=== PATIENT | female | born 1965 | race Caucasian/White ===

== ENCOUNTER 2023-03-11 10:13 | Outpatient (OUT) | payer OTHER, SELFPAY ==
--- NOTE | 2023-03-11 10:23 | MM_ITS ---
Patient: MARK OROZCO Exam Date: 03/11/2023 : 1965 Gender:F Ordering : DR RICHARDSON OGDEN . Admission #: [id number] Family : Order #: [id number] CLICK HERE TO VIEW EXAM RADIOLOGY REPORT PROCEDURE: MM TOMOSYNTHESIS SCREENING BI COMPARISON: MG MAMM SCREEN 3D PO CAD, 03/02/2022. MG MAMM SCREEN 3D PO CAD, 03/01/2021. MG MAMM SCREEN PO W CAD, 02/26/2020. MAMMO PO SCREEN, 12/27/2004. INDICATIONS: Screening Z12.31 Calculator Name NCI Breast Cancer Risk Assessment Tool 5 Year Breast Cancer Risk 1.00% Lifetime Breast Cancer Risk 6.30% Personal Breast Cancer No Personal Ovarian Cancer No Treatments None Family Cancers Father with lung cancer at age 57. LOCATION: [facility] BREAST COMPOSITION: Heterogeneously dense,which may obscure small masses. FINDINGS: DIAGNOSTIC CATEGORY 2--BENIGN FINDING: RIGHT BREAST: No significant suspicious finding. No significant change has occurred. LEFT BREAST: No significant suspicious finding. No significant change has occurred. RECOMMENDATIONS: ROUTINE MAMMOGRAM AND CLINICAL EVALUATION IN 12 MONTHS. PLEASE NOTE: A NORMAL MAMMOGRAM DOES NOT EXCLUDE THE POSSIBILITY OF BREAST CANCER. A CLINICALLY SUSPICIOUS PALPABLE LUMP SHOULD BE BIOPSIED. Dictated by: Surya Fountain M.D. on 03/12/2023 at 13:47 Approved by: Surya Fountain M.D. on 03/12/2023 at 13:51
== END 2023-03-11 10:14 ==
LOC: MAMMO 10:18
PROVIDERS: PCP Family Medicine; Visit Provider Obstetrics & Gynecology
DX: Z12.31 Encounter for screening mammogram for malignant neoplasm of breast (principal); Z80.1 Family history of malignant neoplasm of trachea, bronchus and lung
CPT/HCPCS: 77063; 77067

== ENCOUNTER 2023-06-04 20:35 | Outpatient (REF) | payer OTHER, SELFPAY ==
[2023-06-07 15:09] LABS: Age Gdln ACOG Testing Note (.); HPV Aptima Negative (Negative); IGP, Aptima HPV, rfx 16/18,45 Note (.)
== END 2023-06-04 20:36 | disposition home or self-care (01) ==
LOC: LAB 20:35
PROVIDERS: PCP Family Medicine; Visit Provider Physician Assistant
DX: Z12.4 Encounter for screening for malignant neoplasm of cervix (principal)
CPT/HCPCS: 87624; G0145

== ENCOUNTER 2023-06-12 10:34 | Outpatient (OUT) | payer OTHER, SELFPAY ==
--- NOTE | 2023-06-12 10:42 | XR_ITS ---
[address] [address] Patient Name: MARK OROZCO MRN: [id number] date: 1965 Sex: F Assigned Patient Location: [facility] Current Patient Location: [facility] Accession/Order Number: [id number] Exam Date: 06/12/2023 10:50 Report Date: 06/12/2023 16:48 At the request of: CANELO HARE Procedure: XR DEXA axial skeleton EXAMINATION: XR DEXA axial skeleton, 06/12/2023 10:50 AM EDT HISTORY: Post Menopausal Z78.0 COMPARISON: 2019. TECHNIQUE: Dual-energy X-ray absorptiometry (DEXA) bone density study performed for the axial skeleton. HISTORY: Post Menopausal Z78.0 FINDINGS: Bone mineral density lumbar spine L1-L4 measures 1.102 g/sq cm. Young adult T score -0.7. WHO classification: Normal Lowest bone mineral density left femoral neck measures 0.853 g/sq cm. T score -1.3. WHO classification: Osteopenia XR/XR DEXA axial skeleton IMPRESSION: Osteopenia. Moderate fracture risk Electronically authenticated by: DONNA EDWARDS Date: 06/12/2023 16:48
== END 2023-06-12 10:35 | disposition home or self-care (01) ==
LOC: RAD 10:34
PROVIDERS: PCP Family Medicine; Visit Provider Physician Assistant
DX: Z78.0 Asymptomatic menopausal state (principal); M85.80 Other specified disorders of bone density and structure, unspecified site
CPT/HCPCS: 77080

== ENCOUNTER 2024-03-19 10:21 | Outpatient (OUT) | payer OTHER, SELFPAY ==
--- NOTE | 2024-03-19 | MM_ITS ---
Patient Name: MARK OROZCO MR#: [id number] : 1965 Exam Date: 03/19/2024 Ordering Doctor: DR Jamey Sanches . RADIOLOGY REPORT PROCEDURE: MM TOMOSYNTHESIS SCREENING BI COMPARISON: MM TOMOSYNTHESIS SCREENING BI, 03/11/2023. MG MAMM SCREEN 3D PO CAD, 03/02/2022. MG MAMM SCREEN 3D PO CAD, 03/01/2021. MAMMO PO SCREEN, 12/27/2004. INDICATIONS: Screening for malignant neoplasm of breast Calculator Name NCI Breast Cancer Risk Assessment Tool 5 Year Breast Cancer Risk 1.10% Lifetime Breast Cancer Risk 6.10% Personal Breast Cancer No Personal Ovarian Cancer No Treatments None Family Cancers Father with lung cancer at age 57. LOCATION: [facility] BREAST COMPOSITION: The breasts are heterogeneously dense,which may obscure small masses. FINDINGS: DIAGNOSTIC CATEGORY 1--NEGATIVE. RIGHT BREAST: No significant suspicious finding. No significant change has occurred. LEFT BREAST: No significant suspicious finding. No significant change has occurred. RECOMMENDATIONS: ROUTINE MAMMOGRAM AND CLINICAL EVALUATION IN 12 MONTHS. PLEASE NOTE: A NORMAL MAMMOGRAM DOES NOT EXCLUDE THE POSSIBILITY OF BREAST CANCER. A CLINICALLY SUSPICIOUS PALPABLE LUMP SHOULD BE BIOPSIED. Dictated by: Surya Fountain M.D. on 03/19/2024 at 15:48 Approved by: Surya Fountain M.D. on 03/19/2024 at 16:07
== END 2024-03-19 10:22 | disposition home or self-care (01) ==
LOC: MAMMO 10:21
PROVIDERS: PCP Family Medicine; Visit Provider Obstetrics & Gynecology
DX: Z12.31 Encounter for screening mammogram for malignant neoplasm of breast (principal); Z80.1 Family history of malignant neoplasm of trachea, bronchus and lung
CPT/HCPCS: 77063; 77067

== ENCOUNTER 2024-06-24 21:22 | Outpatient (REF) | payer OTHER, SELFPAY ==
--- OUTSIDE RECORDS SUMMARY | 2024-06-24 21:26 | XMS_ITS | CCD ---
Author Organization [facility] Care Team Providers Care Bindery Worker Name Role Phone Andres Chinchilla Primary Care Provider Benjy Broderick Unavailable Mechelle Liang Unavailable Guillermo Olivo Unavailable Chris Loo Unavailable Andres Chinchilla MD Primary Care Provider [phone] ISAAC, DR NASH Attending Unavailable KARASIK, DR NASH Consulting Unavailable NADERER, DR ANDRES Alvarenga Primary Care Unavailable KARASIK, DR NASH Admitting Unavailable ZIEBER, DR GAUDENCIO Gross Consulting Unavailable KARASIK, DR NASH Admitting Unavailable KARASIK, DR NASH Attending Unavailable KARASIK, DR NASH Consulting Unavailable NADERER, DR ANDRES Alvarenga Primary Care Unavailable Andres Chinchilla MD Primary Care Provider [phone] ANDRES CHINCHILLA Primary Care Unavailable DARRIN, ANISHA A Admitting Unavailable DARRIN, ANISHA A Attending Unavailable DARRIN, ANISHA A Referring Unavailable STEVENERERANDRES Primary Care Unavailable KAVITHA SCHULER Attending Unavailable DARRIN, ANISHA A Admitting Unavailable DARRIN, ANISHA A Attending Unavailable MARGYRANDRES Primary Care Unavailable DARRIN, ANISHA A Referring Unavailable STEVENERERANDRES Primary Care Unavailable VERONIQUE GUTIERREZ Attending Unavailable SELF, SELF Referring Unavailable DARRIN, ANISHA A Attending Unavailable ANDRES CHINCHILLA Primary Care Unavailable DARRIN, ANISHA A Referring Unavailable MARGYRANDRES Primary Care Unavailable DARRIN, ANISHA A Attending Unavailable SELF, SELF Referring Unavailable MARGYRANDRES Primary Care Unavailable DARRIN, ANISHA A Attending Unavailable MATTVERONIQUE D Referring Unavailable STEVENERERANDRES Primary Care Unavailable DARRIN, ANISHA A Attending Unavailable SELF, SELF Referring Unavailable MARGYRANDRES Primary Care Unavailable NADERER, ANDRES Primary Care Unavailable SELF, SELF Referring Unavailable TIANA KINGSLEY Attending Unavailable SELF, SELF Referring Unavailable TIANA KINGSLEY Attending Unavailable NADERER, ANDRES Primary Care Unavailable Andres Chinchilla MD Primary Care Provider ANDRES CHINCHILLA MD Attending Unavail able NADERERANDRES Primary Care Unavailolman e ANDRES CHINCHILLA Referring Unavailabl e MD Andres Chinchilla Primary Care Provider [phone] MD Mechelle Liang Attending Provider ANDRES CHINCHILLA Attending Unavailable MD Andres Chinchilla Primary Care Provider [phone] MD Mechelle Liang Attending Provider MD Andres Chinchilla Primary Care Provider MD Mechelle Liang Attending Provider [phone] Andres Chinchilla MD Primary Care Provider SABINE BARCLAY Attending Unavailable NADEREANDRES Gross Referring Unavailable NADERER, ANDRES Primary Care Unavailable NADEREANDRES Gross Referring Unavailable AMOR, ANDRES Primary Care Unavailable MD Andres Chinchilla Primary Care Provider [phone] MD Mechelle Liang Attending Provider Mechelle Liang Admitting Unavailable Naderer, Andres Primary Care Unavailable Adryan, Mechelle R Attending Unavailable Adryan, Mechelle R Admitting Unavailable Naderer, Andres Primary Care Unavailable Calvey, Mechelle R Attending Unavailable Calvey, Mechelle R Admitting Unavailable Naderer, Andres Primary Care Unavailable Calvey, Mechelle R Attending Unavailable Calvey, Mechelle R Attending Unavailable Naderer, Andres Primary Care Unavailable Calvey, Mechelle R Admitting Unavailable Calvey, Mechelle R Attending Unavailable Calvey, Mechelle R Admitting Unavailable Naderer, Andres Primary Care Unavailable Calvey, Mechelle R Attending Unavailable Calvkarina, Mechelle R Admitting Unavailable Naderer, Andres Primary Care Unavailable Allergies Allergy Classification Reported Allergen(s) Allergy Type Date of Onset Reaction(s) Facility (5 sources) Cephalexin; Translations: [CEPHALEXIN] Drug Allergy 12-08-[address], [place] (18 sources) Penicillins; Translations: [PENICILLINS] Propensity to adverse reactions to drug 05-28-19 85 Hives, Itching, Swelling [address], [place] (11 sources) penicillAMINE Drug Allergy Unknown [employer] Other (13 sources) Narcotis Propensity to adverse reactions 11-14-19 24 [facility] (1 source) NSAIDs Drug allergy (disorder) 04-24-20 16 [facility] (1 source) Penicillins Drug allergy (disorder) 09-30-19 00 [facility] (2 sources) Not Able To Determine Propensity to adverse reactions 07-18-20 [facility] (2 sources) Penicillins Propensity to adverse reactions to drug 05-28-19 85 Hives, Itching, Rash, Swelling, Other (See Comments) [facility] Work Phone: (2 sources) Acetaminophen; Translations: [acetaminophen] Drug Allergy 04-04-20 21 [facility] (9 sources) HYDROcodone; Translations: [hydrocodone] Drug Allergy 04-04-20 21 [facility] (1 source) Penicillins Drug allergy (disorder) 03-06-20 [facility] Rep[facility] Medications Current Medications Medication Drug Class(es) Dates Sig (Normalized) Sig (Original) acetaminophen 500 mg oral tablet (12 sources) Start: 08-01-2022 take 1 tablet by mouth every six hours as needed acetaminophen 500 MG tablet Take 1 tablet by mouth every 6 hours as needed for Mild Pain. 50 tablet 0 08/01/2022 Active Tylenol Active bacillus coagulans [id number] unt / inulin 250 mg oral capsule (7 sources) Start: 11-14-2023 take 1 capsule by mouth once daily in the morning Bacillus Coagulans-Inulin (Probiotic Formula (Inulin)) 1 billion-250 cell-mg capsule Active 1 CAP PO Every morning November 14, 2023 1:00am calcium carbonate 1000 mg chewable tablet (7 sources) Start: 11-14-2023 take 1 tablet by mouth once daily in the morning Calcium Carbonate (Tums Ultra) 400 mg calcium (1,000 mg) tablet,chewable Active 400 MG PO Every morning November 14, 2023 1:00am cholecalciferol 0.05 mg oral capsule (14 sources) Vitamin D Start: 04-04-2021 take 1 capsule by mouth once daily in the morning Cholecalciferol (Vitamin D3) (Vitamin D3) 50 mcg (2,000 unit) Capsule Active 125 MCG PO Every morning April 04, 2021 12:00am Start: 04-04-2021 take 1 capsule by [facility] once daily Cholecalciferol (Vitamin D3) (Vitamin D3) 50 mcg (2,000 unit) Capsule Active 50 MCG PO Daily April 04, 2021 12:00am take 1 capsule by [facility] once daily cholecalciferol 50 MCG (2000 UT) capsule Take 2,000 Units by mouth daily. 0 Active dexlansoprazole 30 mg delayed release oral capsule (5 sources) Proton Pump Inhibitor Start: 02-13-2022 take 1 capsule by mouth every twelve hours Dexlansoprazole 30 MG 1 capsule Orally bid for 30 day(s) January, Active dicyclomine hydrochloride 20 mg oral tablet (1 source) Anticholinergic Start: 01-16-2022 take 1 tablet by mouth three times daily as needed Dicyclomine HCl 20 MG 1 tablet Orally Three times a day PRN for 30 day(s) Dec, Active 12 hr dilTIAZem hydrochloride 120 mg extended release oral capsule (5 sources) Calcium Channel Cabrera Start: 02-19-2022 take 1 capsule by mouth every twelve hours dilTIAZem HCl ER 120 MG 1 capsule Orally Twice a day for 90 days January, Active estrogens, conjugated (mcfp) 0.625 mg/ml vaginal cream (9 sources) Estrogen Start: 02-07-2023 PREMARIN vaginal cream Start: 04-04-2021 Conjugated Est rogens (Premarin) 0.625 mg/gram cream Active 1 APPLIC VAGINAL 3 Times a week April 04, 2021 12:00am HERBAL PRODUCT (6 sources) HERBAL PRODUCT isogenics 0 Active levothyroxine sodium 0.125 mg oral tablet (20 sources) l-Thyroxine Start: 04-04-2021 End: 08-01-2022 take 1 tablet by mouth once daily in the morning Levothyroxine (Synthroid) 125 mcg tablet Active 125 MCG PO Every morning April 04, 2021 12:00am [facility] Levothyroxine Sodium 125 MCG 1 tablet Orally Once a day Active Multiple Vitamins-Minerals ( PRESERVISION AREDS 2 PO) (6 sources) Multiple Vitamin s-Minerals (PRESERVISION AREDS 2 PO) Take 2 tablets by mouth. 0 Active Multivitamin preparation (6 sources) Multivitamin Act shiv Multivitamin/Iron (5 sources) Multivitamin/Iro n Orally Active Oil Base Liquid (6 sources) Oil Base Liquid Take by mouth. CBD 0 Active Oil Base Liquid Apply topically. CBD 0 Active oxyCODONE hydrochloride 5 mg oral tablet (2 sources) Opioid Agonist Start: 08-01-2022 End: 08-08-2022 take 1 tablet by mouth every six hours as needed oxyCODONE 5 MG tablet Indications: S/P repair of paraesophageal hernia Take 1 tablet by mouth every 6 hours as needed for up to 7 days. 10 tablet 0 08/01/2022 08/08/2022 Active Start: 07-31-2022 End: 08-01-2022 take 1 tablet by mouth every three hours as needed oxyCODONE (ROXICODONE) tablet 5 mg Probiotic Product (PROBIOTIC DAILY PO) (2 sources) Probiotic Produc t (PROBIOTIC DAILY PO) Take by mouth daily. 0 Active promethazine hydrochloride 12.5 mg oral tablet (2 sources) Phenothiazine Start: 08-01-2022 End: 08-15-2022 take 1 tablet by mouth every six hours as needed Promethazine HCl 12.5 MG tablet Take 1 tablet by mouth every 6 hours as needed for up to 14 days. 21 tablet 0 08/01/2022 Active Vit C,M-Yn-Mvrri-Lutein-Elizabeth sam (Preservision Areds-2) 250-90-40-1 mg Capsule (8 sources) Start: 04-04-2021 Vit C,K-Oa-Zyqme-Lutein-Ze axan (Preservision Areds-2) 250-90-40-1 mg Capsule Active 2 TAB PO Every morning April 04, 2021 12:00am Start: 04-04-2021 Vit C,E-Zn-Ophthalmic Pathologist ul-Xgcexh-Vxijzw (Preservision Areds-2) 250-90-40-1 mg Capsule Active 2 TAB PO Every morning April 03, 2021 11:00pm Start: 07-06-2021 Vit C,E-Zn-Ophthalmic Pathologist hu-Biylol-Qqyncr (Preservision Areds-2) 250-90-40-1 mg Capsule Active 2 TAB PO Daily April 04, 2021 12:00am Vitamin B Complex (6 sources) Vitamin B Comple x Active Completed/Discontinued Medications Medication Drug Class(es) Dates Sig (Normalized) Sig (Original) acetaminophen 325 mg / HYDROcodone bitartrate 5 mg oral tablet (5 sources) Opioid Agonist Start: 11-28-2023 End: 12-27-2023 take 1 tablet by mouth every four to six hours Hydrocodone-Acetami nophen Discontinued 1 - 2 TAB PO EVERY 4-6 HOURS 50 7 November 28, 2023 December 27, 2023 8:18am calcium chloride 0.0014 meq/ml / potassium chloride 0.004 meq/ml / sodium chloride 0.103 meq/ml / sodium lactate 0.028 meq/ml injectable solution (2 sources) Start: 07-31-2022 End: 08-01-2022 take 1 mL by mouth every hour Intravenous, at 100 mL/hr, CONTINUOUS, Starting on Sat07/31/22 at 1030, Until Sat08/01/22 at 1244 May discontinue when patient taking adequate oral liquids. Post-op/Post-Proc Start: 07-31-2022 End: 07-31-2022 lactated ringers IV solution doxycycline hyclate 100 mg oral tablet (5 sources) Tetracycline-class Drug Start: 11-28-2023 End: 03-06-2024 take 100 mg by mouth twice daily Doxycycline Hyclate Discontinued 100 MG PO Twice daily 10 5 November 28, 2023 1:00am March 06, 2024 9:48am 0.4 ml enoxaparin sodium 100 mg/ml prefilled syringe (1 source) Low Molecular Weight Heparin Start: 08-01-2022 End: 08-01-2022 inject 40 mg by subcutaneous injection every twenty-four hours 40 mg, Subcutaneous, EVERY 24 HOURS, First dose on Sat08/01/22 at 0900, Until Discontinued Indications: DVT/PE prophylaxis, Post-op/Post-Pro c esomeprazole 40 mg delayed release oral capsule (17 sources) Proton Pump Inhibitor Start: 12-18-2021 End: 08-01-2022 take 1 capsule by mouth once daily esomeprazole [address] capsule Take 40 mg by mouth daily. 0 12/18/2021 08/01/2022 Discontinued (Stop Taking at Discharge) Start: 12-07-2021 take 1 capsule by [facility] every twenty-four hours Esomeprazole Magnesium 40 MG 1 capsule Orally Once a day for 90 days Nov, Active Start: 11-20-2021 End: 11-14-2023 take 40 mg by mouth twice daily Esomeprazole Magnesium Discontinued 40 MG PO Twice daily 60 November 20, 2021 1:00am November 14, 2023 12:32pm 2 ml fentaNYL 0.05 mg/ml injection (2 sources) Opioid Agonist Start: 04-26-2022 End: 04-26-2022 fentaNYL (SUBLIMAZE) injection fluticasone propionate 0.05 mg/actuat metered dose nasal spray (8 sources) Corticosteroid Start: 11-14-2023 End: 11-19-2023 Fluticasone Propionate Discontinued 1 SPRAY INTRANASAL Daily November 14, 2023 1:00am November 19, 2023 12:24pm fluticasone prop ionate (FLONASE) 50 mcg/actuation nasal spray Administer into each nostril daily. 0 Active 1 ml ketorolac tromethamine 15 mg/ml cartridge (1 source) Nonsteroidal Anti-inflammatory Drug, Cyclooxygenase Inhibitor Start: 07-31-2022 End: 08-01-2022 take 15 mg intravenously every six hours 15 mg, Intravenous, EVERY 6 HOURS NON-STANDARD, 4 doses, First dose on Sat07/31/22 at 1030, Last dose on Sat08/01/22 at 0430, Post-op/Post-Proc 2 ml midazolam 1 mg/ml injection (2 sources) Benzodiazepine Start: 04-26-2022 End: 04-26-2022 Midazolam HCl (PF) (VERSED) injection morphine (PF) injection 2 mg (1 source) Start: 07-31-2022 End: 08-01-2022 take 2 mg intravenously every three hours as needed morphine (PF) injection 2 mg ondansetron 4 mg disintegrating oral tablet (8 sources) Serotonin-3 Receptor Antagonist Start: 11-28-2023 End: 03-06-2024 take 4 mg by mouth every six hours Ondansetron Discontinued 4 MG PO Every 6 hours 30 7 November 28, 2023 1:00am March 06, 2024 9:48am Start: 08-01-2022 take 1 tablet by adeel th every eight hours as needed ondansetron 4 MG Tab Dispersible tablet Take 1 tablet by mouth every 8 hours as needed for Nausea / Vomiting. 20 tablet 0 08/01/2022 Active Start: 07-31-2022 End: 08-01-2022 4 mg, Intravenous, EVERY 6 H OURS, First dose on Sat07/31/22 at 1200, Until Discontinued, Post-op/Post-Proc Prochlorperazine (1 source) Phenothiazine Start: 07-31-2022 End: 08-01-2022 take 1 tablet by mouth every six hours as needed prochlorperazine (COMPAZINE) tablet 5 mg triamcinolone acetonide 40 mg/ml injectable suspension (20 sources) Corticosteroid Start: 01-23-2023 Kenalog-40 20 May, 2023 20 mg Start: 10-10-2021 Kenalog -40 mg Sep, 20 mg Start: 01-10-2021 Kenalog -40 mg Dec, 40 mg Start: 08-10-2020 Kenalog -40 mg Jul, 10 mg Start: 05-06-2020 Kenalog -40 mg Apr, 40 mg Start: 04-28-2020 Kenalog -40 mg Mar, 40 mg Start: 07-01-2019 Kenalog -40 mg Jun, 40 mg Problems Active Problems Problem Classification Problem Date Documented Da te Episodic/Chronic Abdominal hernia (3 sources) Paraesophageal hernia; Translations: [Diaphragmatic hernia without obstruction or gangrene] Onset: 07-31-2022 Episodic Conditions associated with dizziness or vertigo (1 source) Dizziness and giddiness; Translations: [Dizziness and giddiness] Onset: 01-09-2024 Episodic Disorders of lipid metabolism (1 source) Hyperlipidemia, unspecified; Translations: [Hyperlipidemia, unspecified] Onset: 10-08-2023 Chronic Esophageal disorders (20 sources) Diffuse spasm of esophagus; Translations: [Dyskinesia of esophagus] Onset: 10-26-2021 Resolved: 01-16-2022 Chronic Esophageal disorders (5 sources) Hypertensive lower esophageal sphincter; Translations: [Achalasia of cardia] Episodic Nutritional deficiencies (3 sources) Vitamin D deficiency, unspecified; Translations: [Vitamin D deficiency, unspecified] Onset: 09-17-2022 Chronic Osteoarthritis (20 sources) Arthritis of first carpometacarpal joint of right hand; Translations: [Unilateral primary osteoarthritis of first carpometacarpal joint, right hand] Onset: 10-10-2021 Resolved: 10-10-2021 Chronic Other connective tissue disease (11 sources) Supraspinatus tear; Translations: [Unspecified rotator cuff tear or rupture of right shoulder, not specified as traumatic] Episodic Other connective tissue disease (4 sources) Pain in right hand Onset: 10-10-2021 Resolved: 10-10-2021 Episodic Other connective tissue disease (9 sources) Dupuytren's disease of palm; Translations: [Palmar fascial fibromatosis [Dupuytren]] 11-18-2023 Episodic Other connective tissue disease (20 sources) Palmar fascial fibromatosis [Dupuytren]; Translations: [Contracture of palmar fascia] Episodic Other gastrointestinal disorders (6 sources) Irritable bowel syndrome; Translations: [Irritable bowel syndrome without diarrhea] Chronic Other gastrointestinal disorders (1 source) Irritable bowel syndrome without diarrhea Onset: 01-16-2022 Resolved: 01-16-2022 Chronic Other gastrointestinal disorders (9 sources) Dysphagia; Translations: [Dysphagia, unspecified] Episodic Other gastrointestinal disorders (2 sources) Personal history of other diseases of the digestive system; Translations: [Personal history of other diseases of the digestive system] Onset: 07-31-2022 Episodic Other nervous system disorders (5 sources) Pain in limb; Translations: [Other acute postprocedural pain] 11-28-2023 Episodic Other nutritional; endocrine; and metabolic disorders (7 sources) Obese class I; Translations: [Obesity, unspecified] Onset: 04-20-2022 04-20-2022 Chronic Other nutritional; endocrine; and metabolic disorders (2 sources) Obesity, unspecified; Translations: [Obesity, unspecified] Onset: 04-20-2022 Chronic Other screening for suspected conditions (not mental disorders or infectious disease) (9 sources) Encounter for screening for malignant neoplasm of cervix; Translations: [Encounter for screening mammogram for malignant neoplasm of breast] Onset: 03-02-2022 Episodic Residual codes; unclassified (18 sources) Other specified postprocedural states; Translations: [Other postprocedural status] Onset: 10-10-2021 Resolved: 10-10-2021 Episodic Residual codes; unclassified (1 source) Family history of malignant neoplasm of trachea, bronchus and lung; Translations: [FAM HX MALIG NEOPLSM TRACH BRON LNG] Onset: 03-08-2022 Episodic Residual codes; unclassified (1 source) History of hernia repair; Translations: [Other specified postprocedural states] Episodic Residual codes; unclassified (1 source) History of fundoplication; Translations: [Other specified postprocedural states] Episodic Residual codes; unclassified (5 sources) Postprocedural state finding; Translations: [Other specified postprocedural states] 12-05-2023 Episodic Thyroid disorders (12 sources) Acquired hypothyroidism; Translations: [Hypothyroidism, unspecified] Onset: 07-17-2022 Chronic Unclassified (1 source) Patient encounter status; Translations: [Other plastic surgery for unacceptable cosmetic appearance] Onset: 12-07-2013 12-07-2013 Unclassified (2 sources) Post Op Visit; Translations: [Post Op Visit] Onset: 08-31-2022 Unclassified (1 source) New Patient Onset: 01-09-2024 Unclassified (1 source) Encounter for other preprocedural examination; Translations: [Encounter for other preprocedural examination] Onset: 11-14-2023 Unclassified (1 source) Unilateral primary osteoarthritis of first carpometacarpal joint, right hand; Translations: [Unilateral primary osteoarthritis of first carpometacarpal joint, right hand] Onset: 06-19-2023 Past or Other Problems Problem Classification Problem Date Documented Da te Episodic/Chronic Abdominal pain (3 sources) Abdominal pain; Translations: [Abdominal pain] Episodic Diabetes mellitus without complication (1 source) Prediabetes; Translations: [Prediabetes] Onset: 10-08-2023 Episodic Mood disorders (1 source) Mood disorders Onset: 03-11-2023 03-11-2023 Other aftercare (3 sources) Other terminal makeup operator (current) drug therapy; Translations: [Other jail (current) drug therapy] Onset: 09-17-2022 Episodic Other connective tissue disease (1 source) Unspecified rotator cuff tear or rupture of right shoulder, not specified as traumatic Onset: 10-10-2021 Resolved: 10-10-2021 Episodic Other connective tissue disease (1 source) Pain in right foot Onset: 06-18-2022 Resolved: 06-18-2022 Episodic Other gastrointestinal disorders (3 sources) Constipation; Translations: [Constipation] Episodic Other gastrointestinal disorders (2 sources) Dysphagia, unspecified Onset: 10-26-2021 Resolved: 01-16-2022 Episodic Residual codes; unclassified (2 sources) Patient encounter status; Translations: [Encounter for cosmetic surgery] Onset: 12-07-2013 12-07-2013 Episodic Sprains and strains (1 source) Unspecified sprain of right foot, initial encounter Onset: 06-18-2022 Resolved: 06-18-2022 Episodic Unclassified (1 source) Onset: 03-11-2023 03-11-2023 Results Test Name Value Interpretation Reference Range Facility XR hand RT min 3V*on 024 XR hand RT min 3V* [facility] [address] [place] [address] XRay Report Signed Patient: Tiana Orozco MR#: [id number] 992 : 1965 Acct:[id number] Age/Sex: 59 / F ADM Date: 03/06/24 Loc: [facility] Room: Type: [facility] Attending Dr: Mechelle Liang MD Copies to: Mechelle Liang MD Ordering Provider: Mechelle Liang MD Date of Service: 03/06/24 XR/XR hand RT min 3V*: Z98.890 - Other specified postprocedural states RIGHT HAND - 4 views CLINICAL DATA: Follow-up first carpal metacarpal fusion. COMPARISON: 01/24/2024 AP, lateral and oblique views were obtained along with supplemental AP view of the thumb. Two orthopedic alonzo are again visualized at the first carpal metacarpal joint. Appearance is unchanged. There is no developing fracture or dislocation. There are no significant soft tissue abnormalities. XR/XR hand RT min 3V* IMPRESSION: STABLE FIRST CARPAL METACARPAL FUSION Impression dictated by: Vianney Castañeda M.D.03/06/2024 2:46 PM Dictation Location: [place] [address] Transcribed By: [facility] 03/06/24 1446 Dictated By: Vianney Castañeda MD 03/06/24 1445 Signed By: 03/06/24 1446 Normal [facility] XR hand RT min 3V*on 024 XR hand RT min 3V* [facility] [place] [address] XRay Report Signed Patient: Tiana Orozco MR#: [id number] 992 : 1965 Acct:[id number] Age/Sex: 59 / F ADM Date: 01/24/24 Loc: [facility] Room: Type: [facility] Attending Dr: Mechelle Liang MD Copies to: Mechelle Liang MD Ordering Provider: Mechelle Liang MD Date of Service: 01/24/24 XR/XR hand RT min 3V*: Z98.890 - Other specified postprocedural states RIGHT HAND - 4 views CLINICAL DATA: Follow-up first carpal metacarpal fusion COMPARISON: 12/27/2023 AP, lateral and oblique views were obtained along with supplemental AP view of the thumb. There are postoperative changes of first carpal metacarpal fusion with 2 orthopedic alonzo are again noted. Findings are similar to the comparison. There is no developing fracture or dislocation. There are no significant soft tissue abnormalities. XR/XR hand RT min 3V* IMPRESSION: STABLE POSTOPERATIVE CHANGES AT THE FIRST CARPOMETACARPAL JOINT. Impression dictated by: Vianney Castañeda M.D.01/24/2024 10:24 AM Dictation Location: [facility]- Transcribed By: [facility] 01/24/24 1024 Dictated By: Vianney Castañeda MD 01/24/24 1022 Signed By: 01/24/24 1024 Normal [facility] XR hand RT min 3V*on 024 XR hand RT min 3V* [facility] [place] [address] XRay Report Signed Patient: Tiana Orozco MR#: [id number] 992 : 1965 Acct:[id number] Age/Sex: 58 / F ADM Date: 12/27/23 Loc: [facility] Room: Type: [facility] Attending Dr: Mechelle Liang MD Copies to: Mechelle Liang MD Ordering Provider: Mechelle Liang MD Date of Service: 12/27/23 XR/XR hand RT min 3V*: Z98.890 - Other specified postprocedural states RIGHT HAND - 4 views CLINICAL DATA: Follow-up first metacarpal metacarpal fusion COMPARISON: 06/19/2023 appearance to 11/08/2023 (intraoperative) sees AP, lateral and oblique views were obtained along with supplemental AP view of the thumb. There is redemonstration of 2 orthopedic alonzo bridging the first carpal metacarpal joint. This is similar to the intraoperative exam. A bone grafting donor site is present at the distal radius. There is no developing fracture or dislocation. There are no significant soft tissue abnormalities. XR/XR hand RT min 3V* IMPRESSION: SIMILAR FIRST CARPAL METACARPAL FUSION. Impression dictated by: Vianney Castañeda M.D.12/27/2023 1:48 PM Dictation Location: [place] [address] Transcribed By: [facility] 12/27/23 1348 Dictated By: Vianney Castañeda MD 12/27/23 1345 Signed By: 12/27/23 1348 Normal [facility] XR finger RT thumbon 024 XR finger RT thumb [facility] [place] [address] XRay Report Signed Patient: Tiana Orozco MR#: [id number] : 1965 Acct:[id number] Age/Sex: 58 / F ADM Date: 11/28/23 Loc: [place] Room: Type: [facility] Attending Dr: Mechelle Liang MD Copies to: Mechelle Liang MD Ordering Provider: Mechelle Liang MD Date of Service: 11/28/23 XR/XR finger RT thumb: . XR finger RT thumb 11/28/2023 11:05 AM SIGNS AND SYMPTOMS: Right thumb carpometacarpal fusion PROTOCOL: Intraoperative views of the right thumb COMPARISON: 06/19/2023 FINDINGS: Intraoperative views demonstrate fusion hardware across the first carpometacarpal junction. Cumulative Air Kerma in mGy: 0.316 mGy XR/XR finger RT thumb IMPRESSION: Intraoperative views demonstrate fusion hardware across the first carpometacarpal junction. Impression dictated by: Gabriel Mccracken M.D.11/28/2023 1:01 PM Dictation Location: [place] [address] Transcribed By: CHANTELLE 11/28/23 1301 Dictated By: Gabriel Mccracken II, MD 11/28/23 1300 Signed By: 11/28/23 1301 Normal [facility] Alanine aminotransferase [En zymatic activity/volume] in Serum or PlasmaOrdered By: Mechelle Liang on 11-14-2023 ALT [Catalytic activity/Vol] 20 U/L Normal 7-52 [facility] Comment on above: Performed By: #### C MP wRFX A1C, CBC #### [facility] [address] [place] [address] [place] Albumin [Mass/volume] in Ser um or Plasma by Bromocresol green (BCG) dye binding methoOrdered By: Mechelle Liang on 11-14-2023 Albumin BCG dye [Mass/Vol] 4.2 g/dL 3.5-5.7 [facility] Alkaline phosphatase [Enzyma tic activity/volume] in Serum or PlasmaOrdered By: Mechelle Liang on 11-14-2023 ALP [Catalytic activity/Vol] 54 U/L Normal 34-104 [facility] Comment on above: Result Comment: PERF ORMED BY: [place] [address] PATHOLOGIST [employer] DEBBY RICHARDS M.D. Performed By: #### C MP wRFX A1C, CBC #### [facility] [address] [place] [id number] [place] Aspartate aminotransferase [ Enzymatic activity/volume] in Serum or PlasmaOrdered By: Mechelle Liang on 11-14-2023 AST [Catalytic activity/Vol] 19 U/L Normal 13-39 [facility] Comment on above: Performed By: #### C MP wRFX A1C, CBC #### [facility] [address] Automated basophil %Ordered By: Mechelle Liang on 11-14-2023 Basophils/100 WBC (Bld) 1.0 % Normal . [facility] Comment on above: Performed By: #### C MP wRFX A1C, CBC #### [facility] [address] [place] [address] Automated basophil countOrde red By: Mechelle Liang on 11-14-2023 Basophils (Bld) [#/Vol] 0.1 10*3/uL Normal 0.0-0.2 [facility] Comment on above: Result Comment: PERF ORMED BY: [place] [address] PATHOLOGIST [employer] ESTIMATOR DEBBY RICHARDS M.D. Performed By: #### C MP wRFX A1C, CBC #### [address] Automated blood monocyte cou ntOrdered By: Mechelle Liang on 11-14-2023 Monocytes (Bld) [#/Vol] 0.5 10*3/uL Normal 0.0-0.8 [facility] Comment on above: Performed By: #### C MP wRFX A1C, CBC #### [address] Automated eosinophil %Ordere d By: Mechelle Liang on 11-14-2023 Eosinophils/100 WBC (Bld) 1.8 % Normal . [facility] Comment on above: Performed By: #### C MP wRFX A1C, CBC #### [address] Automated eosinophil countOr dered By: Mechelle Liang on 11-14-2023 Eosinophils (Bld) [#/Vol] 0.1 10*3/uL Normal 0.0-0.45 [facility] Comment on above: Performed By: #### C MP wRFX A1C, CBC #### [address] Automated monocyte %Ordered By: Mechelle Liang on 11-14-2023 Monocytes/100 WBC (Bld) 8.6 % Normal . [facility] Comment on above: Performed By: #### C MP wRFX A1C, CBC #### [facility] [address] Automated neutrophil %Ordere d By: Mechelle Liang on 11-14-2023 Neutrophils/100 WBC (Bld) 64.6 % Normal . [facility] Comment on above: Performed By: #### C MP wRFX A1C, CBC #### [facility] [address] Bilirubin.total [Mass/volume ] in Serum or PlasmaOrdered By: Mechelle Liang on 11-14-2023 Bilirubin [Mass/Vol] 0.3 mg/dL Normal 0.3-1.0 [facility] Comment on above: Performed By: #### C MP wRFX A1C, CBC #### [address] CMP with reflex to A1Con Albumin [Mass/Vol] 4.2 g/dL Normal 3.5-5.7 [facility] Comment on above: Performed By: #### C MP wRFX A1C, CBC #### [place] [address] [place] GFR/1.73 sq M.predicted MDRD (S/P/Bld) [Vol rate/Area] mL/min/{1.73_m2} Normal [facility] Comment on above: Performed By: #### C MP wRFX A1C, CBC #### [place] [address] [place] Calcium [Mass/volume] in Ser um or PlasmaOrdered By: Mechelle Liang on 11-14-2023 Calcium [Mass/Vol] 9.4 mg/dL Normal 8.6-10.3 [facility] Comment on above: Performed By: #### C MP wRFX A1C, CBC #### [facility] [address] [place] [address] [place] Carbon dioxide, total [Moles /volume] in Serum or PlasmaOrdered By: Mechelle Liang on 11-14-2023 CO2 [Moles/Vol] 29.7 mmol/L Normal 21.0-31.0 [facility] Comment on above: Performed By: #### C MP wRFX A1C, CBC #### [facility] [address] [place] [address] Chloride [Moles/volume] in S marychuy or PlasmaOrdered By: Mechelle Liang on 11-14-2023 Chloride [Moles/Vol] 105 mmol/L Normal 98-107 [facility] Comment on above: Performed By: #### C MP wRFX A1C, CBC #### [facility] [address] [place] [address] Complete Blood Count Auto Di ffon 11-14-2023 Mean Corpuscular HGB Conc 34.4 g/dL Normal 32.0-35.0 [facility] Comment on above: Performed By: #### C MP wRFX A1C, CBC #### [facility] [address] [place] [address] NRBC% 0.0 /100{WBC} Normal 0-0.5 [facility] Comment on above: Performed By: #### C MP wRFX A1C, CBC #### [address] Creatinine [Mass/volume] in Serum or PlasmaOrdered By: Mechelle Liang on 11-14-2023 Creatinine [Mass/Vol] 0.66 mg/dL Normal 0.60-1.20 [facility] Comment on above: Performed By: #### C MP wRFX A1C, CBC #### [facility] [address] [place] [address] [place] ECG 12 lead ECGon 11-14-2023 ECG 12 lead ECG [facility] [address] [place] [address] [place] [address] Electrocardiograph Report Signed Patient: Tiana Orozco MR#: [id number] 992 : 1965 Acct:[id number] Age/Sex: 58 / F ADM Date: 11/14/23 Loc: [place] Room: Type: [facility] Attending Dr: Mechelle Liang MD Ordering Provider: Mechelle Liang MD Date of Service: 11/14/23 ECG/ECG 12 lead ECG: Pre op Copies to: Test Reason : Blood Pressure : / mmHG Vent. Rate : 070 BPM Atrial Rate : 070 BPM P-R Int : 158 ms QRS Dur : 078 ms QT Int : 392 ms P-R-T Axes : 055 -13 035 degrees QTc Int : 423 ms Normal sinus rhythm Possible Lateral infarct , age undetermined Abnormal ECG When compared with ECG of 04-APR-2021 15:51, No significant change was found Confirmed by Gee Zepeda ([id number]) on 11/15/2023 6:13:45 PM Referred By: ADRYAN Electronically Signed By:Gee Zepeda Transcribed By: MUS Signed By Gee Zepeda MD 11/15/23 181 Normal [facility] Erythrocyte distribution wid th [Ratio] by Automated countOrdered By: Mechelle Liang on 11-14-2023 Erythrocyte distribution width (RBC) [Ratio] 11.7 % Low 11.9-15.3 [facility] Comment on above: Performed By: #### C MP wRFX A1C, CBC #### [facility] [address] [place] [address] [place] Erythrocytes [#/volume] in B lood by Automated countOrdered By: Mechelle Liang on 11-14-2023 RBC (Bld) [#/Vol] 4.23 10*6/uL Normal 3.60-5.[address] [facility] Comment on above: Performed By: #### C MP wRFX A1C, CBC #### [facility] [address] [place] [address] [place] Glucose [Mass/volume] in Ser um or PlasmaOrdered By: Mechelle Liang on 11-14-2023 Glucose [Mass/Vol] 92 mg/dL Normal 70-100 [facility] Comment on above: Performed By: #### C MP wRFX A1C, CBC #### [facility] [address] [place] [id number] [place] Hematocrit [Volume Fraction] of Blood by Automated countOrdered By: Mechelle iLang on 11-14-2023 Hematocrit (Bld) [Volume fraction] 39.7 % Normal 34.0-46.4 [facility] Comment on above: Performed By: #### C MP wRFX A1C, CBC #### [address] Hemoglobin [Mass/volume] in BloodOrdered By: Mechelle Liang on 11-14-2023 Hemoglobin (Bld) [Mass/Vol] 13.7 g/dL Normal 11.8-15.4 [facility] Comment on above: Performed By: #### C MP wRFX A1C, CBC #### [address] Leukocytes [#/volume] correc nathalie for nucleated erythrocytes in Blood by Automated counOrdered By: Mechelle Liang on 11-14-2023 WBC corrected for nucl RBC Auto (Bld) [#/Vol] 6.0 10*3/uL 3.8-11.6 [facility] Leukocytes [#/volume] in Blo od by Automated countOrdered By: Mechelle Liang on 11-14-2023 WBC (Bld) [#/Vol] 6.0 10*3/uL Normal 3.8-11.6 [facility] Comment on above: Performed By: #### C MP wRFX A1C, CBC #### [facility] [address] [place] [address] [place] Lymphocytes [#/volume] in Bl ood by Automated countOrdered By: Mechelle Liang on 11-14-2023 Lymphocytes (Bld) [#/Vol] 1.4 10*3/uL Normal 1.00-4.8 [facility] Comment on above: Performed By: #### C MP wRFX A1C, CBC #### [facility] [address] [place] [address] [place] Lymphocytes/100 leukocytes i n Blood by Automated countOrdered By: Mechelle Liang on 11-14-2023 Lymphocytes/100 WBC (Bld) 24.0 % Normal . [facility] Comment on above: Performed By: #### C MP wRFX A1C, CBC #### [facility] [address] [place] [address] MCH [Entitic mass] by Automa nathalie countOrdered By: Mechelle Liang on 11-14-2023 MCH (RBC) [Entitic mass] 32.3 pg Normal 24.7-34.3 [facility] Comment on above: Performed By: #### C MP wRFX A1C, CBC #### [facility] [address] [place] [address] MCHC Auto (RBC) [Mass/Vol]Or dered By: Mechelle Liang on 11-14-2023 MCHC (RBC) [Mass/Vol] 34.4 g/dL 32.0-35.0 [facility] MCV [Entitic volume] by Auto mated countOrdered By: Mechelle Liang on 11-14-2023 MCV (RBC) [Entitic vol] 93.9 fL Normal 80-100 [facility] Comment on above: Performed By: #### C MP wRFX A1C, CBC #### [facility] [address] [place] [address] Neutrophils [#/volume] in Bl ood by Automated countOrdered By: Mechelle Liang on 11-14-2023 Neutrophils (Bld) [#/Vol] 3.9 10*3/uL Normal 1.8-7.7 [facility] Comment on above: Performed By: #### C MP wRFX A1C, CBC #### [facility] [address] [place] [address] No Panel InformationOrdered By: Mechelle Liagn on 11-14-2023 Estimated GFR (CKD-EPI) > 60.0 mL/Min [facility] Creatinine Clearance (Chem N/A [facility] Nucleated erythrocytes [Pres ence] in Blood by Automated countOrdered By: Mechelle Liang on 11-14-2023 Nucleated RBC Auto Ql (Bld) 0.0 /100{WBC} 0-0.5 [facility] Platelet mean volume [Entiti c volume] in Blood by Automated countOrdered By: Mechelle Liang on 11-14-2023 Platelet mean volume (Bld) [Entitic vol] 9.3 fL Normal 6.3-10.7 [facility] Comment on above: Performed By: #### C MP wRFX A1C, CBC #### [facility] [address] Platelets [#/volume] in Bloo d by Automated countOrdered By: Mechelle Liang on 11-14-2023 Platelets (Bld) [#/Vol] 214 10*3/uL Normal 150-450 [facility] Comment on above: Performed By: #### C MP wRFX A1C, CBC #### [facility] [address] Potassium [Moles/volume] in Serum or PlasmaOrdered By: Mechelle Liang on 11-14-2023 Potassium [Moles/Vol] 4.0 mmol/L Normal 3.5-5.1 [facility] Comment on above: Performed By: #### C MP wRFX A1C, CBC #### [facility] [address] Protein [Mass/volume] in Ser um or PlasmaOrdered By: Mechelle Liang on 11-14-2023 Protein [Mass/Vol] 6.4 g/dL Normal 6.4-8.9 [facility] Comment on above: Performed By: #### C MP wRFX A1C, CBC #### [facility] [address] Serum globulin measurement b y calculation (mass/volume)Ordered By: Mechelle Liang on 11-14-2023 Globulin (S) [Mass/Vol] 2.2 g/dL Normal [facility] Comment on above: Performed By: #### C MP wRFX A1C, CBC #### [facility] [address] [place] [address] [place] Serum or plasma albumin/glob ulin mass ratioOrdered By: Mechelle Liang on 11-14-2023 Albumin/Globulin [Mass ratio] 1.9 {ratio} Normal [facility] Comment on above: Performed By: #### C MP wRFX A1C, CBC #### [facility] [address] Serum or plasma anion gap de terminationOrdered By: Mechelle Liang on 11-14-2023 Anion gap [Moles/Vol] 10.3 mmol/L Normal 6.0-15.0 [facility] Comment on above: Performed By: #### C MP wRFX A1C, CBC #### [facility] [address] [place] [address] [place] Sodium [Moles/volume] in Ser um or PlasmaOrdered By: Mechelle Liang on 11-14-2023 Sodium [Moles/Vol] 141 mmol/L Normal 136-145 [facility] Comment on above: Performed By: #### C MP wRFX A1C, CBC #### [facility] [address] Urea nitrogen [Mass/volume] in Serum or PlasmaOrdered By: Mechelle Liang on 11-14-2023 Urea nitrogen [Mass/Vol] 17 mg/dL Normal 7-25 [facility] Comment on above: Performed By: #### C MP wRFX A1C, CBC #### [facility] [address] [place] [address] BASIC METABOLIC PANLon 10-08 Anion gap [Moles/Vol] 8 mmol/L Normal 5-15 [facility] Comment on above: Performed By: #### 2 4331-1, BMP, LIVR, 08053-7, THYR, 3051-0, CBCA #### [facility] ([id number]) [address] [place] [address] Calcium [Mass/Vol] 9.8 mg/dL Normal 8.5-10.5 [facility] Comment on above: Performed By: #### 2 4331-1, BMP, LIVR, 07768-9, THYR, 3051-0, CBCA #### [facility] ([id number]) [address] [place] [address] Chloride [Moles/Vol] 100 mmol/L Normal 98-109 [facility] Comment on above: Performed By: #### 2 4331-1, BMP, LIVR, 35430-8, THYR, 3051-0, CBCA #### [facility] ([id number]) [address] [place] [address] CO2 [Moles/Vol] 31 mmol/L Normal 22-32 [facility] Comment on above: Performed By: #### 2 4331-1, BMP, LIVR, 17768-8, THYR, 3051-0, CBCA #### [facility] ([id number]) [address] [place] [address] Creatinine [Mass/Vol] 0.79 mg/dL Normal 0.40-1.00 [facility] Comment on above: Result Comment: METH OD TRACEABLE TO IDMS STANDARD Performed By: #### 2 4331-1, BMP, LIVR, 78957-7, THYR, 3051-0, CBCA #### [facility] ([id number]) [address] [place] [address] GFR/1.73 sq M.predicted among non-blacks MDRD (S/P/Bld) [Vol rate/Area] 87 mL/min/{1.73_m2} Normal >59 [facility] Comment on above: Result Comment: Reported eGFR is based on the CKD-EPI 2020 equation that does not use a race coefficient. Performed By: #### 2 4331-1, BMP, LIVR, 78732-7, THYR, 3051-0, CBCA #### [facility] ([id number]) [address] [place] [address] Glucose [Mass/Vol] 97 mg/dL Normal 65-99 [facility] Comment on above: Performed By: #### 2 4331-1, BMP, LIVR, 17043-0, THYR, 3051-0, CBCA #### [facility] ([id number]) [address] [place] [address] Potassium [Moles/Vol] 4.1 mmol/L Normal 3.5-5.0 [facility] Comment on above: Performed By: #### 2 4331-1, BMP, LIVR, 73776-1, THYR, 3051-0, CBCA #### [facility] ([id number]) [address] [place] [address] Sodium [Moles/Vol] 139 mmol/L Normal 134-146 [facility] Comment on above: Performed By: #### 2 4331-1, BMP, LIVR, 52051-0, THYR, 3051-0, CBCA #### [facility] ([id number]) [address] [address] [place] [address] Urea nitrogen [Mass/Vol] 24 mg/dL High 5-23 [facility] Comment on above: Performed By: #### 2 4331-1, BMP, LIVR, 49970-0, THYR, 3051-0, CBCA #### [facility] ([id number]) [address] [address] [place] [address] CBC AND AUTO DIFFon 10-08-19 24 ABSOLUTE BASOPHIL 0.1 X10E9/L Normal 0.0-0.2 [facility] Comment on above: Performed By: #### 2 4331-1, BMP, LIVR, 13079-6, THYR, 3051-0, CBCA #### [facility] ([id number]) [address] [address] [place] [address] ABSOLUTE NEUTROPHIL 4.0 X10E9/L Normal 1.5-6.6 [facility] Comment on above: Performed By: #### 2 4331-1, BMP, LIVR, 98549-1, THYR, 3051-0, CBCA #### [facility] ([id number]) [address] [address] [place] [address] Basophils/100 WBC (Bld) 0.8 % Normal [facility] Comment on above: Performed By: #### 2 4331-1, BMP, LIVR, 95749-9, THYR, 3051-0, CBCA #### [facility] ([id number]) [address] [address] [place] [address] Eosinophils (Bld) [#/Vol] 0.1 10*3/uL Normal 0.0-0.4 [facility] Comment on above: Performed By: #### 2 4331-1, BMP, LIVR, 41336-9, THYR, 3051-0, CBCA #### [facility] ([id number]) [address] [address] [place] [address] Eosinophils/100 WBC (Bld) 2.0 % Normal [facility] Comment on above: Performed By: #### 2 4331-1, BMP, LIVR, 37533-4, THYR, 3051-0, CBCA #### [facility] ([id number]) [address] [address] [place] [address] Erythrocyte distribution width (RBC) [Ratio] 11.9 % Normal 11.5-15.0 [facility] Comment on above: Performed By: #### 2 4331-1, BMP, LIVR, 08671-5, THYR, 3051-0, CBCA #### [facility] ([id number]) [address] [address] [place] [address] Hematocrit (Bld) [Volume fraction] 45.0 % Normal 35-47 [facility] Comment on above: Performed By: #### 2 4331-1, BMP, LIVR, 73722-8, THYR, 3051-0, CBCA #### [facility] ([id number]) [address] [address] [place] [address] Hemoglobin (Bld) [Mass/Vol] 15.3 g/dL Normal 11.7-15.5 [facility] Comment on above: Performed By: #### 2 4331-1, BMP, LIVR, 56080-8, THYR, 3051-0, CBCA #### [facility] ([id number]) [address] [place] [address] Lymphocytes (Bld) [#/Vol] 1.7 10*3/uL Normal 1.0-3.5 [facility] Comment on above: Performed By: #### 2 4331-1, BMP, LIVR, 90536-7, THYR, 3051-0, CBCA #### [facility] ([id number]) [address] [facility] [address] [place] [address] Lymphocytes/100 WBC (Bld) 26.5 % Normal [facility] Comment on above: Performed By: #### 2 4331-1, BMP, LIVR, 13592-8, THYR, 3051-0, CBCA #### [facility] ([id number]) [address] [place] [address] MCH (RBC) [Entitic mass] 32.3 pg Normal 27-34 [facility] Comment on above: Performed By: #### 2 4331-1, BMP, LIVR, 53275-9, THYR, 3051-0, CBCA #### [facility] ([id number]) [address] [place] [address] MCHC (RBC) [Mass/Vol] 34.0 g/dL Normal 32-36 [facility] Comment on above: Performed By: #### 2 4331-1, BMP, LIVR, 62287-0, THYR, 3051-0, CBCA #### [facility] ([id number]) [address] [place] [address] MCV (RBC) [Entitic vol] 95 fL Normal 80-[address] [facility] Comment on above: Performed By: #### 2 4331-1, BMP, LIVR, 39325-8, THYR, 3051-0, CBCA #### [facility] ([id number]) [address] [place] [address] Monocytes (Bld) [#/Vol] 0.6 10*3/uL Normal 0-0.9 [facility] Comment on above: Performed By: #### 2 4331-1, BMP, LIVR, 73162-1, THYR, 3051-0, CBCA #### [facility] ([id number]) [address] [place] [address] Monocytes/100 WBC (Bld) 8.6 % Normal [facility] Comment on above: Performed By: #### 2 4331-1, BMP, LIVR, 36824-4, THYR, 3051-0, CBCA #### [facility] ([id number]) [address] [place] [address] Neutrophils/100 WBC (Bld) 62.1 % Normal [facility] Comment on above: Performed By: #### 2 4331-1, BMP, LIVR, 61215-6, THYR, 3051-0, CBCA #### [facility] ([id number]) [address] [place] [address] Platelet mean volume (Bld) [Entitic vol] 9.5 fL Normal 7-12 [facility] Comment on above: Performed By: #### 2 4331-1, BMP, LIVR, 75535-5, THYR, 3051-0, CBCA #### [facility] ([id number]) [address] [place] [address] Platelets (Bld) [#/Vol] 253 10*3/uL Normal 150-450 [facility] Comment on above: Performed By: #### 2 4331-1, BMP, LIVR, 02390-2, THYR, 3051-0, CBCA #### [facility] ([id number]) [address] [address] [place] [address] RBC COUNT 4.74 X10E12/L Normal 3.80-5.20 [facility] Comment on above: Performed By: #### 2 4331-1, BMP, LIVR, 64101-2, THYR, 3051-0, CBCA #### [facility] ([id number]) [address] [address] WBC (Bld) [#/Vol] 6.4 10*3/uL Normal 4.0-11.0 [facility] Comment on above: Performed By: #### 2 4331-1, BMP, LIVR, 74495-9, THYR, 3051-0, CBCA #### [facility] ([id number]) [address] [address] FREE T3on 10-08-2023 Free T3 [Mass/Vol] 3.30 pg/mL Normal 2.50-3.90 [facility] Comment on above: Performed By: #### 2 4331-1, BMP, LIVR, 34708-9, THYR, 3051-0, CBCA #### [facility] ([id number]) [address] [address] HGB A1C (GLYCO-HGB)on 2023 Glucose [Mass/Vol] 114 mg/dL Normal [facility] Comment on above: Performed By: #### 2 4331-1, BMP, LIVR, 66398-1, THYR, 3051-0, CBCA #### [facility] ([id number]) [address] [address] [place] [address] HbA1c (Bld) [Mass fraction] 5.6 % Normal 4.4-5.6 [facility] Comment on above: Result Comment: NOTE ADA Guidelines Result HgbA1c Normal : less than 5.7 % Prediabetes : 5.7 % to 6.4 % Diabetes : > 6.4 % Use with caution in patients with abnormal hemoglobin variants as the half-life of red blood cells and in vivo glycation rates are affected. Performed By: #### 2 4331-1, BMP, LIVR, 99558-3, THYR, 3051-0, CBCA #### [facility] ([id number]) [address], [facility] [address] [place] [address] LIVER PANELon 10-08-2023 Albumin [Mass/Vol] 4.8 g/dL Normal 3.2-5.3 [facility] Comment on above: Performed By: #### 2 4331-1, BMP, LIVR, 20676-0, THYR, 3051-0, CBCA #### [facility] ([id number]) [address], [address] [place] [address] ALP [Catalytic activity/Vol] 64 U/L Normal 39-130 [facility] Comment on above: Performed By: #### 2 4331-1, BMP, LIVR, 88408-1, THYR, 3051-0, CBCA #### [facility] ([id number]) [address], [address] [place] [address] ALT [Catalytic activity/Vol] 26 U/L Normal 0-31 [facility] Comment on above: Performed By: #### 2 4331-1, BMP, LIVR, 86497-7, THYR, 3051-0, CBCA #### [facility] ([id number]) [address], [address] [place] [address] AST [Catalytic activity/Vol] 20 U/L Normal 0-41 [facility] Comment on above: Performed By: #### 2 4331-1, BMP, LIVR, 57316-2, THYR, 3051-0, CBCA #### [facility] ([id number]) [address], [address] [place] [address] Bilirubin [Mass/Vol] 0.4 mg/dL Normal 0.3-1.2 [facility] Comment on above: Performed By: #### 2 4331-1, BMP, LIVR, 75379-6, THYR, 3051-0, CBCA #### [facility] ([id number]) [address], [address] [place] [address] Bilirubin.direct [Mass/Vol] 0.0 mg/dL Normal 0.0-0.4 [facility] Comment on above: Performed By: #### 2 4331-1, BMP, LIVR, 39873-2, THYR, 3051-0, CBCA #### [facility] ([id number]) [address], [address] [place] [address] Protein [Mass/Vol] 7.6 g/dL Normal 6.0-8.0 [facility] Comment on above: Performed By: #### 2 4331-1, BMP, LIVR, 34833-2, THYR, 3051-0, CBCA #### [facility] ([id number]) [address], [address] [place] [address] Lipid 1996 panelon 4 Cholesterol [Mass/Vol] 229 mg/dL High 150-200 [facility] Comment on above: Performed By: #### 2 4331-1, BMP, LIVR, 94953-3, THYR, 3051-0, CBCA #### [facility] ([id number]) [address], [address] [place] [address] Cholesterol in HDL [Mass/Vol] 62 mg/dL Normal >39 [facility] Comment on above: Result Comment: HDL <40 mg/dL - High Risk HDL > or = 40mg/dL- Desirable HDL >60 mg/dL - Negative Risk Performed By: #### 2 4331-1, BMP, LIVR, 88026-5, THYR, 3051-0, CBCA #### [facility] ([id number]) [address], [address] [place] [address] Cholesterol in LDL [Mass/Vol] 128 mg/dL Normal <130 [facility] Comment on above: Result Comment: LDL <100 mg/dL - Desirable LDL >160 mg/dL - High Risk Performed By: #### 2 4331-1, BMP, LIVR, 03128-6, THYR, 3051-0, CBCA #### [facility] ([id number]) [address], [address] [place] [address] Cholesterol in VLDL [Mass/Vol] 39 mg/dL High 0-30 [facility] Comment on above: Performed By: #### 2 4331-1, BMP, LIVR, 41936-9, THYR, 3051-0, CBCA #### [facility] ([id number]) [address], [facility] [address] [place] [address] CHOLESTEROL:HDL 3.7 Normal 1.0-5.0 [facility] Comment on above: Performed By: #### 2 4331-1, BMP, LIVR, 26422-2, THYR, 3051-0, CBCA #### [facility] ([id number]) [address], [address] [place] [address] Triglyceride [Mass/Vol] 196 mg/dL High 27-[address] [facility] Comment on above: Performed By: #### 2 4331-1, BMP, LIVR, 16357-6, THYR, 3051-0, CBCA #### [facility] ([id number]) [address], [address] [place] [address] THYROID PROFILEon 10-08-2023 Free T4 [Mass/Vol] 1.34 ng/dL Normal 0.61-1.60 [facility] Comment on above: Performed By: #### 2 4331-1, BMP, LIVR, 55376-9, THYR, 3051-0, CBCA #### [facility] ([id number]) [address], [facility] [address] [place] [address] TSH 0.17 uIU/mL Low 0.49-4.67 [facility] Comment on above: Performed By: #### 2 4331-1, BMP, LIVR, 85207-8, THYR, 3051-0, CBCA #### [facility] ([id number]) [address], [address] [place] [address] Vitamin D+Metabolites [Mass/ Vol]on 10-08-2023 VITAMIN D 25 HYD TOT 39.3 ng/mL Normal 30-100 [facility] Comment on above: Result Comment: Vitamin D status 25 [place] Vitamin D Deficiency <20 ng/mL Insufficiency 20-29 ng/mL Sufficiency 30-100 ng/mL Toxicity >100 ng/mL NOTE: A pediatric reference range has not been established by the adjutant general of this kit. The [place] [employer] recommends a Vitamin D level of = or >20ng/mL in infants and children. Performed By: #### 2 4331-1, BMP, LIVR, 27470-3, THYR, 3051-0, CBCA #### [facility] ([id number]) [address] [address] [place] [address] XR hand RT min 3V*on 09-20-2 023 XR hand RT min 3V* [facility] [place] [address] [place] [address] XRay Report Signed Patient: Tiana Orozco MR#: [id number] : 1965 Acct:[id number] Age/Sex: 58 / F ADM Date: 06/19/23 Loc: [facility] Room: Type: [facility] Attending Dr: Mechelle Liang MD Copies to: Mechelle Liang MD Ordering Provider: Mechelle Liang MD Date of Service: 06/19/23 XR/XR hand RT min 3V*: M18.11 RIGHT HAND - 4 views CLINICAL DATA: Continued pain at the first carpal metacarpal joint and loss of can doffer strength. No injury. COMPARISON: 07/01/2019 AP, lateral and oblique views were obtained along with supplemental AP view of the thumb.. There is no evidence of fracture or dislocation. Similar moderate degenerative change with joint space narrowing, sclerosis and hypertrophy is again seen at the first carpal metacarpal joint. There are no significant soft tissue abnormalities. XR/XR hand RT min 3V* IMPRESSION: DEGENERATIVE CHANGE AT THE FIRST CARPAL METACARPAL JOINT, SIMILAR TO THE PRIOR. Impression dictated by: Vianney Castañeda M.D.06/19/2023 2:45 PM Dictation Location: [place] [address] Transcribed By: [facility] 06/19/23 1445 Dictated By: Vianney Castañeda MD 06/19/23 144 Signed By: 06/19/23 1445 Normal [facility] Lipid Profileon 09-18-2022 Cholesterol [Mass/Vol] 165 mg/dL Normal <200 [facility] Comment on above: Result Comment: Cholesterol Guidelines: <200 Desirable 200-240 Borderline >240 Undesirable Performed By: #### F T3, FT4, LIPR, VD25 #### [facility] [address] [place] [address] Consulting Application Engineer: Durga Markham MD #### BMP, LIVP, CDP, TSH #### [facility] [place] [facility] [address] [place] [address] Consulting Application Engineer: Guillermo Hay MD Cholesterol in HDL [Mass/Vol] 46 mg/dL Normal >40 [facility] Comment on above: Result Comment: HDL Guidelines: <40 Undesirable 40-59 Borderline >59 Desirable Performed By: #### F T3, FT4, LIPR, VD25 #### [place] [address] [place] [address] Consulting Application Engineer: Durga Markham MD #### BMP, LIVP, CDP, TSH #### [facility] [place] [facility] [address] [place] [address] [place] [address] Consulting Application Engineer: Guillermo Hay MD Cholesterol in LDL [Mass/Vol] 92 mg/dL Normal 0-130 [facility] Comment on above: Result Comment: LDL Guidelines: <100 Desirable 100-129 Near to/above Desirable 130-159 Borderline >159 Undesirable Direct (measured) LDL and calculated LDL are not interchangeable tests. Performed By: #### F T3, FT4, LIPR, VD25 #### [address] [phone] Consulting Application Engineer: Durga Markham MD #### BMP, LIVP, CDP, TSH #### [address] [place] [address] Consulting Application Engineer: Guillermo Hay MD Cholesterol.total/Choles terol in HDL [Mass ratio] 3.6 {ratio} Normal <5 [facility] Comment on above: Performed By: #### F T3, FT4, LIPR, VD25 #### [address] [phone] Consulting Application Engineer: Durga Markham MD #### BMP, LIVP, CDP, TSH #### [facility] [place] [facility] [address] [place] [address] [place] [address] Consulting Application Engineer: Guillermo Hay MD Triglyceride [Mass/Vol] 133 mg/dL Normal <150 M [facility] Comment on above: Result Comment: Triglyceride Guidelines: <150 Desirable 150-199 Borderline 200-499 High >499 Very high Based on AHA Guidelines for fasting triglyceride, June 2012. Performed By: #### F T3, FT4, LIPR, VD25 #### [facility] [address] [place] [address] Consulting Application Engineer: Durga Markham MD #### BMP, LIVP, CDP, TSH #### [facility] [address] [place] [address] Consulting Application Engineer: Guillermo Hay MD Basic Metabolic Panelon 12- Anion gap [Moles/Vol] 10 mmol/L 9 - 17 mmol/L Comic Reply Calcium [Mass/Vol] 9.9 mg/dL 8.6 - 10. 4 mg/dL Comic Reply Chloride [Moles/Vol] 106 mmol/L 98 - 10 7 mmol/L Comic Reply CO2 [Moles/Vol] 27 mmol/L 20 - 31 mmol/L Comic Reply Creatinine [Mass/Vol] 0.77 mg/dL 0.50 - 0.90 mg/dL Comic Reply GFR/1.73 sq M.predicted MDRD (S/P/Bld) [Vol rate/Area] - PINF Comic Reply Comment on above: Effective Jul 02, 2022 These results are not intended for use in patients <18 years of age. eGFR results are calculated without a race factor using the 2020 CKD-EPI equation. Careful clinical correlation is recommended, particularly when comparing to results calculated using previous equations. The CKD-EPI equation is less accurate in patients with extremes of muscle mass, extra-renal metabolism of creatine, excessive creatine ingestion, or following therapy that affects renal tubular secretion. Glucose [Mass/Vol] 114 mg/dL High 70 - 99 mg/dL Comic Reply Potassium [Moles/Vol] 4.2 mmol/L 3.7 - 5.3 mmol/L Comic Reply Sodium [Moles/Vol] 143 mmol/L 135 - 144 mmol/L Comic Reply Urea nitrogen (BldV) [Mass/Vol] 15 mg/dL 6 - 20 mg/dL Comic Reply Urea nitrogen/Creatinine (Bld) [Mass ratio] 19 9 - 20 [facility] Basic Metabolic Profon 09-17 Anion gap [Moles/Vol] 10 mmol/L Normal 9-17 [facility] Comment on above: Performed By: #### F T3, FT4, LIPR, VD25 #### [address] [address] Consulting Application Engineer: Durga Markham MD #### BMP, LIVP, CDP, TSH #### [address] [place], [place] [phone] Consulting Application Engineer: Guillermo Hay MD BUN/CRE Ratio 19 Normal 9-20 [facility] Comment on above: Performed By: #### F T3, FT4, LIPR, VD25 #### [address] [id number] Consulting Application Engineer: Durga Markham MD #### BMP, LIVP, CDP, TSH #### [address] [place] [address] Consulting Application Engineer: Guillermo Hay MD Calcium [Mass/Vol] 9.9 mg/dL Normal 8.6-10.4 [facility] Comment on above: Performed By: #### F T3, FT4, LIPR, VD25 #### [address] [phone] Consulting Application Engineer: Durga Markham MD #### BMP, LIVP, CDP, TSH #### [address] [place] [address] Consulting Application Engineer: Guillermo Hay MD Chloride [Moles/Vol] 106 mmol/L Normal 98-107 [facility] Comment on above: Performed By: #### F T3, FT4, LIPR, VD25 #### [address] [address] Consulting Application Engineer: Durga Markham MD #### BMP, LIVP, CDP, TSH #### [address] [place] [address] Consulting Application Engineer: Guillermo Hay MD CO2 [Moles/Vol] 27 mmol/L Normal 20-31 [facility] Comment on above: Performed By: #### F T3, FT4, LIPR, VD25 #### [address] [id number] Consulting Application Engineer: Durga Markham MD #### BMP, LIVP, CDP, TSH #### [facility] [address] [address] Consulting Application Engineer: Guillermo Hay MD Creatinine [Mass/Vol] 0.77 mg/dL Normal 0.50-0.90 [facility] Comment on above: Performed By: #### F T3, FT4, LIPR, VD25 #### [address] [phone] Consulting Application Engineer: Durga Markham MD #### BMP, LIVP, CDP, TSH #### [address] [place] [address] Consulting Application Engineer: Guillermo Hay MD GFR/1.73 sq M.predicted among non-blacks MDRD (S/P/Bld) [Vol rate/Area] mL/min/{1.73_m2} Normal >60 [facility] Comment on above: Result Comment: Effective Jul 02, 2022 These results are not intended for use in patients <18 years of age. eGFR results are calculated without a race factor using the 2020 CKD-EPI equation. Careful clinical correlation is recommended, particularly when comparing to results calculated using previous equations. The CKD-EPI equation is less accurate in patients with extremes of muscle mass, extra-renal metabolism of creatine, excessive creatine ingestion, or following therapy that affects renal tubular secretion. Performed By: #### F T3, FT4, LIPR, VD25 #### [address] [phone] Consulting Application Engineer: Durga Markham MD #### BMP, LIVP, CDP, TSH #### [address] [place] [address] Consulting Application Engineer: Guillermo Hay MD Glucose [Mass/Vol] 114 mg/dL High 70-99 [facility] Comment on above: Performed By: #### F T3, FT4, LIPR, VD25 #### [address] [address] Consulting Application Engineer: Durga Markham MD #### BMP, LIVP, CDP, TSH #### [address] [place] [address] Consulting Application Engineer: Guillermo Hay MD Potassium [Moles/Vol] 4.2 mmol/L Normal 3.7-5.3 [facility] Comment on above: Performed By: #### F T3, FT4, LIPR, VD25 #### [address] [address] Consulting Application Engineer: Durga Markham MD #### BMP, LIVP, CDP, TSH #### [address] [place] [address] Consulting Application Engineer: Guillermo Hay MD Sodium [Moles/Vol] 143 mmol/L Normal 135-144 [facility] Comment on above: Performed By: #### F T3, FT4, LIPR, VD25 #### [address] [address] Consulting Application Engineer: Durga Markham MD #### BMP, LIVP, CDP, TSH #### [address] [place] [address] Consulting Application Engineer: Guillermo Hay MD Urea nitrogen [Mass/Vol] 15 mg/dL Normal 6-20 [facility] Comment on above: Performed By: #### F T3, FT4, LIPR, VD25 #### [address] [address] Consulting Application Engineer: Durga Markham MD #### BMP, LIVP, CDP, TSH #### [facility] [place] [facility] [address] [place] [address] Consulting Application Engineer: Guillermo Hay MD CBC with Auto Differentialon 09-17-2022 Absolute Eos # 0.11 [place] [facility] Absolute Immature Granulocyte [facility] Absolute Lymph # 1.62 [facility] Absolute [place] # 0.40 [facility] RS [facility] Basophils (Bld) [#/Vol] 0.04 10*3/uL [facility] Basophils/100 WBC (Bld) 1 % 0 - 2 % [facility] Eosinophils/100 WBC (Bld) 2 % 1 - 4 % [facility] Hematocrit (Bld) [Volume fraction] 42.9 % 36.3 - 47.1 % [facility] Hemoglobin (Bld) [Mass/Vol] 13.9 g/dL 11.9 - 15.1 g/dL [facility] Immature granulocytes/100 WBC (Bld) 0 % 0 [facility] Interpretation and review of laboratory results Abnormal [facility] Lymphocytes/100 WBC (Bld) 26 % 24 - 43 % [facility] MCH (RBC) [Entitic mass] 32.1 pg 25. 2 - 33.5 pg [facility] MCHC (RBC) [Mass/Vol] 32.4 g/dL 28.4 - 34.8 g/dL [facility] MCV (RBC) [Entitic vol] 99.1 fL 82.6 - 102.9 fL [facility] Monocytes/100 WBC (Bld) 7 % 3 - 12 % [facility] NRBC Automated 0.0 0.0 per 100 WBC [facility] Platelet distribution width (Bld) [Ratio] 11.4 % Low 11.8 - 14.4 % [facility] Platelet mean volume (Bld) [Entitic vol] 11.2 fL 8.1 - 13.5 fL [facility] Platelets (Bld) [#/Vol] 202 10*3/uL [facility] RBC (Bld) [#/Vol] 4.33 10*6/uL 3.95 - 5.1 1 m/uL [facility] Segmented neutrophils/100 WBC (Bld) 64 % 36 - 65 % [facility] Segs Absolute 4.00 [facility] WBC (Bld) [#/Vol] 6.2 10*3/uL [facility] CBC with Diffon 09-17-2022 Abs. Basophil 0.04 k/uL Normal 0.00-0.20 [facility] Comment on above: Performed By: #### F T3, FT4, LIPR, VD25 #### [place] [address] Consulting Application Engineer: Durga Markham MD #### BMP, LIVP, CDP, TSH #### [address] [place] [phone] ( Consulting Application Engineer: Guillermo Hay MD Abs.Imm.Granulocyte <0.03 Normal 0.00-0.30 [facility] Comment on above: Performed By: #### F T3, FT4, LIPR, VD25 #### [place] [address] Consulting Application Engineer: Durga Markham MD #### BMP, LIVP, CDP, TSH #### [address] [place] [phone] Consulting Application Engineer: Guillermo Hay MD Abs.Neutrophil (Seg) 4.00 k/uL Normal 1.50-8.10 [facility] Comment on above: Performed By: #### F T3, FT4, LIPR, VD25 #### [place] [address] Consulting Application Engineer: Durga Markham MD #### BMP, LIVP, CDP, TSH #### [address] [place] [phone] Consulting Application Engineer: Guillermo Hay MD Basophils/100 WBC (Bld) 1 % Normal 0-2 M [facility] Comment on above: Performed By: #### F T3, FT4, LIPR, VD25 #### [address] [phone] Consulting Application Engineer: Durga Markham MD #### BMP, LIVP, CDP, TSH #### [address] [place] [phone] Consulting Application Engineer: Guillermo Hay MD Eosinophils (Bld) [#/Vol] 0.11 10*3/uL Normal 0.00-0.44 [facility] Comment on above: Performed By: #### F T3, FT4, LIPR, VD25 #### [address] [phone] Consulting Application Engineer: Durga Markham MD #### BMP, LIVP, CDP, TSH #### [address] [place] [phone] Consulting Application Engineer: Guillermo Hay MD Eosinophils/100 WBC (Bld) 2 % Normal 1-4 [facility] Comment on above: Performed By: #### F T3, FT4, LIPR, VD25 #### [address] [phone] Consulting Application Engineer: Durga Markham MD #### BMP, LIVP, CDP, TSH #### [address] [place] [phone] Consulting Application Engineer: Guillermo Hay MD Erythrocyte distribution width (RBC) [Ratio] 11.4 % Low 11.8-14.4 [facility] Comment on above: Performed By: #### F T3, FT4, LIPR, VD25 #### [address] [phone] Consulting Application Engineer: Durga Markham MD #### BMP, LIVP, CDP, TSH #### [address] [place] [address] Consulting Application Engineer: Guillermo Hay MD Hematocrit (Bld) [Volume fraction] 42.9 % Normal 36.3-47.1 [facility] Comment on above: Performed By: #### F T3, FT4, LIPR, VD25 #### [address] [phone] Consulting Application Engineer: Durga Markham MD #### BMP, LIVP, CDP, TSH #### [address] [place] [phone] Consulting Application Engineer: Guillermo Hay MD Hemoglobin (Bld) [Mass/Vol] 13.9 g/dL Normal 11.9-15.1 [facility] Comment on above: Performed By: #### F T3, FT4, LIPR, VD25 #### [address] [address] Consulting Application Engineer: Durga Markham MD #### BMP, LIVP, CDP, TSH #### [address] [place] [address] Consulting Application Engineer: Guillermo Hay MD Immature granulocytes/100 WBC (Bld) 0 % Normal 0 [facility] Comment on above: Performed By: #### F T3, FT4, LIPR, VD25 #### [address] [address] Consulting Application Engineer: Durga Markham MD #### BMP, LIVP, CDP, TSH #### [address] [place] [phone] Consulting Application Engineer: Guillermo Hay MD Lymphocytes (Bld) [#/Vol] 1.62 10*3/uL Normal 1.10-3.70 [facility] Comment on above: Performed By: #### F T3, FT4, LIPR, VD25 #### [address] [address] Consulting Application Engineer: Durga Markham MD #### BMP, LIVP, CDP, TSH #### [address] [place], [place] [phone] Consulting Application Engineer: Guillermo Hay MD Lymphocytes/100 WBC (Bld) 26 % Normal 24-43 [facility] Comment on above: Performed By: #### F T3, FT4, LIPR, VD25 #### [address] [address] Consulting Application Engineer: Durga Markham MD #### BMP, LIVP, CDP, TSH #### [address] [place] [phone] Consulting Application Engineer: Guillermo Hay MD MCH (RBC) [Entitic mass] 32.1 pg Normal 25.2-33.5 [facility] Comment on above: Performed By: #### F T3, FT4, LIPR, VD25 #### [address] [address] Consulting Application Engineer: Durga Markham MD #### BMP, LIVP, CDP, TSH #### [address] [place] [phone] Consulting Application Engineer: Guillermo Hay MD MCHC (RBC) [Mass/Vol] 32.4 g/dL Normal 28.4-34.8 [facility] Comment on above: Performed By: #### F T3, FT4, LIPR, VD25 #### [address] [address] Consulting Application Engineer: Durga Markham MD #### BMP, LIVP, CDP, TSH #### [address] [place], [place] [phone] Consulting Application Engineer: Guillermo Hay MD MCV (RBC) [Entitic vol] 99.1 fL Normal 82.6-102.9 M [facility] Comment on above: Performed By: #### F T3, FT4, LIPR, VD25 #### [address] [address] Consulting Application Engineer: Durga Markham MD #### BMP, LIVP, CDP, TSH #### [address] [place] [phone] Consulting Application Engineer: Guillermo Hay MD Monocytes (Bld) [#/Vol] 0.40 10*3/uL Normal 0.10-1.20 [facility] Comment on above: Performed By: #### F T3, FT4, LIPR, VD25 #### [address] [address] Consulting Application Engineer: Durga Markham MD #### BMP, LIVP, CDP, TSH #### [address] [place] [phone] Consulting Application Engineer: Guillermo Hay MD Monocytes/100 WBC (Bld) 7 % Normal 3-12 M [facility] Comment on above: Performed By: #### F T3, FT4, LIPR, VD25 #### [address] [address] Consulting Application Engineer: Durga Markham MD #### BMP, LIVP, CDP, TSH #### [address] [place] [phone] Consulting Application Engineer: Guillermo Hay MD Neutrophil (Seg) 64 % Normal 36-65 [facility] Comment on above: Performed By: #### F T3, FT4, LIPR, VD25 #### [address] [address] Consulting Application Engineer: Durga Markham MD #### BMP, LIVP, CDP, TSH #### [address] [place] [phone] Consulting Application Engineer: Guillermo Hay MD NRBC Automated 0.0 per 100 WBC Normal 0.0 [facility] Comment on above: Performed By: #### F T3, FT4, LIPR, VD25 #### [address] [address] Consulting Application Engineer: Durga Markham MD #### BMP, LIVP, CDP, TSH #### [address] [place] [phone] Consulting Application Engineer: Guillermo Hay MD Platelet mean volume (Bld) [Entitic vol] 11.2 fL Normal 8.1-13.5 [facility] Comment on above: Performed By: #### F T3, FT4, LIPR, VD25 #### [address] [address] Consulting Application Engineer: Durga Markham MD #### BMP, LIVP, CDP, TSH #### [address] [place] [phone] Consulting Application Engineer: Guillermo Hay MD Platelets (Bld) [#/Vol] 202 10*3/uL Normal 138-453 [facility] Comment on above: Performed By: #### F T3, FT4, LIPR, VD25 #### [address] [address] Consulting Application Engineer: Durga Markham MD #### BMP, LIVP, CDP, TSH #### [address] [place] [phone] Consulting Application Engineer: Guillermo Hay MD RBC (Bld) [#/Vol] 4.33 10*6/uL Normal 3.95-5.11 [facility] Comment on above: Performed By: #### F T3, FT4, LIPR, VD25 #### [address] [address] Consulting Application Engineer: Durga Markham MD #### BMP, LIVP, CDP, TSH #### [facility] [place] [facility] [address] [place] [address] Consulting Application Engineer: Guillermo Hay MD WBC (Bld) [#/Vol] 6.2 10*3/uL Normal 3.5-11.3 [facility] [facility] Comment on above: Performed By: #### F T3, FT4, LIPR, VD25 #### [address] [place], [place] [id number] Consulting Application Engineer: Durga Markham MD #### BMP, LIVP, CDP, TSH #### [facility] [address] [place] [address] Consulting Application Engineer: Guillermo Hay MD Hepatic Function Panelon Albumin [Mass/Vol] 4.2 g/dL 3.5 - 5.2 g/dL [facility] Albumin/Globulin [Mass ratio] 1.6 {ratio} 1.0 - 2.5 [facility] ALP (Bld) [Catalytic activity/Vol] 96 U/L 35 - 104 U/L [facility] ALT [Catalytic activity/Vol] 37 U/L High 5 - 33 U/L [facility] AST [Catalytic activity/Vol] 29 U/L NINF - 32 U/L [facility] Bilirubin [Mass/Vol] 0.2 mg/dL Low 0.3 - 1 .2 mg/dL [facility] Bilirubin, Indirect Can not be calculated 0.0 - 1.0 mg/dL [facility] Bilirubin.indirect [Mass/Vol] mg/dL NINF - 0.3 mg/dL [facility] Protein [Mass/Vol] 6.9 g/dL 6.4 - 8.3 g/dL [facility] Liver Profileon 09-17-2022 Albumin [Mass/Vol] 4.2 g/dL Normal 3.5-5.2 [facility] Comment on above: Performed By: #### F T3, FT4, LIPR, VD25 #### [address] [address] Consulting Application Engineer: Durga Markham MD #### BMP, LIVP, CDP, TSH #### [address] [place], [place] [id number] Consulting Application Engineer: Guilelrmo Hay MD Albumin/Glob Ratio 1.6 Normal 1.0-2.5 [facility] Comment on above: Performed By: #### F T3, FT4, LIPR, VD25 #### [address] [address] Consulting Application Engineer: Durga Markham MD #### BMP, LIVP, CDP, TSH #### [address] [place], [place] [id number] Consulting Application Engineer: Guillermo Hay MD Alkaline Phos 96 U/L Normal 35-104 [facility] Comment on above: Performed By: #### F T3, FT4, LIPR, VD25 #### [address] [address] Consulting Application Engineer: Durga Markham MD #### BMP, LIVP, CDP, TSH #### [address] [place], [place] [phone] Consulting Application Engineer: Guillermo Hay MD ALT [Catalytic activity/Vol] 37 U/L High 5-33 [facility] Comment on above: Performed By: #### F T3, FT4, LIPR, VD25 #### [address] [address] Consulting Application Engineer: Durga Markham MD #### BMP, LIVP, CDP, TSH #### [address] [place] [address] Consulting Application Engineer: Guillermo Hay MD AST [Catalytic activity/Vol] 29 U/L Normal <32 [facility] Comment on above: Performed By: #### F T3, FT4, LIPR, VD25 #### [address] [address] Consulting Application Engineer: Durga Markham MD #### BMP, LIVP, CDP, TSH #### [address] [place], [place] [phone] Consulting Application Engineer: Guillermo Hay MD Bilirubin [Mass/Vol] 0.2 mg/dL Low 0.3-1.2 [facility] Comment on above: Performed By: #### F T3, FT4, LIPR, VD25 #### [address] [address] Consulting Application Engineer: Durga Markham MD #### BMP, LIVP, CDP, TSH #### [address] [place], [place] [phone] Consulting Application Engineer: Guillermo Hay MD Bilirubin, Indirect Can not be calculated Normal 0.0-1.0 [facility] Comment on above: Performed By: #### F T3, FT4, LIPR, VD25 #### [address] [address] Consulting Application Engineer: Durga Markahm MD #### BMP, LIVP, CDP, TSH #### [address] [place], [place] [phone] Consulting Application Engineer: Guillermo Hay MD Bilirubin.indirect [Mass/Vol] mg/dL Normal <0.3 [facility] Comment on above: Performed By: #### F T3, FT4, LIPR, VD25 #### [address] [address] Consulting Application Engineer: Durga Markham MD #### BMP, LIVP, CDP, TSH #### [facility] [address] [place] [address] [address]. [place], [place] [address] Consulting Application Engineer: Guillermo Hay MD Protein [Mass/Vol] 6.9 g/dL Normal 6.4-8.3 [facility] Comment on above: Performed By: #### F T3, FT4, LIPR, VD25 #### [facility] [place], [place] [phone] Consulting Application Engineer: Durga Markham MD #### BMP, LIVP, CDP, TSH #### [facility] [address] [place] [address] Consulting Application Engineer: Guillermo Hay MD No Panel Informationon 09-17 [facility] Interpretation and review of laboratory results Abnormal [facility] T3, Freeon 09-17-2022 Free T3 [Mass/Vol] 2.67 pg/mL Normal 2.02-4.43 [facility] Comment on above: Performed By: #### F T3, FT4, LIPR, VD25 #### [address] [phone] Consulting Application Engineer: Durga Markham MD #### BMP, LIVP, CDP, TSH #### [facility] [address] [place] [address] Consulting Application Engineer: Guillermo Hay MD Free T3 [Mass/Vol] 2.67 pg/mL 2.02 - 4. 43 pg/mL [facility] T4, Freeon 09-17-2022 Thyroxine, Free 1.53 ng/dL 0.93 - 1.70 ng/dL [facility] TSHon 09-17-2022 TSH Qn 0.28 m[IU]/L Low [facility] Thyroid Stim. Horm.on 2021 Thyroid Stim. Horm. 0.28 uIU/mL Low 0.30-5.00 [facility] Comment on above: Performed By: #### F T3, FT4, LIPR, VD25 #### [place] [address] [place], [place] [phone] Consulting Application Engineer: Durga Markham MD #### BMP, LIVP, CDP, TSH #### [facility] [address] [place] [address] Consulting Application Engineer: Guillermo Hay MD Thyroxine, Freeon 09-17-2022 Thyroxine, Free 1.53 ng/dL Normal 0.93-1.70 [facility] Comment on above: Performed By: #### F T3, FT4, LIPR, VD25 #### [address] [place], [place] [phone] Consulting Application Engineer: Durga Markham MD #### BMP, LIVP, CDP, TSH #### [facility] [address] [place] [address] [place] [address] Consulting Application Engineer: Guillermo Hay MD Vitamin D 25 Hydroxyon 09-17 Vit D, 25-Hydroxy 43.7 ng/mL 29.9 - PIN F ng/mL [facility] Comment on above: Reference Range: Vitamin D status Range Deficiency <20 ng/mL Mild Deficiency 20-30 ng/mL Sufficiency 30-100 ng/mL Toxicity >100 ng/mL Vitamin D 25 OHon 09-17-2022 Vitamin D 25 OH 43.7 ng/mL Normal >29.9 [facility] Comment on above: Result Comment: Reference Range: Vitamin D status Range Deficiency <20 ng/mL Mild Deficiency 20-30 ng/mL Sufficiency 30-100 ng/mL Toxicity >100 ng/mL Performed By: #### F T3, FT4, LIPR, VD25 #### [facility] [address] [place] [address] Consulting Application Engineer: Durga Markham MD #### BMP, LIVP, CDP, TSH #### [facility] [address] [place] [address] [place] [address] Consulting Application Engineer: Guillermo Hay MD CBC AND ELECTRONIC DIFFon Abs Baso Auto < Normal 0.00-0.15 [facility] Comment on above: Performed By: #### L AB980 #### [facility] (DEFAULT) [address] [address] Abs Eos Auto < Normal 0.00-0.42 [facility] Comment on above: Performed By: #### L AB980 #### [facility] (DEFAULT) [address] [address] Basophils/100 WBC (Bld) 0.3 % Normal [facility] Comment on above: Performed By: #### L AB980 #### [facility] (DEFAULT) [address] [address] DIFF STATUS Electronic Differential Normal [facility] Comment on above: Performed By: #### L AB980 #### [facility] (DEFAULT) [address] [address] Eosinophils/100 WBC (Bld) 0.2 % Normal [facility] Comment on above: Performed By: #### L AB980 #### [facility] (DEFAULT) [address] [address] Hematocrit (Bld) [Volume fraction] 34.3 % Low 34.9-44.3 [facility] Comment on above: Performed By: #### L AB980 #### [facility] (DEFAULT) [address] [address] Hemoglobin (Bld) [Mass/Vol] 12.0 g/dL Normal 11.4-15.2 [facility] Comment on above: Performed By: #### L AB980 #### [facility] (DEFAULT) [address] [address] Immature Grans % 0.6 % Normal [facility] Comment on above: Performed By: #### L AB980 #### [facility] (DEFAULT) [address] [address] Immature Grans Absolute 0.07 K/uL Normal <=0.08 [facility] Comment on above: Performed By: #### L AB980 #### [facility] (DEFAULT) [address] [place] [address] Lymphocytes (Bld) [#/Vol] 1.71 10*3/uL Normal 1.16-3.51 [facility] Comment on above: Performed By: #### L AB980 #### [facility] (DEFAULT) [address] [place] [address] Lymphocytes/100 WBC (Bld) 15.1 % Normal [facility] Comment on above: Performed By: #### L AB980 #### [facility] (DEFAULT) [address] [place] [address] MCV (RBC) [Entitic vol] 91.7 fL Normal 79.6-97.7 [facility] Comment on above: Performed By: #### L AB980 #### [facility] (DEFAULT) [address] [place] [address] Mean Cell Hgb 32.1 pg Normal 25.9-33.9 [facility] Comment on above: Performed By: #### L AB980 #### [facility] (DEFAULT) [address] [place] [address] Mean Cell Hgb Conc 35.0 g/dL Normal 31.4-35.9 [facility] Comment on above: Performed By: #### L AB980 #### [facility] (DEFAULT) [address] [place] [address] Monocytes (Bld) [#/Vol] 0.92 10*3/uL High 0.22-0.87 [facility] Comment on above: Performed By: #### L AB980 #### [facility] (DEFAULT) [address] [place] [address] Monocytes/100 WBC (Bld) 8.1 % Normal [facility] Comment on above: Performed By: #### L AB980 #### [facility] (DEFAULT) [address] [place] [address] Nucleated RBC 0.0 /100 WBC Normal <=0.2 [facility] Comment on above: Performed By: #### L AB980 #### [facility] (DEFAULT) [address] [address] Platelet mean volume (Bld) [Entitic vol] 10.8 fL Normal 8.5-12.2 [facility] Comment on above: Performed By: #### L AB980 #### [facility] (DEFAULT) [address] [address] Platelets (Bld) [#/Vol] 209 10*3/uL Normal 150-393 [facility] Comment on above: Performed By: #### L AB980 #### [facility] (DEFAULT) [address] [address] RBC (Bld) [#/Vol] 3.74 10*6/uL Low 3.91-5.04 [facility] Comment on above: Performed By: #### L AB980 #### [facility] (DEFAULT) [address] [address] RBC Distribution 11.7 % Normal 10.8-14.9 [facility] Comment on above: Performed By: #### L AB980 #### [facility] (DEFAULT) [address] [address] Segs + Bands Auto 75.7 % Normal [facility] Comment on above: Performed By: #### L AB980 #### [facility] (DEFAULT) [address] [address] Segs + Bands,Absolute Auto 8.56 K/uL High 1.64-7.28 [facility] Comment on above: Performed By: #### L AB980 #### [facility] (DEFAULT) [address] [address] WBC (Bld) [#/Vol] 11.31 10*3/uL High 3.99-11.19 [facility] Comment on above: Performed By: #### L AB980 #### [facility] (DEFAULT) [address] [place] [address] Basophils (Bld) [#/Vol] K/uL 0.00 - 0.15 K/uL [facility] Basophils/100 WBC (Bld) 0.3 % [facility] Differential cell count method Nom (Bld) Electronic Differential [facility] Eosinophils (Bld) [#/Vol] K/uL 0.00 - 0.42 K/uL [facility] Eosinophils/100 WBC (Bld) 0.2 % [facility] Erythrocyte distribution width (RBC) [Ratio] 11.7 % 10.8 - 14.9 % [facility] Hematocrit (Bld) [Volume fraction] 34.3 % Low 34.9 - 44.3 % [facility] Hemoglobin (Bld) [Mass/Vol] 12.0 g/dL 11.4 - 15.2 g/dL [facility] Immature granulocytes (Bld) [#/Vol] 0.07 10*3/uL NINF - 0.08 K/uL [facility] Immature granulocytes/100 WBC (Bld) 0.6 % [facility] Interpretation and review of laboratory results Abnormal [facility] Lymphocytes (Bld) [#/Vol] 1.71 10*3/uL 1.16 - 3.51 K/uL [facility] Lymphocytes/100 WBC (Bld) 15.1 % [facility] MCH (RBC) [Entitic mass] 32.1 pg 25. 9 - 33.9 pg [facility] MCHC (RBC) [Mass/Vol] 35.0 g/dL 31.4 - 35.9 g/dL [facility] MCV (RBC) [Entitic vol] 91.7 fL 79.6 - 97.7 fL [facility] Monocytes (Bld) [#/Vol] 0.92 10*3/uL High 0.22 - 0.87 K/uL [facility] Monocytes/100 WBC (Bld) 8.1 % [facility] Neutrophils (Bld) [#/Vol] 8.56 10*3/uL High 1.64 - 7.28 K/uL [facility] Nucleated RBC/100 WBC (Bld) [Ratio] 0.0 % NINF [facility] Platelet mean volume (Bld) [Entitic vol] 10.8 fL 8.5 - 12.2 fL [facility] Platelets (Bld) [#/Vol] 209 10*3/uL 150 - 393 K/uL [facility] RBC (Bld) [#/Vol] 3.74 10*6/uL Low [facility] Segmented neutrophils/100 WBC (Bld) 75.7 % [facility] WBC (Bld) [#/Vol] 11.31 10*3/uL High 3.99 - 11 .19 K/uL [facility] CHEM 7 (LYTES,BUN,CREA,GLUC) on 08-01-2022 Anion gap [Moles/Vol] 11 mmol/L Normal 7-17 [facility] Comment on above: Performed By: #### C HM7 #### [facility] (DEFAULT) [address] [place] [address] Chloride [Moles/Vol] 108 mmol/L Normal 98-108 [facility] Comment on above: Performed By: #### C HM7 #### [facility] (DEFAULT) [address] [place] [address] CO2 [Moles/Vol] 26 mmol/L Normal 21-31 [facility] Comment on above: Performed By: #### C HM7 #### [facility] (DEFAULT) [address] [place] [address] Creatinine [Mass/Vol] 0.90 mg/dL Normal 0.50-1.20 [facility] Comment on above: Performed By: #### C HM7 #### [facility] (DEFAULT) [address] [place] [address] GFR/1.73 sq M.predicted among non-blacks MDRD (S/P/Bld) [Vol rate/Area] 75 mL/min/{1.73_m2} Normal >=60 [facility] Comment on above: Result Comment: Repo rted eGFR is based on the CKD-EPI 2020 equation using creatinine, age, and sex. Performed By: #### C HM7 #### [facility] (DEFAULT) [address] [place] [address] Glucose [Mass/Vol] 93 mg/dL Normal 70-99 [facility] Comment on above: Performed By: #### C HM7 #### [facility] (DEFAULT) [address] [place] [address] Osmolality [Osmolality] 295 mosm/kg Normal 278-305 [facility] Comment on above: Performed By: #### C HM7 #### [facility] (DEFAULT) [address] [place] [address] Potassium [Moles/Vol] 4.1 mmol/L Normal 3.5-5.0 [facility] Comment on above: Performed By: #### C HM7 #### [facility] (DEFAULT) [address] [place] [address] Sodium [Moles/Vol] 141 mmol/L Normal 135-145 [facility] Comment on above: Performed By: #### C HM7 #### [facility] (DEFAULT) [address] [place] [address] Urea nitrogen [Mass/Vol] 15 mg/dL Normal 7-25 [facility] Comment on above: Performed By: #### C HM7 #### [facility] (DEFAULT) [address] [place] [address] Urea nitrogen/Creatinine [Mass ratio] 17 mg/mg Normal [facility] Comment on above: Performed By: #### C HM7 #### [facility] (DEFAULT) [address] [place] [address] Anion gap [Moles/Vol] 11 mmol/L 7 - 17 mmol/L [facility] Chloride [Moles/Vol] 108 mmol/L 98 - 10 8 mmol/L [facility] CO2 [Moles/Vol] 26 mmol/L 21 - 31 mmol/L [facility] Creatinine [Mass/Vol] 0.90 mg/dL 0.50 - 1.20 mg/dL [facility] GFR/1.73 sq M.predicted CKD-EPI (S/P/Bld) [Vol rate/Area] 75 - PINF [facility] Comment on above: Reported eGFR is bas ed on the CKD-EPI 2020 equation using creatinine, age, and sex. Glucose [Mass/Vol] 93 mg/dL 70 - 99 mg/dL [facility] Osmolality Calc [Osmolality] 295 [facility] Potassium [Moles/Vol] 4.1 mmol/L 3.5 - 5.0 mmol/L [facility] Sodium [Moles/Vol] 141 mmol/L 135 - 145 mmol/L [facility] Urea nitrogen [Mass/Vol] 15 mg/dL 7 - 25 mg/d L [facility] Urea nitrogen/Creatinine [Mass ratio] 17 mg/mg [facility] CARDIAC RHYTHM (SCANNED)on 09-30-2021 [facility] CBC,PLATELETSon 07-17-2022 Erythrocyte distribution width (RBC) [Ratio] 11.9 % 10.8 - 14.9 % [facility] Hematocrit (Bld) [Volume fraction] 41.6 % 34.9 - 44.3 % [facility] Hemoglobin (Bld) [Mass/Vol] 14.0 g/dL 11.4 - 15.2 g/dL [facility] Interpretation and review of laboratory results Normal [facility] MCH (RBC) [Entitic mass] 32.0 pg 25. 9 - 33.9 pg [facility] MCHC (RBC) [Mass/Vol] 33.7 g/dL 31.4 - 35.9 g/dL [facility] MCV (RBC) [Entitic vol] 95.2 fL 79.6 - 97.7 fL [facility] Platelet mean volume (Bld) [Entitic vol] 11.1 fL 8.5 - 12.2 fL [facility] Platelets (Bld) [#/Vol] 246 10*3/uL 150 - 393 K/uL [facility] RBC (Bld) [#/Vol] 4.37 10*6/uL [facility] WBC (Bld) [#/Vol] 7.07 10*3/uL 3.99 - 11. 19 K/uL [facility] Hematocrit (Bld) [Volume fraction] 41.6 % Normal 34.9-44.3 [facility] Comment on above: Performed By: #### H EMO #### [facility] (DEFAULT) [address] [address] Hemoglobin (Bld) [Mass/Vol] 14.0 g/dL Normal 11.4-15.2 [facility] Comment on above: Performed By: #### H EMO #### [facility] (DEFAULT) [address] [address] MCV (RBC) [Entitic vol] 95.2 fL Normal 79.6-97.7 [facility] Comment on above: Performed By: #### H EMO #### [facility] (DEFAULT) [address] [address] Mean Cell Hgb 32.0 pg Normal 25.9-33.9 [facility] Comment on above: Performed By: #### H EMO #### [facility] (DEFAULT) [address] [address] Mean Cell Hgb Conc 33.7 g/dL Normal 31.4-35.9 [facility] Comment on above: Performed By: #### H EMOGC #### [facility] (DEFAULT) [address] [address] Platelet mean volume (Bld) [Entitic vol] 11.1 fL Normal 8.5-12.2 [facility] Comment on above: Performed By: #### H EMO #### [facility] (DEFAULT) [address] [place] [address] Platelets (Bld) [#/Vol] 246 10*3/uL Normal 150-393 [facility] Comment on above: Performed By: #### H EMO #### [facility] (DEFAULT) [address] [place] [address] RBC (Bld) [#/Vol] 4.37 10*6/uL Normal 3.91-5.04 [facility] Comment on above: Performed By: #### [facility] #### [facility] (DEFAULT) [address] [place] [address] RBC Distribution 11.9 % Normal 10.8-14.9 [facility] Comment on above: Performed By: #### H [facility] #### [facility] (DEFAULT) [address] [place] [address] WBC (Bld) [#/Vol] 7.07 10*3/uL Normal 3.99-11.19 [facility] Comment on above: Performed By: #### H [facility] #### [facility] (DEFAULT) [address] [place] [address] CHEM 6 (LYTES, BUN CREA)on Anion gap [Moles/Vol] 11 mmol/L 7 - 17 mmol/L [facility] Chloride [Moles/Vol] 103 mmol/L 98 - 10 8 mmol/L [facility] CO2 [Moles/Vol] 30 mmol/L 21 - 31 mmol/L [facility] Creatinine [Mass/Vol] 0.87 mg/dL 0.50 - 1.20 mg/dL [facility] GFR/1.73 sq M.predicted CKD-EPI (S/P/Bld) [Vol rate/Area] 78 - PINF [facility] Comment on above: Reported eGFR is bas ed on the CKD-EPI 2020 equation using creatinine, age, and sex. Potassium [Moles/Vol] 4.0 mmol/L 3.5 - 5.0 mmol/L [facility] Sodium [Moles/Vol] 140 mmol/L 135 - 145 mmol/L [facility] Urea nitrogen [Mass/Vol] 24 mg/dL 7 - 25 mg/d L [facility] Urea nitrogen/Creatinine [Mass ratio] 28 mg/mg [facility] Anion gap [Moles/Vol] 11 mmol/L Normal 7-17 [facility] Comment on above: Performed By: #### C HM6 #### [facility] (DEFAULT) [address] [place] [address] Chloride [Moles/Vol] 103 mmol/L Normal 98-108 [facility] Comment on above: Performed By: #### C HM6 #### [facility] (DEFAULT) [address] [place] [address] CO2 [Moles/Vol] 30 mmol/L Normal 21-31 [facility] Comment on above: Performed By: #### C HM6 #### [facility] (DEFAULT) [address] [place] [address] Creatinine [Mass/Vol] 0.87 mg/dL Normal 0.50-1.20 [facility] Comment on above: Performed By: #### C HM6 #### [facility] (DEFAULT) [address] [place] [address] GFR/1.73 sq M.predicted among non-blacks MDRD (S/P/Bld) [Vol rate/Area] 78 mL/min/{1.73_m2} Normal >=60 [facility] Comment on above: Result Comment: Repo rted eGFR is based on the CKD-EPI 2020 equation using creatinine, age, and sex. Performed By: #### C HM6 #### [facility] (DEFAULT) [address] [place] [address] Potassium [Moles/Vol] 4.0 mmol/L Normal 3.5-5.0 [facility] Comment on above: Performed By: #### C HM6 #### [facility] (DEFAULT) [address] [place] [address] Sodium [Moles/Vol] 140 mmol/L Normal 135-145 [facility] Comment on above: Performed By: #### C HM6 #### [facility] (DEFAULT) [address] [place] [address] Urea nitrogen [Mass/Vol] 24 mg/dL Normal 7-25 [facility] Comment on above: Performed By: #### C HM6 #### [facility] (DEFAULT) [address] [place] [address] Urea nitrogen/Creatinine [Mass ratio] 28 mg/mg Normal [facility] Comment on above: Performed By: #### C HM6 #### [facility] (DEFAULT) [address] [place] [address] PAP ACOG PANEL 2: 31 to 66on 05-22-2022 . . Normal [facility] Comment on above: Result Comment: Perf ormed at: WB Performed By: #### [id number] #### [facility] [address] [place] [address] Dr. Kim Francis Age Gdln ACOG Testing - Normal [facility] Comment on above: Performed By: #### [id number] #### [facility] [address] [address] [address] Kim Francis DIAGNOSIS: Comment Normal [facility] Comment on above: Result Comment: NEGA TIVE FOR INTRAEPITHELIAL LESION OR MALIGNANCY. Performed at: WB Performed By: #### [id number] #### [facility] [address] [address] [address] Kim Francis HPV Aptima Negative Normal Negative [facility] Comment on above: Result Comment: This nucleic acid amplification test detects fourteen high-risk HPV types (16,18,31,33,35,39,45,51,52,56,58,59,66,68) without differentiation. Performed at: =G Performed By: #### [id number] #### [facility] [address] [place] [address] Dr. Kim Francis Methodology: Comment Normal [facility] Comment on above: Result Comment: This liquid based ThinPrep(R) pap test was screened with the use of an image guided system. Performed at: WB Performed By: #### [id number] #### [facility] [address] [place] [address] Dr. Kim Francis Note: Comment Normal [facility] Comment on above: Result Comment: The Pap smear is a screening test designed to aid in the detection of premalignant and malignant conditions of the uterine cervix. It is not a diagnostic procedure and should not be used as the sole means of detecting cervical cancer. Both false-positive and false-negative reports do occur. . Performed at: WB Performed By: #### [id number] #### [facility] [address] [place] [address] Dr. Kim Francis Performed by: Comment Normal [facility] Comment on above: Result Comment: Juan Diego Domínguez, Earring Maker (ASCP) Performed at: WB Performed By: #### [id number] #### [facility] [address] [place] [address] Dr. Kim Francis Specimen adequacy: Comment Normal [facility] Comment on above: Result Comment: Sati sfactory for evaluation. No endocervical cells are present. This is consistent with a history of hysterectomy. Performed at: WB Performed By: #### [id number] #### [facility] [address] [place] [address] Dr. Kim Francis INTERVENTIONAL UPPER ENDOSCO PYon 04-26-2022 [facility] Gastroenterology Patient Name: Tiana Orozco Procedure Date: 04/26/2022 11:55 AM Date of : 1965 Admit Type: Outpatient Age: 57 Room: [place] [address] Gender: Female Note Status: Finalized Attending MD: Anisha Clifford MD Procedure: Upper GI endoscopy Indications: Heartburn, Suspected esophageal reflux Providers: Anisha Clifford MD (Doctor), Mer Gramajo RN (Nurse), China Ileana, Telecasting Technician (Telecasting Technician) Referring MD: Veronique Gutierrez APRN-ROGE (Referring MD) Medicines: Fentanyl 100 micrograms IV, Midazolam 4 mg IV Complications: No immediate complications. Procedure: Pre-Anesthesia Assessment: - Prior to the procedure, a History and Physical was performed, and patient medications and allergies were reviewed. The patient is competent. The risks and benefits of the procedure and the sedation options and risks were discussed with the patient. All questions were answered and informed consent was obtained. Patient identification and proposed procedure were verified by the physician and the nurse in the pre-procedure area in the endoscopy suite at 12:07 PM. Mental Status Examination: alert and oriented. Airway Examination: normal oropharyngeal airway and neck mobility. Respiratory Examination: clear to auscultation. CV Examination: normal. Prophylactic Antibiotics: The patient does not require prophylactic antibiotics. Prior Anticoagulants: The patient has taken no anticoagulant or antiplatelet agents. ASA Grade Assessment: II - A patient with mild systemic disease. After reviewing the risks and benefits, the patient was deemed in satisfactory condition to undergo the procedure. The anesthesia plan was to use moderate sedation / analgesia (conscious sedation). Immediately prior to administration of medications, the patient was re-assessed for adequacy to receive sedatives. The heart rate, respiratory rate, oxygen saturations, blood pressure, adequacy of pulmonary ventilation, and response to care were monitored throughout the procedure. The physical status of the patient was re-assessed after the procedure. After obtaining informed consent, the endoscope was passed under direct vision. Throughout the procedure, the patient's blood pressure, pulse, and oxygen saturations were monitored continuously. The Endoscope was introduced through the mouth, and advanced to the second part of duodenum. The upper GI endoscopy was accomplished without difficulty. The patient tolerated the procedure well. Findings: The examined esophagus was normal. The WOODRUFF capsule with delivery system was introduced through the mouth and advanced into the esophagus, such that the WOODRUFF pH capsule was positioned 33 cm from the incisors, which was 6 cm proximal to the GE junction. The WOODRUFF pH capsule was then deployed and attached to the esophageal mucosa. The delivery system was then withdrawn. Endoscopy was utilized for probe placement and diagnostic evaluation. The entire examined stomach was normal. The examined duodenum was normal. Impression: - Normal esophagus. - Normal stomach. - Normal examined duodenum. - The WOODRUFF pH capsule was deployed. - No specimens collected. Recommendation: - Discharge patient to home (ambulatory). - Patient has a contact number available for emergencies. The signs and symptoms of potential delayed complications were discussed with the patient. Return to normal activities tomorrow. Written discharge instructions were provided to the patient. - Resume previous diet. - Continue present medications. (more content not included)... LAB, [facility] Radiology Study observation (narrative) [facility] MG MAMM SCREEN 3D PO CADon 03-02-2022 MG MAMM SCREEN 3D PO CAD Patient: TIANA OROZCO Exam Date: 03/02/2022 : 1965 Gender:F Ordering : DR SAAD GRAY . Admission #: [id number] Family : Order #: [id number] CLICK HERE TO VIEW EXAM RADIOLOGY REPORT PROCEDURE: MAMMOGRAM SCREENING 3D BILATERAL CAD COMPARISON: MG MAMM SCREEN 3D PO CAD, 03/01/2021. MG MAMM SCREEN PO W CAD, 02/26/2020. INDICATIONS: Screening mammography Calculator Name NCI Breast Cancer Risk Assessment Tool 5 Year Breast Cancer Risk 1.00% Lifetime Breast Cancer Risk 6.40% Personal Breast Cancer No Personal Ovarian Cancer No Treatments None Family Cancers Father with lung cancer at age 57. LOCATION: [facility] BREAST COMPOSITION: Heterogeneously dense,which may obscure small masses. FINDINGS: DIAGNOSTIC CATEGORY 1--NEGATIVE. RIGHT BREAST: No significant suspicious finding. No significant change has occurred. LEFT BREAST: No significant suspicious finding. No significant change has occurred. RECOMMENDATIONS: ROUTINE MAMMOGRAM AND CLINICAL EVALUATION IN 12 MONTHS. PLEASE NOTE: A NORMAL MAMMOGRAM DOES NOT EXCLUDE THE POSSIBILITY OF BREAST CANCER. A CLINICALLY SUSPICIOUS PALPABLE LUMP SHOULD BE BIOPSIED. Dictated by: Gaudencio Fountain M.D. on 03/02/2022 at 14:57 Approved by: Gaudencio Fountain M.D. on 03/02/2022 at 15:00 Normal [facility] Basic Metabolic Panelon 11-1 Anion gap [Moles/Vol] 9 mmol/L 9 - 17 mmol/L [facility] [place] Calcium [Mass/Vol] 9.7 mg/dL 8.6 - 10. 4 mg/[facility] Chloride [Moles/Vol] 103 mmol/L 98 - 10 7 mmol/L [facility] CO2 [Moles/Vol] 25 mmol/L 20 - 31 mmol/L [facility] Creatinine [Mass/Vol] 0.73 mg/dL 0.50 - 0.90 mg/dL [facility] GFR >60 >60 mL/min [facility] GFR Non- >60 >60 mL/min [facility] Glucose [Mass/Vol] 107 mg/dL High 70 - 99 mg/dL [facility] Potassium [Moles/Vol] 4.4 mmol/L 3.7 - 5.3 mmol/L [facility] Sodium [Moles/Vol] 137 mmol/L 135 - 144 mmol/L [facility] Urea nitrogen (BldV) [Mass/Vol] 18 mg/dL 6 - 20 mg/dL [facility] Urea nitrogen/Creatinine (Bld) [Mass ratio] 25 High [facility] CBC Auto Differentialon 07-31 Absolute Eos # 0.19 [facility] Absolute Immature Granulocyte <0.03 [facility] Absolute Lymph # 1.25 [facility] alth Absolute [place] # 0.47 [facility] lth Basophils (Bld) [#/Vol] 0.07 10*3/uL [facility] Basophils/100 WBC (Bld) 1 % 0 - 2 % [facility] Differential Type NOT REPORTED [facility] Eosinophils/100 WBC (Bld) 3 % 1 - 4 % [facility] Hematocrit (Bld) [Volume fraction] 42.8 % 36.3 - 47.1 % [facility] Hemoglobin.gastrointesti nal spec 1 Ql (Stl) 14.3 g/dL 11.9 - 15.1 g/dL [facility] Immature granulocytes/100 WBC (Bld) 0 % 0 [facility] Interpretation and review of laboratory results Abnormal [facility] Lymphocytes/100 WBC (Bld) 23 % Low 24 - 43 % [facility] MCH (RBC) [Entitic mass] 31.8 pg 25. 2 - 33.5 pg [facility] MCHC (RBC) [Mass/Vol] 33.4 g/dL 28.4 - 34.8 g/dL [facility] MCV (RBC) [Entitic vol] 95.3 fL 82.6 - 102.9 fL [facility] Monocytes/100 WBC (Bld) 9 % 3 - 12 % [facility] NRBC Automated 0.0 0.0 per 100 WBC [facility] Platelet distribution width (Bld) [Ratio] 11.6 % Low 11.8 - 14.4 % [facility] [place] Platelet Estimate NOT REPORTED [facility] [place] Platelet mean volume (Bld) [Entitic vol] 10.5 fL 8.1 - 13.5 fL [facility] Platelets (Bld) [#/Vol] 213 10*3/uL [facility] [place] RBC (Bld) [#/Vol] 4.49 10*6/uL 3.95 - 5.1 1 m/uL [facility] RBC (Bld) [#/Vol] NOT REPORTED [facility] Segmented neutrophils/100 WBC (Bld) 64 % 36 - 65 % [facility] [place] Segs [facility] W[facility] (Bld) [#/Vol] 5.5 10*3/uL [facility] WBC (Bld) [#/Vol] NOT REPORTED [facility] Covid-19, Antibody, Totalon 08-12-2021 SARS-CoV-2 (COVID-19) RNA ABEL+probe Ql (Unsp spec) Positive Abnormal NEGATIVE [facility] Comment on above: A positive result suggests exposure to SARS-CoV-2 (COVID-19) but does not necessarily indicate immunity. Results from antibody testing should not be used as the sole basis to diagnose or exclude SARS-CoV-2 infection or to inform infection status. This test has been authorized by the FDA under an Emergency Use Authorization (EUA) for use by authorized laboratories. Fact sheet for Healthcare Providers: https://www.fda.gov/media/925193/download Fact sheet for Patients: https://www.fda.gov/media/189301/download METHODOLOGY: ECIA Results reported to the appropriate Health Department Hepatic Function Panelon Albumin [Mass/Vol] 4.4 g/dL 3.5 - 5.2 g/dL [facility] Albumin/Globulin [Mass ratio] 1.7 {ratio} [facility] [place] ALP (Bld) [Catalytic activity/Vol] 95 U/L 35 - 104 U/L [facility] ALT [Catalytic activity/Vol] 29 U/L 5 - 33 U/L [facility] AST [Catalytic activity/Vol] 24 U/L <32 [facility] Bilirubin [Mass/Vol] 0.26 mg/dL Low 0.3 - 1 .2 mg/dL [facility] Bilirubin, Indirect Connot be calculated 0.00 - 1.00 mg/dL [facility] Bilirubin.indirect [Mass/Vol] mg/dL <0.31 mg/dL [facility] Free PSA/Total PSA [Mass fraction] 7.0 g/dL 6.4 - 8.3 g/dL [facility] Globulin NOT REPORTED 1.5 - 3.8 g/dL [facility] Laboratory - Chemistry and C hemistry - challengeon 08-12-2021 GFR/1.73 sq M.predicted MDRD (S/P/Bld) [Vol rate/Area] [facility] Comment on above: Average GFR for 50-5 9 years old: 93 mL/min/1.73sq m Chronic Kidney Disease: <60 mL/min/1.73sq m Kidney failure: <15 mL/min/1.73sq m eGFR calculated using average adult body mass. Additional eGFR calculator available at: http://www.[employer]/multiple_crcl_2012.htm Stage 1: Some kidney damage normal GFR Stage 2: Mild kidney damage GFR 60-89 Stage 3: Moderate kidney damage GFR 30-59 Stage 4: Severe kidney damage GFR 15-29 Stage 5: Severe kidney damage GFR <15 ESRD - chronic treatment by dialysis or transplant Lipid Panelon 08-12-2021 Cholesterol [Mass/Vol] 211 mg/dL High <200 Me [facility] Comment on above: Cholesterol Guidelines: <200 Desirable 200-240 Borderline >240 Undesirable Cholesterol in HDL [Mass/Vol] 61 mg/dL >40 [facility] Comment on above: HDL Guidelines: <40 Undesirable 40-59 Borderline >59 Desirable Cholesterol in LDL [Mass/Vol] 121 mg/dL 0 - 130 mg/dL [facility] Comment on above: LDL Guidelines: <100 Desirable 100-129 Near to/above Desirable 130-159 Borderline >159 Undesirable Direct (measured) LDL and calculated LDL are not interchangeable tests. Cholesterol in VLDL [Mass/Vol] NOT REPORTED 1 - 30 mg/dL [facility] Cholesterol.total/Choles terol in HDL [Mass ratio] 3.5 {ratio} <5 [facility] Interpretation and review of laboratory results Abnormal [facility] Triglyceride [Mass/Vol] 146 mg/dL <150 M [facility] Comment on above: Triglyceride Guidelines: <150 Desirable 150-199 Borderline 200-499 High >499 Very high Based on AHA Guidelines for fasting triglyceride, June 2012. [facility] No Panel Informationon 08-12 Interpretation and review of laboratory results Abnormal [facility] Interpretation and review of laboratory results Abnormal [facility] T3, Freeon 08-12-2021 Free T3 [Mass/Vol] 3.14 pg/mL 2.02 - 4. 43 pg/mL [facility] T4, Freeon 08-12-2021 Thyroxine, Free 1.30 ng/dL 0.93 - 1.70 ng/dL [facility] TSH without Reflexon 021 TSH Qn 1.48 m[IU]/L [facility] Vitamin D 25 Hydroxyon 08-12 Vit D, 25-Hydroxy 22.8 ng/mL Low 30.0 - 100 .0 ng/mL [facility] Comment on above: Reference Range: Vitamin D status Range Deficiency <20 ng/mL Mild Deficiency 20-30 ng/mL Sufficiency 30-100 ng/mL Toxicity >100 ng/mL Basic Metabolic Panelon 11-0 Anion gap [Moles/Vol] 10 mmol/L 9 - 17 mmol/L [facility] Bun/Cre Ratio 19 [place] Calcium [Mass/Vol] 9.9 mg/dL 8.6 - 10. 4 mg/dL [facility] Chloride [Moles/Vol] 103 mmol/L 98 - 10 7 mmol/L [facility] CO2 [Moles/Vol] 27 mmol/L 20 - 31 mmol/L [facility] Creatinine [Mass/Vol] 0.72 mg/dL 0.5 - 0.9 mg/dL [facility] GFR >60 >60 mL/min [facility] GFR Non- >60 >60 mL/min [facility] Glucose [Mass/Vol] 104 mg/dL High 70 - 99 mg/dL [facility], [place] Interpretation and review of laboratory results Abnormal [place] Potassium [Moles/Vol] 4.4 mmol/L 3.7 - 5.3 mmol/L [place] [address] Sodium [Moles/Vol] 140 mmol/L 135 - 144 mmol/L [place] Urea nitrogen [Mass/Vol] 14 mg/dL 6 - 20 mg/d L [place] CBC Auto Differentialon 11-0 6-2020 Basophils (Bld) [#/Vol] 0.05 10*3/uL [place] Basophils/100 WBC (Bld) 1 % 0 - 2 % [place], [place] Differential Type NOT REPORTED [place] [address] Eosinophils (Bld) [#/Vol] 0.16 10*3/uL [place] [address] Eosinophils/100 WBC (Bld) 3 % 1 - 4 % [place] [address] Erythrocyte distribution width (RBC) [Ratio] 11.6 % Low 11.8 - 14.4 % [place] Hematocrit (Bld) [Volume fraction] 43.8 % 36.3 - 47.1 % [place] [address] Hemoglobin (Bld) [Mass/Vol] 14.3 g/dL 11.9 - 15.1 g/dL [place] [address] Immature granulocytes (Bld) [#/Vol] 0 % [address] [place] [address] Immature granulocytes (Bld) [#/Vol] 10*3/uL [place] [address] Interpretation and review of laboratory results Abnormal [place] [address] Lymphocytes (Bld) [#/Vol] 1.26 10*3/uL [place] [address] Lymphocytes/100 WBC (Bld) 22 % Low 24 - 43 % [place] MCH (RBC) [Entitic mass] 32.1 pg 25. 2 - 33.[address] [place] [address] MCHC (RBC) [Mass/Vol] 32.6 g/dL 28.4 - 34.8 g/dL [place] MCV (RBC) [Entitic vol] 98.4 fL 82.6 - 102.[address] [place] [address] Monocytes (Bld) [#/Vol] 0.53 10*3/uL [place] [address] Monocytes/100 WBC (Bld) 9 % 3 - 12 % [place] Platelet mean volume (Bld) [Entitic vol] 10.7 fL 8.1 - 13.5 fL [place] Platelets (Bld) [#/Vol] NOT REPORTED [place] [address] Platelets (Bld) [#/Vol] 218 10*3/uL [place] [address] RBC (Bld) [#/Vol] 4.45 10*6/uL 3.95 - 5.1 1 m/uL [place] RBC morphology finding Nom (Bld) NOT REPORTED [place] [address] Segmented neutrophils/100 WBC (Bld) 65 % 36 - 65 % [place] [address] Segs Absolute 3.74 [place] WBC (Bld) [#/Vol] 5.8 10*3/uL [place] WBC (Bld) [#/Vol] 0.0 10*3/uL 0.0 per [address] [place] [address] WBC Morphology NOT REPORTED [place], [place] Hemoglobin A1Con 08-05-2020 Glucose [Mass/Vol] 111 mg/dL [place] Comment on above: The ADA and AACC rec ommend providing the estimated average glucose result to permit better patient understanding of their HBA1c result. HbA1c (Bld) [Mass fraction] 5.5 % 4 - 6 % [place] Hepatic Function Panelon Albumin [Mass/Vol] 4.5 g/dL 3.5 - 5.2 g/dL [place] [address] Albumin/Globulin [Mass ratio] 1.6 {ratio} [place] ALP [Catalytic activity/Vol] 74 U/L 35 - 104 U/L [place] ALT [Catalytic activity/Vol] 19 U/L 5 - 33 U/L [place] AST [Catalytic activity/Vol] 18 U/L <[address] [place] [address] Bilirubin Ql (U) 0.33 mg/dL 0.3 - 1.2 mg/dL [place] [address] Bilirubin, Indirect CANNOT BE CALCULATED 0 - 1 mg/dL [place] [address] Bilirubin.direct [Mass/Vol] mg/dL <0.31 mg/dL [place] [address] Globulin (S) [Mass/Vol] NOT REPORTED 1.5 - 3.8 g/dL [place] [address] Protein [Mass/Vol] 7.4 g/dL 6.4 - 8.3 g/dL [place] [address] Lipid Panelon 08-05-2020 Cholesterol [Mass/Vol] 212 mg/dL High <200 [place], [place] Comment on above: Cholesterol Guidelines: <200 Desirable 200-240 Borderline >240 Undesirable Cholesterol in HDL [Mass/Vol] 55 mg/dL >[address] [place] [address] Comment on above: HDL Guidelines: <40 Undesirable 40-59 Borderline >59 Desirable Cholesterol in LDL [Mass/Vol] 121 mg/dL 0 - 130 mg/dL [place] [address] Comment on above: LDL Guidelines: <100 Desirable 100-129 Near to/above Desirable 130-159 Borderline >159 Undesirable Direct (measured) LDL and calculated LDL are not interchangeable tests. Cholesterol in VLDL [Mass/Vol] NOT REPORTED High 1 - 30 mg/dL [place] [address] Cholesterol.total/Choles terol in HDL [Mass ratio] 3.9 {ratio} <[address] [place] [address] Interpretation and review of laboratory results Abnormal [place] [address] Triglyceride [Mass/Vol] 180 mg/dL High <150 [place] Comment on above: Triglyceride Guidelines: <150 Desirable 150-199 Borderline 200-499 High >499 Very high Based on AHA Guidelines for fasting triglyceride, June 2012. Metabolic Panelon 08-05-2020 GFR/1.73 sq M predicted among non-blacks MDRD (S/P/Bld) [Vol rate/Area] [place] [address] Comment on above: Stage 1: Some kidney damage normal GFR Stage 2: Mild kidney damage GFR 60-89 Stage 3: Moderate kidney damage GFR 30-59 Stage 4: Severe kidney damage GFR 15-29 Stage 5: Severe kidney damage GFR <15 ESRD - chronic treatment by dialysis or transplant Average GFR for 50-5 9 years old: 93 mL/min/1.73sq m Chronic Kidney Disease: <60 mL/min/1.73sq m Kidney failure: <15 mL/min/1.73sq m eGFR calculated using average adult body mass. Additional eGFR calculator available at: http://www.[employer].com/multiple_crcl_2012.htm T3, Freeon 08-05-2020 Free T3 [Mass/Vol] 2.93 pg/mL 2.02 - 4. 43 pg/mL [place] [address] T4, Freeon 08-05-2020 Thyroxine, Free 1.40 ng/dL 0.93 - 1.7 ng/dL [place] [address] TSH without Reflexon 020 TSH Qn 1.31 m[IU]/L [place] Vital Signs Date Time Vital Sign Value Performing Clinician Facility 11-28-2023 11:25-0500 Diastolic blood pressure 81 mm[Hg] MD Andres Chinchilla Work Phone: [facility] 11-28-2023 11:25-0500 Heart rate 63 /min MD Andres Chinchilla Work Phone: [facility] 11-28-2023 11:25-0500 Respiratory rate 16 /min MD Andres Chinchilla Work Phone: [facility] 11-28-2023 11:25-0500 SaO2% (BldA) [Mass fraction] 97 % MD Andres Chinchilla Work Phone: [facility] 11-28-2023 11:25-0500 Systolic blood pressure 124 mm[Hg] MD Andres Chinchilla Work Phone: [facility] 11-28-2023 08:17-0500 Body mass index (BMI) [Ratio] 26.7 kg/m2 MD Andres Chinchilla Work Phone: [facility] 11-28-2023 08:05-0500 Body height 165.1 cm MD Andres Chinchilla Work Phone: [facility] 11-28-2023 08:05-0500 Body weight 72.9 kg MD Andres Chinchilla Work Phone: [facility] 11-28-2023 06:52-0500 Body temperature 98.1 [degF] MD Andres Chinchilla Work Phone: [facility] 11-19-2023 11:23-0500 Body height 165.1 cm MD Andres Chinchilla Work Phone: [facility] 11-19-2023 11:23-0500 Body mass index (BMI) [Ratio] 26.6 kg/m2 MD Andres Chinchilla Work Phone: [facility] 11-19-2023 11:23-0500 Body weight 72.8 kg MD Andres Chinchilla Work Phone: [facility] 10-09-2023 11:30-0500 Body height 165.1 cm Mechelle Liang Other [facility] 10-09-2023 11:30-0500 Body mass index (BMI) [Ratio] 31.61 kg/m2 Mechelle Liang Other [facility] [employer] Other 10-09-2023 11:30-0500 Body weight 86.18 kg Mechelle Liang Other [facility] 08-31-2022 12:15-0500 Body mass index (BMI) [Ratio] 31.45 kg/m2 Anisha Clifford MD Work Phone: [facility] 08-31-2022 12:15-0500 Body temperature 98.01 [degF] Anisha Clifford MD Work Phone: [facility] 08-31-2022 12:15-0500 Body weight 85.73 kg Anisha Clifford MD Work Phone: [facility] 08-31-2022 12:15-0500 Diastolic blood pressure 84 mm[Hg] Anisha Clifford MD Work Phone: [facility] 08-31-2022 12:15-0500 Heart rate 86 /min Anisha Clifford MD Work Phone: [facility] 08-31-2022 12:15-0500 SaO2% (BldA) [Mass fraction] 98 % Anisha Clifford MD Work Phone: [phone] [place] [address] 08-31-2022 12:15-0500 Systolic blood pressure 124 mm[Hg] Anisha Clifford MD Work Phone: [phone] [place] [address] 08-01-2022 07:16-0400 Body temperature 98.2 [degF] Anisha Clifford MD Work Phone: [phone] [place] [address] 08-01-2022 07:16-0400 Diastolic blood pressure 73 mm[Hg] Anisha Clifford MD Work Phone: [phone] [place] [address] 08-01-2022 07:16-0400 Heart rate 70 /min Anisha Clifford MD Work Phone: [phone])939-787453 [place] [address] 08-01-2022 07:16-0400 Respiratory rate 20 /min Anisha Clifford MD Work Phone: 0(906)[phone] [place] [address] 08-01-2022 07:16-0400 SaO2% (BldA) [Mass fraction] 95 % Anisha Clifford MD Work Phone: 7(790)394-088853 [place] [address] 08-01-2022 07:16-0400 Systolic blood pressure 147 mm[Hg] Anisha Clifford MD Work Phone: 9(009)431-991853 [place] [address] 07-31-2022 05:10-0400 Body height 165.1 cm Anisha Clifford MD Work Phone: 8(674)497-163953 [place] [address] 07-31-2022 05:10-0400 Body mass index (BMI) [Ratio] 33.28 kg/m2 Anisha Clifford MD Work Phone: 8(093)497-335653 [place] [address] 07-31-2022 05:10-0400 Body weight 90.72 kg Anisha Clifford MD Work Phone: 0(554)855-791653 [place] [address] 07-17-2022 12:58-0400 Body height 164.5 cm Tiana Kingsley RADIOLOGY ORDERLY-BATCHER OPERATOR Work Phone: [facility] 07-17-2022 12:58-0400 Body mass index (BMI) [Ratio] 33.71 kg/m2 Tiana Kingsley RADIOLOGY ORDERLY-BATCHER OPERATOR Work Phone: [facility] 07-17-2022 12:58-0400 Body weight 91.17 kg Tiana Kingsley RADIOLOGY ORDERLY-BATCHER OPERATOR Work Phone: [facility] 07-17-2022 12:58-0400 Diastolic blood pressure 90 mm[Hg] Tiana Kingsley RADIOLOGY ORDERLY-BATCHER OPERATOR Work Phone: [facility] 07-17-2022 12:58-0400 Heart rate 74 /min Tiana Kingsley RADIOLOGY ORDERLY-BATCHER OPERATOR Work Phone: [facility] 07-17-2022 12:58-0400 Respiratory rate 16 /min Tiana Kingsley RADIOLOGY ORDERLY-BATCHER OPERATOR Work Phone: [facility] 07-17-2022 12:58-0400 SaO2% (BldA) [Mass fraction] 98 % Tiana Kingsley RADIOLOGY ORDERLY-BATCHER OPERATOR Work Phone: [facility] 07-17-2022 12:58-0400 Systolic blood pressure 133 mm[Hg] Tiana Kingsley RADIOLOGY ORDERLY-BATCHER OPERATOR Work Phone: [facility] 06-18-2022 11:30-0400 Body height 165.1 cm Benjy Olexa Other [employer] Other 06-18-2022 11:30-0400 Body mass index (BMI) [Ratio] 31.78 kg/m2 Benjy Olexa Other [employer] Other 06-18-2022 11:30-0400 Body weight 86.64 kg Benjy Olexa Other [employer] Other 05-18-2022 14:25-0400 Body height 165.1 cm Anisha Clifford MD Work Phone: [phone](094)[phone] [place] [address] Comment on above: pt stated 05-18-2022 14:25-0400 Body mass index (BMI) [Ratio] 33.07 kg/m2 Anisha Clifford MD Work Phone: 0(624)567-837953 [place] [address] 05-18-2022 14:25-0400 Body temperature 97.81 [degF] Anisha Clifford MD Work Phone: 8(044)657-487753 [place] [address] 05-18-2022 14:25-0400 Body weight 90.13 kg Anisha Clifford MD Work Phone: 0(859)[phone] [place] [address] Comment on above: with sandals 05-18-2022 14:25-0400 Diastolic blood pressure 90 mm[Hg] Anisha Clifford MD Work Phone: 4(457)963-520153 [place] [address] 05-18-2022 14:25-0400 Heart rate 84 /min Anisha Clifford MD Work Phone: 8(001)925-272653 [place] [address] 05-18-2022 14:25-0400 SaO2% (BldA) [Mass fraction] 95 % Anisha Clifford MD Work Phone: 5(292)059-552453 [place] [address] 05-18-2022 14:25-0400 Systolic blood pressure 140 mm[Hg] Anisha Clifford MD Work Phone: 9(988)719-320353 [place] [address] 04-26-2022 12:57-0400 Diastolic blood pressure 61 mm[Hg] Anisha Clifford MD Work Phone: 1(605)330-308153 [place] [address] 04-26-2022 12:57-0400 Heart rate 69 /min Anisha Clifford MD Work Phone: 4(635)122-352953 [place] [address] 04-26-2022 12:57-0400 Respiratory rate 18 /min Anisha Cliffrod MD Work Phone: 1(693)598-550453 [place] [address] 04-26-2022 12:57-0400 SaO2% (BldA) [Mass fraction] 98 % Anisha Clifford MD Work Phone: [facility] 04-26-2022 12:57-0400 Systolic blood pressure 122 mm[Hg] Anisha Clifford MD Work Phone: [facility] 04-26-2022 11:37-0400 Body height 165.1 cm Anisha Clifford MD Work Phone: [facility] 04-20-2022 12:05-0400 Body height 165.1 cm Veronique Gutierrez RADIOLOGY ORDERLY-BATCHER OPERATOR Work Phone: [phone] [place] [address] Comment on above: pt stated 04-20-2022 12:05-0400 Body mass index (BMI) [Ratio] 32.52 kg/m2 Veronique Gutierrez RADIOLOGY ORDERLY-BATCHER OPERATOR Work Phone: [facility] 04-20-2022 12:05-0400 Body temperature 98.29 [degF] Veronique Gutierrez RADIOLOGY ORDERLY-BATCHER OPERATOR Work Phone: [facility] 04-20-2022 12:05-0400 Body weight 88.63 kg Veronique Gutierrez RADIOLOGY ORDERLY-BATCHER OPERATOR Work Phone: [facility] Comment on above: with sandals 04-20-2022 12:05-0400 Diastolic blood pressure 96 mm[Hg] Veronique Gutierrez RADIOLOGY ORDERLY-BATCHER OPERATOR Work Phone: [facility] 04-20-2022 12:05-0400 Heart rate 77 /min Veronique Gutierrez RADIOLOGY ORDERLY-BATCHER OPERATOR Work Phone: [facility] 04-20-2022 12:05-0400 SaO2% (BldA) [Mass fraction] 97 % Veronique Gutierrez RADIOLOGY ORDERLY-BATCHER OPERATOR Work Phone: [facility] 04-20-2022 12:05-0400 Systolic blood pressure 145 mm[Hg] Veronique Gutierrez RADIOLOGY ORDERLY-BATCHER OPERATOR Work Phone: [facility] 01-16-2022 12:15-0400 Body height 165.1 cm Chris Loo Other [employer] Other 01-16-2022 12:15-0400 Body mass index (BMI) [Ratio] 32.61 kg/m2 Chris Loo Other [employer] Other 01-16-2022 12:15-0400 Body weight 88.91 kg Chris Loo Other [employer] Other 01-16-2022 12:15-0400 Diastolic blood pressure 90 mm[Hg] Chris Loo Other [employer] Other 01-16-2022 12:15-0400 Systolic blood pressure 131 mm[Hg] Chris Loo Other [employer] Other Encounters Encounter Date Encounter Type Care Provider Facility Start: 03-06-2024 End: 03-06-2024 ambulatory MD Andres Chinchlila Work Phone: [facility] Work Phone: Start: 03-06-2024 End: 03-06-2024 Patient encounter procedure MD Andres Chinchilla Work Phone: [facility] Work Phone: Start: 01-24-2024 End: 01-24-2024 ambulatory MD Andres Chinchilla Work Phone: [facility] Work Phone: Start: 01-24-2024 End: 01-24-2024 Patient encounter procedure MD Andres Chinchilla Work Phone: [facility] Work Phone: Start: 01-09-2024 End: 01-09-2024 ambulatory SABINE Hernandes BARCLAY [facility] Start: 01-02-2024 Chart abstracting Scanning Pro vider External [facility] Start: 12-27-2023 End: 12-27-2023 Patient encounter procedure MD Andres Chinchilla Work Phone: [facility] Work Phone: Start: 12-27-2023 End: 12-27-2023 ambulatory MD Andres Chinchilla Work Phone: [facility] Work Phone: Start: 12-06-2023 End: 12-06-2023 Patient encounter procedure MD Andres Chinchilla Work Phone: [facility] Work Phone: Start: 11-28-2023 Non-patient / Non-visit MD Carla Chinchilla Work Phone: [facility] Work Phone: Start: 11-28-2023 End: 11-28-2023 Admission to same day surgery center MD Andres Chinchilla Work Phone: [facility] [place] Start: 11-28-2023 End: 11-28-2023 ambulatory Mechelle Liang Facility:[facility] Start: 11-19-2023 Patient encounter status MD Nba Chinchilla Work Phone: [facility] Start: 11-19-2023 End: 11-19-2023 ambulatory MD Andres Chinchilla Work Phone: [facility] Work Phone: Start: 11-19-2023 End: 11-19-2023 Patient encounter procedure MD Andres Chinchilla Work Phone: [facility] Work Phone: Start: 11-14-2023 End: 11-14-2023 Patient encounter procedure MD Andres Chinchilla Work Phone: [facility] Work Phone: Start: 11-14-2023 End: 11-14-2023 ambulatory MD Andres Chinchilla Work Phone: [facility] Work Phone: Start: 10-09-2023 End: 10-09-2023 ambulatory Mechelle Calvey Other [employer] Other Start: 10-09-2023 Office outpatient vi sit 25 minutes Mechelle Calvey [facility] Start: 10-09-2023 End: 10-09-2023 Patient encounter procedure MD Andres Chinchilla Work Phone: [facility] Work Phone: Start: 10-08-2023 End: 10-09-2023 ambulatory ANDRES CHINCHILLA [facility] Start: 10-07-2023 End: 10-07-2023 ambulatory ANDRES CHINCHILLA Not Available Start: 06-19-2023 Office outpatient vi sit 15 minutes Mechelle Calvey [facility] Start: 06-19-2023 End: 06-19-2023 Patient encounter procedure MD Andres Chinchilla Work Phone: [facility] Start: 06-19-2023 End: 06-19-2023 ambulatory MD Andres Chinchilla Work Phone: [facility] Work Phone: Start: 01-23-2023 End: 01-23-2023 ambulatory Mechelle Calvey Other [employer] Other Start: 01-23-2023 Office outpatient vi sit 15 minutes Mechelle Calvey [facility] Start: 09-17-2022 End: 09-18-2022 ambulatory ANDRES JASMINE MD [facility] Start: 09-17-2022 End: 09-17-2022 Subsequent hospital visit by physician Andres Chinchilla MD Work Phone: [facility] Start: 08-31-2022 ambulatory ANISHA CLIFFORD Facility:[facility] Start: 08-31-2022 End: 08-31-2022 Postop follow up visit related to original px Anisha Clifford MD Work Phone: [facility] [place] Comment on above: S/P laparoscopic fun doplication (Primary Dx) Start: 08-09-2022 ambulatory ANDRES CHINCHILLA Facility:[facility] Start: 07-31-2022 End: 08-01-2022 [facility] ANDRES CHINCHILLA Facility:[facility] Start: 07-31-2022 End: 08-01-2022 Subsequent hospital visit by physician Anisha Clifford MD Work Phone: [facility] Comment on above: Paraesophageal herni a Start: 07-18-2022 ambulatory ANISHA Alvarenga DARRIN Facility:[facility] Start: 07-17-2022 ambulatory SELF SELF Facility:[facility] Start: 07-17-2022 Encounter for other preprocedural examination TIANA KINGSLEY Facility:[facility] Start: 07-17-2022 [facility] Start: 07-17-2022 End: 07-17-2022 Office outpatient visit 40 minutes Tiana Kingsley RADIOLOGY ORDERLY-BATCHER OPERATOR Work Phone: Pre-Procedure Evaluation and Assessment Outpatient Care [facility] Comment on above: Preoperative examina tion (Primary Dx); Acquired hypothyroidism; Obesity (BMI 30.0-34.9); Chronic GERD Start: 07-17-2022 End: 07-17-2022 Preprocedural examination done Tiana Kingsley RADIOLOGY ORDERLY-BATCHER OPERATOR Work Phone: Pre-Procedure Evaluation and Assessment Outpatient Care [facility] Start: 06-18-2022 End: 06-18-2022 ambulatory Benjy Broderick Other [employer] Other Start: 06-18-2022 Office outpatient vi sit 15 minutes Benjy Broderick [facility] Start: 05-18-2022 ambulatory ANDRES CHINCHILLA Facility:[facility] Start: 05-18-2022 End: 05-18-2022 Office outpatient visit 25 minutes Anisha Clifford MD Work Phone: [facility] [place] Comment on above: Gastroesophageal ref lux disease without esophagitis (Primary Dx) Start: 05-17-2022 End: 05-17-[address] SAAD GRAY Facility:[facility] Start: 05-01-2022 [facility]ulatory [facility] Start: 04-26-2022 [facility] Start: 04-26-2022 End: 04-26-2022 Subsequent hospital visit by physician Anisha Clifford MD Work Phone: [facility] Start: 04-20-2022 ambulatory [facility] Facility:[facility] Start: 04-20-2022 End: 04-20-2022 Office outpatient new 30 minutes Anisha Clifford MD Work Phone: [facility] [place] Comment on above: Gastroesophageal ref lux disease without esophagitis (Primary Dx) Start: 03-02-2022 End: 03-03-[address] SAAD GRAY Facility:[facility] Start: 02-13-2022 End: 02-13-2022 ambulatory Chris Loo Other [employer] Other Start: 02-13-2022 Telephone encounter Chris Loo [facility] Start: 01-16-2022 End: 01-16-2022 ambulatory Chris Loo Other [employer] Other Start: 01-16-2022 Patient encounter procedure Chris [facility] Start: 12-18-2021 End: 12-18-2021 ambulatory Chris Loo Other [employer] Other Start: 12-18-2021 Telephone encounter Chris HERNANDEZ [facility] Start: 12-07-2021 End: 12-07-2021 ambulatory Chris Ditty Other [employer] Other Start: 12-07-2021 Telephone encounter Chris HERNANDEZ [facility] Start: 10-26-2021 End: 10-26-2021 ambulatory Guillermo Hansonemilie Other [employer] Other Start: 10-26-2021 Telephone encounter Guillermo Olivo [facility] Start: 10-10-2021 End: 10-10-2021 ambulatory Mechelle Liang Other [facility] [employer] Other Start: 10-10-2021 Office outpatient vi sit 15 minutes Benjy Broderick [facility] Start: 08-12-2021 End: 08-12-2021 Subsequent hospital visit by physician Andres Chinchilla MD Work Phone: [facility] Start: 08-05-2020 End: 08-05-2020 Subsequent hospital visit by physician [facility] Drawing Room [facility] Comment on above: Arrived Procedures Date Procedure Procedure Detail Performing Clinician Start: 03-06-2024 Plain X-ray of right hand MD Andres Chinchilla Work Phone: Start: 01-24-2024 Plain X-ray of right hand MD Andres Chinchilla Work Phone: Start: 12-27-2023 Plain X-ray of right hand MD Andres Chinchilla Work Phone: Start: 11-28-2023 Arthroplasty of join t of the thumb MD Andres Chinchilla Work Phone: Start: 11-28-2023 Plain X-ray of right thumb MD Andres Chinchilla Work Phone: Start: 06-19-2023 Plain X-ray of right hand MD Andres Chinchilla Work Phone: Start: 03-11-2023 Adult depression scr eening assessment Scanning External Start: 09-17-2022 Basic metabolic pane l calcium total Andres Chinchilla MD Work Phone: Start: 09-17-2022 Hepatic function panel Andres Chinchilla MD Work Phone: Start: 08-01-2022 CBC AND ELECTRONIC DIFF Pedro Wasserman MD Work Phone: Start: 08-01-2022 Complete blood count with white cell differential, automated Pedro Wasserman MD Work Phone: Start: 08-01-2022 Creatinine blood Jared yen Wasserman MD Work Phone: Start: 07-31-2022 CARDIAC RHYTHM Other Ot [facility] Start: 07-31-2022 End: 07-31-2022 Laps surg esopg/gstr fundoplasty Anisha Clifford MD Work Phone: Start: 04-26-2022 INTERVENTIONAL UPPER ENDOSCOPY Veronique Bri Gutierrez RADIOLOGY ORDERLY-BATCHER OPERATOR Work Phone: Start: 08-12-2021 Basic metabolic pane l calcium total Andres Chinchilla MD Work Phone: Start: 08-12-2021 COVID-19, ANTIBODY, TOTAL Andres Chinchilla MD Work Phone: Start: 08-12-2021 Lipid panel Andres Chinchilla MD Work Phone: Start: 08-05-2020 Assay of free thyroxine Andres Chinchilla Work Phone: Start: 08-05-2020 Assay of thyroid sti mulating hormone tsh Andres Chinchilla Work Phone: Start: 08-05-2020 Assay of triiodothyr onine t3 free Andres Chinchilla Work Phone: Start: 08-05-2020 Basic metabolic pane l calcium total Andres Chinchilla Work Phone: Start: 08-05-2020 Blood count complete auto&auto difrntl wbc Andres Chinchilla Work Phone: Start: 08-05-2020 Hemoglobin glycosylated a1c Andres Chinchilla Work Phone: Start: 08-05-2020 Hepatic function panel Andres Chinchilla Work Phone: Start: 08-05-2020 Lipid panel Andres Chinchilla Work Phone: Plan of Treatment Date Care Activity Detail Author Start: 08-12-2026 Lipid panel Lipids [facility] [employer] Start: 08-05-2025 Lipid panel Lipid screen [employer] Start: 05-31-2024 Influenza [facility] [employer] [facility] Start: 03-11-2024 Adult BMI Follow Up Plan Adult BMI Follow Up Plan [facility] Start: 03-11-2024 Adult BMI Screening Adult BMI Screening [facility] [employer] Start: 03-11-2024 Depression Screening Depression Screening [facility] [employer] Start: 03-11-2024 Tobacco Screening Tobacco Screening [facility] [employer] Start: 03-06-2024 Plain X-ray of right hand XR hand RT min 3V* [facility] Start: 03-06-2024 XR Hand - right GE 3 Views [facility] Start: 01-24-2024 Plain X-ray of right hand XR hand RT min 3V* [facility] Start: 01-24-2024 XR Hand - right GE 3 Views [facility] Start: 01-09-2024 End: 01-09-2024 Patient encounter procedure 01/09/2024 2:15 PM EDT Office Visit [facility] [address] [place] [address] Kera Harris MD [address] [place] [address] Sabine Barclay MD [address] [place] [address] [facility] Start: 12-27-2023 Plain X-ray of right hand XR hand RT min 3V* [facility] Start: 12-27-2023 XR Hand - right GE 3 Views [facility] Start: 11-28-2023 [facility] Start: 11-28-2023 [facility] Start: 10-21-2022 End: 04-20-2023 INTERVENTIONAL UPPER ENDOSCOPY INTERVENTIONAL UPPER ENDOSCOPY GI/Bronch Routine Gastroesophageal reflux disease without esophagitis Expected: 10/21/2022, Expires: 04/20/2023 [facility] Comment on above: Expected: 10/21/2022, Expires: Start: 10-04-2022 End: 10-04-2022 Telemedicine consultation with patient 10/04/2022 Telemedicine General Surgery Veronique Gutierrez, RADIOLOGY ORDERLY-BATCHER OPERATOR [address] [place] [address] [facility] [place] Start: 09-25-2022 End: 09-25-2022 Telemedicine consultation with patient 09/25/2022 Telemedicine General Surgery Veronique Gutierrez RADIOLOGY ORDERLY-BATCHER OPERATOR [address] [place] [address] [facility] [place] Start: 08-31-2022 End: 08-31-2022 Patient encounter procedure 08/31/2022 Office Visit General Surgery Anisha Clifford MD [address] [place] [address] [facility] Start: 08-09-2022 End: 08-09-2022 Telemedicine consultation with patient 08/09/2022 Telemedicine General Surgery Veronique Gutierrez RADIOLOGY ORDERLY-BATCHER OPERATOR [address] [place] [address] General and Gastrointestinal [facility] [place] Start: 08-03-2022 End: 08-03-2022 Telemedicine consultation with patient 08/03/2022 Telemedicine General Surgery Veronique Gutierrez, RADIOLOGY ORDERLY-BATCHER OPERATOR [address] [facility] [place] [address] General [facility] Start: 07-31-2022 End: 07-31-2022 Admission to same day surgery center 07/31/2022 Surgery Multispecialty Anisha Clifford MD [address] [place] [address] FUNDOPLASTY ESOPHAGOGASTRIC LAPAROSCOPIC BSH PERIOP Comment on above: FUNDOPLASTY ESOPHAGOGASTRIC LAPAROSCOPIC Start: 07-31-2022 End: 07-31-2022 Laps surg esopg/gstr fundoplasty FUNDOPLASTY ESOPHAGOGASTRIC LAPAROSCOPIC GERD (gastroesophageal reflux disease) 07/31/2022 7:00 AM EDT [facility] Start: 07-31-2022 Subsequent hospital visit by physician 07/31/2022 Hospital Encounter Multispecialty Anisha Clifford MD [address] [place] [address] GERD (gastroesophageal reflux disease) [facility] Comment on above: GERD (gastroesophageal reflux disease) Start: 07-31-2022 End: 07-31-2022 Patient encounter procedure 07/31/2022 Office Visit Multispecialty [facility] Start: 07-18-2022 End: 07-18-2022 Admission to same day surgery center 07/18/2022 Telemed Clin Support General Surgery Kavitha Schuler, RD [address] [place] [address] General [facility]astro[facility] Start: 07-17-2022 End: 07-17-2022 ambulatory 07/17/2022 Pre-Operative Assessment Multispecialty Tiana Kingsley, RADIOLOGY ORDERLY-BATCHER OPERATOR [address] [place] [address] Pre-Procedure Evaluation and Assessment Outpatient [facility] Start: 05-31-2022 Influenza vaccination INFLUENZA VACCINE (#1) U [facility] Start: 05-25-2022 End: 05-25-2022 Patient encounter procedure 05/25/2022 Office Visit General Surgery Anisha Clifford MD [address] [place] [address] [facility] Start: 04-30-2022 Influenza vaccination Flu vaccine (#1) [facility] Start: 04-26-2022 End: 04-26-2022 Patient encounter procedure 04/26/2022 Appointment Endoscopy Anisha Clifford MD [address] [place] [address] [facility] Start: 05-31-2021 Influenza vaccination Flu vaccine (#1) [facility] Start: 05-31-2020 Influenza vaccination Flu vaccine (#1) [place] Start: 04-26-2020 DTaP,Tdap and Td Vaccines (2 - Td or Tdap) DTaP,Tdap and Td Vaccines (2 - Td or Tdap) [facility] Start: 04-26-2020 Tetanus vaccination TETANUS [facility] Start: 01-15-2016 Screening for malignant neoplasm of breast Breast cancer screen [facility] Start: 01-15-2016 Screening for malignant neoplasm of colon Colon cancer screen colonoscopy [place] Start: 01-15-2016 Screening for malignant neoplasm of lung LUNG CANCER SCREENING [facility] Start: 01-15-2016 Shingles Vaccine (1 of 2) Shingles Vaccine (1 of 2) [facility] Start: 01-15-2016 Zoster vaccine hzv live for subcutaneous use ZOSTER (SHINGLES) VACCINE (1 of 2) [facility] Start: 12-27-2012 Screening for malignant neoplasm of breast MAMMOGRAM SCREENING DISCUSSION [facility] Start: 12-27-2012 Screening mammography MAMMOGRAM SCREENING DISCUSSION [facility] Start: 2011 Colonoscopy COLORECTAL CANCER SCREENING DISCUSSION [facility] Start: 2011 Screening for malignant neoplasm of colon [facility] Start: 2006 Fasting lipid profile LIPID SCREENING [facility] Start: 2006 Lipid panel [facility] Start: 01-15-1996 Screening for malignant neoplasm of cervix [facility] Start: 1987 Screening for malignant neoplasm [facility] cervix [facility] [facility] Start: 1985 DTaP/Tdap/Td vaccine (1 - Tdap) DTaP/Tdap/Td vaccine (1 - Tdap) [facility] Start: 1985 Third diphtheria, tetanus and acellular pertussis (DTaP) vaccination TDAP (ADULT) [facility] Start: 01-15-1984 Hepatitis C screening Hepatitis C screen [facility] Start: 01-15-1984 Tetanus vaccination TETANUS [facility] Start: 1981 HIV screening [facility] Start: 1978 COVID-19 Vaccine (1) COVID-19 Vaccine (1) [facility] Start: 1978 Depression Screen Depression Screen [facility] Start: 1966 COVID-19 VACCINE (#1) COVID-19 VACCINE (#1) [facility] Start: 1966 Hepatitis C antibody, confirmatory test HEPATITIS C VIRUS SCREENING [facility] Start: 1966 Hepatitis C screening [facility] Start: 1966 Thyroid stimulating hormone measurement TSH [facility] End: 08-12-2021 Hemoglobin A1c/Hemoglobin.total in Blood [facility] Work Phone: Comment on above: Once for 1 Occurrences starting 08/12/20 21 until 08/12/2021 End: 09-17-2022 Lipid panel [facility] Work Phone: Comment on above: Once for 1 Occurrences starting 09/17/20 until 09/17/2022 Patient Education Monitored [facility] Work Phone: Patient referral 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 71.315 2010 [employer] ( and others) [id number] 1966 Unknown [id number] 2..840.1.598482.3.579.2.593 1966 Unknown [id number] 2.840.1.261446.3.579.2.593 1966 Unknown [id number] 2.840.1.699429.3.579.2.594 1966 Unknown [id number] 2.840.1.015804.3.579.2.594 1966 Unknown [id number] 2.16.840.1.694065.3.579.2.594 1966 Unknown [id number] 2.16.840.1.210245.3.579.2.594 1966 Unknown [id number] 2.16.840.1.948717.3.579.2.594 1966 Unknown [id number] 2.16.840.1.404203.3.579.2.594 1966 Unknown [id number] 2.16840.1.655597.3.579.2.594 1966 Unknown [id number] 2..840.1.123678.3.579.2.594 1966 Unknown [id number] 2..840.1.877527.3.579.2.594 1966 Unknown [id number] 2..840.1.839016.3.579.2.594 1966 Unknown [id number] 2.840.1.434614.3.579.2.594 1966 Unknown [id number] 2.840.1.665835.3.579.2.173 1966 Unknown [id number] 2.840.1.959549.3.579.2.1259 1966 Unknown [id number] 2.840.1.180634.3.579.2.1286 1966 Unknown [id number] 2.840.1.589643.3.579.2.1286 1959 Department of [facility] e ( and others) [id number] 1..840.340314.1.13.239.2.7.3.6786 71.315 Unknown [id number] 2.840.1.608228.3.579.2.531 Unknown [id number] 2.840.1.891178.3.579.2.531 Unknown [id number] 2.840.1.214685.3.579.2.531 Unknown [id number] 2.840.1.836310.3.579.2.531 Unknown [id number] 2.840.1.376949.3.579.2.531 Unknown [id number] 2.840.1.952455.3.579.2.531 Social History Date Type Detail Facility Start: 12-07-2013 Tobacco smoking status ALIS Unknown if ever smoked [place] Start: 1965 Sex Assigned At Not on file [place] Exposure to SARS-CoV -2 (event) Not sure [facility], [place] Start: 02-12-2022 End: 02-04-2023 Sex Assigned At [facility] Start: 04-20-2022 End: 11-28-2023 Tobacco smoking status NHIS Ex-smoker [facility] Start: 09-30-1979 End: 09-30-2015 History of tobacco use Current smoker [facility] Start: 09-30-1979 End: 09-30-2015 History of tobacco use Cigarette Smoker [facility] Start: 02-12-2022 End: 04-20-2022 Cigarettes smoked current (pack per day) - Reported 2 [facility] Start: 04-20-2022 End: 03-11-2023 Tobacco use and exposure Smokeless tobacco non-user [facility] Start: 04-20-2022 End: 03-11-2023 Alcohol intake Current drinker of alcohol (finding) [facility] Start: 04-20-2022 History SDOH Alcohol Comment Per week [facility] Start: 1965 Sex Assigned At [facility] Do you belong to any clubs or organizations such as jewish groups, unions, fraternal or athletic groups, or school groups? Yes [facility] Are you now , , , , never or living with a partner? [facility] How often to you hav e a drink containing alcohol? 2-3 time sa week [facility] How many standard dr inks containing alcohol do you have on a typical day? 1 or 2 [facility] How often do you hav e 6 or more drinks on 1 occasion? Never [facility] How hard is it for y ou to pay for the very basics like food, housing, medical care, and heating Not hard at all [facility] Do you feel stress - tense, restless, nervous, or anxious, or unable to sleep at night because your mind is troubled all the time - these days [OSQ] Not at all [facility] Start: 02-12-2022 Education 12 [facility] Start: 02-20-2021 Alcohol Comment Few times a week [facility] Start: 02-12-2022 Gender identity Identifies as female gender (finding) [facility] Start: 02-12-2022 Sexual orientation Heterosexual (finding) [facility] Medical Equipment Procedure Code Equipment Code Equipment Origin al Text Equipment Identifier Dates Arthroscopy, shoulder Tendon/ligament bone anchor, bioabsorbable [id number] FDA Start: 04-12-2021 Arthroscopy, shoulder Tendon/ligament bone anchor, bioabsorbable [id number] FDA Start: 04-12-2021 Arthroplasty, thumb Orthopaedic bone staple, non-adjustable, sterile [id number] FDA Start: 11-28-2023 Goals Date Patient Goal Desired Activity /State Clinical Notes 10-10-2021 to 10-09-2023 Note Date & Type Note Facility 10-09-2023 Evaluation note Encounter Date Diagnosis Assessment Notes Sep, Arthritis of carpometacarpal (CMC) joint of right thumb (ICD-10 - M18.11) We will schedule right thumb CMC arthroplasty Extensive discussion about current condition and treatment options available. We extensively discussed the potential risks of the procedure, including bleeding, infection, nerve or vessel injury, blood clot, continued pain and failure of the repair. Patient has attempted diligent conservative treatment and continues to have problems. I think that proceeding with surgery is reasonable. We also performed a cortisone injection in to the right thumb CMC joint after sterile prep. Patient tolerated well. Discussed she will need to wait at least 6 weeks after the injection to have the surgery. 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 We performed a cortisone injection into the right thumb CMC joint under sterile technique. Patient tolerated the injection well without adverse reaction. 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 The patient tolerated this well without complication. We discussed that the finger may feel numb and tingle for hours after this injection. 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 * Anisha Clifford MD - 08/31/2022 12:30 PM EST Subjective: Tiana Orozco presents to the clinic 4 weeks following laparoscopic Melonie fundoplication. Eatinga post-Melonie diet without dysphagia. Bowel movement are Normal. The patient is not having any pain.. Reflux symptoms are completely resolved. The patient is not currently taking acid reducing medications. Objective: BP 124/84 Pulse 86 Temp 98 F (36.7 C) Wt 85.7 kg (189 lb) SpO2 98% BMI 31.45 kg/m Smoking Status Former Wt Readings from Last 3 Encounters: 08/31/22 85.7 kg (189 lb) 08/09/22 86 kg (189 lb 8 oz) 07/31/22 90.7 kg (200 lb) Body mass index is 31.45 kg/m . General: alert, cooperative, no distress, appears stated age Abdomen: soft, bowel sounds active, non-tender Incision: healing well, no drainage, no erythema, no hernia Assessment: 57 y.o. female s/p laparoscopic Melonie fundoplication. Doing well postoperatively. Plan: 1. Regular diet as tolerated 2. No PPI required 3. Pt is to increase activities as tolerated. 4. Follow up: as scheduled Anisha Clifford MD manager commodities [facility] Note* Nursing Notes - Marva Orona RN - 08/01/2022 10:32 AM EDT Pt has met SERU discharge criteria. Pt discharged to home. AVS and given and reviewed. Pill cutter and rehabilitation program manager was given to pt. Medications (acetaminophen, oxycodone, zofran and promethazine) escribed by MD to pts preferred pharmacy. Pt verbalized understanding, all questions answered. Pt discharged per wheel chair, by hospital staff with all belongings. No complaints at discharge. Marva Orona RN [facility]11-02-2022 Miscellaneous Notes* Nursing Notes - Marva Orona RN - 08/01/2022 10:32 AM EDT Pt has met SERU discharge criteria. Pt discharged to home. AVS and given and reviewed. Pill cutter and rehabilitation program manager was given to pt. Medications (acetaminophen, oxycodone, zofran and promethazine) escribed by MD to pts preferred pharmacy. Pt verbalized understanding, all questions answered. Pt discharged per wheel chair, by hospital staff with all belongings. No complaints at discharge. Marva Orona RN * Nursing Notes - Medina Fernández RN - 07/31/2022 2:29 PM EDT Patient up ambulating in hallway with standby assist of staff. Gait slow and steady. * Op Note - Anisha Clifford MD - 07/31/2022 12:23 PM EDT General Surgery Operative Report Surgeon: Anisha Clifford MD Sheet Rock Hanger: Pedro Wasserman MD Pre-operative Diagnosis: GERD Post-operative Diagnosis: GERD Procedure: Laparoscopic Melonie Fundoplication Anesthesia: GETA Blood Loss: Minimal Operative Indications: This is a 57-year-old female with a longstanding history of gastroesophagealreflux refractory to medical therapy. Given her severe reflux symptoms and results of objective testing, the decision was made to proceed with elective laparoscopic Melonie fundoplication. Details of procedure: After informed consent was obtained, the patient was taken to the operating, placed in the supine split-leg position on the operating room table. After the induction of general anesthesia, the patient's abdomen was prepped and draped in the usual sterile fashion and intraperitoneal access was gained using a left upper quadrant Veress needle approach. The abdomen insufflated to a pressure of 15 mmHg and an 11-mm camera port was placed 15 cm caudal to the xiphoid process andjust to the left of the midline. Initial inspection revealed no evidence of Veress needle injury orunexpected intra- abdominal pathology and the remainder of the working ports were placed. These included a 12-mm port in the left upper quadrant, a 5-mm port in the lateral left midabdomen, a 5-mm port in the right upper quadrant and the Javi liver retractor was placed in the subxiphoid position and used to retract the left lobe of the liver and expose the esophageal hiatus. The hiatal dissection was begun in the pars flaccida of the lesser omentum. This was opened to expose the right miranda. The medial border of the right miranda was dissected from the stomach and esophagus down to the level of the crural confluence. The peritoneum overlying the crural arch was then openedand attention was turned to the greater curvature of the stomach. The short gastric vessels were divided using the harmonic scalpel beginning at the level of the inferior pole of the spleen. This wasperformed all the way up to the superior- most short gastrics and the dissection was carried up ontothe left miranda. The posterior gastric attachments were also mobilized to perform a complete mobilization of the fundus of the stomach. The medial border of the left miranda was then dissected until a complete circumferential esophageal dissection had been achieved. A Denver drain was then placed around the esophagus and used to retract the esophagus in a caudal direction. The esophagus was then mobilized high in the mediastinum using blunt dissection. There was ample length of infra- abdominal esophagus to perform a Melonie fundoplication. Attention was then turned to the crural closure. A posterior cruroplasty was performed using interrupted 0 Ethibond pledgeted sutures. When this was completed the fundus of the stomach was passed around behind the esophagus and a 56-Malay Banuelos dilator was passed down the esophagus and into the stomach and a floppy Melonie fundoplication was performed over this large dilator. The fundoplicationwas created by taking a bite of the greater curvature of the stomach, the esophagus and the greatercurvature of the stomach. This was performed using 3 sutures to create a 2 cm wrap. When this was completed the bougie was removed and the Denver drain was removed from around the esophagus. The patient was placed back in the supine position and the Javi liver retractor was removed to allow the liver to return to its normal position. All of the area was inspected, there was no evidence of any bleeding from the operative site and all the ports were removed under direct vision without bleedi ng from the abdominal wall. The insufflation was then allowed to escape the abdomen and the skin incisions were closed using interrupted subcuticular sutures. The patient tolerated the procedure well, was extubated in the operating room, transported to the recovery room in stable condition. All spon ge, needle and instrument counts were correct at the end of the case. Due to the lack of a qualified resident advisor, a second attending, Dr. Wasserman, assisted with this procedure. * Nursing Notes - Medina Fernández RN - 07/31/2022 10:17 AM EDT Patient arrived on unit at this time. Sleepy but arouses to verbal stimuli. Noted some bloody drainage from lap site on left side of abdomen. 2 X 2 gauze dressing applied over site. Spouse at bedside. * Nursing Notes - Niurka Freeman RN - 07/31/2022 8:59 AM EDT Patient arrived to [facility] PACU [place] [facility] at 0845. Report received from AMMUNITION COMPONENTS INSPECTOR and surgeon. No labs or imaging needed in PACU. 0911: Family updated, spoke with patient spouse Manny. Aware patient is awaiting bed assignment. 0934: Dr Velazquez paged for sign out, reviewed telemetry, ectopy, VS, and oxygen requirement per OR. Ok for sign out per Dr. Velazquez. Order received for telemetry and pulse oximetry. Order entered per RN. 0936: Attempted to call report, call back number provided. 0944: Family updated, spoke with patient's spouse Manny. 0955: Report called to ABHINAV Haney 1002: Patient left PACU via cart with RN and NURSING HOME ADMISSIONS DIRECTOR in good condition. Patient remains on continuous telemetry and pulse oximetry. No belongings in PACU with patient. * Brief Op Note - Pedro Wasserman MD - 07/31/2022 8:41 AM EDT Tiana Orozco ([id number]) PRE OPERATIVE DIAGNOSIS GERD (gastroesophageal reflux disease) [K21.9] POST OPERATIVE DIAGNOSIS Post-Op Diagnosis Codes: * GERD (gastroesophageal reflux disease) [K21.9] PROCEDURE PERFORMED Laparoscopic Melonie Fundoplication PRIMARY CLOSURE Yes INTRAOPERATIVE FINDINGS 360 degree fundoplication over 56 Fr bougie SURGEON Surgeon(s) and Role: * Anisha Clifford MD - Primary * Pedro Wasserman MD - Fellow ANESTHESIOLOGIST Anesthesiologist: Kenia Velazquez MD AMMUNITION COMPONENTS INSPECTOR: Meghana Hawley APRN-AMMUNITION COMPONENTS INSPECTOR SURGICAL STAFF Clerk General: Angie Ortez RN Scrub Person: David Jean Baptiste Applications Manager: Fritz Dave COMPLICATIONS None ESTIMATED BLOOD LOSS Minimal SPECIMENS No specimen sent * No specimens in log * Pedro Wasserman MD July 31, 2022 8:41 AM [facility] Hospital course Narrative* Mona Oropeza MD - 08/01/2022 9:08 AM EDT GENERAL SURGERY DISCHARGE SUMMARY Patient Name: Tiana Orozco Admission Date: 07/31/2022 Discharge Date: 08/01/2022 Attending Surgeon: No att. providers found Primary Care Physician: Andres Chinchilla PROBLEM LIST: Admitting Diagnosis: Active Problems: Paraesophageal hernia GERD (gastroesophageal reflux disease) KONGIGANAK: Code Status: Full Code Hospital Course - KONGIGANAK on Admission Taken From History and Physical Exam: Ms. Tiana Orozco is a 57 y.o. female admitted to [facility] on 07/31/2022 with a history significant for GERD and hypothyroidism. She was taken to the ORon 07/31/2022 for laparoscopic Melonie fundolipcation. The patient tolerated the procedure well. The postoperative course was uncomplicated. Patient was started on IV fluids and weaned as tolerated. Diet was advanced as tolerated to a full liquid diet. Pain was initially controlled with IV pain medication and later transitioned to an oral regimen. Home medications have been resumed. The patient will be discharged to home. At time of discharge the patient was afebrile, hemodynamically stable, breathing comfortably, eating a full liquid diet with oral pain medication, voiding spontaneously, having bowel movements, and ambulating without difficulty. He will follow up with Dr. Clifford on 08/31/2022. All discharge instructions and follow up information are in the patient After Visit Summary. Consults During Admission: None Condition at Discharge: On 08/01/2022 the patient was deemed stable for discharge. At the time of discharge the patient was afebrile, hemodynamically stable, pain controlled and voiding. The patient will follow up in the outpatient setting. All of the questions were addressed at this time. Patient was advised to contact the office with any further questions and to seek immediate medical care for concerns. PHYSICAL EXAM: The patient was seen and examined on the day of discharge Vital Signs: Reviewed: BP 147/73 (BP Location: Left arm, BP Position: Lying) Pulse 70 Temp 98.2F (36.8 C) (Infrared) Resp 20 Ht 1.651 m (5' 5 ) Wt 90.7 kg (200 lb) SpO2 95% BMI 33.28 kg/m Smoking Status Former , body mass index is 33.28 kg/m . Constitutional: Lying in bed in no acute distress HEENT: Normocephalic, atraumatic, anicteric sclera, clear oropharynx Neck: Supple Neurological: Awake, alert, follows commands, moves all extremities to commands, no gross motor or sensory deficits Cardiovascular: Regular pulse, bilateral radial pulses +2, well perfused with warm extremities, no peripheral edema Pulmonary: Respirations easy and regular, no accessory muscle use, no audible wheezing noted GI: Abdomen rounded, soft, non-distended, non-tender to palpation - no rebound, guarding or peritonitis : No suprapubic tenderness with palpation. Musculoskeletal: Good pulse, motor and sensory to all four extremities. No deformities noted. Integumentary: Skin, pink, warm and dry, no obvious rashes or lesions Psych: Normal affect, asks appropriate questions, no evidence of psychosis PROCEDURES/SURGERIES: 1 Day Post-Op s/p laparoscopic Melonie fundolipcation DIAGNOSTIC STUDIES: Labs: Lab Results Component Value Date WBC 11.31 (H) 08/01/2022 HGB 12.0 08/01/2022 HCT 34.3 (L) 08/01/2022 PLATELET 209 08/01/2022 MCV 91.7 08/01/2022 Lab Results Component Value Date SODIUM 141 08/01/2022 POTASSIUM 4.1 08/01/2022 CHLORIDE 108 08/01/2022 CO2 26 08/01/2022 BUN 15 08/01/2022 CREATSERUM 0.90 08/01/2022 GLUCOSE 93 08/01/2022 No results found for: HGBA1C No results found for: ALT, AST, ALKPHOS, BILITOTAL, BILIDIRECT No results found for: CPK, TROP, HSTROP Significant Cultures: No results found for: [id number] No results found for: SOURCE, RESULTCULT Imaging No orders to display Pending Studies: None DISCHARGE - See AVS for detailed discharge Instructions Discharge Medications: Medication List START taking these medications acetaminophen 500 MG TABS Commonly known as: TYLENOL Take 1 tablet by mouth every 6 hours as needed for Mild Pain. ondansetron 4 MG ODT tablet Commonly known as: ZOFRAN-ODT Take 1 tablet by mouth every 8 hours as needed for Nausea / Vomiting. oxyCODONE 5 MG TABS Commonly known as: ROXICODONE Take 1 tablet by mouth every 6 hours as needed for up to 7 days. Promethazine HCl 12.5 MG tablet Commonly known as: PHENERGAN Take 1 tablet by mouth every 6 hours as needed for up to 14 days. CONTINUE taking these medications cholecalciferol 50 MCG (1999 UT) CAPS Commonly known as: VITAMIN D3 HERBAL PRODUCT levothyroxine 125 MCG TABS Commonly known as: SYNTHROID Oil Base LIQD PRESERVISION AREDS 2 PO PROBIOTIC DAILY PO STOP taking these medications esomeprazole [address] capsule Commonly known as: NEXIUM Where to Get Your Medications These medications were sent to [id number] - [place] [address] - [address] [address] acetaminophen 500 MG TABS ondansetron 4 MG ODT tablet oxyCODONE 5 MG TABS Promethazine HCl 12.5 MG tablet The patient was educated on how medications and medical conditions can cause sedation or drowsiness, dizziness, confusion, impairment of motor skills (affecting driving and other tasks), and cognitive impairment (decision making, judgement) and are advised to not operate any motorized form of transportation (car, truck, etc.), operate any machinery or provide care to others if these symptoms are experienced. Next Scheduled Appointments: Future Appointments Date Time Provider Department Center 08/09/2022 10:30 AM [facility]ALII[facility] Lemos 08/31/2022 12:30 PM [facility] 10/04/2022 10:30 AM NATALII[facility] Lemos More than 30 minutes was spent on the patient's discharge. Mona Oropeza MD [facility] Hospital Discharge instructions* Discharge Instructions* Mona Oropeza MD - 08/01/2022 8:23 AM EDT Images from the original note were not included. Melonie Fundoplication Discharge Instructions After surgery You should expect to be in the hospital at least 1 night after your surgery. The staff will review your care instructions with you. Please ask if you have any questions, or if there is any thing that you do not understand. Activity Walk as often as you are able to reduce the risk of blood clots or pneumonia, and to improve healing. Talk to your doctor about when it is okay for you to return to work. Do not drive if you are taking prescription pain medicine, often 1 to 2 weeks after surgery. Avoid lifting, pushing or pulling anything that weighs more than 10 pounds for 2 weeks after surgery. A gallon of milk weighs about 8 pounds. Coughing and deep breathing Use your incentive spirometer at home for at least 2 weeks or until your cough is very dry. You just had surgery to treat gastroesophageal reflux disease (GERD) where the top of your stomach was wrapped around the bottom of your esophagus or food tube. Follow these care guidelines during your recovery. If you have any questions or concerns, please call [phone]. If you need to have paperwork completed to apply for disability, the office fax is [phone]. Call your doctor if you have more shortness of breath or blood in your mucus when coughing as thesecan be signs of pneumonia. Incision care Keep your incisions dry for 24 hours. Your incision can be left open to the air after 24 hours. If you have drainage, you can use a band-aid or gauze dressing. You can shower but avoid tub baths, hot tubs and swimming until your incisions are healed, often after 2 weeks. Do not remove the tapes, called steri strips, that hold your incisions closed. The strips should come loose and fall off on their own in about 7 to 10 days. If they are still in place after 10 days, you can remove them. Wash your incisions gently with soap and water. Rinse well with clean water and pat them dry with aclean towel. Do not use oils, powders or lotions on your incisions until they are healed. Check your incisions each day for any signs of infection, such as redness, swelling, increased painor increased drainage. Medicines Take liquid medicine until you are able to swallow more easily, often 2 to 4 weeks after surgery. Take the pill rehabilitation program manager home with you from the hospital. If you have pills, check with your pharmacist or primary care doctor to be sure you can crush them to add them to liquids to ease swallowing. Take your pain medicine as ordered as you need to keep your pain under control. If you are to take an antibiotic, finish all of the medicine, even if you do not feel you have an infection. Take your medicines as ordered. Nutrition Eating and drinking are cordero to getting enough calories and other nutrients to help you heal. To protect the area, prevent more swelling and to promote healing, follow a diet of soft, easy to swallow and easily chewed foods for at least 4 to 6 weeks after surgery. Ask for the handout, Diet after Melonie Fundoplication Surgery for more information. You will be on a liquid diet at first. Sit up when eating and drinking, and sit up for 20 to 30 minutes after eating. Eat slowly and chew your food well. Eat smaller meals every couple hours instead of 3 larger meals. Avoid carbonated drinks and limit foods that may cause more abdominal gas, such as high fat foods, beans and vegetables, like broccoli, cabbage and cauliflower. Avoid using straws. Follow up It is important to go to your follow up appointment after surgery. Refer to your After Visit Summary for your appointment date and time. When to call the doctor Call your doctor right away if you have: Problems drinking or eating Signs of infection at your incision site, such as redness, tenderness, more pain or more drainage A fever of 100.4 degrees F (38 degrees C) or higher Reflux symptoms come back or continue Abdominal pain or swelling, especially after coughing Tenderness in abdomen or belly feels hard Bowel movements are black or bloody Pain or tenderness in your legs Chest pain or any problems breathing Talk to your doctor or health care team if you have any questions about your care. For more health information, go to [email or web address] or contact the Library for Health Information at [phone] or [email or web address]. 2014 - November 24, 2018, [facility]. 2 Melonie Fundoplication Discharge Instructions [email or web address] [facility]* Nursing Notes - Medina Fernández RN - 07/31/2022 2:29 PM EDT Patient up ambulating in hallway with standby assist of staff. Gait slow and steady. [facility]-01-[facility] Note* Op Note - Anisha Clifford MD - 07/31/2022 12:23 PM EDT General Surgery Operative Report Surgeon: Anisha Clifford MD Sheet Rock Hanger: Pedro Wasserman MD Pre-operative Diagnosis: GERD Post-operative Diagnosis: GERD Procedure: Laparoscopic Melonie Fundoplication Anesthesia: GETA Blood Loss: Minimal Operative Indications: This is a 57-year-old female with a longstanding history of gastroesophagealreflux refractory to medical therapy. Given her severe reflux symptoms and results of objective testing, the decision was made to proceed with elective laparoscopic Melonie fundoplication. Details of procedure: After informed consent was obtained, the patient was taken to the operating, placed in the supine split-leg position on the operating room table. After the induction of general anesthesia, the patient's abdomen was prepped and draped in the usual sterile fashion and intraperitoneal access was gained using a left upper quadrant Veress needle approach. The abdomen insufflated to a pressure of 15 mmHg and an 11-mm camera port was placed 15 cm caudal to the xiphoid process andjust to the left of the midline. Initial inspection revealed no evidence of Veress needle injury orunexpected intra- abdominal pathology and the remainder of the working ports were placed. These included a 12-mm port in the left upper quadrant, a 5-mm port in the lateral left midabdomen, a 5-mm port in the right upper quadrant and the Javi liver retractor was placed in the subxiphoid position and used to retract the left lobe of the liver and expose the esophageal hiatus. The hiatal dissection was begun in the pars flaccida of the lesser omentum. This was opened to expose the right miranda. The medial border of the right miranda was dissected from the stomach and esophagus down to the level of the crural confluence. The peritoneum overlying the crural arch was then openedand attention was turned to the greater curvature of the stomach. The short gastric vessels were divided using the harmonic scalpel beginning at the level of the inferior pole of the spleen. This wasperformed all the way up to the superior- most short gastrics and the dissection was carried up ontothe left miranda. The posterior gastric attachments were also mobilized to perform a complete mobilization of the fundus of the stomach. The medial border of the left miranda was then dissected until a complete circumferential esophageal dissection had been achieved. A Denver drain was then placed around the esophagus and used to retract the esophagus in a caudal direction. The esophagus was then mobilized high in the mediastinum using blunt dissection. There was ample length of infra- abdominal esophagus to perform a Melonie fundoplication. Attention was then turned to the crural closure. A posterior cruroplasty was performed using interrupted 0 Ethibond pledgeted sutures. When this was completed the fundus of the stomach was passed around behind the esophagus and a 56-Malay Banuelos dilator was passed down the esophagus and into the stomach and a floppy Melonie fundoplication was performed over this large dilator. The fundoplicationwas created by taking a bite of the greater curvature of the stomach, the esophagus and the greatercurvature of the stomach. This was performed using 3 sutures to create a 2 cm wrap. When this was completed the bougie was removed and the Denver drain was removed from around the esophagus. The patient was placed back in the supine position and the Javi liver retractor was removed to allow the liver to return to its normal position. All of the area was inspected, there was no evidence of any bleeding from the operative site and all the ports were removed under direct vision without bleedi ng from the abdominal wall. The insufflation was then allowed to escape the abdomen and the skin incisions were closed using interrupted subcuticular sutures. The patient tolerated the procedure well, was extubated in the operating room, transported to the recovery room in stable condition. All spon ge, needle and instrument counts were correct at the end of the case. Due to the lack of a qualified resident advisor, a second attending, Dr. Sweigert, assisted with this procedure. [facility]-01[facility] History of Present illness Narrative* Mona Oropeza MD - 07/31/2022 12:13 PM EDT Post-Op Check Note Patient: Tiana Orozco Date: 07/31/2022, 12:54 PM SUBJECTIVE: Post-operatively Ms. Tiana Orozco is doing well. She is afebrile and hemodynamically stable. Herincisions are intact and covered with clean, dry dressing. Her pain is well-controlled and she doesnot have any nausea, chest pain, or shortness of breath. She has not yet voided. There were no questions or concerns at the time. Day of Surgery s/p Procedure(s) (LRB): FUNDOPLASTY ESOPHAGOGASTRIC LAPAROSCOPIC (N/A) BP 120/57 (BP Location: Left arm, BP Position: Right Lateral) Pulse 92 Temp 97.8 F (36.6 C) (Infrared) Resp 17 Ht 1.651 m (5' 5 ) Wt 90.7 kg (200 lb) SpO2 95% BMI 33.28 kg/m Smoking Status Former GEN: NAD CV: RR RESP: unlabored breathing ABDOMEN: soft EXT: well-perfused NEURO: NFD FLAP: skin soft and warm, no discoloration, 2-3 sec cap refill, dopplerable arterial signals, incisions C/D/I, JOSEPHINE drains SS -Patient seen at bedside for post-op check, recovering well -Pain well controlled Mona Oropeza MD Anesthesiology, PGY-1 [facility] [address] [facility]* Nursing Notes - Medina Fernández RN - 07/31/2022 10:17 AM EDT Patient arrived on unit at this time. Sleepy but arouses to verbal stimuli. Noted some bloody drainage from lap site on left side of abdomen. 2 X 2 gauze dressing applied over site. Spouse at bedside. [facility] Note* Nursing Notes - Niurka Freeman RN - 07/31/2022 8:59 AM EDT Patient arrived to [facility] PACU [place] [facility] at 0845. Report received from AMMUNITION COMPONENTS INSPECTOR and surgeon. No labs or imaging needed in PACU. 0911: Family updated, spoke with patient spouse Manny. Aware patient is awaiting bed assignment. 0934: Dr Velazquez paged for sign out, reviewed telemetry, ectopy, VS, and oxygen requirement per OR. Ok for sign out per Dr. Velazquez. Order received for telemetry and pulse oximetry. Order entered per RN. 0936: Attempted to call report, call back number provided. 0944: Family updated, spoke with patient's spouse Manny. 0955: Report called to ABHINAV Haney 1002: Patient left PACU via cart with RN and NURSING HOME ADMISSIONS DIRECTOR in good condition. Patient remains on continuous telemetry and pulse oximetry. No belongings in PACU with patient. [facility] Note* Brief Op Note - Pedro Wasserman MD - 07/31/2022 8:41 AM EDT Tiana Orozco ([id number]) PRE OPERATIVE DIAGNOSIS GERD (gastroesophageal reflux disease) [K21.9] POST OPERATIVE DIAGNOSIS Post-Op Diagnosis Codes: * GERD (gastroesophageal reflux disease) [K21.9] PROCEDURE PERFORMED Laparoscopic Melonie Fundoplication PRIMARY CLOSURE Yes INTRAOPERATIVE FINDINGS 360 degree fundoplication over 56 Fr bougie SURGEON Surgeon(s) and Role: * Anisha Clifford MD - Primary * Pedro Wasserman MD - Fellow ANESTHESIOLOGIST Anesthesiologist: Kenia Velazquez MD AMMUNITION COMPONENTS INSPECTOR: Meghana Hawley APRN-AMMUNITION COMPONENTS INSPECTOR SURGICAL STAFF Clerk General: Angie Ortez RN Scrub Person: David Jean Baptiste Applications Manager: Fritz Dave COMPLICATIONS None ESTIMATED BLOOD LOSS Minimal SPECIMENS No specimen sent * No specimens in log * Pedro Wasserman MD July 31, 2022 8:[address] [facility] Work Phone: 1(104) 867-233511-01-2022 History and physical note* Mona Oropeza MD - 07/31/2022 5:56 AM EDT PERIOPERATIVE HISTORY AND PHYSICAL UPDATE Operation: Procedure(s) (LRB): FUNDOPLASTY ESOPHAGOGASTRIC LAPAROSCOPIC (N/A) Surgeon: Anisha Clifford MD Tiana Orozco is a 57 y.o. female with a history of GERD, hypothyroidism, who presents for laparoscopic Melonie fundoplication. She presents in her usual state of health today. She is feeling well with no concerns. She endorsessome LUQ abdominal pain that she states is normal for her. She denies any nausea or vomiting. She last had anything to eat at 6 pm last night Review of Systems: Const: negative for fever, chills, night sweats, hot flashes, malaise HEENT: negative for headaches, visual changes CV: negative for chest pain, dyspnea on exertion, edema, irregular heartbeat Lungs: negative for cough, shortness of breath, sputum changes GI: positive for abdominal pain, negative for abdominal pain, blood in stools, change in bowel habits, change in stools, hematemesis, hematochezia, melena, appetite loss, nausea/vomiting : negative for dysuria, hematuria, urinary frequency, urgency MSK: negative for joint pain or joint deformity Neuro: negative for confusion Psych: negative for depression Derm: negative for rash, pruritus Exam: Vitals: Smoking Status Former General: well-developed, well-nourished, no acute distress HEENT: atraumatic, normocephalic, extra ocular muscles intact, no scleral icterus Neck: supple, no cervical lymphadenopathy Heart: regular rate and rhythm, hemodynamically stable Lungs: normal work of breathing on room air, no audible wheezing/stridor Abdomen: soft, mild LUQ tenderness, non-distended, no rebound, guarding, or peritoneal signs Extremities: non-tender, no edema, warm and well-perfused, palpable pulses throughout Neuro: alert and oriented to person/place/time, no focal deficits on gross exam Skin: warm and dry, no lesions or discoloration I have reviewed Tiana Orozco 's medical, surgical and other pertinent history, and I have updated the medication and allergy information in the computerized patient record. I have examined the patient, reviewed the previous H&P completed on date (07/17/22) and there are no changes. Risks and benefits of the procedure were discussed with the patient. She voiced understanding and does not have any questions at the moment. Consent was uploaded into her chart. Today's surgical history and physical update was completed by Mona Oropeza MD, at 5:56 AM [facility]11-01-2022 History and physical note* Mona Oropeza MD - 07/31/2022 5:56 AM EDT PERIOPERATIVE HISTORY AND PHYSICAL UPDATE Operation: Procedure(s) (LRB): FUNDOPLASTY ESOPHAGOGASTRIC LAPAROSCOPIC (N/A) Surgeon: Anisha Clifford MD Tiana Orozco is a 57 y.o. female with a history of GERD, hypothyroidism, who presents for laparoscopic Melonie fundoplication. She presents in her usual state of health today. She is feeling well with no concerns. She endorsessome LUQ abdominal pain that she states is normal for her. She denies any nausea or vomiting. She last had anything to eat at 6 pm last night Review of Systems: Const: negative for fever, chills, night sweats, hot flashes, malaise HEENT: negative for headaches, visual changes CV: negative for chest pain, dyspnea on exertion, edema, irregular heartbeat Lungs: negative for cough, shortness of breath, sputum changes GI: positive for abdominal pain, negative for abdominal pain, blood in stools, change in bowel habits, change in stools, hematemesis, hematochezia, melena, appetite loss, nausea/vomiting : negative for dysuria, hematuria, urinary frequency, urgency MSK: negative for joint pain or joint deformity Neuro: negative for confusion Psych: negative for depression Derm: negative for rash, pruritus Exam: Vitals: Smoking Status Former General: well-developed, well-nourished, no acute distress HEENT: atraumatic, normocephalic, extra ocular muscles intact, no scleral icterus Neck: supple, no cervical lymphadenopathy Heart: regular rate and rhythm, hemodynamically stable Lungs: normal work of breathing on room air, no audible wheezing/stridor Abdomen: soft, mild LUQ tenderness, non-distended, no rebound, guarding, or peritoneal signs Extremities: non-tender, no edema, warm and well-perfused, palpable pulses throughout Neuro: alert and oriented to person/place/time, no focal deficits on gross exam Skin: warm and dry, no lesions or discoloration I have reviewed Tiana Orozco 's medical, surgical and other pertinent history, and I have updated the medication and allergy information in the computerized patient record. I have examined the patient, reviewed the previous H&P completed on date (07/17/22) and there are no changes. Risks and benefits of the procedure were discussed with the patient. She voiced understanding and does not have any questions at the moment. Consent was uploaded into her chart. Today's surgical history and physical update was completed by Mona Oropeza MD, at 5:56 AM documented in this [facility]10-18-2022 History and physical note* Tiana Kingsley, RADIOLOGY ORDERLY-BATCHER OPERATOR - 07/17/2022 1:15 PM EDT Pre-Operative Assessment (PAT) Outpatient Clinic Note H&P Date of Evaluation: 07/17/2022 Date of Surgery: 07/31/22 Surgeon: Dr Clifford Pre-Op Diagnosis: GERD Planned Procedure: FUNDOPLASTY ESOPHAGOGASTRIC LAPAROSCOPIC CHIEF COMPLAINT Preoperative cardiovascular testing and medication management for major surgery HISTORY Tiana Orozco is a 57 y.o. female with the below history presenting for preoperative evaluation. Chronic medical problems are stable with no acute changes in symptoms or medications: Yes Anesthesia: Personal or Family history of problems related to anesthesia (ex.Malignant Hyperthermia): No History of difficult intubations: No Pacer/AICD: No; PONV: Yes- reports requires premedication Penicillin Allergy:Hives, itching Cardiac: Hx of Cardiac Disease/Stents - No Current Symptoms of Angina - No Current Symptoms of Decompensated Heart Failure - No Use of Beta-Blockers - No Current Functional Status ? 4 - Yes Pulmonary: History of LAURA: no History of asthma or COPD: No Smoker: no STOP-BANG Risk Assessment: STOP Questions o Do you snore? No o Frequently tired during the day? No o Observed gasping or choking episodes while asleep? No o Diagnosis of/or treated for high blood pressure? No BANG Questions o Age more than 50? Yes o Gender assignment at : Male? No o Neck circumference greater than 40 cm? No o BMI more then 35? - Body mass index is 33.71 kg/m . No High risk: No (High risk ? 5 STOP-BANG; STOP ? 2 AND Male; STOP ? 2 AND BMI > 35 kg/m2; STOP ? 2 AND Neck ? 40cm) MEDICAL HISTORY: Past Medical History: Diagnosis Date Arthritis 2011 GERD (gastroesophageal reflux disease) 1979 Hypothyroidism 1989 Past Surgical History: Procedure Laterality Date APPENDECTOMY BACKBENCH PREPARATION KIDNEY ALLOGRAFT LIVING DONOR BREAST REDUCTION CERVICAL FUSION 4-5 DILATION OF ESOPHAGUS BY BALLOON HYSTERECTOMY SHOULDER SURGERY Right SOCIAL HISTORY: reports that she quit smoking about 6 years ago. Her smoking use included cigarettes. She started smoking about 42 years ago. She has a 20.00 pack-year smoking history. She has never used smokeless tobacco. She reports current alcohol use of about 4.0 standard drinks per week. She reports that she does not use drugs. FAMILY HISTORY: family history includes Colorectal Cancer in her maternal great grandmother; Hypertension in her mother; Lipid Disorder in her mother; Lung Cancer in her father. MEDICATIONS: Current Outpatient Medications Medication Instructions cholecalciferol (VITAMIN D3) 2,000 Units, Oral, DAILY esomeprazole (NEXIUM) 40 mg, Oral, DAILY HERBAL PRODUCT isogenics levothyroxine (SYNTHROID) 125 mcg, Oral, DAILY Multiple Vitamins-Minerals (PRESERVISION AREDS 2 PO) 2 tablets, Oral Oil Base Liquid Oral, CBD ALLERGIES: Allergies Allergen Reactions Penicillins Hives, Itching and Swelling REVIEW OF SYSTEMS The patient denies any chest pain on exertion, shortness of breath, orthopnea or palpitation ROS also negative for fever, chills, headache, dizziness, cough, sputum, nausea, vomiting, diarrhea, constipation, dysuria, hematuria, rashes or easy bleeding. All other systems were reviewed and were negative OBJECTIVE Vitals: 07/17/22 1258 BP: 133/90 Pulse: 74 Resp: 16 SpO2: 98% Weight: 91.2 kg (201 lb) Height: 1.645 m (5' 4.75 ) Body mass index is 33.71 kg/m . General:57 y.o. female in NAD, alert and oriented x 3 HEENT: Normocephalic, pupils equal round and reactive to light, EOMI, wearing glasses Neck: limited ROM, supple, no lymphadenopathy Pulmonary: bilateral breath sounds, clear to auscultation, no use of accessory muscles, no wheezes/rhonchi/rales Cardiovascular:Regular rate and rhythm. Normal S1, S2, No murmurs, rubs or gallops Abdomen: soft, nontender, nondistended, normoactive bowel sounds, Extremities: No cyanosis, clubbing or edema. Normal peripheral pulses noted. Neuro: Cranial nerves are grossly intact, No focal deficits noted, moving all 4 extremities. Skin: warm, dry, intact; no erythema or rash DATA REVIEW Lab Results Component Value Date WBC 7.07 07/17/2022 HGB 14.0 07/17/2022 HCT 41.6 07/17/2022 PLATELET 246 07/17/2022 MCV 95.2 07/17/2022 Lab Results Component Value Date SODIUM 140 07/17/2022 POTASSIUM 4.0 07/17/2022 CHLORIDE 103 07/17/2022 CO2 30 07/17/2022 BUN 24 07/17/2022 CREATSERUM 0.87 07/17/2022 No results found for: INR, PT No results found for: HGBA1C In addition to the labs above, I have personally reviewed all laboratory data in the EMR and CareEverywhere ECHO: No results found for this or any previous visit. I have personally reviewed the imaging findings in the chart. ASSESSMENT AND PLAN Pre-operative Risk Evaluation - Tiana Orozco is at a Acceptable risk for a intermediate risk surgery - Per ACC/AHA guidelines, the patient requires no further testing at this time. - METS >4: yes, good exercise tolerance - Patient Meets the Following RCRI Criteria (RCRI): None: 0 criteria suggesting a 3.9% risk of major cardiac events - Please utilize continuous pulse oximetry & telemetry for at least 24 hours and consider usingCPAP or BiPAP when patient is sleeping for patients if High risk for LAURA Hypothyroidism -stable on levothyroxine GERD -stable on PPI Obesity Body mass index is 33.71 kg/m .:- Lifestyle modifications Perioperative medication recommendations: THE DAY OF your surgery: WHAT TO DO ABOUT YOUR MEDICATIONS: cholecalciferol 50 MCG (1999 UT) capsule Do Not take the morning of surgery esomeprazole [address] capsule Do Not take the morning of surgery HERBAL PRODUCT isogenics Do not take 5 days prior to surgery levothyroxine 125 MCG tablet Ok to take morning of surgery Multiple Vitamins-Minerals (PRESERVISION AREDS 2 PO) Do not take 5 days prior to surgery Oil Base Liquid CBD Ok to take morning of surgery Above recommendations were discussed with the patient, and patient understood and agreed with the plan outlined above. Thank you for allowing us to participate in the care of Tiana Orozco. NATALIIA Steve Division of Hospital Medicine [facility] Work Phone: 1(690) 965-243810-18-2022 History and physical note* NATALIIA Steve - 07/17/2022 1:15 PM EDT Pre-Operative Assessment (PAT) Outpatient Clinic Note H&P Date of Evaluation: 07/17/2022 Date of Surgery: 07/31/22 Surgeon: Dr Clifford Pre-Op Diagnosis: GERD Planned Procedure: FUNDOPLASTY ESOPHAGOGASTRIC LAPAROSCOPIC CHIEF COMPLAINT Preoperative cardiovascular testing and medication management for major surgery HISTORY Tiana Orozco is a 57 y.o. female with the below history presenting for preoperative evaluation. Chronic medical problems are stable with no acute changes in symptoms or medications: Yes Anesthesia: Personal or Family history of problems related to anesthesia (ex.Malignant Hyperthermia): No History of difficult intubations: No Pacer/AICD: No; PONV: Yes- reports requires premedication Penicillin Allergy:Hives, itching Cardiac: Hx of Cardiac Disease/Stents - No Current Symptoms of Angina - No Current Symptoms of Decompensated Heart Failure - No Use of Beta-Blockers - No Current Functional Status ? 4 - Yes Pulmonary: History of LAURA: no History of asthma or COPD: No Smoker: no STOP-BANG Risk Assessment: STOP Questions o Do you snore? No o Frequently tired during the day? No o Observed gasping or choking episodes while asleep? No o Diagnosis of/or treated for high blood pressure? No BANG Questions o Age more than 50? Yes o Gender assignment at : Male? No o Neck circumference greater than 40 cm? No o BMI more then 35? - Body mass index is 33.71 kg/m . No High risk: No (High risk ? 5 STOP-BANG; STOP ? 2 AND Male; STOP ? 2 AND BMI > 35 kg/m2; STOP ? 2 AND Neck ? 40cm) MEDICAL HISTORY: Past Medical History: Diagnosis Date Arthritis 2011 GERD (gastroesophageal reflux disease) 1979 Hypothyroidism 1989 Past Surgical History: Procedure Laterality Date APPENDECTOMY BACKBENCH PREPARATION KIDNEY ALLOGRAFT LIVING DONOR BREAST REDUCTION CERVICAL FUSION 4-5 DILATION OF ESOPHAGUS BY BALLOON HYSTERECTOMY SHOULDER SURGERY Right SOCIAL HISTORY: reports that she quit smoking about 6 years ago. Her smoking use included cigarettes. She started smoking about 42 years ago. She has a 20.00 pack-year smoking history. She has never used smokeless tobacco. She reports current alcohol use of about 4.0 standard drinks per week. She reports that she does not use drugs. FAMILY HISTORY: family history includes Colorectal Cancer in her maternal great grandmother; Hypertension in her mother; Lipid Disorder in her mother; Lung Cancer in her father. MEDICATIONS: Current Outpatient Medications Medication Instructions cholecalciferol (VITAMIN D3) 2,000 Units, Oral, DAILY esomeprazole (NEXIUM) 40 mg, Oral, DAILY HERBAL PRODUCT isogenics levothyroxine (SYNTHROID) 125 mcg, Oral, DAILY Multiple Vitamins-Minerals (PRESERVISION AREDS 2 PO) 2 tablets, Oral Oil Base Liquid Oral, CBD ALLERGIES: Allergies Allergen Reactions Penicillins Hives, Itching and Swelling REVIEW OF SYSTEMS The patient denies any chest pain on exertion, shortness of breath, orthopnea or palpitation ROS also negative for fever, chills, headache, dizziness, cough, sputum, nausea, vomiting, diarrhea, constipation, dysuria, hematuria, rashes or easy bleeding. All other systems were reviewed and were negative OBJECTIVE Vitals: 07/17/22 1258 BP: 133/90 Pulse: 74 Resp: 16 SpO2: 98% Weight: 91.2 kg (201 lb) Height: 1.645 m (5' 4.75 ) Body mass index is 33.71 kg/m . General:57 y.o. female in NAD, alert and oriented x 3 HEENT: Normocephalic, pupils equal round and reactive to light, EOMI, wearing glasses Neck: limited ROM, supple, no lymphadenopathy Pulmonary: bilateral breath sounds, clear to auscultation, no use of accessory muscles, no wheezes/rhonchi/rales Cardiovascular:Regular rate and rhythm. Normal S1, S2, No murmurs, rubs or gallops Abdomen: soft, nontender, nondistended, normoactive bowel sounds, Extremities: No cyanosis, clubbing or edema. Normal peripheral pulses noted. Neuro: Cranial nerves are grossly intact, No focal deficits noted, moving all 4 extremities. Skin: warm, dry, intact; no erythema or rash DATA REVIEW Lab Results Component Value Date WBC 7.07 07/17/2022 HGB 14.0 07/17/2022 HCT 41.6 07/17/2022 PLATELET 246 07/17/2022 MCV 95.2 07/17/2022 Lab Results Component Value Date SODIUM 140 07/17/2022 POTASSIUM 4.0 07/17/2022 CHLORIDE 103 07/17/2022 CO2 30 07/17/2022 BUN 24 07/17/2022 CREATSERUM 0.87 07/17/2022 No results found for: INR, PT No results found for: HGBA1C In addition to the labs above, I have personally reviewed all laboratory data in the EMR and CareEverywhere ECHO: No results found for this or any previous visit. I have personally reviewed the imaging findings in the chart. ASSESSMENT AND PLAN Pre-operative Risk Evaluation - Tiana Orozco is at a Acceptable risk for a intermediate risk surgery - Per ACC/AHA guidelines, the patient requires no further testing at this time. - METS >4: yes, good exercise tolerance - Patient Meets the Following RCRI Criteria (RCRI): None: 0 criteria suggesting a 3.9% risk of major cardiac events - Please utilize continuous pulse oximetry & telemetry for at least 24 hours and consider usingCPAP or BiPAP when patient is sleeping for patients if High risk for LAURA Hypothyroidism -stable on levothyroxine GERD -stable on PPI Obesity Body mass index is 33.71 kg/m .:- Lifestyle modifications Perioperative medication recommendations: THE DAY OF your surgery: WHAT TO DO ABOUT YOUR MEDICATIONS: cholecalciferol 50 MCG (1999 UT) capsule Do Not take the morning of surgery esomeprazole [address] capsule Do Not take the morning of surgery HERBAL PRODUCT isogenics Do not take 5 days prior to surgery levothyroxine 125 MCG tablet Ok to take morning of surgery Multiple Vitamins-Minerals (PRESERVISION AREDS 2 PO) Do not take 5 days prior to surgery Oil Base Liquid CBD Ok to take morning of surgery Above recommendations were discussed with the patient, and patient understood and agreed with the plan outlined above. Thank you for allowing us to participate in the care of Tiana Orozco. NATALIIA Steve Division of Hospital Medicine [facility] Instructions* Patient Instructions* NATALIIA Steve - 07/17/2022 1:15 PM EDT Patient Name: Tiana Orozco You will be contacted 2 business days prior to your procedure date and will be notified of arrival time and where to register. What you need to bring to the hospital: 1. A photo ID 2. Insurance Card 3. Co-pay for insurance if applicable 4. A list of ALL MEDICATIONS you are currently taking including the dose and times that you take them You will be turning this list over to your nurse. 5. Crutches/walker if applicable. 6. CPAP machine if applicable. What to leave at home: 1. ALL valuables, cell phone, wallet, purse 2. ALL jewelry including watches, wedding bands and ANY FORM of piercing. 3. DO NOT wear lotion, makeup, nail mongolian, contact lens, or perfume/cologne. 4. DO NOT bring actual pill bottles or home medications unless instructed to do so. PRIOR to your surgery: 1. Do NOT shave, or pluck hair from anywhere near the surgical site the day of or the day before surgery. Bathe the night before and the morning of surgery. 2. DO NOT eat or drink ANYTHING after midnight or the day of surgery. As well as, no gum or breath mints after midnight. 3. DO NOT smoke ANYTHING after midnight the night before your surgery. 4. You may brush your teeth and rinse/gargle you mouth after midnight but avoid drinking too much water. 5. ABSTAIN from using nicotine in any form around the time of your surgery. Smoking or Chewing tobacco can delay wound healing and result in increased risk of infection after surgery. 6. ABSTAIN from alcohol or drug use for one week prior to surgery. Do not show up to your surgery intoxicated or under the influence of any drugs. Drug use within 24 hour of any kind could result in a cancellation of your procedure 7. If you are seen in ER or have any unplanned medical visits between now and your surgery date, please notify your surgeon's office prior to your day of surgery. THE DAY OF your surgery: WHAT TO DO ABOUT YOUR MEDICATIONS: cholecalciferol 50 MCG (2000 UT) capsule Do Not take the morning of surgery esomeprazole [address] capsule Do Not take the morning of surgery HERBAL PRODUCT isogenics Do not take 5 days prior to surgery levothyroxine 125 MCG tablet Ok to take morning of surgery Multiple Vitamins-Minerals (PRESERVISION AREDS 2 PO) Do not take 5 days prior to surgery Oil Base Liquid CBD Ok to take morning of surgery Medications that may need to be STOPPED 24 hours or greater BEFORE surgery. 1. All herbal medications should be stopped 7 days before surgery. (fish oil, glucosamine, garlic, tumeric, etc) 2. Hold NSAIDS for 5 days (Aleve, Motrin, Ibuprofen, Advil, Naproxen, Diclofenac, Celebrex and Meloxicam). It is okay to take Tylenol. 3. Hold Multi-Vitamins for 3 days. 4. Please contact [facility] if you have changes to your medications before surgery. We work in conjunction with your surgeon but cannot any specific questions about your surgery. If you have any questions specific to our visit today for your preoperative testing, please contact[facility] at [phone]. Please direct any questions regarding your surgery to your surgeon s office documented [facility] * Encounter Date Diagnosis Assessment Notes Treatment Notes Treatment Clinical Notes May, Acute pain of right foot (ICD-10 - M79.671) May, Sprain of right foot, initial encounter (ICD-10 - S93.601A) Radiographs reviewed with patient as no obvious fracture, although discussed there is potential patient has a nondisplaced 5th metatarsal base stress fracture based on exam and history. We will treat this as a sprain for now. We discussed that this can take at least 6 weeks to heal. We will allow gentle ankle and foot motion and gentle progressive weight bearing as tolerated as pain allows. Patient declines CAM walker boot today, will limit activity on her own. If no improvement over the next month, may consider MRI for evaluation [facility] Other 08-19-2022 History of Present illness Narrative* Anisha Clifford MD - 05/18/2022 2:30 PM EDT Subjective: CC: GERD HPI: Tiana Orozco is an 57 y.o. female who was referred for evaluation of gastroesophageal reflux disease. 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 She also endorses belching, bloating, and a gurgling sensation. Symptoms were first notedseveral years ago. Symptoms include Heartburn:yes Will wake her up in the night 3x a month Chest pain: yes With reflux episodes Dysphagia: yes Worse with meats, bread, pill, and [place] fies Regurgitation: yes When sitting upright Cough: no Hoarseness: no Globus sensation: yes These symptoms are not improved with PPI. Presents today to discuss potential endoscopic or surgical treatment for GERD. Objective workup to date includes: UGI:yes Gastroesophageal reflux to the proximal esophagus. No hiatal hernia EGD: yes Poor and spastic peristaltic waves observed. Dilated with 54F Banuelos dilator. Otherwise normal. Manometry: yes Hypertensive LES with normal relaxation. No EGJ outflow obstruction. [id number] pH: DeMeester score 18.6 Past Medical History: Diagnosis Date Arthritis 2011 GERD (gastroesophageal reflux disease) 1979 Hypothyroidism 1989 Past Surgical History: Procedure Laterality Date APPENDECTOMY BACKBENCH PREPARATION KIDNEY ALLOGRAFT LIVING DONOR BREAST REDUCTION CERVICAL FUSION 4-5 DILATION OF ESOPHAGUS BY BALLOON HYSTERECTOMY SHOULDER SURGERY Right Current Outpatient Medications Medication Sig Dispense Refill cholecalciferol 50 MCG (1999 UT) capsule Take 2,000 Units by mouth daily. esomeprazole [address] capsule Take 40 mg by mouth daily. HERBAL PRODUCT isogenics levothyroxine 125 MCG tablet Take 125 mcg by mouth daily. Multiple Vitamins-Minerals (PRESERVISION AREDS 2 PO) Take 2 tablets by mouth. Oil Base Liquid Take by mouth. CBD No current facility-administered medications for this visit. Allergies Allergen Reactions Penicillins Hives, Itching and Swelling Social History Socioeconomic History Marital status: Spouse name: Not on file Number of children: Not on file Years of education: Not on file Highest education level: Not on file Occupational History Not on file Tobacco Use Smoking status: Former Smoker Packs/day: 2.00 Years: 10.00 Pack years: 20.00 Types: Cigarettes Start date: 09/30/1979 Quit date: 09/30/1989 Years since quittin.6 Smokeless tobacco: Never Used Vaping Use Vaping Use: Never used Substance and Sexual Activity Alcohol use: Yes Alcohol/week: 4.0 standard drinks Types: 4 Standard drinks or equivalent per week Comment: Per week Drug use: Never Sexual activity: Yes Partners: Male control/protection: Hysterectomy Other Topics Concern Occupational Exposure No Hobby Hazards No Social History Narrative Not on file Social Determinants of Health Financial Resource Strain: Not on file Food Insecurity: Not on file Transportation Needs: Not on file Physical Activity: Not on file Stress: Not on file Social Connections: Not on file Intimate Partner Violence: Not on file Housing Stability: Not on file Family History Problem Relation Age of Onset Hypertension Mother Lipid Disorder Mother Lung Cancer Father Colorectal Cancer Maternal Great Grandmother Review of Systems Pertinent items are noted in HPI, all other systems were queried and are negative. Objective: BP 140/90 (BP Location: Left arm, BP Position: Sitting) Pulse 84 Temp 97.8 F (36.6 C) (Infrared) Ht 1.651 m (5' 5 ) Comment: pt stated Wt 90.1 kg (198 lb 11.2 oz) Comment: with sandals [id number]% BMI 33.07 kg/m Smoking Status Former Smoker Wt Readings from Last 3 Encounters: 05/18/22 90.1 kg (198 lb 11.2 oz) 04/20/22 88.6 kg (195 lb 6.4 oz) Body mass index is 33.07 kg/m . General: alert, cooperative, no distress, appears stated age Neck: supple and no adenopathy Pul: Normal chest wall and respirations. Clear to auscultation. Heart: regular rate and rhythm, S1, S2 normal, no murmur, click, rub or gallop Abdomen: Soft, Nontender, No masses and No guarding Extrem: Normal Skin: Skin is warm, dry and intact with no evidence of bruising, lesions or rash Assessment: 57 y.o. female with GERD refractory to medical therapy. Plan: Given the objective workup, we will plan to proceed with laparoscopic Melonie fundoplication. A fulldiscussion of the risks and benefits of the procedure was held, all of the patients questioned wereanswered, and informed consent was obtained. Today, I spent 25 minutes with the patient, the majority of which was spent in [id number] discussion and counseling regarding the above. Anisha Clifford MD manager commodities [facility] this [facility] Instructions* Patient Instructions* Proctor Murdock - 05/18/2022 2:30 PM EDT BEFORE SURGERY: Preadmission Testing at [facility] Date: 07/17/22 Arrival Time: 1:15 PM Address: [place] [address] The facility offers plenty of free, convenient parking. Please check in and register on the 2nd floor Preadmission Testing (PAT) is a single site that will help coordinate your preoperative needs and provide you with the information and education you need prior to your surgery. This appointment is required by your Surgeon and Anesthesiologist to clear you for your upcoming surgery or procedure. This must be completed within 30 days prior to your surgery date, so please keep this in mind if you need to reschedule for any reason. This appointment may take anywhere from 1-2 hours. You do not have to fast for this appointment. The appointment may include tests and assessments such as: -Medical history & Physical examination -EKG -Blood testing -Chest x-ray -Medication documentation -Urine analysis -Possible referrals for other diagnostic testing Preparing for your visit: What to bring to your PAT appointment: Please bring your Photo ID, Insurance card(s), all medications, vitamins and supplements in their original bottles except refrigerated medicines. An updated medicine list is also okay. Please make sure you bring enough oxygen for your appointments and travel time if needed. DAY OF SURGERY: IMPORTANT: If you develop cold/flu like symptoms prior to surgery, please contact our office at [phone] Please note that this schedule is subject to change, you may be contacted up to 24 hours in advanceof surgery for any necessary adjustments. This may include an arrival time as early as 5:00 AM. Please plan accordingly. [] SURGERY SCHEDULE YOUR SURGERY DATE: 07/31/22 ARRIVAL TIME: You will receive an automated call 24-48 hours prior to surgery please call if you do not hear from the OR. [address] [address] [place] in [address], Patient Admissions (1st room on the right) Office #: [phone] Fax #: [phone] CURRENT COVID VISITOR POLICY: These visitor policy changes for hospital inpatients only are effective 11/23: Hospital inpatients, including COVID-19 positive and suspected patients, can have two named visitors of the patient s choice per day as identified in the patient s electronic medical record. Visitors are required to wear a wristband or visitor badge with the date and visitor s name. Visitation is permitted between 8 a.m. to 7 p.m., seven days a week. Visitors must have no COVID-19 symptoms or recently known exposures. Visitors must have no COVID-19 symptoms or recent known exposures and adhere to these protocols: Show a government-issued photo ID upon arrival. Wear a hospital-provided mask over nose AND mouth at all times in all health care settings, including the patient's room, regardless of vaccination status. Practice good hand hygiene. Existing visitor exceptions remain in place for: Emergency departments Surgery/Procedures End of life/Goals of care Outpatient obstetrics Maternity NOTHING TO EAT OR DRINK AFTER MIDNIGHT. PLEASE HAVE YOUR TRANSPORTATION AVAILABLE AT ANY TIME. Arrange to have an adult to drive you to the hospital and be there to take you home after the surgery. If you are taking a cab, bus or medical transportation service home, an adult, other than the cdl flatbed truck driver, needs to ride with you for your safety. This person will also be responsible for communicatingpost-operative instructions to you. If you would like to sign up for text messages for [facility] appointment reminders text [facility] TO [phone].You will receive a response within a few minutes after sending to verify. Please call our office at if you have any questions, problems or if you develop any illnesses such as a cold, sore throat, cough, or fever prior to your surgery. If you are a patient who will require disability paperwork to be completed, please bring your paperwork with you to an office visit. Please allow 7-10 business days for these to be completed. The clinic staff will be completing these forms and you can call the office if you have questions. Medicines to prevent blood clots If you are taking aspirin to prevent blood clots because you have a stent, or you have had a heart attack or stroke, continue to take your aspirin up to, and even on the day of a surgery . If you have a stent, read the Protect Your Stent handout to learn more. The medicines listed below thin the blood to prevent blood clots. Taking them decreases the chance of heart attack, stroke and blood clots. However, taking them before a surgery can also increase thechance of bleeding. Apixiban (Eliquis) Clopidogrel (Plavix) Dabigatran (Pradaxa) Dalteparin (Fragmin) Enoxaparin (Lovenox) Fondaparinux (Arixtra) Prasugrel (Effient) Rivaroxaban (Xarelto) Ticagrelor (Brilinta) Ticlopidine (Ticlid) Warfarin (Coumadin) As soon as you know about a planned surgery: Tell your surgeon about the medicine you take to prevent blood clots. Also, talk with the doctor who prescribes your medicine to prevent clots. He or she can tell you how to adjust your medicine around the time of your surgery. If your surgery date is changed and you stopped taking your medicine to prevent clots, call your doctor. You may need to restart the medicine while you are waiting for your surgery to be rescheduled. What to do about your medicines before surgery Please call your doctor s office if you have any questions about your regular medicines. Some medicines need to be stopped for a time before your surgery to prevent problems. Use this listas a guide. If you are not sure which medicines you should stop before your surgery, ask your doctor to be sure. Follow the directions of your doctor. All herbal medicines should be stopped 14 days before surgery. Monamine oxidase inhibitors should be stopped 7 to 14 days before surgery. These include drugs such as Nardil (Phenelzine Sulfate), Parnate (Tranylcypromine Sulfate), Eldepryl (Seleqiline Hydrochloride). Glucophage (Metformin) should be stopped 48 hours before surgery. Do not take these kinds of medicines the morning of surgery: Metformin should be stopped 48 hours prior to surgery Insulin or oral diabetes medicines - Please check your blood sugar the morning of surgery if you have diabetes. Diuretics (water pills) SREE Inhibitors for blood pressure Digoxin unless used for irregular heartbeat, such as atrial fibrillation Take these medicines the morning of surgery with a sip of water: All heart medicines All blood pressure medicine, except diuretics (water pills) and SREE inhibitors All breathing medicines, including inhalers All anti-seizure medicine All heartburn or gastric reflux medicine, except antacids such as Maalox or Mylanta Pain medicine, prescribed to you by a doctor, if in severe pain Steroid medicine Antidepressant medicines, except monamine oxidase inhibitors such as Nardil (Phenelzine Sulfate), Parnate (Tranylcypromine Sulfate), and Eldepryl (Seleqiline Hydrochloride) Preparing for Surgery Do not eat or drink anything (including water, coffee, candy, gum or mints) after midnight before your surgery. Only take the medicine your surgeon or anesthesiologist told you to take by mouth the morning of your surgery. You may brush your teeth, but do not swallow the water. It is important to have an empty stomach before your surgery. Do not smoke/use any sort of tobacco after 6 p.m. the night before your surgery. Wear casual, loose-fitting clothing to the hospital. Do not wear makeup, nail mongolian or hair pins to the hospital. Please remove any body piercing's. Please leave jewelry and other valuables at home. Bring a storage case for contact lenses or glasses. They cannot be worn during surgery. If you take medicines on a routine basis, please bring an updated list of medications with you. Limit the number of people bringing you to the hospital. Adult patients should be escorted by one adult. Arrive at the hospital two hours before your surgery, or as directed by your surgeon s office, to allow time to get you ready for surgery. If you have a living will or durable power of deck cadet, please bring a copy of the documents with you. IF YOU USE CPAP BRING YOUR MACHINE WITH YOU TO THE HOSPITAL ALONG WITH THE PRESCRIPTION FOR CPAP PRESSURE LEVELS Getting Your Skin Ready for Surgery You are scheduled to have a surgery that involves cutting through the skin. Because germs live on everyone's skin, there is a greater chance of getting an infection. To lessen your chance of getting an infection, you need to take special care of your skin before the surgery. Follow These Instructions: You may be given or you will need to buy a special soap called 4% chlorhexidine gluconate or CHG. Common brand names for this soap are Hex-A-Clens or Hibiclens. You will need 2 of the 4-ounce bottlesor Hibiclens Foam wash. There may be a store brand that is less costly. Ask your pharmacist where to find it in the drug store. It is often with first aid supplies. You may want to call ahead to check that they have the CHG soap in the store. Do not shave near the site where your doctor will be making the cut for your surgery for at least 48 hours before surgery. You need to shower with the CHG soap two times before your surgery within 48 hours Cleaning Your Skin with CHG * 1. Start by washing your hair as usual with your normal shampoo and wash your body with regular soap. Rinse your hair and body very well to remove any shampoo or soap that might be on your skin. 2. Wet a clean washcloth and turn off the shower. 3. Put the CHG soap on the wet clean washcloth. 4. Apply the CHG soap to your whole body from the neck down only. Do not use CHG soap on your face and be careful not to get the CHG in your eyes or ears. CHG soap does not lather well. Put more CHG on the cloth as you cover more of your body. You should use about 4 ounces or 1/2 cup of CHG with each shower. Note: If you are using the Hibiclens (chlorhexidine) Foam wash, then apply 3 pumps of wash directly onto your skin and lather your body from the neck down. 5. Wash your body gently for 5 minutes, paying special attention to the part on your body where thesurgery will be done. Be sure to wash the back of your neck, under your arms, your belly button, private parts and your legs down to your toes. Do not scrub too hard. 6. Turn the shower back on and rinse well to get the CHG soap off your body. 7. Pat yourself dry with a clean, dry towel. 8. Do not use any lotions, moisturizer, make-up or other products on the skin near the part of your body that will be cut for surgery. 9. Put on clean clothes. *Special Notes If you do not have a shower or you are not able to get into the shower, do a sponge bath each time.Do not wash your hair unless you are to have a cut into your scalp. First, bathe with a washcloth and regular soap. Rinse with clean water. Then get a clean washcloth and use the CHG to wash your body. Rinse with another clean washcloth and plain water. Dry with a clean towel. If you have any questions about cleaning your skin, call your doctor s office. Driving Directions to [facility] From the North ([place], [place] and [place]) Take any major highway to [address] south to the [place] exit Turn left onto [address] ([place] turns into [address] [place]) Take [address] [place] to [address] Turn left onto [address] Turn left onto [address] Turn right onto [address] See Parking Directions - Continued From the South ([facility] and [place]) Take any major highway to [address] to [address] to the [address] exit Turn right onto [address] Turn right onto [address] [place] Turn left to stay on [address] [place] Turn left onto [address] Turn left onto [address] Turn right onto [address] See Parking Directions - Continued From the East ([place], [place] and [place]) Take any major highway to [address] to [address] north to the [address] exit Turn right onto [address] Turn right onto [address] Turn left to stay on [address] Turn left onto [address] Turn left onto [address] Turn right onto [address] See Parking Directions - Continued From the West ([place], [place] and [place]) Take any major highway to [address] to [address] 315 north to the the [address] exit Turn right onto [address] Turn right onto [address] Turn left to stay on [address] [place] Turn left onto [address] Turn left onto [address] Turn right onto [address] See Parking Directions - Continued Parking Directions - 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 Continue straight to the front of [facility] ([facility]). Pull into Patient [employer] on your right. [facility] [address] [facility] [place] [address] Continued: From [address], turn left onto [facility]. The [employer] [facility] is located on the left and is connected to the medical center by a walkway bridge on the second fl oor. [address] [place] [address] Continued: Take [address] to [address]. Turn right onto [address]. Turn left onto [address]. Turn left onto [address]. The [address] is located on the right and is connected to the medical center by a walkway bridge on the third floor. NOTE: Discounted Garage Parking is available. Please bring your garage ticket to any information desk in the Medical Center to receive your discount ticket. Financial Obligation: Your insurance many require an authorization prior to the procedure. Our pre- cert office will be contacting your insurance to see if authorization is required. If you have questions about how much your insurance will pay, please contact your insurance directly. Please be prepared to pay your co-pay, co- insurance, or deductible on the day of your surgery. We request patients with insurance that is less than 100% coverage to pay a deposit prior to the procedure being performed. A sales representative publications from the [facility] will contact you to pre-register you for your services. If you have not received a call by two days prior to your procedure date, please call our Pre-Registration Department at [phone] or [phone]. By calling us in advance, your wait time will be reduced. Our trained representatives can assist you in discussing both your physician and hospital obligations. Are you a [employer] user? If yes, you can log on and complete a pre-registration questionnaire. Cash Applications Manager: You are not eligible for Financial Assistance if you are entering the [facility] solely to seek medical treatment. We want to make sure all patients have access to quality healthcare services at [facility], and we are committed to working with you and your family to obtain appropriate financial assistance. We are here to help. Please let us know if you do not have health insurance or cannot pay your bill in full. We encourage you to contact our Office of Financial Counseling, where staff members are trained to assist you in determining whether you might qualify for an assistance program. Our financial counselors can helpyou complete applications for government-sponsored programs, describe other financial assistance programs that can help offset costs, or structure workable payment plans for your required medical treatment if you meet certain financial criteria. They can also assist you in explaining your options related to the Affordable Care Act. These options include helping you apply for: [place] Medicaid (if your income meets guidelines) The Affordable Care Act Insurance Exchange Program. Other federal/state assistance programs Or establish a payment plan Other Assistance: [facility] offers an additional sliding scale financial assistance based on Federal Poverty Guidelines. To help determine the appropriate assistance programs for you, you will need to provide details about your job, income, resources, insurance coverage, family size and other information. We realize some of these details may be of a sensitive nature, but it is necessary that you provide them to enable us to help you. We are committed to respecting you and your privacy during this process. If you are uninsured but do not qualify for Medicaid or other assistance programs, our Financial Counselors will be happy to discuss the Affordable Care Act Insurance Exchange programs. If you are interested in learning more about these programs, please contact the Financial Counseling Department at [phone] between 8 a.m. and 5 p.m. . A financial counselor can assist you with the application process. You will be screened for all potential programs. If you appear to beeligible for Medicaid, you will be assisted through the application process. As a Medicaid recipient, your physician fees and facility fees could be covered. Services not covered by [facility] financial assistance program: Physician Fees Transportation fees Dental Services Medically unnecessary services Prescriptions Durable Medical Equipment We Are 100% Tobacco-Free At [facility], we care about the health of our patients, visitors andstaff. That s why all of our locations - inside and outside - are 100% tobacco-free. We understand that nicotine is addictive, and we regret the inconvenience to tobacco users. However, as an academic medical center with leading cancer and heart hospitals, creating a healthy environment for everyone who attends, works and visits our Medical Center is important. documented in this encounterOhio [facility] History and physical note* Anisha Clifford MD - 04/26/2022 11:30 AM EDT ENDOSCOPIC PREPROCEDURE HISTORY AND PHYSICAL HISTORY OF PRESENT ILLNESS: Tiana Orozco is a 57 y.o. female seen in the preoprocedure area at [facility]. The indication for endoscopic evaluation includes: Gastroesophageal reflux disease without esophagitis PAST MEDICAL HISTORY: Past Medical History: Diagnosis Date Arthritis 2011 GERD (gastroesophageal reflux disease) 1979 Hypothyroidism 1989 SURGICAL HISTORY: Past Surgical History: Procedure Laterality Date APPENDECTOMY BACKBENCH PREPARATION KIDNEY ALLOGRAFT LIVING DONOR BREAST REDUCTION CERVICAL FUSION 4-5 DILATION OF ESOPHAGUS BY BALLOON HYSTERECTOMY SHOULDER SURGERY Right MEDICATIONS: Current Outpatient Medications Medication Instructions cholecalciferol (VITAMIN D3) 2,000 Units, Oral, DAILY esomeprazole [address] capsule No dose, route, or frequency recorded. HERBAL PRODUCT isogenics levothyroxine (SYNTHROID) 125 mcg, Oral, DAILY Multiple Vitamins-Minerals (PRESERVISION AREDS 2 PO) 2 tablets, Oral Oil Base Liquid Apply externally, CBD Current Outpatient Medications: cholecalciferol 50 MCG (2000 UT) capsule, Take 2,000 Units by mouth daily., Disp: , Rfl: esomeprazole [address] capsule, , Disp: , Rfl: HERBAL PRODUCT, isogenics, Disp: , Rfl: levothyroxine 125 MCG tablet, Take 125 mcg by mouth daily., Disp: , Rfl: Multiple Vitamins-Minerals (PRESERVISION AREDS 2 PO), Take 2 tablets by mouth., Disp: , Rfl: Oil Base Liquid, Apply topically. CBD, Disp: , Rfl: ALLERGIES: Allergies Allergen Reactions Penicillins Hives, Itching and Swelling FOCUSED REVIEW OF SYSTEMS: Negative for nausea, vomiting, abdominal pain and diarrhea VITAL SIGNS: There were no vitals filed for this visit. PREPROCEDURE PHYSICAL EXAM: AIRWAY: normal, Mallampati: Class II (complete visualization of the uvula) HEART: Regular and No murmur PULMONARY: Lungs clear to auscultation bilaterally ABDOMEN: Soft, nontender, nondistended ASSESSMENT: Tiana Orozco is a 57 y.o. female is ready for the planned procedure. ASA Class: ASA 2 - Patient with mild systemic disease with no functional limitations PLAN: Will plan to proceed with INTERVENTIONAL UPPER ENDOSCOPY using Moderate Sedation. Anisha Clifford MD [facility] Work Phone: 1(149) 331-534407-28-2022 History and physical note* Anisha Clifford MD - 04/26/2022 11:30 AM EDT ENDOSCOPIC PREPROCEDURE HISTORY AND PHYSICAL HISTORY OF PRESENT ILLNESS: Tiana Orozco is a 57 y.o. female seen in the preoprocedure area at [facility]. The indication for endoscopic evaluation includes: Gastroesophageal reflux disease without esophagitis PAST MEDICAL HISTORY: Past Medical History: Diagnosis Date Arthritis 2011 GERD (gastroesophageal reflux disease) 1979 Hypothyroidism 1989 SURGICAL HISTORY: Past Surgical History: Procedure Laterality Date APPENDECTOMY BACKBENCH PREPARATION KIDNEY ALLOGRAFT LIVING DONOR BREAST REDUCTION CERVICAL FUSION 4-5 DILATION OF ESOPHAGUS BY BALLOON HYSTERECTOMY SHOULDER SURGERY Right MEDICATIONS: Current Outpatient Medications Medication Instructions cholecalciferol (VITAMIN D3) 2,000 Units, Oral, DAILY esomeprazole [address] capsule No dose, route, or frequency recorded. HERBAL PRODUCT [employer]ics levothyroxine (SYNTHROID) 125 mcg, Oral, DAILY Multiple Vitamins-Minerals (PRESERVISION AREDS 2 PO) 2 tablets, Oral Oil Base Liquid Apply externally, CBD Current Outpatient Medications: cholecalciferol 50 MCG (2000 UT) capsule, Take 2,000 Units by mouth daily., Disp: , Rfl: esomeprazole [address] capsule, , Disp: , Rfl: HERBAL PRODUCT, isogenics, Disp: , Rfl: levothyroxine 125 MCG tablet, Take 125 mcg by mouth daily., Disp: , Rfl: Multiple Vitamins-Minerals (PRESERVISION AREDS 2 PO), Take 2 tablets by mouth., Disp: , Rfl: Oil Base Liquid, Apply topically. CBD, Disp: , Rfl: ALLERGIES: Allergies Allergen Reactions Penicillins Hives, Itching and Swelling FOCUSED REVIEW OF SYSTEMS: Negative for nausea, vomiting, abdominal pain and diarrhea VITAL SIGNS: There were no vitals filed for this visit. PREPROCEDURE PHYSICAL EXAM: AIRWAY: normal, Mallampati: Class II (complete visualization of the uvula) HEART: Regular and No murmur PULMONARY: Lungs clear to auscultation bilaterally ABDOMEN: Soft, nontender, nondistended ASSESSMENT: Tiana Orozco is a 57 y.o. female is ready for the planned procedure. ASA Class: ASA 2 - Patient with mild systemic disease with no functional limitations PLAN: Will plan to proceed with INTERVENTIONAL UPPER ENDOSCOPY using Moderate Sedation. Anisha Clifford MD documented in this encounterOhio [facility] Miscellaneous Notes* Nursing Notes - Fe Kingsley RN - 04/26/2022 11:30 AM EDT Woodruff teaching completed. Reason for testing and recorder reviewed with patient. All questions answered. Patient states understanding. Will send back in pre paid UPS box. Patient instructed to tape box closed. Recorder #[id number]. [facility] Note* Nursing Notes - Fe Kingsley RN - 04/26/2022 11:30 AM EDT Woodruff teaching completed. Reason for testing and recorder reviewed with patient. All questions answered. Patient states understanding. Will send back in pre paid UPS box. Patient instructed to tape box closed. Recorder #[id number]. [facility]07-28-[facility] Nurse Note* Yvon German RN - 04/26/2022 11:30 AM EDT Patient and family given discharge instructions and were reviewed with them. All questions answered. * Yvon German RN - 04/26/2022 11:30 AM EDT Patient discussed procedure with Dr. Benji Gonzales and is ready for discharge Patient declines wheelchair and will walk to car with family. * Yvon German RN - 04/26/2022 11:30 AM EDT Patient with instructions on WOODRUFF and said there was no need to go back over material. Patient also has box to mail back device. documented in this [facility] Nurse Surgical operation note* Yvon German RN - 04/26/2022 11:30 AM EDT Patient and family given discharge instructions and were reviewed with them. All questions answered. [facility]07-28-[facility]22 Nurse Surgical operation note* Yvon German RN - 04/26/2022 11:30 AM EDT Patient discussed procedure with Dr. Benji Gonzales and is ready for discharge Patient declines wheelchair and will walk to car with family. [facility]07-28-2022 Nurse Surgical operation note* Yvon German RN - 04/26/2022 11:30 AM EDT Patient with instructions on WOODRUFF and said there was no need to go back over material. Patient also has box to mail back device. [facility]07-22-2022 Instructions* Patient Instructions* Barbra Duckworth - 04/20/2022 1:50 PM EDT EGD w/Woodruff Date: 04/26/2022 Arrival Time: 10:30 am Check-in the 1st floor at [address] (first room on the right) Please report to: [facility] 1st Floor, [address] Patient Admission/Registration Desk [address] [place] [address] Nothing to eat or drink after midnight. This includes gum or mints. CURRENT COVID POLICY: IF YOU ARE UNVACCINATED, YOU WILL BE CONTACTED PRIOR TO SCHEDULE TESTING PRIOR TO YOUR PROCEDURE Preparing for the test If you take a proton pump inhibitor medicine, such as Aciphex, Prilosec (omeprazole), Prevacid (lansoprazole), Protonix (pantoprazole), Nexium (esomeprazole), Zegerid, Kapidex, and Dexilant , stop these medicines 7 days before the test. If you take a different medicine, ask your doctor when to stop the medicine. You may take Zantac (Randitidine), Tagamet (Cimetidine), or Pepcid (Famotidine) up until 3 days before the test. You may take TUMS up until the evening before the test. If you take any blood thinning medicines such as Coumadin (warfarin), Plavix check with the doctor who prescribed these medicines to see if you are able to stop these medicines. Arrange to have an adult to drive you to the hospital and be there to take you home after the procedure. If you are taking a cab, bus or medical transportation service home, an adult, other than the cdl flatbed truck driver, needs to ride with you for your safety. You will need to take the day off from work, school, or other activities. Call if you have any questions or cannot keep this appt. EGD with WOODRUFF pH Monitoring You are scheduled for a test called an EGD (Esophagogastroduodenoscopy) with WOODRUFF pH monitoring. Esophageal pH monitoring is a test used to evaluate for gastroesophageal reflux disease and to determine the effectiveness of medications that prevent acid reflux. This test measures the amount of acid refluxing or backing up from the stomach into the esophagus (food pipe). Esophageal pH monitoring is used in several situations to assess for gastroesophageal reflux disease (GERD). The first is to evaluate typical symptoms of GERD such as heartburn and regurgitation thatdo not respond to treatment with medications. In this situation, there may be a question whether the patient has gastroesophageal reflux disease disease or whether anti-acid medications are adequate to suppress the acid production. The second is when there are atypical symptoms of GERD such as chest pain, coughing, wheezing, hoarseness, sore throat. In this situation, it is not clear if the symptoms are due to gastroesophageal reflux. The test is often used as part of a pre- operative evaluationbefore anti-reflux surgery. If you take aspirin or NSAIDs such as ibuprofen, naproxen or Celebrex for pain, you do not need to stop taking these medicines before these tests. If you take medicines for diabetes, ask the doctor who ordered your diabetes medicine how to adjustyour medicines for this test. If you have a stent, do not stop taking your medicines to prevent clots without talking to the doctor put in the stent. For more information, read the handout, Protect Your Stent. If you take any of the blood thinner medicines listed below: Ask the doctor who ordered this medicine if it is safe for you to stop taking this medicine before the test. If you have a stent or certain other health problems, do NOT stop taking these medicines. If your doctor has advised you to NOT stop taking these medicines before the test, please call [phone] and ask to talk to a nurse. If your doctor agrees you should stop taking any of the medicines listed below, stop for the listednumber of days before your test or as your doctor recommends: Brilinta (Ticagretor) - 5 days Coumadin (Warfarin) - 5 days Effient (Prasugrel) - 7 days Eliquis (Apizaban) - 2 days Lovenox (Enoxaparin) - 1 day Plavix (Clopidogrel) - 5 days Pletal (Cilostazol) - 5 days Pradaxa (Dabigatran) - 2 days Savaysa (Edoxaban) - 2 days Ticlid (Ticlopidine) - 10 days Xarelto (Rivavoxaban) - 1 day Day of the Test If you arrive 20 minutes or more late, your test may have to be rescheduled. Bring your photo ID, insurance card and medicine list with you. Take your heart, blood pressure or seizure medicines with small sips of water. When checking in at the front test, tell the staff if the adult taking you home is with you, or have the phone number ready for staff to call and confirm he/she is picking you up after the test. You will be asked about your health history. Be ready to talk about prescription and over the counter medicines you take, allergies, medical condition or surgeries, and if you are or think you may be . During the Test A small tube called an intravenous (IV) catheter will be placed in your arm by a nurse. You will beasked to turn to your left side, and medicine will then be given through the IV to make you relax. Many patients are so relaxed they do not remember the test. A spray may be given to numb the back of your throat. When you are relaxed, the doctor will insert a thin, flexible tube into your mouth and ask you swallow. The tube does not cause breathing problems. It is gently moved forward into your esophagus. At the top of this tube is a tiny camera. It shows an image to help the doctor move the tube further into the esophagus. As part of the test, you will have 48 hour pH monitoring. This is done with a special capsule is attached to the side of your esophagus. The capsule is an inch long and narrower than a pencil. With the flexible tube, the doctor checks the length from your mouth to your stomach. The tube is then removed, and the WOODRUFF capsule is attached with a special tool. The capsule measures the acidity in your esophagus and sends a wireless signal to a small installation drafter box that your wear on your clothes. After the Test Do not have other tests, such as CT scan, nuclear medicine test, or x-rays, during the 48 hours theBravo test is in progress. Do not have an MRI for 30 days after placement of the Woodruff capsule. You may feel drowsy and sleep for a short time after the test. A nurse will check on you to see how you are feeling. After the exam, you may be asked not to eat or drink for 1 hour if you throat was numbed. You will be told about this before you leave. Continue your normal diet and activities during the Woodruff study. You may feel that something is in your lower chest, especially when you swallow. That is the capsule. Chew foods completely and then swallowing with liquids to reduce this feeling. Your study is being done while you are off of your reflux medicines. Do not take them until the 48 hour recording period is over. Press the buttons on the installation drafter box, when you have signs of reflux. You will also need to record your meals and when you lay down on a diary sheet. A nurse will set upyour symptom buttons, go over the diary sheet with you, and answer all your questions. If you smoke or use tobacco, record when you do these behaviors in your diary. Keep your installation drafter clipped to your clothes. If an alarm beeps, the installation drafter is out of range of the Woodruff capsule. Just hold the installation drafter against your chest until the beep stops. The installation drafter will automatically shut off after 48 hours. The capsule will fall off after 7 to 10 days, pass naturally through the GI tract, and come out in your stool. You do not need to look for the capsule; all test information is stored in the installation drafter. Return the diary sheet and installation drafter box to the endoscopy check-in window when the 48 hour testing period ends. A small shipping box is available for patients who live out of town Driving Directions to [facility] From the North ([place], [place] and [place]) Take any major highway to [address] south to the [place] exit Turn left onto [address] ([place] turns into [address] [place]) Take [place] to [address] Turn left onto [address] Turn left onto [address] Turn right onto [address] See Parking Directions - Continued From the South ([facility] and [place]) Take any major highway to [address] to [address] to the [address] exit Turn right onto [address] Turn right onto [address] [place] Turn left to stay on [address] [place] Turn left onto [address] Turn left onto [address] Turn right onto [address] See Parking Directions - Continued From the East ([place], [place] and [place]) Take any major highway to [address] to [address] Take [address] north to the [address] exit Turn right onto [address] Turn right onto [address] [place] Turn left to stay on [address] [place] Turn left onto [address] Turn left onto [address] Turn right onto [address] See Parking Directions - Continued From the West ([place], [place] and [place]) Take any major highway to [address] to [address] Take [address] north to the the [address] exit Turn right onto [address] Turn right onto [address] [place] Turn left to stay on [address] [place] Turn left onto [address] Turn left onto [address] Turn right onto [address] See Parking Directions - Continued Parking Directions - 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 Continue straight to the front of [facility] ([facility]). Pull into Patient [employer] on your right. [facility] [address] [facility] [place] [address] Continued: From [address], turn left onto [facility]. The [employer] [facility] is located on the left and is connected to the medical center by a walkway bridge on the second fl oor. [address] [place] [address] Continued: Take [address] to [address]. Turn right onto [address]. Turn left onto [address]. Turn left onto [address]. The [address] is located on the right and is connected to the medical center by a walkway bridge on the third floor. NOTE: Discounted Garage Parking is available. Please bring your garage ticket to any information desk in the [facility] to receive your discount ticket. documented [facility] this [facility] History of Present illness Narrative* Veronique Gutierrez, RADIOLOGY ORDERLY-BATCHER OPERATOR - 04/20/2022 12:00 PM EDT Subjective: CC: GERD HPI: Tiana Orozco is an 57 y.o. female who was referred for evaluation of gastroesophageal reflux disease. She's had issues with reflux for several years and is concerned about jail use of medications. She also endorses belching, bloating, and a gurgling sensation. Symptoms were first notedseveral years ago. Symptoms include Heartburn:yes Will wake her up in the night 3x a month Chest pain: yes With reflux episodes Dysphagia: yes Worse with meats, bread, pill, and citizen of [place] fies Regurgitation: yes When sitting upright Cough: no Hoarseness: no Globus sensation: yes These symptoms are not improved with PPI. Presents today to discuss potential endoscopic or surgical treatment for GERD. Objective workup to date includes: UGI:yes Gastroesophageal reflux to the proximal esophagus. No hiatal hernia EGD: yes Poor and spastic peristaltic waves observed. Dilated with 54F Banuelos dilator. Otherwise normal. Manometry: yes Hypertensive LES with normal relaxation. No EGJ outflow obstruction. [id number] pH: no Past Medical History: Diagnosis Date Arthritis 2011 GERD (gastroesophageal reflux disease) 1979 Hypothyroidism 1989 Past Surgical History: Procedure Laterality Date APPENDECTOMY BACKBENCH PREPARATION KIDNEY ALLOGRAFT LIVING DONOR BREAST REDUCTION CERVICAL FUSION 4-5 DILATION OF ESOPHAGUS BY BALLOON HYSTERECTOMY SHOULDER SURGERY Right Current Outpatient Medications Medication Sig Dispense Refill cholecalciferol 50 MCG (2000 UT) capsule Take 2,000 Units by mouth daily. esomeprazole [address] capsule HERBAL PRODUCT [employer]ics levothyroxine 125 MCG tablet Take 125 mcg by mouth daily. Multiple Vitamins-Minerals (PRESERVISION AREDS 2 PO) Take 2 tablets by mouth. Oil Base Liquid Apply topically. CBD No current facility-administered medications for this visit. Allergies Allergen Reactions Penicillins Hives, Itching and Swelling Social History Socioeconomic History Marital status: Spouse name: Not on file Number of children: Not on file Years of education: Not on file Highest education level: Not on file Occupational History Not on file Tobacco Use Smoking status: Former Smoker Packs/day: 2.00 Years: 10.00 Pack years: 20.00 Types: Cigarettes Start date: 09/30/1979 Quit date: 09/30/1989 Years since quittin.5 Smokeless tobacco: Never Used Vaping Use Vaping Use: Never used Substance and Sexual Activity Alcohol use: Yes Alcohol/week: 4.0 standard drinks Types: 4 Standard drinks or equivalent per week Comment: Per week Drug use: Never Sexual activity: Yes Partners: Male control/protection: Hysterectomy Other Topics Concern Occupational Exposure No Hobby Hazards No Social History Narrative Not on file Social Determinants of Health Financial Resource Strain: Not on file Food Insecurity: Not on file Transportation Needs: Not on file Physical Activity: Not on file Stress: Not on file Social Connections: Not on file Intimate Partner Violence: Not on file Housing Stability: Not on file Family History Problem Relation Age of Onset Hypertension Mother Lipid Disorder Mother Lung Cancer Father Review of Systems Pertinent items are noted in HPI, all other systems were queried and are negative. Objective: BP (!) 145/96 (BP Location: Right arm, BP Position: Sitting) Pulse 77 Temp 98.3 F (36.8 C) (Infrared) Ht 1.651 m (5' 5 ) Comment: pt stated Wt 88.6 kg (195 lb 6.4 oz) Comment: with sandals SpO2 97% BMI 32.52 kg/m Smoking Status Former Smoker Wt Readings from Last 3 Encounters: 04/20/22 88.6 kg (195 lb 6.4 oz) Body mass index is 32.52 kg/m . General: Alert, cooperative,no distress,appears stated age Neck: normal Pul: Respirations unlabored Heart: regular rate and rhythm, S1, S2 normal, no murmur, click, rub or gallop Abdomen: Soft, Nontender, No masses and No guarding Extrem: Normal Skin: Skin is warm, dry and intact with no evidence of bruising, lesions or rash Assessment: 57 y.o. female with GERD refractory to acid suppression therapy. Plan: We will obtain an EGD, pH study for objective reflux evaluation. Following this, she will follow upwith Dr. Clifford to discuss the results and possible endoscopic or laparoscopic reflux treatment. We did discuss LINX vs Melonie today in clinic and she is likely not interested in LINX. The patient was given the KRAMES GERD booklet as well as the post-Melonie diet handout today in clinic. The patient was instructed to stop any PPI medication one week before the EGD with ph test, and to stop any H2 blockers three days before the test. The patient acknowledged understanding. NATALIIA Lemos documented [facility] Evaluation note * Encounter Date Diagnosis Assessment Notes Treatment Notes Treatment Clinical Notes Dec, Dysphagia (ICD-10 - R13.10) Dec, Esophageal spasm (ICD-10 - K22.4) Continue Nexium [facility] Dec, Irritable bowel syndrome (IBS) (ICD-10 - K58.9) Start Dicyclomine 20mg tid prn [facility] Other 01-27-2022 Evaluation note* Encounter Date Diagnosis Assessment Notes Treatment Notes Treatment Clinical Notes Sep, GERD (gastroesophageal reflux disease) (ICD-10 - K21.9) Sep, Dysphagia (ICD-10 - R13.10) [facility] Other 01-11-2022 Evaluation note* Encounter Date Diagnosis Assessment Notes Treatment Notes Treatment Clinical Notes Sep, Tear of right supraspinatus tendon (ICD-10 - M75.101) Patient is progressing well from surgery. We discussed the importance of continuing motion and strength exercise. Patient instructed on aggressive stretching exercise in order to improve motion. Still having moderate stiffness. Again discussed aggressive motion exercise. Otherwise she seems to be doing fine and happy with outcome Sep, Other specified postprocedural states (ICD-10 - Z98.890) [facility] Other Evaluation noteNo InformationNoliberty hospital [facility] Other Evaluation note* Diagnosis Gastroesophageal reflux disease without esophagitis- Primary Esophageal reflux [facility] Diagnosis Gastroesophageal reflux disease without esophagitis Esophageal reflux [facility] Diagnosis Gastroesophageal reflux disease without esophagitis- Primary Esophageal reflux GERD (gastroesophageal reflux disease) Esophageal reflux [facility]* Diagnosis Preoperative examination- Primary Preoperative examination, unspecified Acquired hypothyroidism Unspecified hypothyroidism Obesity (BMI 30.0-34.9) Obesity, unspecified Chronic GERD GERD (gastroesophageal reflux disease) Esophageal reflux [facility]* Diagnosis S/P repair of paraesophageal hernia- Primary Other postprocedural status Gastroesophageal reflux disease without esophagitis Esophageal reflux Paraesophageal hernia Diaphragmatic hernia without mention of obstruction or gangrene GERD (gastroesophageal reflux disease) Esophageal reflux [facility] Diagnosis S/P laparoscopic fundoplication- Primary Other postprocedural status documented [facility] this 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 Pre-op evaluation acute Arthritis of carpometacarpal (CMC) joint of right thum b acute Other specified postprocedural states acute 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 Arthritis of carpometacarpal (CMC) joint of right thum b acute Other specified postprocedural states acute 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 [facility] Work Phone: Evaluation note* Diagnosis Onset Date Resolution Status Arthritis of carpometacarpal (CMC) joint of right thum b acute 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 Pre-op evaluation acute Arthritis of carpometacarpal (CMC) joint of right thum b acute Other specified postprocedural states acute 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 Arthritis of carpometacarpal (CMC) joint of right thum b acute Other specified postprocedural states acute 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 Arthritis of carpometacarpal (CMC) joint of right thum b acute Other specified postprocedural states acute 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 [facility] Work Phone: Evaluation note* Diagnosis Onset Date Resolution Status Arthritis of carpometacarpal (CMC) joint of right thum b acute Other specified postprocedural states acute 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 Arthritis of carpometacarpal (CMC) joint of right thum b acute Other specified postprocedural states acute 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 Arthritis of carpometacarpal (CMC) joint of right thum b acute Other specified postprocedural states acute 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 [facility] Work Phone: History general Narrative - Reported* Type Description Date Medical History Radio Frequency ablation of spin e - 2015 Medical History Hypothyroidism Surgical History APPENDECTOMY Surgical History KIDNEY DONOR Surgical History BREAST REDUCTION Surgical History Hysterectomy Surgical History right cuff repair [facility] Other History general Narrative - [facility]NortAC[facility] Other InstructionsNot on filedocumented in this encounter [facility] (narrative)* Consultation (Routine) - New Request Specialty Diagnoses / Procedures Referred By Rey farris Referred To Contact PreOp Diagnoses Gastroesophageal reflux disease without esophagitis Anisha Clifford MD [address] [place] [address] Referral ID Status Reason Start Date Expiration Date V isits Requested Visits Authorized [id number] New Request 05/18/2022 06/12/2023 1 1 * Consultation (Routine) - New Request Specialty Diagnoses / Procedures Referred By Rey farris Referred To Contact Nutrition and Dietetics Diagnoses Gastroesophageal reflux disease without esophagitis Anisha Clifford MD [address] [place] [address] Kavitha Schuler, RD [address] [place] [address] Referral ID Status Reason Start Date Expiration Date V isits Requested Visits Authorized [id number] New Request 05/18/2022 06/12/2023 1 1 [facility] Narrative* Auth/Cert Specialty Diagnoses / Procedures Referred By Rey t Referred To Contact Diagnoses GERD (gastroesophageal reflux disease) GERD (gastroesophageal reflux disease) [K21.9] Procedures AL LAP,ESOPHAGOGAST FUNDOPLASTY FUNDOPLASTY ESOPHAGOGASTRIC LAPAROSCOPIC Anisha Clifford MD [address] [place] [address] [facility] [address] [place] [address] Referral ID Status Reason Start Date Expiration Date Visits Re quested Visits Authorized [id number] 1 1 [facility] Advance Directives No Advanced Directives Records FoundDocuments on File Type Date Recorded 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 Expl 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 ACP-Advance Directive ACP-Power of Traveling Sales Representative Latest Code Status on File Code Status Date Activated Date Inactivated Comments Full Code 07/31/2022 5:22 AM Latest Code Status on File Code Status Date Activated Date Inactivated Comments Full Code 07/31/2022 5:22 AM Advance Directive Response Recorded Date/ Time Advance Directives No July 03, 2019 6:18am Advance Directive Response Recorded Date/ Time Advance Directives No July 03, 2019 5:18am Reason for Referral Specialty Diagnoses / Procedures Referred By Rey t Referred To Contact Procedures PLATELET MONITORING PER PROTOCOL Pedro Wasserman MD [address] [address] Referral ID Status Reason Start Date Expiration Date V isits Requested Visits Authorized [id number] New Request 07/31/2022 08/25/2023 1 1 Specialty Diagnoses / Procedures Referred By Contac t Referred To Contact Procedures DVT/VTE RISK ASSESSMENT Pedro Wasserman MD [address] [address] Referral ID Status Reason Start Date Expiration Date V isits Requested Visits Authorized [id number] New Request 07/31/2022 08/25/2023 1 1 Specialty Diagnoses / Procedures Referred By Contac t Referred To Contact Diagnoses Gastroesophageal reflux disease without esophagitis Procedures INTERVENTIONAL UPPER ENDOSCOPY AL ESOPHAGOGASTRODUODENOSCOPY TRANSORAL DIAGNOSTIC Veronique Gutierrez Bri, RADIOLOGY ORDERLY-BATCHER OPERATOR [address] [place] [address] Referral ID Status Reason Start Date Expiration Date V isits Requested Visits Authorized [id number] Auth Not Needed 04/20/2022 05/15/2023 1 1 Summary Purpose Family History No Family History Records Found Relationship Condition Age at Onset Recorded Date/T luis alberto father Non-small cell lung cancer Unknown sister Hypertension Unknown Cerebral aneurysm Unknown Relationship Condition Age at Onset Recorded Date/T luis alberto father Non-small cell lung cancer Unknown Unknown sister Cerebral aneurysm Unknown Hypertension Unknown brother Unknown Not Specified Hyperlipidemia Unknown Chief Complaint and Reason for Visit Chief Complaint 3 Month Follow Up Right Thumb Pain Chief Complaint 3 Month Follow Up Right Thumb Pain H & P RT Thumb CMC Fusion Reason for Visit Arthritis of carpome tacarpal (CMC) joint of right thumb Palmar fascial fibromatosis [dupuytren] Pre-op evaluation Chief Complaint 3 Month Follow Up Right Thumb Pain H & P RT Thumb CMC Fusion Right Thumb Pain Right Thumb Pain 1 week post op Z98.890 - Other specified postprocedural states 3 weeks Reason for Visit Arthritis of carpome tacarpal (CMC) joint of right thumb Palmar fascial fibromatosis [dupuytren] Pre-op evaluation Arthritis of carpometacarpal (CMC) joint of right thumb Other specified postprocedural states Palmar fascial fibromatosis [dupuytren] Arthritis of carpometacarpal (CMC) joint of right thumb Other specified postprocedural states Palmar fascial fibromatosis [dupuytren] Chief Complaint Right Thumb Pain H & P RT Thumb CMC Fusion Right Thumb Pain Right Thumb Pain 1 week post op Z98.890 - Other specified postprocedural states 3 weeks 4 week recheck Z98.890 - Other specified postprocedural states Reason for Visit Arthritis of carpome tacarpal (CMC) joint of right thumb Palmar fascial fibromatosis [dupuytren] Pre-op evaluation Arthritis of carpometacarpal (CMC) joint of right thumb Other specified postprocedural states Palmar fascial fibromatosis [dupuytren] Arthritis of carpometacarpal (CMC) joint of right thumb Other specified postprocedural states Palmar fascial fibromatosis [dupuytren] Arthritis of carpometacarpal (CMC) joint of right thumb Other specified postprocedural states Palmar fascial fibromatosis [dupuytren] Chief Complaint Z98.890 - Other spec ified postprocedural states 3 weeks 4 week recheck Z98.890 - Other specified postprocedural states 6 WEEK RECHECK Z98.890 - Other specified postprocedural states Reason for Visit Arthritis of carpome tacarpal (CMC) joint of right thumb Other specified postprocedural states Palmar fascial fibromatosis [dupuytren] Arthritis of carpometacarpal (CMC) joint of right thumb Other specified postprocedural states Palmar fascial fibromatosis [dupuytren] Arthritis of carpometacarpal (CMC) joint of right thumb Other specified postprocedural states Palmar fascial fibromatosis [dupuytren] Additional Source Comments Care Teams (unrecognized sec tion and content) Bindery Worker Relationship Specialty Start Date End Date Andres Chinchilla MD [address] [place] [address] PCP - General Family Medicine 08/04/20 Bindery Worker Relationship Specialty Start Date End Date Andres Chinchilla MD [address] [place] [address] PCP - General Family Medicine 02/16/22 Bindery Worker Relationship Specialty Start Date End Date Andres Chinchilla MD [address] [place] [address] PCP - General Family Medicine 02/16/22 Bindery Worker Relationship Specialty Start Date End Date Andres Chinchilla MD [address] [place] [address] PCP - General Family Medicine 02/16/22 Bindery Worker Relationship Specialty Start Date End Date Andres Chinchilla MD [address] [place] [address] PCP - General Family Medicine 02/16/22 Bindery Worker Relationship Specialty Start Date End Date Andres Chinchilla MD [address] [place] [address] PCP - General Family Medicine 02/16/22 Bindery Worker Relationship Specialty Start Date End Date Andres Chinchilla MD [address] [place] [address] PCP - General Family Medicine 02/16/22 Bindery Worker Relationship Specialty Start Date End Date Andres Cihnchilla MD [address] [place] [address] PCP - General Family Medicine 08/04/20 Team Status: Active Member Role Status Dates Andres Chinchilla MD Primary Care Provider Active Team Status: Inactive Member Role Status Dates Andres Chinchilla MD Primary Care Provider Active Mechelle Liang MD Attending Provider Active Team Status: Inactive Member Role Status Dates Mechelle Liang MD Attending Provider Active Start: October 09, 2023 End: October 09, 2023 Team Status: Inactive Member Role Status Dates Andres Chinchilla MD Primary Care Provider Active S tart: November 14, 2023 End: November 14, 2023 Mechelle Liang MD Attending Provider Active Start: November 14, 2023 End: November 14, 2023 Team Status: Inactive Member Role Status Dates Andres Chinchilla MD Primary Care Provider Active S tart: November 19, 2023 End: November 19, 2023 Mechelle Liang MD Attending Provider Active Start: November 19, 2023 End: November 19, 2023 Team Status: Inactive Member Role Status Henry Chinchilla MD Primary Care Provider Active S tart: November 28, 2023 End: November 28, 2023 Mechelle Liang MD Attending Provider Active Start: November 28, 2023 End: November 28, 2023 Team Status: Active Member Role Status Henry Chinchilla MD Primary Care Provider Active S tart: November 28, 2023 Mechelle Liang MD Attending Provider , Other Provider Active Start: November 28, 2023 Team Status: Inactive Member Role Status Dates Andres Chinchilla MD Primary Care Provider Active S tart: December 06, 2023 End: December 06, 2023 Mechelle Liang MD Attending Provider Active Start: December 06, 2023 End: December 06, 2023 Team Status: Active Member Role Status Dates Andres Chinchilla MD Primary Care Provider Active S tart: December 27, 2023 Mechelle Liang MD Attending Provider Active Start: December 27, 2023 Team Status: Inactive Member Role Status Dates Andres Chinchilla MD Primary Care Provider Active S tart: December 27, 2023 End: December 27, 2023 Mechelle Liang MD Attending Provider Active Start: December 27, 2023 End: December 27, 2023 Bindery Worker Relationship Specialty Start Date End Date Andres Chinchilla MD [address] [place] [address] PCP - General Family Medicine 01/10/21 Team Status: Inactive Member Role Status Dates Andres Chinchilla MD Primary Care Provider Active S tart: January 24, 2024 End: January 24, 2024 Mechelle Liang MD Attending Provider Active Start: January 24, 2024 End: January 24, 2024 Team Status: Active Member Role Status Dates Andres Chinchilla MD Primary Care Provider Active S tart: January 24, 2024 Mechelle Liang MD Attending Provider Active Start: January 24, 2024 Team Status: Inactive Member Role Status Dates Andres Chinchilla MD Primary Care Provider Active S tart: March 06, 2024 End: March 06, 2024 Mechelle Liang MD Attending Provider Active Start: March 06, 2024 End: March 06, 2024 Team Status: Active Member Role Status Dates Andres Chinchilla MD Primary Care Provider Active S tart: March 06, 2024 Mechelle Liang MD Attending Provider Active Start: March 06, 2024 REASON FOR VISIT (unrecogniz ed section and content) Reason Comments New Patient GERD, spasms, hypert ensive ileus Specialty Diagnoses / Procedures Referred By Contac t Referred To Contact Diagnoses Gastroesophageal reflux disease without esophagitis Procedures INTERVENTIONAL UPPER ENDOSCOPY AL ESOPHAGOGASTRODUODENOSCOPY TRANSORAL DIAGNOSTIC Veronique Gutierrez, RADIOLOGY ORDERLY-BATCHER OPERATOR [address] [place] [address] Referral ID Status Reason Start Date Expiration Date Visits Re quested Visits Authorized [id number] Closed 04/20/2022 05/15/2023 1 1 Reason Comments Follow-up Follow up on testing Reason Comments Preoperative Assessment Reason Comments Post Op Visit INFORMATION SOURCE (unrecogn ized section and content) DATE CREATED AUTHOR 05/23/2022 [facility] DATE CREATED AUTHOR AUTHOR'S ORGANIZ ATION 09/01/2022 [facility] DATE CREATED AUTHOR AUTHOR'S ORGANIZ ATION 09/21/2022 [facility] DATE CREATED AUTHOR AUTHOR'S ORGANIZ ATION 10/08/[address] [facility] DATE CREATED AUTHOR AUTHOR'S ORGANIZ ATION 01/10/2024 [facility] DATE CREATED AUTHOR AUTHOR'S ORGANIZ ATION 03/13/2024 [facility] ys[facility] Group Scheduled Active and Recently Administ ered Medications (unrecognized section and content) Medication Order 07/30/2022 07/31/2022 08/01/2022 clindamycin (CLEOCIN) 900 mg in normal saline 50 ml premix IVPB (COMPLETED) 900 mg, Intravenous, at 100 mL/hr, Administer over 30 Minutes, PRE-OP, 1 dose, On Sat07/31/22 at 0615, Pre-op/Pre-Proc 0658 (Given - Provider: Meghana Hawley APRN-AMMUNITION COMPONENTS INSPECTOR) Enoxaparin Sodium (LOVENOX) injection 40 mg 40 mg, Subcutaneous, EVERY 24 HOURS, First dose on Sat08/01/22 at 0900, Until Discontinued, , Indications: DVT/PE prophylaxis, Post-op/Post-Proc 0837 (Not Given - Provider: Marva Orona RN - Reason: Other - Comment: Pt ambulating frequently) ketorolac (TORADOL) injection 15 mg (COMPLETED) 15 mg, Intravenous, EVERY 6 HOURS NON-STANDARD, 4 doses, First dose on Sat07/31/22 at 1030, Last dose on Sat08/01/22 at 0430, Post-op/Post-Proc 1045 (Given - Provider: Medina Fernández RN)1700 (Given - Provider: Medina Fernández RN)2319 (Given - Provider: Park Bardales RN) 0415 (Given - Provider: Park Bardales RN) levothyroxine (SYNTHROID) tablet 125 mcg 125 mcg, Oral, DAILY, First dose on Sat08/01/22 at 0900, Until Discontinued, Post-op/Post-Proc 1008 (Not Given - Provider: Marva Orona RN - Reason: Other - Comment: pt will take at home) ondansetron 4mg/2ml (ZOFRAN) injection 4 mg 4 mg, Intravenous, EVERY 6 HOURS, First dose on Sat07/31/22 at 1200, Until Discontinued, Post-op/Post-Proc 1045 (Given - Provider: Medina Fernández RN)1700 (Given - Provider: Medina Fernández RN)2319 (Given - Provider: Park Bardales RN) 0644 (Given - Provider: Park Bardales RN)1200 (Canceled Entry - Provider: System Discharge - Comment: Automatically canceled at discontinue of medication order) Continuous Medication Order 07/30/2022 07/31/2022 08/01/2022 lactated ringers IV solution (CANCELED) Intravenous, at 50 mL/hr, CONTINUOUS, Starting on Sat07/31/22 at 0530, Until Sat07/31/22 at 1014, Pre-op/Pre-Proc 0601 ($$New Bag$$ - Provider : Kelsey Serrano RN)0655 (Paused - Provider: BING Gregg - Comment: Switch to gravity)0656 (Restarted - Provider: BING Gregg)0829 ($$New Bag$$ - Provider: BING Gregg) lactated ringers IV solution Intravenous, at 100 mL/hr, CONTINUOUS, Starting on Sat07/31/22 at 1030, Until Sat08/01/22 at 1244, May discontinue when patient taking adequate oral liquids., Post-op/Post-Proc 1046 ($$New Bag$$ - Provider : Medina Fernández, RN)3075 (Stopped - Provider: Park Bardales, RN) PRN Medication Order 07/30/2022 07/31/2022 08/01/2022 morphine (PF) injection 2 mg(Linked Group 1) 2 mg, Intravenous, EVERY 3 HOURS NEEDED, Starting on Sat07/31/22 at 1017, Until Sat08/01/22 at 1244, Severe Pain, Use as initial dose. Higher dose may be administered if lower dose was previously documented as ineffective and did not result in adverse effects (RR<10, decrease in level of consciousness)., Post-op/Post-Proc morphine (PF) injection 4 mg(Linked Group 1) 4 mg, Intravenous, EVERY 3 HOURS NEEDED, Starting on Sat07/31/22 at 1017, Until Sat08/01/22 at 1244, Severe Pain, Higher dose may be administered if lower dose was previously documented as ineffective and did not result in adverse effects (RR<10, decrease in level of consciousness). Decrease back to lower dose if patient has adverse effects, or no PRN used in previous 12 hours., Post-op/Post-Proc oxyCODONE (ROXICODONE) tablet 5 mg(Linked Group 2) 5 mg, Oral, EVERY 3 HOURS NEEDED, Starting on Sat07/31/22 at 1017, Until Sat08/01/22 at 1244, Moderate Pain, Use as initial dose. Higher dose may be administered if lower dose was previously documented as ineffective and did not result in adverse effects (RR<10, decrease in level of consciousness)., Post-op/Post-Proc oxyCODONE (ROXICODONE) tablet 5 mg(Linked Group 2) 5 mg, Per NG tube, EVERY 3 HOURS NEEDED, Starting on Sat07/31/22 at 1017, Until Sat08/01/22 at 1244, Moderate Pain, Crush tablet prior to administration. Use as initial dose. Higher dose may be administered if lower dose was previously documented as ineffective and did not result in adverse effects (RR<10, decrease in level of consciousness)., Post-op/Post-Proc oxyCODONE HCl (ROXICODONE) tablet 10 mg(Linked Group 2) 10 mg, Oral, EVERY 3 HOURS NEEDED, Starting on Sat07/31/22 at 1017, Until Sat08/01/22 at 1244, Moderate Pain, Higher dose may be administered if lower dose was previously documented as ineffective and did not result in adverse effects (RR<10, decrease in level of consciousness). Decrease back to lower dose if patient has adverse effects, or no PRN used in previous 12 hours., Post-op/Post-Proc oxyCODONE HCl (ROXICODONE) tablet 10 mg(Linked Group 2) 10 mg, Per NG tube, EVERY 3 HOURS NEEDED, Starting on Sat07/31/22 at 1017, Until Sat08/01/22 at 1244, Moderate Pain, Crush tablet prior to administration. Higher dose may be administered if lower dose was previously documented as ineffective and did not result in adverse effects (RR<10, decrease in level of consciousness). Decrease back to lower dose if patient has adverse effects, or no PRN used in previous 12 hours., Post-op/Post-Proc prochlorperazine (COMPAZINE) injection 5 mg(Linked Group 3) 5 mg, Intravenous, EVERY 6 HOURS NEEDED, Starting on Sat07/31/22 at 1017, Until Sat08/01/22 at 1244, Nausea / Vomiting, For IV route: dilute dose with 10mL normal saline and give by slow IV push at a rate of 5mg/min. Maximum of 40mg/day., Post-op/Post-Proc prochlorperazine (COMPAZINE) tablet 5 mg(Linked Group 3) 5 mg, Oral, EVERY 6 HOURS NEEDED, Starting on Sat07/31/22 at 1017, Until Sat08/01/22 at 1244, Nausea / Vomiting, Post-op/Post-Proc Linked Groups Order Group 1: morphine (PF) injection 2 mgJump to med 2 mg, Intravenous, EVERY 3 HOURS NEEDED, Starting on Sat07/31/22 at 1017, Until Sat08/01/22 at 1244, Severe Pain
Use as initial dose. Higher dose may be administered if lower dose was previously documented as ineffective and did not result in adverse effects (RR<10, decrease in level of consciousness).
Post-op/Post-Proc Or morphine (PF) injection 4 mgJump to med 4 mg, Intravenous, EVERY 3 HOURS NEEDED, Starting on Sat07/31/22 at 1017, Until Sat08/01/22 at 1244, Severe Pain
Higher dose may be administered if lower dose was previously documented as ineffective and did not result in adverse effects (RR<10, decrease in level of consciousness). Decrease back to lower dose if patient has adverse effects, or no PRN used in previous 12 hours.
Post-op/Post-Proc Group 2: oxyCODONE (ROXICODONE) tablet 5 mgJump to med 5 mg, Oral, EVERY 3 HOURS NEEDED, Starting on Sat07/31/22 at 1017, Until Sat08/01/22 at 1244, Moderate Pain
Use as initial dose. Higher dose may be administered if lower dose was previously documented as ineffective and did not result in adverse effects (RR<10, decrease in level of consciousness).
Post-op/Post-Proc Or oxyCODONE HCl (ROXICODONE) tablet 10 mgJump to med 10 mg, Oral, EVERY 3 HOURS NEEDED, Starting on Sat07/31/22 at 1017, Until Sat08/01/22 at 1244, Moderate Pain
Higher dose may be administered if lower dose was previously documented as ineffective and did not result in adverse effects (RR<10, decrease in level of consciousness). Decrease back to lower dose if patient has adverse effects, or no PRN used in previous 12 hours.
Post-op/Post-Proc Or oxyCODONE (ROXICODONE) tablet 5 mgJump to med 5 mg, Per NG tube, EVERY 3 HOURS NEEDED, Starting on Sat07/31/22 at 1017, Until Sat08/01/22 at 1244, Moderate Pain
Crush tablet prior to administration. Use as initial dose. Higher dose may be administered if lower dose was previously documented as ineffective and did not result in adverse effects (RR<10, decrease in level of consciousness).
Post-op/Post-Proc Or oxyCODONE HCl (ROXICODONE) tablet 10 mgJump to med 10 mg, Per NG tube, EVERY 3 HOURS NEEDED, Starting on Sat07/31/22 at 1017, Until Sat08/01/22 at 1244, Moderate Pain
Crush tablet prior to administration. Higher dose may be administered if lower dose was previously documented as ineffective and did not result in adverse effects (RR<10, decrease in level of consciousness). Decrease back to lower dose if patient has adverse effects, or no PRN used in previous 12 hours.
Post-op/Post-Proc Group 3: prochlorperazine (COMPAZINE) tablet 5 mgJump to med 5 mg, Oral, EVERY 6 HOURS NEEDED, Starting on Sat07/31/22 at 1017, Until Sat08/01/22 at 1244, Nausea / Vomiting, Post-op/Post-Proc Or prochlorperazine (COMPAZINE) injection 5 mgJump to med 5 mg, Intravenous, EVERY 6 HOURS NEEDED, Starting on Sat07/31/22 at 1017, Until Sat08/01/22 at 1244, Nausea / Vomiting
For IV route: dilute dose with 10mL normal saline and give by slow IV push at a rate of 5mg/min. Maximum of 40mg/day.
Post-op/Post-Proc Goals (unrecognized section and content) Goals may be documented in a n alternate section FOR RECORDS PERTAINING TO PATIENTS WHO ARE OR HAVE BEEN ENROLLED IN A CHEMICAL DEPENDENCY/SUBSTANCEABUSE PROGRAM, SOME INFORMATION MAY BE OMITTED. This clinical summary was aggregated from multiple sources. Caution should be exercised in using it in the provision of clinical care. This summary normalizes information from multiple sources, and as a consequence, information in this document may materially change the coding, format and clinical context of patient data. In addition, data may be omitted in some cases. CLINICAL DECISIONS SHOULD BE BASED ON THE PRIMARY CLINICAL RECORDS. [employer] provides no warranty or guarantee of the accuracy or completeness of information in this document.
== END 2024-06-24 21:23 | disposition home or self-care (01) ==
LOC: LAB 21:22
PROVIDERS: PCP Family Medicine; Visit Provider Physician Assistant
DX: Z01.419 Encounter for gynecological examination (general) (routine) without abnormal findings (principal)
CPT/HCPCS: 87624; 88175

== ENCOUNTER 2025-03-24 10:50 | Outpatient (OUT) | payer OTHER, SELFPAY ==
--- OUTSIDE RECORDS SUMMARY | 2025-03-24 10:54 | XMS_ITS | Encounter Summary ---
Author Organization [facility] Address [address] [place] [address] Care Team Providers Care Appian Bpm Developer Name Role Phone Andres Sanz MD Primary Care Provider [phone] Andres Sanz MD Primary Care Provider [phone] Encounter Details Date Type Department Care Team (Late st Contact Info) Description 11/15/2023 [facility] [address] [place] [address] Mechelle Liang MD [address] [place] [address] Social History Tobacco Use Types Packs/Day Years Used Date Smoking Tobacco: Former Cigarettes Q uit: 1992 Smokeless Tobacco: Never Alcohol Use Standard Drinks/Week Comments Yes 0 (1 standard drink = 0.6 oz pure alcohol) 1-2 drinks 2-3x a week in the past year, Caffeine intake: 1-2 cups per day Humiliation, Afraid, Rape, and Kick questionnair e Answer Date Recorded Within the last year, have y ou been afraid of your partner or ex-partner? No 09/30/2023 Within the last year, have y ou been humiliated or emotionally abused in other ways by your partner or ex-partner? No Within the last year, have y ou been kicked, hit, slapped, or otherwise physically hurt by your partner or ex-partner? No 09/30/2023 Within the last year, have y ou been raped or forced to have any kind of sexual activity by your partner or ex-partner? No 09/30/2023 Social Connection and Isolat ion Panel [NHANES] Answer Date Recorded In a typical week, how many times do you talk on the phone with family, friends, or neighbors? More than three times a week 09/30/2023 How often do you get togethe r with friends or relatives? Twice a week 09/30/2023 How often do you attend chur ch or christianity services? Never 09/30/2023 Do you belong to any clubs o r organizations such as yazidi groups, unions, fraternal or athletic groups, or school groups? Yes 09/30/2023 How often do you attend meet ings of the clubs or organizations you belong to? 1 to 4 times per year 09/30/2023 Are you , , di vorced, , never , or living with a partner? 09/30/2023 AUDIT-C Answer Date Recorded Q1: How often do you have a drink containing alc ohol? Monthly or less 09/30/2023 Q2: How many drinks containi ng alcohol do you have on a typical day when you are drinking? 1 or 2 09/30/2023 Q3: How often do you have si x or more drinks on one occasion? Never 09/30/2023 Overall Financial Resource Strain (CARDIA) Answe r Date Recorded How hard is it for you to pa y for the very basics like food, housing, medical care, and heating? Not hard at all 09/30/2023 PHQ-2 Answer Date Recorded Patient Health Questionnaire-2 Score 0 10/07/2023 [facility] - Occupational Stress Questionnaire Answer Date Recorded Do you feel stress - tense, restless, nervous, or anxious, or unable to sleep at night because your mind is troubled all the time - these days? Not at all 09/30/2023 Exercise Vital Sign Answer Date Recorde d On average, how many days pe r week do you engage in moderate to strenuous exercise (like a brisk walk)? 6 days 09/30/2023 On average, how many minutes do you engage in exercise at this level? 30 min 09/30/2023 Hunger Vital Sign Answer Date Recorded Within the past 12 months, y ou worried that your food would run out before you got the money to buy more. Never true 09/30/19 24 Within the past 12 months, t he food you bought just didn't last and you didn't have money to get more. Never true 09/30/2023 PRAPARE - Transportation Answer Date Re corded In the past 12 months, has l ack of transportation kept you from medical appointments or from getting medications? No 09/2023 In the past 12 months, has l ack of transportation kept you from meetings, work, or from getting things needed for daily living? No 09/30/2023 Housing Stability Vital Sign Answer Miguelito e Recorded In the last 12 months, was t here a time when you were not able to pay the mortgage or rent on time? No 09/30/2023 In the last 12 months, how many places have you lived? 1 09/30/2023 In the last 12 months, was t here a time when you did not have a steady place to sleep or slept in a fdc (including now)? No 09/30/2023 Comments No Sex and Gender Information Value Date Recorded Sex Assigned at Female 05/28/2023 9:37 AM EDT Legal Sex Female 11:23 PM EDT Gender Identity Female 05/28/2023 9:37 AM EDT Sexual Orientation Straight 05/28/2023 9: 37 AM EDT documented as of this encounter Plan of Treatment Upcoming Encounters Date Type Department Care Team (Late st Contact Info) Description 06/28/2025 9:00 AM EDT Office Visit [facility] [address] [place] [address] Kiya Walters, PET NUTRITION SPECIALIST [address] [place] [address] 10/13/2025 10:30 AM EST Office Visit [facility] [address] [place] [address] Andres Sanz MD [address] [place] [address] documented as of this encounter Procedures Procedure Name Priority Date/Time Associated Diagnosis Comments SCANNED LABS Routine 11/15/2023 8:52 AM EST documented in this encounter Results * SCANNED LABS (11/15/2023 8:52 AM EST) Mechelle Liang MD LAB CHG PERFORMABLES Final Res ult documented in this encounter Visit Diagnoses Not on filedocumented in this encounter Care Teams Appian Bpm Developer Relationship Specialty Start Date End Date Andres Sanz MD PCP - General 05/28/23 10/07/24 Andres Sanz MD [address] [place] [address] PCP - General Family Medicine 10/08/24 documented as of this encounter
--- OUTSIDE RECORDS SUMMARY | 2025-03-24 10:54 | XMS_ITS | Encounter Summary ---
Author Organization [facility] Address [address] [address] Care Team Providers Care Change Management Lead Name Role Phone Andres Sanz MD Primary Care Provider [phone] Andres Sanz MD Primary Care Provider [phone] Encounter Details Date Type Department Care Team (Late Contact Info) Description 05/31/2023 Abstract [facility] [address] [facility] [place], [id number] Fe Samuel PA [address] [place], [facility]11 Social History Tobacco Use Types Packs/Day Years Used Date Smoking Tobacco: Former Cigarettes Tobacco Cessation:Counseling Given: Not Answered Alcohol Use Standard Drinks/Week Comments Yes 0 (1 standard drink = 0.6 oz pure alcohol) 1-2 drinks 2-3x a week in the past year, Caffeine intake: 1-2 cups per day Comments Unknown Sex and Gender Information Value Date Recorded Sex Assigned at Female 05/28/2023 9:37 AM EDT Legal Sex Female 11:23 PM EDT Gender Identity Female 05/28/2023 9:37 AM EDT Sexual Orientation Straight 05/28/2023 9: 37 AM EDT COVID-19 Exposure Response Date Recorded In the last 10 days, have yo u been in contact with someone who was confirmed or suspected to have Coronavirus/COVID-19? No / Unsure 05/28/2023 9:53 AM EDT documented as of this encounter Plan of Treatment Upcoming Encounters Date Type Department Care Team (Late st Contact Info) Description 06/28/2025 9:00 AM EDT Office Visit [facility] [address] [address] Kiya Walters, SALESFORCE BUSINESS ANALYST [address] [place] [address] 10/13/2025 10:30 AM EST Office Visit [facility] [address] [place] [phone] Andres Sanz MD [address] [place] [phone] documented as of this encounter Visit Diagnoses Not on filedocumented in this encounter Care Teams Change Management Lead Relationship Specialty Start Date End Date Andres Sanz MD PCP - General 05/28/23 10/07/24 Andres Sanz MD [address] [place] [address] PCP - General Family Medicine 10/08/24 documented as of this encounter
--- OUTSIDE RECORDS SUMMARY | 2025-03-24 10:54 | XMS_ITS | Encounter Summary ---
Author Organization [facility] Address [address] [place] [address] Care Team Providers Care School Library Media Specialist Name Role Phone Andres Sanz MD Primary Care Provider [phone] Andres Sanz MD Primary Care Provider [phone] Encounter Details Date Type Department Care Team (Late st Contact Info) Description 06/12/2023 Clinisync Result Encounter [facility] External Department Unsolicited Fe Hare PA [facility] [employer] [place], [facility]11 Social History Tobacco Use Types Packs/Day Years Used Date Smoking Tobacco: Former Cigarettes Alcohol Use Standard Drinks/Week Comments Yes 0 (1 standard drink = 0.6 oz pure alcohol) 1-2 drinks 2-3x a week in the past year, Caffeine intake: 1-2 cups per day Comments No Sex and Gender Information Value [...] AM EDT Office Visit [facility] [place] [phone] Kiya Walters NP [address] [place] [address] 10/13/2025 10:30 AM EST Office Visit [facility] [address] [place] [address] Andres Sanz MD [address] [place] [phone] documented as of this encounter Procedures Procedure Name Priority Date/Time Associated Diagnosis Comments XR DEXA AXIAL SKELETON 06/12/2023 4:48 PM EDT documented in this encounter Results * XR DEXA AXIAL SKELETON (06/12/2023 4:48 PM EDT) Anatomical Region Laterality Modality Other 06/12/2023 4:48 PM EDT Narrative 06/12/2023 4:48 PM EDT The [address] [address] XRay Report Signed Patient: MARK OROZCO MR#: [id number] : 1965 Acct:[id number] Age/Sex: 58 / F ADM Date: 06/12/23 Loc: RAD Attending Dr: Fe Hare Ordering Physician: Fe Hare Date of Service: 06/12/23 Procedure(s): XR DEXA axial skeleton Accession Number(s): [id number] cc: Fe Hare; Andres Sanz M.D. The [address] [address] Patient Name: MARK OROZCO MRN: [id number] date: 1965 Sex: F Assigned Patient Location: RAD Current Patient Location: RAD Accession/Order Number: [id number] Exam Date: 06/12/2023 10:50 Report Date: 06/12/2023 16:48 At the request of: FE HARE Procedure: XR DEXA axial skeleton EXAMINATION: XR DEXA axial skeleton, 06/12/2023 10:50 AM EDT HISTORY: Post Menopausal Z78.0 COMPARISON: 2019. TECHNIQUE: Dual-energy X-ray absorptiometry (DEXA) bone density study performed for the axial skeleton. HISTORY: Post Menopausal Z78.0 FINDINGS: Bone mineral density lumbar spine L1-L4 measures 1.102 g/sq cm. Young adult T score -0.7. WHO classification: Normal Lowest bone mineral density left femoral neck measures 0.853 g/sq cm. T score -1.3. WHO classification: Osteopenia XR/XR DEXA axial skeleton IMPRESSION: Osteopenia. Moderate fracture risk Electronically authenticated by: DONNA EDWARDS Date: 06/12/2023 16:48 Dictated By: Donna Edwards M.D. Signed By: 06/12/231649 DD/ 47 TD/TT: Motor Vehicles Inspector: Procedure Note Radiology, Radiologist, MD - 06/21/2023 [place] [address] XRay Report Signed Patient: MARK OROZCO KMR#: [id number] : 1965Acct:[id number] Age/Sex: 58 / FADM Date: 06/12/23 Loc: OLE Attending Dr: Fe Hare Ordering Physician: Fe Hare Date of Service: 06/12/23 Procedure(s): XR DEXA axial skeleton Accession Number(s): [id number] cc: Fe Hare; Andres Sanz M.D. The [place] [id number] Patient Name: MARK OROZCO MRN: [id number] date: 1965 Sex: F Assigned Patient Location: [facility] Current Patient Location: [facility] Accession/Order Number: [id number] Exam Date: 06/12/2023 10:50 Report Date: 06/12/2023 16:48 At the request of: FE HARE Procedure: XR DEXA axial skeleton EXAMINATION: XR DEXA axial skeleton, 06/12/2023 10:50 AM EDT HISTORY: Post Menopausal Z78.0 COMPARISON: 2019. TECHNIQUE: Dual-energy X-ray absorptiometry (DEXA) bone density study performed for the axial skeleton. HISTORY: Post Menopausal Z78.0 FINDINGS: Bone mineral density lumbar spine L1-L4 measures 1.102 g/sq cm. Youngadult T score -0.7. WHO classification: Normal Lowest bone mineral density left femoral neck measures 0.853 g/sq cm. Tscore -1.3. WHO classification: Osteopenia XR/XR DEXA axial skeleton IMPRESSION: Osteopenia. Moderate fracture risk Electronically authenticated by: DONNA EDWARDS Date: 06/12/2023 16:48 Dictated By: Donna Edwards M.D. Signed By:06/12/231649 DD/ 47 TD/TT: Motor Vehicles Inspector: Fe [facility] Final Result documented in this encounter Visit Diagnoses Not on filedocumented in this encounter Care Teams School Library Media Specialist Relationship Specialty Start Date End Date Andres Sanz MD PCP - General 05/28/23 10/07/24 Andres Sanz MD [address] [place] [address] PCP - General Family Medicine 10/08/24 documented as of this encounter
--- OUTSIDE RECORDS SUMMARY | 2025-03-24 10:54 | XMS_ITS | Encounter Summary ---
Author Organization [facility] [employer] [facility] [employer] Address [id number] [place] [address] Care Team Providers Care Group Therapy Counselor Name Role Phone Andres Sanz MD Primary Care Provider [phone] Encounter Details Date Type Department Care Team (Late st Contact Info) Description 01/07/2024 Orders Only [facility] [address] [place] [address] External, Scanning Provider Social History Tobacco Use Types Packs/Day Years Used Date Smoking Tobacco: Former Smokeless Tobacco: Never Alcohol Use Standard Drinks/Week Comments Yes 0 (1 standard drink = 0.6 oz pur e alcohol) Few times a week Social Connection and Isolat ion Panel [NHANES] Answer Date Recorded In a typical week, how many times do you talk on the phone with family, friends, or neighbors? More than three times a week 02/12/2022 How often do you get togethe r with friends or relatives? More than three times a week 02/12/2022 How often do you attend chur or anabaptist services? Never 02/12/2022 Do you belong to any clubs o r organizations such as scientology groups, unions, fraternal or athletic groups, or school groups? Yes 02/12/2022 How often do you attend meet ings of the clubs or organizations you belong to? 1 to 4 times per year 02/12/2022 Are you , , di vorced, , never , or living with a partner? 02/12/2022 AUDIT-C Answer Date Recorded Q1: How often do you have a drink containing alc ohol? 2-3 times a week 02/12/2022 Q2: How many drinks containi ng alcohol do you have on a typical day when you are drinking? 1 or 2 02/12/2022 Q3: How often do you have si x or more drinks on one occasion? Never 02/12/2022 Overall Financial Resource Strain (CARDIA) Answe r Date Recorded How hard is it for you to pa y for the very basics like food, housing, medical care, and heating? Not hard at all 02/04/2023 PHQ-2 Answer Date Recorded Total Score 0 03/11/2023 [facility] - Occupational Stress Questionnaire Answer Date Recorded Do you feel stress - tense, restless, nervous, or anxious, or unable to sleep at night because your mind is troubled all the time - these days? Not at all 02/12/2022 Exercise Vital Sign Answer Date Recorde d On average, how many days pe r week do you engage in moderate to strenuous exercise (like a brisk walk)? 5 days 02/12/2022 On average, how many minutes do you engage in exercise at this level? 30 min 02/12/2022 PRAPARE - Transportation Answer Date Re corded In the past 12 months, has l ack of transportation kept you from medical appointments or from getting medications? No 04/2023 In the past 12 months, has l ack of transportation kept you from meetings, work, or from getting things needed for daily living? No 02/04/2023 Housing Instability Answer Date Recorde d Are you worried or concerned that in the next two months you may not have stable housing that you own, rent or stay in as a part of a household? No 02/04/2023 Childcare Answer Date Recorded Do problems getting child ca re make it difficult for you to work or study? No 02/12/2022 Employment Answer Date Recorded Do you need help finding a [facility] career center and/or a training program? No 02/12/2022 Hunger Screening Answer Date Recorded Within the past 12 months we worried whether our food would run out before we got money to buy more. Never True 01/09/2024 Within the past 12 months th e food we bought just didn't last and we didn't have money to get more. Never True 01/09/2024 Purpose - Life Answer Date Recorded I have a purpose and direction in my life. Stron gly Agree 02/12/2022 Education Answer Date Recorded What is the highest level of school you have completed or the highest degree you have received? 12th grade 02/12/2022 Comments Unknown Sex and Gender Information Value Date Recorded Sex Assigned at Female 02/12/2022 10:41 AM EDT Legal Sex Female 11:41 AM EDT Gender Identity Female 02/12/2022 10:41 AM EDT Sexual Orientation Straight 02/12/2022 10 :41 AM EDT documented as of this encounter Plan of Treatment Not on file documented as of this encounter Procedures Procedure Name Priority Date/Time Associated Diagnosis Comments ECG 12-LEAD Routine 01/07/2024 9:53 AM EDT documented in this encounter Results * ECG 12 lead (01/07/2024 9:53 AM EDT) us Scanning Provider External ECG ORDERABLES Final Result MANUALLY TRANSCRIBED RESULTS documented in this encounter Visit Diagnoses Not on filedocumented in this encounter Additional Health Concerns Assessment Noted Time PHQ-9 Depression Total Score: 0 03/11/20 23 9:08 AM EDT A Body Mass Index follow-up plan has been documented for the patient 03/11/2023 10:50 AM EDT documented as of this encounter Care Teams Group Therapy Counselor Relationship Specialty Start Date End Date Andres Sanz MD PCP - General Family Medicine 01/10/21 documented as of this encounter
--- OUTSIDE RECORDS SUMMARY | 2025-03-24 10:54 | XMS_ITS | Encounter Summary ---
Author Organization [facility] Address [address] [place] [address] Care Team Providers Care Outreach Consultant Name Role Phone Andres Sanz MD Primary Care Provider [phone] Andres Sanz MD Primary Care Provider [phone] Encounter Details Date Type Department Care Team (Late st Contact Info) Description 03/26/2023 Abstract [facility] [address] [facility] [place] [address] Jamey Sanches, DO [address] [facility] [address] [place], [place] [id number] Social History Tobacco Use Types Packs/Day Years Used Date Smoking Tobacco: Never Assessed Comments Unknown Sex and Gender Information Value Date Recorded Sex Assigned at Female 05/28/2023 9:37 AM EDT Legal Sex Female 11:23 PM EDT Gender Identity Female 05/28/2023 9:37 AM EDT Sexual Orientation Straight 05/28/2023 9: 37 AM EDT documented as of this encounter Plan of Treatment Upcoming Encounters Date Type Department Care Team (Late Contact Info) Description 06/28/2025 9:00 AM EDT Office Visit [facility] [address] [facility] [place] [address] Kiya Walters, MANAGER SOLUTION [address] [facility] [facility] [address] [place] [id number] 10/13/2025 10:30 AM EST Office Visit [facility] [address] [place] [address] Andres Sanz MD [address] [place] [id number] documented as of this encounter Visit Diagnoses Not on filedocumented in this encounter Care Teams Outreach Consultant Relationship Specialty Start Date End Date Andres Sanz MD PCP - General 05/28/23 10/07/24 Andres Sanz MD [address] [place] [phone] PCP - General Family Medicine 10/08/24 documented as of this encounter
--- OUTSIDE RECORDS SUMMARY | 2025-03-24 10:55 | XMS_ITS | Clinical Summary ---
Author Organization [employer] Address [id number] [address] [place] [address] Care Team Providers Care Guillotine Trimmer Name Role Phone Andres Sanz MD Primary Care Provider [phone] Allergies Active Allergy Reactions Criticality Noted Date Comments Cephalexin Medium 12/07/2013 Penicillins Hives,Itching,Rash,S welling,Other (See Comments) High 05/28/1985 Medications levothyroxine (SYNTHROID, LEVOTHROID) 125 MCG tablet Take 1 tablet (125 mcg total) by mouth in the morning. Active PREMARIN vaginal cream 3 Active fluticasone propionate (FLONASE) 50 mcg/actuation nasal spray Administer into each nostril daily. Active Bacillus coagulans-inuli n 1 billion-250 cell-mg capsule Take 1 capsule by mouth in the morning and 1 capsule before bedtime. 4 Active cholecalciferol , vitamin D3, 5,000 units tablet Take 1 tablet (5,000 Units total) by mouth in the morning. Active ccawbndm-pmrh-K A-calcium &mins (THERAGRAN-M) 9 mg iron-400 mcg tablet Take 1 tablet by mouth in the morning. Active calcium carbonate (TUMS) 200 mg elemental (500 mg) chewable tablet Chew 1 tablet (200 mg total) and swallow in the morning. Active Active Problems Problem Noted Date Diagnosed Date Abnormal EKG 01/09/2024 Dizziness 01/09/2024 Social History Tobacco Use Types Packs/Day Years [...] 02/12/2022 How often do you attend chur ch or jainism services? Never 02/12/2022 Do you belong to any clubs o r organizations such as bahai groups, unions, fraternal or athletic groups, or [...] Answer Date Recorded Total Score 0 03/11/2023 [facility] - Occupational Stress Questionnaire Answer Date Recorded [...] Recorded Do you need help finding a [facility] career center and/or a training program? [...] Orientation Straight 02/12/2022 10 :41 AM EDT Last Filed Vital Signs Vital Sign Reading Time Taken Comments Blood Pressure 130/80 01/09/2024 2:06 PM EDT Pulse 72 01/09/2024 2:06 PM EDT Temperature 36.4 C (97.6 F) 03/11/2023 9:09 AM EDT Respiratory Rate 16 02/14/2022 10:53 AM EDT Oxygen Saturation 98% 01/09/2024 2:06 PM EDT Inhaled Oxygen Concentration - - Weight 74.8 kg (165 lb) 01/09/2024 2:06 PM EDT Height 165.1 cm (5' 5 ) 01/09/2024 2:06 PM EDT Body Mass Index 27.46 01/09/2024 2:06 PM EDT Plan of Treatment Health Maintenance Due Date Last Done Comments DTaP,Tdap and Td Vaccines (2 - Td or Tdap) 04/26/2020 04/26/2010 Depression Screening 03/11/2024 03/11/2023 Adult BMI Screening 01/08/2025 01/09/2024 Tobacco Screening 01/08/2025 01/09/2024 Influenza Vaccine 05/31/2025 07/19/2022, , 08/03/2020, Additional history exists Pap Smear 06/24/2027 06/24/2024 Zoster (Shingles) Vaccine Completed 10/13/2021, 10/2020 Medical Devices Not on file Insurance [facility] Advance Directives Documents on File Type Date Recorded Patient Water Resource Project Manager Expl anation Durable Power of Fisher 03/24/2024 8:58 AM Care Teams Guillotine Trimmer Relationship Specialty Start Date End Date Andres Sanz MD PCP - General Family Medicine 01/10/21
--- OUTSIDE RECORDS SUMMARY | 2025-03-24 10:55 | XMS_ITS | Clinical Summary ---
Author Organization [facility] Address [address] [place] [address] Care Team Providers Care General Utility Worker Name Role Phone Andres Sanz MD Primary Care Provider [phone] Allergies Active Allergy Reactions Criticality Noted Date Comments Not Able To Determine 07/18/2022 Anesthesia causes nausea Penicillins Hives,Itching,Swelli n g High 04/22/2013 Medications levothyroxine 125 MCG tablet Take 125 mcg by mouth daily. Active Multiple Vitamins-Mineral s (PRESERVISION AREDS 2 PO) Take 2 tablets by mouth. Active cholecalciferol 50 MCG (2000 UT) capsule Take 2,000 Units by mouth daily. Active Oil Base Liquid Take by mouth. CBD Active HERBAL PRODUCT isogenics Activ e Probiotic Product (PROBIOTIC DAILY PO) Take by mouth daily. Active ondansetron 4 MG Tab Dispersible tablet Take 1 tablet by mouth every 8 hours as needed for Nausea / Vomiting. 20 tablet 2 Active Additional Information Patient not taking.Reported on 08/31/2022 Promethazine HCl 12.5 MG tablet Take 1 tablet by mouth every 6 hours as needed for up to 14 days. 21 tablet 2 Active Active Problems Problem Noted Date Diagnosed Date Paraesophageal hernia 07/31/2022 GERD (gastroesophageal reflux disease) 2 Obesity (BMI 30.0-34.9) 04/20/2022 Family History Medical History Relation Name Comments Lung Cancer Father Arnaldo Colorectal Cancer Maternal Great Grandmother Hypertension Mother Liset Lipid Disorder Mother Liset Aneurysm Neg Hx Diabetes Neg Hx Heart Failure Neg Hx Stroke Neg Hx Relation Name Status Comments Father Arnaldo Maternal Great Grandmother Alive Mother Liset Alive Social History Tobacco Use Types Packs/Day Years Used Date Smoking Tobacco: Former Cigarettes 2 36 0 09/30/1979 - 2015 Smokeless Tobacco: Never Tobacco Cessation:Counseling Given: Not Answered Alcohol Use Standard Drinks/Week Comments Yes 4 (1 standard drink = 0.6 oz pur e alcohol) Per week Comments No Sex and Gender Information Value Date Recorded Sex Assigned at Not on file Legal Sex Female 10:37 AM EDT Gender Identity Female 05/11/2022 9:55 AM EDT Sexual Orientation Straight 05/11/2022 9: 55 AM EDT Last Filed Vital Signs Vital Sign Reading Time Taken Comments Blood Pressure 124/84 08/31/2022 12:15 PM EST Pulse 86 08/31/2022 12:15 PM EST Temperature 36.7 C (98 F) 08/31/2022 12:15 PM EST Respiratory Rate 20 08/01/2022 7:16 AM EDT Oxygen Saturation 98% 08/31/2022 12:15 PM EST Inhaled Oxygen Concentration - - Weight 85.7 kg (189 lb) 08/31/2022 12:15 PM EST Height 165.1 cm (5' 5 ) 07/31/2022 5:10 AM EDT Body Mass Index 31.45 07/31/2022 5:10 AM EDT Plan of Treatment Health Maintenance Due Date Last Done Comments HEPATITIS C VIRUS SCREENING 1965 TSH 1966 HIV SCREENING DISCUSSION 1981 CERVICAL CANCER SCREENING DISCUSSION 1987 LIPID SCREENING 2006 COLORECTAL CANCER SCREENING DISCUSSION 2011 MAMMOGRAM SCREENING DISCUSSION 12/27/2012 12/28/2011 PNEUMOCOCCAL VACCINE SERIES (2 of 2 - PCV) 01/15/2016 09/16/2000 TETANUS 04/26/2020 04/26/2010 COVID-19 VACCINE (2023-2 5 season) 2024 INFLUENZA VACCINE (Season Ended) 2025 07/19/2022, 06/06/2021, 08/03/2020, Additional history exists HEP B VACCINE Completed 06/08/1998, 11/28, 11/08/1997 PNEUMOCOCCAL VACCINE SERIES Discontinued 09/16/2000 TDAP (ADULT) Completed 04/26/2010 ZOSTER (SHINGLES) VACCINE Completed 10/13/2021, 10/2020 Insurance [facility] Advance Directives For more information, please contact: [phone] (7:30 AM - 6PM [facility], Saturday-Saturday) * Full Code (Latest Code Status on File) Date Activated Date Inactivated Comments 07/31/2022 5:22 AM Care Teams General Utility Worker Relationship Specialty Start Date End Date Andres Sanz MD [address] [place] [address] PCP - General Family Medicine 02/16/22
--- OUTSIDE RECORDS SUMMARY | 2025-03-24 10:55 | XMS_ITS | Clinical Summary ---
Author Organization [facility] Address [address] [place] [address] Care Team Providers Care Community Health Advisor Name Role Phone Andres Sanz MD Primary Care Provider [phone] Allergies Active Allergy Reactions Criticality Noted Date Comments Cephalexin Medium 12/07/2013 Penicillins Hives,Itching,Rash,Swelling,Unknown High 05/28/1985 Medications Multiple Vitamins-Minerals (PreserVision AREDS 2) capsule as directed Orally Active Cholecalciferol (Vitamin D) 125 MCG (5000 UT) capsule 05/28/20 10 Active triamcinolone (Kenalog) 0.5 % cream Apply 1 application topically in the morning and 1 application in the evening and 1 application before bedtime. Active levothyroxine (Synthroid, Levoxyl) 125 MCG tabletIndications: Primary hypothyroidism TAKE 1 TABLET DAILY 90 tablet 3 04/22/20 24 Active Premarin 0.625 MG/GM creamIndications:P ost-menopause INSERT 1/2 (ONE HALF) APPLICATORFUL INTO VAGINA AT BEDTIME 90 g 3 06/23/20 24 Active fluticasone (Flonase) 50 MCG/ACT nasal sprayIndications:S easonal allergic rhinitis due to pollen USE 2 SPRAYS IN EACH NOSTRIL DAILY 48 g 3 09/10/20 24 Active ondansetron ODT (Zofran-ODT) 4 MG disintegrating tabletIndications: Gastroesophageal reflux disease without esophagitis Take 1 tablet (4 mg) by mouth every 6 (six) hours if needed for nausea or vomiting 40 tablet 3 10/08/19 25 Active Active Problems Problem Noted Date Diagnosed Date Dyslipidemia 10/07/2023 Esophageal reflux 10/07/2023 Assessment & Plan (10/08/2024 11:00 AM EST): Occasional nausea and use zofran PRN. Primary hypothyroidism 10/07/2023 Assessment & Plan (10/08/2024 11:00 AM EST): No signs of low thyroid and due for labs. Assessment & Plan (10/07/2023 12:22 PM EST): No signs of low thyroid and due for labs. Prediabetes 10/07/2023 Allergic rhinitis due to pollen 10/07/2023 Assessment & Plan (10/08/2024 11:00 AM EST): Symptoms controlled with medication and continue. Assessment & Plan (10/07/2023 12:22 PM EST): Symptoms controlled with medication and continue. Vaginal atrophy 10/07/2023 Vitamin D deficiency 10/07/2023 Osteopenia of necks of both femurs 10/07/2023 Encounter for long-term (current) use of medicat ions 10/07/2023 Resolved Problems Problem Noted Date Diagnosed Date Resolved Date Pruritus 10/07/2023 10/07/2023 Family History Medical History Relation Name Comments Other Brother MVA Cancer Father Lung Cancer Cancer Father's Sister Heart disease Maternal Grandfather Cancer Maternal Grandmother Diabetes Maternal Grandmother Heart disease Maternal Grandmother Hypertension Maternal Grandmother Diabetes Mother Hyperlipidemia Mother Hypertension Mother Diabetes Mother's Brother Heart disease Mother's Brother Hypertension Mother's Brother Cancer Other Aunt Breast Cancer Diabetes Sibling Stroke Sibling Stroke Sister Relation Name Status Comments Brother Father Father's Sister Maternal Grandfather Maternal Grandmother Mother Alive Mother's Brother Other Aunt Paternal Grandfather Paternal Grandmother Sibling Sister Son 1 Social History Tobacco Use Types Packs/Day Years Used Date Smoking Tobacco: Former Cigarettes Q uit: 1992 Smokeless Tobacco: Never Tobacco Cessation:Counseling Given: Not [...] 09/30/2023 How often do you attend chur or taoist services? Never 09/30/2023 Do you belong to [...] Recorded Patient Health Questionnaire-2 Score 0 10/07/2023 [facility] of Occupat ional Health - Occupational Stress [...] place to sleep or slept in a longterm (including now)? No 09/30/2023 Comments No Sex and Gender Information Value Date Recorded Sex Assigned at Female 05/28/2023 9:37 AM EDT Legal Sex Female 11:23 PM EDT Gender Identity Female 05/28/2023 9:37 AM EDT Sexual Orientation Straight 05/28/2023 9: 37 AM EDT Last Filed Vital Signs Vital Sign Reading Time Taken Comments Blood Pressure 128/68 10/08/2024 10:02 AM EST Pulse 97 10/08/2024 10:02 AM EST Temperature 36.6 C (97.8 F) 10/08/2024 10:02 AM EST Respiratory Rate 16 09/06/2023 11:11 AM EST Oxygen Saturation 98% 10/08/2024 10:02 AM EST Inhaled Oxygen Concentration - - Weight 75.1 kg (165 lb 9.6 oz) 10/08/2024 10:02 AM EST Height 165.1 cm (5' 5 ) 06/24/2024 2:07 PM EDT Body Mass Index 27.56 06/24/2024 2:07 PM EDT Plan of Treatment Upcoming Encounters Date Type Department Care Team (Late st Contact Info) Description 06/28/2025 9:00 AM EDT Office Visit [facility] [address] [facility] [place] [address] Kiya Walters, R[place] [address] [facility] [place] [address] 10/13/2025 10:30 AM EST Office Visit [facility] [address] [place] [address] Andres Sanz MD [address] [place] [address] Health Maintenance Due Date Last Done Comments CT Colonography 1966 FIT-DNA 1966 FIT 1966 FOBT 1966 Sigmoidoscopy 1966 Colonoscopy 10/04/2024 10/04/2014 Colorectal Cancer Screening 10/04/2024 Mammogram 03/19/2025 03/19/2024, 11/30, 12/28/2011 Influenza Vaccine (Season Ended) 2025 07/19/2022, 06/06/2021, 08/03/2020, Additional history exists HPV/Cotest Discontinued 06/13/2023 Cervical Cancer Screening Discontinued Pap Smear Discontinued 06/24/2024 Procedures Procedure Name Priority Date/Time Associated Diagnosis Comments PAP SMEAR Routine 06/24/2024 12:00 AM EDT MM TOMOSYNTHESIS SCREENING BI 03/19/2024 4:08 PM EDT THINPREP PAP AND HPV MRNA E6/E7 W/RFL HPV 16,18/45 Routine 06/13/2023 2:07 PM EDT Well woman exam with routine gynecological exam from Last 3 Months or Most Recently Relevant to Health Maintenance Results * Pap Smear (06/24/2024 12:00 AM EDT) Swab Cervical swab / Unknown Myron Nurse [facility] Ob LAB CYTOLOGY ORDERABLES Final Result EXTERNAL LAB * MM TOMOSYNTHESIS SCREENING BI (03/19/2024 4:08 PM EDT) Anatomical Region Laterality Modality Other 03/19/2024 4:08 PM EDT Narrative 03/19/2024 4:08 [place] [address] Mammography Report Signed Patient: TIANA OROZCO MR#: [id number] : 1965 Acct:[id number] Age/Sex: 59 / F ADM Date: 03/19/24 Loc: MAMMO Attending Dr: Jamey Sanches D.O. Ordering Physician: Jamey Sanches D.O. Results: Date of Service: 03/19/24 Follow Up: Procedure(s): MM tomosynthesis screening BI Accession Number(s): [id number] cc: Jamey Sanches D.O.; Andres Sanz M.D. Patient Name: TIANA OROZCO MR#: [id number] : 1965 Exam Date: 03/19/2024 Ordering Doctor: DR Jamey Sanches . RADIOLOGY REPORT PROCEDURE: MM TOMOSYNTHESIS SCREENING BI COMPARISON: MM TOMOSYNTHESIS SCREENING BI, 03/11/2023. MG MAMM SCREEN 3D PO CAD, 03/02/2022. MG MAMM SCREEN 3D PO CAD, 03/01/2021. MAMMO PO SCREEN, 12/27/2004. INDICATIONS: Screening for malignant neoplasm of breast Calculator Name NCI Breast Cancer Risk Assessment Tool 5 Year Breast Cancer Risk 1.10% Lifetime Breast Cancer Risk 6.10% Personal Breast Cancer No Personal Ovarian Cancer No Treatments None Family Cancers Father with lung cancer at age 57. LOCATION: [facility] BREAST COMPOSITION: The breasts are heterogeneously dense,which may obscure small masses. FINDINGS: DIAGNOSTIC CATEGORY 1--NEGATIVE. RIGHT BREAST: No significant suspicious finding. No significant change has occurred. LEFT BREAST: No significant suspicious finding. No significant change has occurred. RECOMMENDATIONS: ROUTINE MAMMOGRAM AND CLINICAL EVALUATION IN 12 MONTHS. PLEASE NOTE: A NORMAL MAMMOGRAM DOES NOT EXCLUDE THE POSSIBILITY OF BREAST CANCER. A CLINICALLY SUSPICIOUS PALPABLE LUMP SHOULD BE BIOPSIED. Dictated by: Surya Fountain M.D. on 03/19/2024 at 15:48 Approved by: Surya Fountain M.D. on 03/19/2024 at 16:07 Dictated By: Surya Fountain M.D. Signed By: 03/19/24 1608 DD/ 1608 TD/TT: Repulping Supervisor: Procedure Note Radiology, Radiologist, MD - 03/19/2024 [place] [address] Mammography Report Signed Patient: TIANA OROZCO KMR#: [id number] : 1965Acct:[id number] Age/Sex: 59 / FADM Date: 03/19/24 Loc: MAMMO Attending Dr: Jamey Sanches D.O. Ordering Physician: Jamey Sanches D.O.Results: Date of Service: 03/19/24Follow Up: Procedure(s): MM tomosynthesis screening BI Accession Number(s): [id number] cc: Jamey Sanches D.O.; Andres Sanz M.D. Patient Name: TIANA OROZCO MR#: [id number] : 1965 Exam Date: 03/19/2024 Ordering Doctor: DR Jamey Sanches . RADIOLOGY REPORT PROCEDURE: MM TOMOSYNTHESIS SCREENING BI COMPARISON: MM TOMOSYNTHESIS SCREENING BI, 03/11/2023. MG MAMM [id number] PO CAD, 03/02/2022. MG MAMM SCREEN 3D PO CAD, 03/01/2021. MAMMO BILSCREEN, 12/27/2004. INDICATIONS: Screening for malignant neoplasm of breast Calculator Name NCI Breast Cancer Risk Assessment Tool 5 Year Breast Cancer Risk 1.10% Lifetime Breast Cancer Risk 6.10% Personal Breast Cancer No Personal Ovarian Cancer No Treatments None Family Cancers Father with lung cancer at age 57. LOCATION: [facility] BREAST COMPOSITION: The breasts are heterogeneously dense,which may obscure small masses. FINDINGS: DIAGNOSTIC CATEGORY 1--NEGATIVE. RIGHT BREAST: No significant suspicious finding. No significant changehas occurred. LEFT BREAST: No significant suspicious finding. No significant changehas occurred. RECOMMENDATIONS: ROUTINE MAMMOGRAM AND CLINICAL EVALUATION IN 12 MONTHS. PLEASE NOTE: A NORMAL MAMMOGRAM DOES NOT EXCLUDE THE POSSIBILITY OFBREAST CANCER. A CLINICALLY SUSPICIOUS PALPABLE LUMP SHOULD BE BIOPSIED. Dictated by: Surya Fountain M.D. on 03/19/2024 at 15:48 Approved by: Surya Fountain M.D. on 03/19/2024 at 16:07 Dictated By: Surya Fountain M.D. Signed By:03/19/24 1608 DD/ 1608 TD/TT: Repulping Supervisor: us Generic External Data Provider [facility] Final Result * THINPREP PAP AND HPV MRNA E6/E7 W/RFL HPV 16,18/45 (06/13/2023 2:07 PM EDT) us Fe [facility] BLOOD ORDERABLES Final Resul t EXTERNAL LAB from Last 3 Months or Most Recently Relevant to Health Maintenance Insurance Care Teams Community Health Advisor Relationship Specialty Start Date End Date Andres Sanz MD [address] [place] [address] PCP - General Family Medicine 10/08/24
--- OUTSIDE RECORDS SUMMARY | 2025-03-24 10:55 | XMS_ITS | Clinical Summary ---
Author Organization [facility] Address [address] [place] [address] Care Team Providers Care Janitorial Services Supervisor Name Role Phone Andres Sanz MD Primary Care Provider + Allergies Active Allergy Reactions Criticality Noted Date Comments Cephalexin Medium 12/07/2013 Penicillins Hives High 12/07/2013 Medications No known medications Active Problems Problem Noted Date Diagnosed Date Other plastic surgery for unacceptable cosmetic appearance 12/07/2013 Social History Tobacco Use Types Packs/Day Years Used Date Smoking Tobacco: Never Assessed Comments Unknown Sex and Gender Information Value Date Recorded Sex Assigned at Not on file Legal Sex Female 9:45 AM EST Gender Identity Not on file Sexual Orientation Not on file Last Filed Vital Signs Vital Sign Reading Time Taken Comments Blood Pressure - - Pulse - - Temperature - - Respiratory Rate - - Oxygen Saturation - - Inhaled Oxygen Concentration - - Weight 90.7 kg (200 lb) 12/07/2013 1:38 PM EDT Height 165.1 cm (5' 5 ) 12/07/2013 1:38 PM EDT Body Mass Index 33.28 12/07/2013 1:38 PM EDT Plan of Treatment Health Maintenance Due Date Last Done Comments Depression Screen 1978 HIV screen 1981 Hepatitis C screen 01/15/1984 DTaP/Tdap/Td vaccine (1 - Tdap) 1985 Hepatitis B vaccine (1 of 3 - 19+ 3-dose series) 1985 Pap smear 1987 Cervical cancer screen 01/15/1996 HPV (without or with Pap) 01/15/1996 Breast cancer screen 2006 Colonoscopy 2011 Colorectal Cancer Screen 2011 FIT/FOBT: Average risk 2011 Fecal-DNA (Cologuard): [place] risk 2011 Sigmoidoscopy/CT colonography 2011 Pneumococcal 50+ years Vacci ne (1 of 1 - PCV) 01/15/2016 Shingles vaccine (1 of 2) 01/15/2016 COVID-19 Vaccine (1 - 2023-2 5 season) 2024 Flu vaccine (Season Ended) 2025 Lipids 09/17/2027 09/17/2022, 08/12/2021, 08/05/2020 Hepatitis A vaccine Aged Out No longe r eligible based on patient's age to complete this topic Hib vaccine Aged Out No longer eligi ble based on patient's age to complete this topic Meningococcal (ACWY) vaccine Aged Out No longer eligible based on patient's age to complete this topic Meningococcal B vaccine Aged Out No l onger eligible based on patient's age to complete this topic Polio vaccine Aged Out No longer elig ible based on patient's age to complete this topic Procedures Procedure Name Priority Date/Time Associated Diagnosis Comments LIPID PANEL Routine 09/17/2022 10:10 AM EST from Last 3 Months or Most Recently Relevant to Health Maintenance Results * Lipid Panel (09/17/2022 10:10 AM EST) Cholesterol 165 <200 mg/dL 09/17/2022 10:10 AM [facility] Comment: Cholesterol Guidelines: <200 Desirable 200-240 Borderline >240 Undesirable HDL 46 >40 mg/dL 09/17/2022 10:10 AM [facility] Comment: HDL Guidelines: <40 Undesirable 40-59 Borderline >59 Desirable LDL Cholesterol 92 0 - 130 mg/dL 09/17/2022 10:10 AM [facility] Comment: LDL Guidelines: <100 Desirable 100-129 Near to/above Desirable 130-159 Borderline >159 Undesirable Direct (measured) LDL and calculated LDL are not interchangeable tests. Chol/HDL Ratio 3.6 <5 09/17/2022 10:10 AM [facility] Comment: Triglycerides 133 <150 mg/dL 09/17/2022 10:10 AM [facility] Comment: Triglyceride Guidelines: <150 Desirable 150-199 Borderline 200-499 High >499 Very high Based on AHA Guidelines for fasting triglyceride, June 2012. 09/17/2022 10:1 0 AM EST 09/17/2022 10:11 AM EST Andres Sanz MD CHEMISTRY ORDERABLES Fin al Result [facility] [address] [place] [address], [facility] [phone] [facility] [address] [place] [address], [facility] [phone] from Last 3 Months or Most Recently Relevant to Health Maintenance Care Teams Janitorial Services Supervisor Relationship Specialty Start Date End Date Andres Sanz MD [address] [place] [address] PCP - General Family Medicine 08/04/20
--- OUTSIDE RECORDS SUMMARY | 2025-03-24 10:55 | XMS_ITS | Encounter Summary ---
Author Organization [facility] Address [address] [place] [address] Care Team Providers Care Paper Products Printer Name Role Phone Andres Sanz MD Primary Care Provider [phone] Andres Sanz MD Primary Care Provider [phone] Encounter Details Date Type Department Care Team (Late st Contact Info) Description 03/19/2024 [facility] Result Encounter [facility] External Department Unsolicited Provider, Generic External Data Social History Tobacco Use Types Packs/Day Years Used Date Smoking Tobacco: Former Cigarettes Q uit: 1993 Smokeless Tobacco: Never Alcohol Use Standard Drinks/Week [...] often do you attend chur ch or hinduism services? Never 09/30/2023 Do you belong to any clubs o r organizations such as sabianist groups, unions, fraternal or athletic groups, or [...] Recorded Patient Health Questionnaire-2 Score 0 10/07/2023 [facility] - Occupational Stress [...] place to sleep or slept in a skilled nursing (including now)? No 09/30/2023 Comments No Sex [...] EDT Office Visit [facility] [address] [place] [address] Kiya Walters, ASSISTANT COUNTY ENGINEER [address] [place] [address] 10/13/2025 10:30 AM EST Office Visit [facility] [address] [place] [id number] Andres Sanz MD [address] [place] [phone] documented as of this encounter Procedures Procedure Name Priority Date/Time Associated Diagnosis Comments MM TOMOSYNTHESIS SCREENING BI 03/19/2024 4:08 PM EDT documented in this encounter Results * MM TOMOSYNTHESIS SCREENING BI (03/19/2024 4:08 PM EDT) Anatomical Region Laterality Modality Other 03/19/2024 4:08 PM EDT Narrative 03/19/2024 4:08 [place] [address] Mammography Report Signed Patient: TIANA OROZCO MR#: [id number] : 1965 Acct:[id number] Age/Sex: 59 / F ADM Date: 03/19/24 Loc: MAMMO Attending Dr: Jamey Sanches D.O. Ordering Physician: Jamey Sanches D.O. Results: Date of Service: 03/19/24 Follow Up: Procedure(s): MM tomosynthesis screening BI Accession Number(s): [id number] cc: Jamey Sanches D.O.; Andres Sanz M.D. Patient Name: TIANA OROZCO MR#: [id number] : 1965 Exam Date: 03/19/2024 Ordering Doctor: [...] lung cancer at age 58. LOCATION: [facility] BREAST COMPOSITION: The breasts are heterogeneously [...] Signed By: 03/19/24 1608 DD/ 1608 TD/TT: Analog Device Designer: Procedure Note Radiology, Radiologist, MD - 03/19/2024 [place] [address] Mammography Report Signed Patient: TIANA OROZCO KMR#: [id number] : 1965Acct:[id number] Age/Sex: 59 / FADM Date: 03/19/24 Loc: MAMMO Attending Dr: Jamey Sanches D.O. Ordering Physician: Jamey Sanches D.O.Results: Date of Service: 03/19/24Follow Up: Procedure(s): MM tomosynthesis screening BI Accession Number(s): [id number] cc: Jamey Sanches D.O.; Andres Sanz M.D. Patient Name: TIANA OROZCO MR#: [id number] : 1965 Exam Date: 03/19/2024 Ordering Doctor: DR Jamey Sanches . RADIOLOGY REPORT PROCEDURE: MM TOMOSYNTHESIS SCREENING BI COMPARISON: MM TOMOSYNTHESIS SCREENING BI, 03/11/2023. MG MAMM [id number] PO CAD, 03/02/2022. MG MAMM SCREEN 3D PO CAD, 03/01/2021. MAMMO BILSCREEN, 12/27/2004. INDICATIONS: Screening for malignant neoplasm of breast Calculator Name NCI Breast Cancer Risk Assessment Tool 5 Year Breast Cancer Risk 1.10% Lifetime Breast Cancer Risk 6.10% Personal Breast Cancer No Personal Ovarian Cancer No Treatments None Family Cancers Father with lung cancer at age 57. LOCATION: [facility] BREAST COMPOSITION: The breasts are heterogeneously [...] M.D. Signed By:03/19/24 1608 DD/ 1608 TD/TT: Analog Device Designer: [employer] External Data Provider [facility] Final Result documented in this encounter Visit Diagnoses Not on filedocumented in this encounter Care Teams Paper Products Printer Relationship Specialty Start Date End Date Andres Sanz MD PCP - General 05/28/23 10/07/24 Andres Sanz MD [address] [place] [address] PCP - General Family Medicine 10/08/24 documented as of this encounter
--- OUTSIDE RECORDS SUMMARY | 2025-03-24 10:55 | XMS_ITS | Encounter Summary ---
Author Organization [facility] Address [address] [place] [address] Care Team Providers Care Tour Escort Name Role Phone Andres Sanz MD Primary Care Provider [phone] Andres Sanz MD Primary Care Provider [phone] Encounter Details Date Type Department Care Team (Late st Contact Info) Description 11/27/2023 [facility] [address] [place] [phone] Andres Sanz MD [address] [place] [address] Social History Tobacco Use Types Packs/Day Years [...] often do you attend chur ch or shinto services? Never 09/30/2023 Do you belong to any clubs o r organizations such as restorationist groups, unions, fraternal or athletic groups, or [...] Recorded Patient Health Questionnaire-2 Score 0 10/07/2023 [facility] - Occupational Stress Questionnaire Answer Date [...] place to sleep or slept in a penitentiary (including now)? No 09/30/2023 Comments No Sex [...] EDT Office Visit [facility] [address] [place] [address] Kiya Walters, SHEEP RANCHER [address] [place] [address] 10/13/2025 10:30 AM EST Office Visit [facility] [address] [place] [address] Andres Sanz MD [address] [place] [phone] documented as of this encounter Procedures Procedure Name Priority Date/Time Associated Diagnosis Comments MISCELLANEOUS LAB TEST Routine 11/14/2023 12:38 PM EST documented in this encounter Results * - Miscellaneous Test (11/14/2023 12:38 PM EST) Andres Sanz MD LAB BLOOD ORDERABLES Final Resul t documented in this encounter Visit Diagnoses Not on filedocumented in this encounter Care Teams Tour Escort Relationship Specialty Start Date End Date Andres Sanz MD PCP - General 05/28/23 10/07/24 Andres Sanz MD [address] [place] [address] PCP - General Family Medicine 10/08/24 documented as of this encounter
--- OUTSIDE RECORDS SUMMARY | 2025-03-24 10:55 | XMS_ITS | Encounter Summary ---
Author Organization [facility] Address [address] [place] [address] Care Team Providers Care Clothing And Textiles Teacher Name Role Phone Andres Sanz MD Primary Care Provider [phone] Andres Sanz MD Primary Care Provider [phone] Encounter Details Date Type Department Care Team (Late st Contact Info) Description 07/02/2024 Orders Only [facility] [address] [place] [address] Maria Teresa Chong LPN [address] [place] [id number] Social History Tobacco Use Types Packs/Day Years [...] often do you attend chur ch or buddhist services? Never 09/30/2023 Do you belong to any clubs o r organizations such as evangelical groups, unions, fraternal or athletic groups, or [...] Recorded Patient Health Questionnaire-2 Score 0 10/07/2023 [facility] Questionnaire Answer Date [...] place to sleep or slept in a residential (including now)? No 09/30/2023 Comments No Sex [...] EDT Office Visit [facility] [address] [place] [address] Kiya Walters, PRODUCTION POSTING CLERK [address] [place] [address] 10/13/2025 10:30 AM EST Office Visit [facility] [address] [place] [address] Andres Sanz MD [address] [place] [address] documented as of this encounter Procedures Procedure Name Priority Date/Time Associated Diagnosis Comments PAP SMEAR Routine 06/24/2024 12:00 AM EDT documented in this encounter Results * Pap Smear (06/24/2024 12:00 AM EDT) Swab Cervical swab / Unknown us Myron Nurse [facility] LAB CYTOLOGY ORDERABLES Final Result EXTERNAL LAB documented in this encounter Visit Diagnoses Not on filedocumented in this encounter Care Teams Clothing And Textiles Teacher Relationship Specialty Start Date End Date Andres Sanz MD PCP - General 05/28/23 10/07/24 Andres Sanz MD [address] [place] [address] PCP - General Family Medicine 10/08/24 documented as of this encounter
--- OUTSIDE RECORDS SUMMARY | 2025-03-24 10:55 | XMS_ITS | Encounter Summary ---
Author Organization [facility] Address [address] [place] [address] Care Team Providers Care Violin Tutor Name Role Phone Andres Sanz MD Primary Care Provider [phone] Andres aSnz MD Primary Care Provider [phone] Encounter Details Date Type Department Care Team (Late st Contact Info) Description 07/02/2024 Abstract [facility] [address] [place] [address] Jamey Sanches, DO [address] [place], [place] [id number] Social History Tobacco Use Types Packs/Day Years [...] often do you attend chur ch or protestant services? Never 09/30/2023 Do you belong to any clubs o r organizations such as anabaptism groups, unions, fraternal or athletic groups, or [...] Recorded Patient Health Questionnaire-2 Score 0 10/07/2023 [facility] Questionnaire Answer Date [...] place to sleep or slept in a mcc (including now)? No 09/30/2023 Comments No Sex [...] EDT Office Visit [facility] [address] [place] [address] Kiya Walters, ELEMENTARY ASSISTANT PRINCIPAL [address] [place] [address] 10/13/2025 10:30 AM EST Office Visit [facility] [address] [place] [address] Andres Sanz MD [address] [place] [address] documented as of this encounter Visit Diagnoses Not on filedocumented in this encounter Care Teams Violin Tutor Relationship Specialty Start Date End Date Andres Sanz MD PCP - General 05/28/23 10/07/24 Andres Sanz MD [address] [place] [address] PCP - General Family Medicine 10/08/24 documented as of this encounter
--- NOTE | 2025-03-24 10:57 | MM_ITS ---
Patient Name: MARK OROZCO MR#: [id number] : 1965 Exam Date: 03/24/2025 Ordering Doctor: DR RICHARDSON OGDEN . RADIOLOGY REPORT PROCEDURE: MM TOMOSYNTHESIS SCREENING BI COMPARISON: MM TOMOSYNTHESIS SCREENING BI, 03/19/2024. MM TOMOSYNTHESIS SCREENING BI, 03/11/2023. MG MAMM SCREEN 3D PO CAD, 03/02/2022. MAMMO PO SCREEN, 12/27/2004. INDICATIONS: Screening Calculator Name NCI Breast Cancer Risk Assessment Tool 5 Year Breast Cancer Risk 1.10% Lifetime Breast Cancer Risk 6.00% Personal Breast Cancer No Personal Ovarian Cancer No Treatments None Family Cancers Father with lung cancer at age 57. LOCATION: [facility] BREAST COMPOSITION: There are scattered areas of fibroglandular density. FINDINGS: DIAGNOSTIC CATEGORY 1--NEGATIVE. RIGHT BREAST: No significant suspicious finding. LEFT BREAST: No significant suspicious finding. RECOMMENDATIONS: ROUTINE MAMMOGRAM AND CLINICAL EVALUATION IN 12 MONTHS. PLEASE NOTE: A NORMAL MAMMOGRAM DOES NOT EXCLUDE THE POSSIBILITY OF BREAST CANCER. A CLINICALLY SUSPICIOUS PALPABLE LUMP SHOULD BE BIOPSIED. Dictated by: Clifton Jones DO on 03/24/2025 at 15:53 Approved by: Clifton Jones DO on 03/24/2025 at 15:54
== END 2025-03-24 10:51 | disposition home or self-care (01) ==
LOC: MAMMO 10:52
PROVIDERS: PCP Family Medicine; Visit Provider Obstetrics & Gynecology
DX: Z12.31 Encounter for screening mammogram for malignant neoplasm of breast (principal); Z80.1 Family history of malignant neoplasm of trachea, bronchus and lung
CPT/HCPCS: 77063; 77067

== ENCOUNTER 2025-07-27 19:10 | Outpatient (REF) | payer OTHER, SELFPAY ==
--- OUTSIDE RECORDS SUMMARY | 2025-07-27 15:00 | XMS_ITS | Encounter Summary ---
Author Organization [facility] Address [address] [place] [address] Care Team Providers Care Gasket Former Name Role Phone Andres Sanz MD Primary Care Provider [phone] Reason for Visit * ReasonCommentsGynecologic Exam Encounter Details DateTypeDepartmentCare Team (Latest Contact Info)Oihlpddxved56/28/2025 3:00 PM EDTProcedure Visit P[facility]LITO CUMMINGS [address] [place], [facility] Fe Samuel PA [address] [place], [facility]11 Well woman exam with routine gynecological exam; [...] relatives?Twice a week09/30/2023How often do you attend lutheran or baptism services?Never09/30/2023o you belong to any clubs or organizations such as lutheran groups, unions, fraternal or athletic groups, or [...] at all 09/30/2023HQ-2AnswerDate RecordedPatient Health Questionnaire-2 Score0 10/07/2023Fin[facility] [place] of Occupational Health - Occupational Stress QuestionnaireAnswerDate [...] steady place to sleep or slept in [facility] (including now)?No09/30/2023CommentsNoSex and Gender InformationValueDate RecordedSex Assigned at RlbmnMhoncu42/29/2023 9:37 AM EDTLegal VmfHerjfq04/15/2023 11:23 PM EDTGender RkgvinimUmuobl49/29/2023 9:37 AM EDTSexual RrgrwvqzybsTchowqjy75/29/2023 9:37 AM EDTdocumented as of this encounter Last Filed Vital Signs Vital SignReadingTime TakenCommentsBlood Zbhovrzr574/7810 3:12 PM EDT Pulse--Temperature--Respiratory Rate--Oxygen Saturation--Inhaled Oxygen Concentration--Nvmfyn02.1 kg (167 lb 12.8 oz)07/27/2025 3:12 PM EDTHeight--Body Mass Index27.9209 2:07 PM EDTdocumented in this encounter Plan of Treatment DateTypeDepartmentCare Team (Latest Contact Info)Snokbvrogil22/02/2026 9:00 AM ESTProcedure Visit [facility] CUM[facility] [address] [place] [address] [place] [address] Fe Samuel PA [address] [place] [address] [place] [address] NameTypePriorityAssociated DiagnosesOrder ScheduleDEXA bone densityImaging Routine Postmenopausal [...] DateEnd Date Andres Sanz MD [address] [place] [address] PCP - GeneralFamily Medicine10/08/24documented as of this encounter
--- OUTSIDE RECORDS SUMMARY | 2025-07-27 19:15 | XMS_ITS | Encounter Summary ---
Author Organization [facility] Address [address] [place] [address] Care Team Providers Care Decontaminator Name Role Phone Andres Sanz MD Primary Care Provider [phone] Encounter Details DateTypeDepartmentCare Team (Latest Contact Info)Riblnouigzr58/21/2025Travel Social History Tobacco UseTypesPacks/DayYears UsedDateSmoking Tobacco: FormerCigarettesQuit: 1993Smokeless Tobacco: NeverAlcohol UseStandard Drinks/WeekCommentsYes0 (1 standard drink [...] relatives?Twice a week09/30/2023How often do you attend mormonism or yazidi services?Never09/30/2023o you belong to any clubs or organizations such as mormonism groups, unions, fraternal or athletic groups, or [...] at all 09/30/2023HQ-2AnswerDate RecordedPatient Health Questionnaire-2 Score0 10/07/2023Fin[facility] [place] of Occupational Health - Occupational Stress QuestionnaireAnswerDate [...] steady place to sleep or slept in [facility] (including now)?No09/30/2023CommentsNoSex and Gender InformationValueDate RecordedSex Assigned at MavtsXjhons08/29/2023 9:37 AM EDTLegal HulSeogdc65/15/2023 11:23 PM EDTGender ZqcpkhepWgoovq22/29/2023 9:37 AM EDTSexual ElnmcmcfbwsKaaivdtp50/29/2023 9:37 AM EDTdocumented as of this encounter Plan of Treatment DateTypeDepartmentCare Team (Latest Contact Info)Nyioxlqamsj47/02/2026 9:00 AM ESTProcedure Visit [facility] [address] [facility] [address] [place] [address] Fe Samuel PA [address] [facility] [address] [place], [place] [address] documented as of this encounter Visit Diagnoses Not on filedocumented in this encounter Care Teams Team MemberRelationshipSpecialtyStart DateEnd Date Andres Sanz MD [address] [place] [address] PCP - GeneralFamily Medicine10/08/24documented as of this encounter
--- OUTSIDE RECORDS SUMMARY | 2025-07-27 19:15 | XMS_ITS | Encounter Summary ---
Author Organization [facility] Address [address] [place] [address] Care Team Providers Care Jewel Bearing Turner Name Role Phone Andres Sanz MD Primary Care Provider [phone] Encounter Details DateTypeDepartmentCare Team (Latest Contact Info)Mmzqsliomyl91/28/2025amboo flowsheet PABLITO CUMMINGS [address] [place] [address] Fe Samuel PA [address] [facility] [address] [place], [place] [address] Social History Tobacco UseTypesPacks/DayYears UsedDateSmoking Tobacco: FormerCigarettesQuit: [...] sexual activity by your part ner or ex-partner?No01/01/2024Social Connection and Isolation PanelAnswerDate RecordedIn a typical week, how many times do you talk on the phone with family, friends, or neighbors?More than three times a week09/30/2023How often do you get together with friends or relatives?Twice a week09/30/2023How often do you attend oriental orthodox or adventism services?Never09/30/2023o you belong to any clubs or organizations such as oriental orthodox groups, unions, fraternal or athletic groups, or [...] at all 09/30/2023HQ-2AnswerDate RecordedPatient Health Questionnaire-2 Score0 10/07/2023F[facility] [place] of Occupational Health - Occupational Stress QuestionnaireAnswerDate [...] steady place to sleep or slept in ashelter (including now)?No09/30/2023CommentsNoSex and Gender InformationValueDate RecordedSex Assigned at CzypfHrpjfn94/29/2023 9:37 AM EDTLegal HroOntthx17/15/2023 11:23 PM EDTGender ZwdosehyBpaqsg40/29/2023 9:37 AM EDTSexual NxskrmfbwurTycjfnsp94/29/2023 9:37 AM EDTdocumented as of this encounter Plan of Treatment DateTypeDepartmentCare Team (Latest Contact Info)Zqlqkldhhhh15/02/2026 9:00 AM ESTProcedure Visit [facility] [address] [facility] [place] [address] Fe Samuel PA [address] [facility] [address] [place], [place] [id number] documented as of this encounter Visit Diagnoses Not on filedocumented in this encounter Care Teams Team MemberRelationshipSpecialtyStart DateEnd Date Andres Sanz MD [address] [place] [address] PCP - GeneralFamily Medicine10/08/24documented as of this encounter
--- OUTSIDE RECORDS SUMMARY | 2025-07-27 19:15 | XMS_ITS | Encounter Summary ---
Author Organization [facility] Address [address] [place] [address] Care Team Providers Care Edge Burnisher Uppers Name Role Phone Andres Sanz MD Primary Care Provider [phone] Andres Sanz MD Primary Care Provider [phone] Encounter Details DateTypeDepartmentCare Team (Latest Contact Info)Hezenlpivlh91/20/2024Clinisync Result Encounter [facility] Department Unsolicited Provider, Generic External Data Social History Tobacco UseTypesPacks/DayYears UsedDateSmoking Tobacco: FormerCigarettesQuit: [...] relatives?Twice a week09/30/2023How often do you attend cheondoism or caodaism services?Never09/30/2023o you belong to any clubs or organizations such as cheondoism groups, unions, fraternal or athletic groups, or [...] at all 09/30/2023HQ-2AnswerDate RecordedPatient Health Questionnaire-2 Score0 10/07/2023[facility] [place] [facility] - Occupational Stress QuestionnaireAnswerDate [...] didn't have money to get more.Never true 01/01/2024PRAPARE - TransportationAnswerDate RecordedIn the past 12 months, [...] now)?No09/30/2023CommentsNoSex and Gender InformationValueDate RecordedSex Assigned at GuhvuWemwup86/29/2023 9:37 AM EDTLegal YnxDdqwag20/15/2023 11:23 PM EDTGender DauqbcmaZmvytj87/29/2023 9:37 AM EDTSexual RynfrlcpwtsIuwljppl83/29/2023 9:37 AM EDTdocumented as of this encounter Plan of Treatment DateTypeDepartmentCare Team (Latest Contact Info)Bqmffcfopew39/02/2026 9:00 AM ESTProcedure Visit [facility] Jonathan CUMM[facility] [address] [place] [id number] Fe Samuel PA [address] [place] [address] documented as of this encounter Procedures Procedure NamePriorityDate/TimeAssociated DiagnosisCommentsMM TOMOSYNTHESIS SCREENING BI03/19/2024 4:08 PM EDT documented in this encounter Results * MM TOMOSYNTHESIS SCREENING BI (03/19/2024 4:08 PM EDT)Anatomical Region LateralityModalityOtherSpecimen (Source)Anatomical Location / Laterality Collection Method / VolumeCollection TimeReceived Time03/19/2024 4:08 PM EDT Narrative 03/19/2024 4:08 PM EDT [facility] ?[address] ? [place] [address] ? Mammography Report ? Signed ? Patient: PAM,TIANA K ?MR#: [id number] ?? : 1965 ?Acct:[id number] ?? Age/Sex: 59 / F ?ADM Date: 03/19/24 ?? Loc: MAMMO ? Attending Dr: Jamey Sanches D.O. ? Ordering Physician: Jamey Sanches D.O. ?Results: ? Date of Service: 03/19/24 ?Follow Up: ? Procedure(s): MM tomosynthesis screening BI ?? Accession Number(s): [id number] ? cc: Jamey Sanches D.O.; Andres Sanz M.D. ? Patient Name: ? TIANA PAM ? MR#: [id number] ? : 1965 ? Exam Date: 03/19/2024 ?? Ordering Doctor: DR Jamey Sanches . ? RADIOLOGY REPORT ? PROCEDURE: ? MM TOMOSYNTHESIS SCREENING BI ? COMPARISON: ? MM TOMOSYNTHESIS SCREENING BI, 03/11/2023. ??MG MAMM SCREEN 3D ?? PO CAD, 03/02/2022. ??MG MAMM SCREEN 3D PO CAD, 03/01/2021. ??MAMMO PO SCREEN, ?? 12/27/2004. ? INDICATIONS: ? Screening for malignant neoplasm of breast ? Calculator Name ? NCI Breast Cancer Risk Assessment Tool ?? 5 Year Breast Cancer Risk ? 1.10% ?? Lifetime Breast Cancer Risk ? 6.10% ?? Personal Breast Cancer ?No ?? Personal Ovarian Cancer ? No ?? Treatments ? None ?? Family Cancers ? Father with lung cancer at age 57. ? LOCATION: ? [facility] ? BREAST COMPOSITION: ? The breasts are heterogeneously dense,which may ?? obscure small masses. ? FINDINGS: ? DIAGNOSTIC CATEGORY 1--NEGATIVE. ? RIGHT BREAST: ??No significant suspicious finding. ??No significant change has ?? occurred. ? LEFT BREAST: ??No significant suspicious finding. ??No significant change has ?? occurred. ? RECOMMENDATIONS: ? ROUTINE MAMMOGRAM AND CLINICAL EVALUATION IN 12 MONTHS. ? PLEASE NOTE: ??A NORMAL MAMMOGRAM DOES NOT EXCLUDE THE POSSIBILITY OF BREAST ?? CANCER. ??A CLINICALLY SUSPICIOUS PALPABLE LUMP SHOULD BE BIOPSIED. ? Dictated by: Surya Fountain M.D. on 03/19/2024 at 15:48 ? Approved by: Surya Fountain M.D. on 03/19/2024 at 16:07 ? Dictated By: ?Surya Fountain M.D. ? Signed By: ?03/19/24 1608 ? DD/ 1608 ? TD/TT: ? Yard Attendant: Procedure Note Radiology, Radiologist, MD - 03/19/2024 [place] [address] Mammography Report Signed Patient: TIANA OROZCO KMR#: [id number] : 1965Acct:[id number] Age/Sex: 59 / FADM Date: 03/19/24 Loc: MAMMO Attending Dr: Jamey Sanches D.O. Ordering Physician: Jamey Sanches D.O.Results: Date of Service: 03/19/24Follow Up: Procedure(s): MM tomosynthesis screening BI Accession Number(s): [id number] cc: Jamey Sanches D.O.; Andres Sanz M.D. Patient Name: TIANA OROZCO MR#: [id number] : 1965 Exam Date: 03/19/2024 Ordering Doctor: DR Jamey Sanches . RADIOLOGY REPORT PROCEDURE: MM TOMOSYNTHESIS SCREENING BI COMPARISON: MM TOMOSYNTHESIS SCREENING BI, 03/11/2023. MG MAMM ORHEZX1O PO CAD, 03/02/2022. MG MAMM SCREEN 3D PO CAD, 03/01/2021. MAMMO BILSCREEN, 12/27/2004. INDICATIONS: Screening for malignant neoplasm of breast Calculator Name [facility] Breast Cancer Risk Assessment Tool 5 Year Breast Cancer Risk 1.10% Lifetime Breast Cancer Risk 6.10% Personal Breast Cancer No Personal Ovarian Cancer No Treatments None Family Cancers Father with lung cancer at age 57. LOCATION: [facility] BREAST COMPOSITION: The breasts are heterogeneously [...] M.D. Signed By:03/19/24 1608 DD/ 1608 TD/TT: Yard Attendant: Authorizing ProviderResult TypeResult StatusGeneric External Data Provider [facility]NC IMAGINGFinal Result documented in this encounter Visit Diagnoses Not on filedocumented in this encounter Care Teams Team MemberRelationshipSpecialtyStart DateEnd Date Andres Sanz MD PCP - General8///05/24 Andres Sanz MD [address] [place] [address] [facility] - [facility]10/08/24documented as of this encounter
--- OUTSIDE RECORDS SUMMARY | 2025-07-27 19:15 | XMS_ITS | CCD ---
Author Organization [facility] Care Team Providers Care Assembler Piano Name Role Phone Andres Chinchilla Primary Care Provider [phone] Benjy Broderick Unavailable Mechelle Liang Unavailable Guillermo Olivo Unavailable Chris Loo Unavailable Andres Chinchilla MD Primary Care Provider [phone] ISAAC, DR NASH Attending Unavailable KARASIK, DR NASH Consulting Unavailable NADERER, DR ANDRES Alvarenga Primary Care Unavailable KARASIK, DR NASH Admitting Unavailable ZIEBER, DR GAUDENCIO Gross Consulting Unavailable KARASIK, DR NASH Admitting Unavailable KARASIK, DR NASH Attending Unavailable KARASIK, DR NASH Consulting Unavailable NADERER, DR ANDRES Alvarenga Primary Care Unavailable Andres Chinchilla MD Primary Care Provider ANDRES CHINCHILLA Primary Care Unavailable DARRIN, ANISHA A Admitting Unavailable DARRIN, ANISHA A Attending Unavailable DARRIN, ANISHA A Referring Unavailable NADERERANDRES Primary Care Unavailable KAVITHA MERINO Attending Unavailable DARRIN, ANISHA A Admitting Unavailable DARRIN, ANISHA A Attending Unavailable MARGYRANDRES Primary Care Unavailable DARRIN, ANISHA A Referring Unavailable STEVENERERANDRES Primary Care Unavailable VERONIQUE GUTIERREZ Attending Unavailable SELF, SELF Referring Unavailable DARRIN, ANISHA A Attending Unavailable STEVENERERANDRES Primary Care Unavailable DARRIN, ANISHA A Referring Unavailable STEVENERERANDRES Primary Care Unavailable DARRIN, ANISHA A Attending Unavailable SELF, SELF Referring Unavailable MARGYRANDRES Primary Care Unavailable DARRIN, ANISHA A Attending Unavailable VERONIQUE GUTIERREZ Referring Unavailable STEVENERERANDRES Primary Care Unavailable DARRIN, ANISHA A Attending Unavailable SELF, SELF Referring Unavailable NADERER, ANDRES Primary Care Unavailable NADERER, ANDRES Primary Care Unavailable SELF, SELF Referring Unavailable TIANA KINGSLEY Attending Unavailable SELF, SELF Referring Unavailable TIANA KINGSLEY Attending Unavailable NADERER, ANDRES Primary Care Unavailable Yvon NOEL, Andres Hurd Primary Care Provider ANDRES CHINCHILLA MD Attending Unavail able MARGYR, ANDRES HURD Primary Care Unavailabl e ANDRES CHINCHILLA Referring Unavailabl e MD Andres Chinchilla Primary Care Provider MD Mechelle Liang Attending Provider [phone] MD Andres Chinchilla Primary Care Provider MD Mechelle Liang Attending Provider MD Andres Chinchilla Primary Care Provider MD Mechelle Liang Attending Provider [phone] MD Andres Chinchilla Primary Care Provider MD Mechelle Liang Attending Provider Yvon NOEL, Andres Primary Care Provider Yvon NOEL, Andres Primary Care Provider Yvon NOEL, Andres Primary Care Provider Mechelle Liang MD Attending Provider [phone] FE SAMUEL Attending Unavailable NADERER, ANDRES Attending Unavailable SABINE GRIFFIN Attending Unavailable NADERER, ANDRES Referring Unavailable NADERER, ANDRES Primary Care Unavailable NADERER, ANDRES Referring Unavailable NADERER, ANDRES Primary Care Unavailable Andres Chinchilla MD Primary Care Provider Yvon NOEL, Andres Primary Care Provider Mechelle Liang MD Attending Provider Chris Loo Admitting Unavailable Chris Loo Attending Unavailable Naderer, Andres Primary Care Unavailable Naderer, Andres Primary Care Unavailable Mechelle Liang Admitting Unavailable Mechelle Liang Attending Unavailable Yvon, Andres Primary Care Unavailable Olexa Benjy Admitting Unavailable Olexa, Benjy Attending Unavailable Naderer MD, Andres Primary Care Provider Andres Chinchilla MD Primary Care Provider [phone] Andres Chinchilla MD Primary Care Provider [phone] Allergies Allergy ClassificationReported Allergen(s)Allergy TypeDate of OnsetReaction(s) Facility (17 sources)Cephalexin; Translations: [CEPHALEXIN]Drug Umjxcwe85-86-9041[facility] [place] [place] (20 sources)Penicillins; Translations: [PENICILLINS]Propensity to adverse reactions to iahx39-64-3457Yrbji, Itching, Swelling[place], [place] (11 sources)penicillAMINEDrug AllergyUnknoSt. Louis [facility] Center Chargeback Other (13 sources)NarcotisPropensity to adverse hveyvgeak13-93-9488rdfpkwzkBdybjiygnDayton VA Medical Center (1 source)NSAIDsDrug allergy (disorder)39-22-2913Cej [facility] (1 source)PenicillinsDrug allergy (disorder)24-72-5849Sfr [facility] (2 sources)Not Able To DeterminePropensity to adverse myzagpcqz21-10-6559TVPMercy Health [facility] (4 sources)PenicillinsPropensity to adverse reactions to upvu97-81-1885Tjdsi, Itching, Rash, Swelling, Other (See Comments)ELLIOT [facility] CENTERWerdsmith Work Phone: (1 source)AcetaminophenDrug Gzgulfj12-60-1980EjpeasieVtnxgmuyfDayton VA Medical Center (13 sources)HYDROcodone; Translations: [hydrocodone]Drug Qunynwi50-28-4428 VomitingBarberton Citizens Hospital (10 sources)PenicillinsDrug Ymzdywpqfwn35-96-7818Gucuf, Itching, Rash, Swelling, UnknownNOMS Healthcare (1 source)PenicillinsDrug allergy (disorder)02-01-0393DbvxocyxqBarberton Citizens Hospital Repository Medications Current Medications MedicationDrug Class(es)DatesSig (Normalized)Sig (Original)acetaminophen 500 mg oral tablet (12 sources)Start: 59-35-7525ptis 1 tablet by mouth every six hours as needed acetaminophen 500 MG tablet Take 1 tablet by mouth every 6 hours as needed for Mild Pain. 50 tablet0 08/01/2022 ActiveTylenol Activeascorbic acid 113 mg / copper gluconate 0.4 mg / docosahexaenoic acid 87.5 mg / eicosapentaenoic acid 163 mg / lutein 2.5 mg / tocopherol acetate 100 unt / zeaxanthin 0.5 mg / zinc oxide 17.4 mg oralcapsule (10 sources)Vitamin CMultiple Vitamins-Minerals (PreserVision AREDS 2) capsule as directed Orally Activebacillus coagulans [id number] unt / inulin 250 mg oral capsule (12 sources)Start: 41-88-9360fahs 1 capsule by mouth in the morningBacillus coagulans-inulin 1 billion-250 cell-mg capsule Take 1 capsule by mouth in the morning and 1 capsule before bedtime. 11/14/2023 ActiveStart: 97-18-2985mtta 1 capsule by mouth once daily in the morningBacillus Coagulans-Inulin (Probiotic Formula (Inulin)) 1 billion-250 cell-mg capsule Active 1 CAP PO Every morning November 14, 2023 1:00amcalcium carbonate 1000 mg chewable tablet (12 sources)Start: 58-13-4916cmel 1 tablet by mouth once daily in the morning Calcium Carbonate (Tums Ultra) 400 mg calcium (1,000 mg) tablet,chewable Active 400 MG PO Every morning November 14, 2023 1:00amcalcium carbonate (TUMS) 200 mg elemental (500 mg) chewable tablet Chew 1 tablet (200 mg total) andswallow in the morning. Activecholecalciferol 0.05 mg oral capsule (20 sources)Vitamin DStart: 07-27-4677apkf 1 capsule by mouth once daily in the morningCholecalciferol (Vitamin D3) (Vitamin D3) 50 mcg (2,000 unit) Capsule Active 125 MCG PO Every morning April 04, 2021 12:00amStart: 21-50-4725ekkc 1 capsule by mouth once dailyCholecalciferol (Vitamin D3) (Vitamin D3) 50 mcg (2,000 unit) Capsule Active 50 MCG PO Daily April 04, 2021 12:00amStart: 44-16-5639Dsownnlopbedkxr (Vitamin D) 125 MCG (5000 UT) capsule 05/28/2010 Activetake 1 tablet by mouth in the morningcholecalciferol, vitamin D3, 5,000 units tablet Take 1 tablet (5,000 Units total) by mouth in the morning. Active take 1 capsule by mouth once dailycholecalciferol 50 MCG (2000 UT) capsule Take 2,000 Units by mouth daily. 0 Activedexlansoprazole 30 mg delayed release oral capsule (5 sources)Proton Pump InhibitorStart: 49-66-3302efjm 1 capsule by mouth every twelve hoursDexlansoprazole 30 MG 1 capsule Orally bid for 30 day(s) January, ActiveDiclofenac (4 sources)Nonsteroidal Anti-inflammatory DrugStart: 41-99-3430Gqulrkbkju Sodium (Voltaren Arthritis Pain) 1 % gel Active 4 GM TOPICAL Four times daily October 13, 2024 1:00am apply to single hand, knee, ankle, foot; for foot includes sole/toes/top of footStart: 56-31-6456Fdpxoywtbb Sodium (Voltaren Arthritis Pain) 1 % gel Active 4 GM TOPICAL Four times daily October 13, 2024 12:00am apply to single hand, knee, ankle, foot; for foot includes sole/toes/top of footdicyclomine hydrochloride 20 mg oral tablet (1 source)AnticholinergicStart: 78-05-6278knse 1 tablet by mouth three times daily as neededDicyclomine HCl 20 MG 1 tablet Orally Three times a day PRN for 30 day(s) Dec, Rktdgw32 hr dilTIAZem hydrochloride 120 mg extended release oral capsule (5 sources)Calcium Channel BlockerStart: 71-91-5786junv 1 capsule by mouth every twelve hoursdilTIAZem HCl ER 120 MG 1 capsule Orally Twice a day for 90 days January, Activeestrogens, conjugated (retirement) 0.625 mg/ml vaginal cream (20 sources)EstrogenStart: 03-86-9505Udsdmblv 0.625 MG/GM cream Indications: Post-menopause INSERT 1/2 (ONE HALF) APPLICATORFUL INTO VAGINA AT BEDTIME 90 g 3 06/23/2024 ActiveStart: 41-54-5614JYEXKRWO vaginal cream 02/07/2023 Active Start: 34-32-8362Gkhyjivhvg Estrogens (Premarin) 0.625 mg/gram cream Active 1 APPLIC VAGINAL 3 Times a week April 04, 2021 12:00amfluticasone propionate 0.05 mg/actuat metered dose nasal spray (20 sources)CorticosteroidStart: 99-76-0940txij 2 spray(s) nasal route once dailyfluticasone (Flonase) 50 MCG/ACT nasal spray Indications: Seasonal allergic rhinitis due to pollen USE 2 SPRAYS IN EACH NOSTRIL DAILY 48 g 3 09/10/2024 ActiveStart: 11-14-2023 End: 00-15-8440Xlfnhjtpgwd Propionate 50 mcg/actuation spray,suspension Discontinued 1 SPRAY INTRANASAL Daily as needed for allergies November 14, 2023 1:00am November 19, 2023 12:24pmfluticasone (Flonase) 50 MCG/ACT nasal spray Administer into affected nostril(s) Daily. Activefluticasone propionate (FLONASE) 50 mcg/actuation nasal spray Administer into each nostril daily. Ac tiveHERBAL PRODUCT (6 sources)HERBAL PRODUCT isogenics 0 Activelevothyroxine sodium 0.125 mg oral tablet (20 sources)l-ThyroxineStart: 30-03-5338mxswrggciqsga (Synthroid, Levoxyl) 125 MCG tablet Indications: Primary hypothyroidism TAKE 1 TABLETDAILY 90 tablet 3 04/22/2024 ActiveStart: 04-04-2021 End: 32-52-3292upan 1 tablet by mouth once daily in the morningLevothyroxine (Synthroid) 125 mcg tablet Active 125 MCG PO Every morning April 04, 2021 12:00amtake 1 tablet by mouth every twenty-four hoursLevothyroxine Sodium 125 MCG 1 tablet Orally Once a day ActiveMultiple Vitamins-Minerals (PRESERVISION AREDS 2 PO) (6 sources)Multiple Vitamins-Minerals (PRESERVISION AREDS 2 PO) Take 2 tablets by mouth. 0 Uvnejnszngcunr-ynpp-MW-calcium &mins (THERAGRAN-M) 9 mg iron-400 mcg tablet (1 source)yrzhauif-zckl-ID-calcium &mins (THERAGRAN-M) 9 mg iron-400 mcg tablet Take 1 tablet by mouth inthe morning. ActiveMultivitamin preparation (6 sources)Multivitamin ActiveMultivitamin/Iron (5 sources)Multivitamin/Iron Orally ActiveOil Base Liquid (6 sources)Oil Base Liquid Take by mouth. CBD 0 ActiveOil Base Liquid Apply topically. CBD 0 Activeondansetron 4 mg disintegrating oral tablet (17 sources)Serotonin-3 Receptor AntagonistStart: 72-18-3463chjr 1 tablet by mouth every six hours for nauseaondansetron ODT (Zofran-ODT) 4 MG disintegrating tablet Indications: Gastroesophageal reflux disease without esophagitis Take 1 tablet (4 mg) by mouth every 6 (six) hours if needed for nausea or vomiting 40 tablet 3 10/08/2024 ActiveStart: 11-28-2023 End: 70-69-1743zfvx 1 tablet by mouth every six hours as needed for nausea and vomitingOndansetron 4 mg tablet,disintegrating Discontinued 4 MG PO Every 6 hours as needed for nausea and vomiting 28 04November 28, 2023 1:00am March 06, 2024 9:48amStart: 22-38-5275lyof 1 tablet by mouth every eight hours as neededondansetron 4 MG Tab Dispersible tablet Take 1 tablet by mouth every 8 hours as needed for Nausea /Vomiting. 20 tablet 0 08/01/2022 ActiveStart: 07-31-2022 End: mg, Intravenous, EVERY 6 HOURS, First dose on Sat07/31/22 at 1200, Until Discontinued, Post-op/Post-ProcoxyCODONE hydrochloride 5 mg oral tablet (2 sources)Opioid AgonistStart: 08-01-2022 End: 93-72-3726tktq 1 tablet by mouth every six hours as neededoxyCODONE 5 MG tablet Indications: S/P repair of paraesophageal hernia Take 1 tablet by mouth every6 hours as needed for up to 7 days. 10 tablet 0 08/01/2022 08/08/2022 ActiveStart: 07-31-2022 End: 55-54-3663hdxw 1 tablet by mouth every three hours as neededoxyCODONE (ROXICODONE) tablet 5 mgpredniSONE 5 mg oral tablet (1 source)Start: 34-66-6351Kwzljkgrge 5 mg tablet Active 5 MG PO daily 17 04December 25, 2024 12:00am Take 4 pills by mouth x2 days, take 3 pills by mouth x2 days, take 2 pills by mouth x2 days, take 1 pill by mouth x1 day.Probiotic Product (PROBIOTIC DAILY PO) (2 sources)Probiotic Product (PROBIOTIC DAILY PO) Take by mouth daily. 0 Active promethazine hydrochloride 12.5 mg oral tablet (2 sources)PhenothiazineStart: 08-01-2022 End: 47-31-2782wjjp 1 tablet by mouth every six hours as neededPromethazine HCl 12.5 MG tablet Take 1 tablet by mouth every 6 hours as needed for up to 14 days. 21 tablet 0 08/01/2022 ActiveVit C,G-Hh-Hqiez-Lutein-Zeaxan (Preservision Areds-2) 250-90-40-1 mg Capsule (12 sources)Start: 58-11-6788Aix C,R-Um-Ioiqz-Lutein-Zeaxan (Preservision Areds- 2) 250-90-40-1 mg Capsule Active 2 TAB PO Every morning April 04, 2021 12:00am Start: 11-48-7561Qsp C,T-Wj-Bkkbx-Lutein-Zeaxan (Preservision Areds-2) 250-90-40-1 mg Capsule Active 2 TAB PO Every morning April 03, 2021 11:00pm Start: 41-30-4280Slo C,Y-Lm-Eveya-Lutein-Zeaxan (Preservision Areds-2) 250-90-40-1 mg Capsule Active 2 TAB PO Daily April 04, 2021 12:00amVitamin B Complex (6 sources)Vitamin B Complex Active Completed/Discontinued Medications MedicationDrug Class(es)DatesSig (Normalized)Sig (Original)acetaminophen 325 mg / HYDROcodone bitartrate 5 mg oral tablet (9 sources)Opioid AgonistStart: 11-28-2023 End: 99-50-1327hxqe 1 tablet by mouth every four to six hours as needed for pain Hydrocodone-Acetaminophen 5-325 mg tablet Discontinued 1 - 2 TAB PO EVERY 4-6 HOURS as needed for pain 50 7 November 28, 2023 December 27, 2023 8:18amcalcium chloride 0.0014 meq/ml / potassium chloride 0.004 meq/ml / sodium chloride 0.103 meq/ml / sodium lactate 0.028 meq/ml injectable solution (2 sources)Start: 07-31-2022 End: 21-08-2005thoi 1 mL by mouth every hourIntravenous, at 100 mL/hr, CONTINUOUS, Starting on Sat07/31/22 at 1030, Until Sat08/01/22 at 1244 May discontinue when patient taking adequate oral liquids. Post-op/Post-ProcStart: 07-31-2022 End: 43-80-5957ifbeumxu ringers IV solutiondoxycycline hyclate 100 mg oral tablet (9 sources)Tetracycline-class DrugStart: 11-28-2023 End: 07-42-3782rpca 1 tablet by mouth twice dailyDoxycycline Hyclate 100 mg tablet Discontinued 100 MG PO Twice daily 10 November 28, 2023 1:00am March 06, 2024 9:48am0.4 ml enoxaparin sodium 100 mg/ml prefilled syringe (1 source)Low Molecular Weight HeparinStart: 08-01-2022 End: 31-36-0478aqkrqm 40 mg by subcutaneous injection every twenty-four hours40 mg, Subcutaneous, EVERY 24 HOURS, First dose on Sat08/01/22 at 0900, Until Discontinued Indications: DVT/PE prophylaxis, Post-op/Post-Procesomeprazole 40 mg delayed release oral capsule (20 sources)Proton Pump InhibitorStart: 12-18-2021 End: 47-12-9598gdgg 1 capsule by mouth once dailyesomeprazole [address] capsule Take 40 mg by mouth daily. 0 12/18/2021 08/01/2022 Discontinued (Stop Taking at Discharge)Start: 63-92-8241gznf 1 capsule by mouth every twenty-four hoursEsomeprazole Magnesium 40 MG 1 capsule Orally Once a day for 90 days Nov, ActiveStart: 11-20-2021 End: 02-41-7453juse 1 capsule by mouth twice dailyEsomeprazole Magnesium 40 mg capsule,delayed release(DR/EC) Discontinued 40 MG PO Twice daily 60 November 20, 2021 1:00am November 14, 2023 12:32pm2 ml fentaNYL 0.05 mg/ml injection (2 sources)Opioid AgonistStart: 04-26-2022 End: 52-38-5965retyoBDD (SUBLIMAZE) injection1 ml ketorolac tromethamine 15 mg/ml cartridge (1 source)Nonsteroidal Anti-inflammatory Drug, Cyclooxygenase InhibitorStart: 07-31-2022 End: 37-25-5067vgjj 15 mg intravenously every six hours15 mg, Intravenous, EVERY 6 HOURS NON-STANDARD, 4 doses, First dose on Sat07/31/22 at 1030, Last dose on Sat08/01/22 at 0430, Post-op/Post-Proc2 ml midazolam 1 mg/ml injection (2 sources)BenzodiazepineStart: 04-26-2022 End: 93-12-9362Rfvljpjzj HCl (PF) (VERSED) injectionmorphine (PF) injection 2 mg (1 source)Start: 07-31-2022 End: 29-24-7683avfh 2 mg intravenously every three hours as neededmorphine (PF) injection 2 mgProchlorperazine (1 source)PhenothiazineStart: 07-31-2022 End: 95-76-8375nfvm 1 tablet by mouth every six hours as neededprochlorperazine (COMPAZINE) tablet 5 mgtriamcinolone acetonide 40 mg/ml injectable suspension (20 sources)CorticosteroidStart: 80-58-4179Wpfaihk-40 May, 20 mgStart: 40-16-9270Pvedair -40 mg Sep, 20 mgStart: 22-33-9363Kczhngy -40 mg Dec, 40 mgStart: 51-19-0357Ukqxlnv -40 mg Jul, 10 mgStart: 43-79-6390Ufaermt -40 mg Apr, 40 mgStart: 52-59-5100Yobibtn -40 mg Mar, 40 mgStart: 92-08-1479Sokiboz -40 mg Jun, 40 mgtriamcinolone (Kenalog) 0.5 % cream Apply 1 application topically in the morning and 1 application in the evening and 1 application before bedtime. Active Problems Active Problems Problem ClassificationProblemDateDocumented DateEpisodic/ChronicAbdominal hernia (3 sources)Paraesophageal hernia; Translations: [Diaphragmatic hernia without obstruction or gangrene]Onset: 49-68-1198BafurbboCsleawtvt of lipid metabolism (13 sources)Dyslipidemia; Translations: [Hyperlipidemia, unspecified]Onset: 850860-86-6374MpahpsaAxqwsjugcl disorders (20 sources)Diffuse spasm of esophagus; Translations: [Dyskinesia of esophagus] Onset: 10-26-2021 Resolved: 34-71-4603BhakxbnXvubbtcerh disorders (5 sources)Hypertensive lower esophageal sphincter; Translations: [Achalasia of cardia]EpisodicMenopausal disorders (10 sources)Atrophy of vagina; Translations: [Postmenopausal atrophic vaginitis] Onset: 506049-48-7533RnzppycZrmupnftrms deficiencies (15 sources)Vitamin D deficiency, unspecified; Translations: [Vitamin D deficiency]Onset: 67-28-1298EwasvdiEtmkvltanttsdn (20 sources)Arthritis of first carpometacarpal joint of right hand; Translations: [Unilateral primary osteoarthritis of first carpometacarpal joint, right hand]Onset: 10-10-2021 Resolved: 62-63-5852KiijsqtZzmek aftercare (3 sources)Other terminal supervisor (current) drug therapy; Translations: [Other snf (current) drug therapy]Onset: 76-40-0029TmeqxzwdOspof connective tissue disease (11 sources)Supraspinatus tear; Translations: [Unspecified rotator cuff tear or rupture of right shoulder, not specified as traumatic]EpisodicOther connective tissue disease (4 sources)Pain in right handOnset: 10-10-2021 Resolved: 42-94-5671PgkvtrnmKkciu connective tissue disease (13 sources)Dupuytren's disease of palm; Translations: [Palmar fascial fibromatosis [Dupuytren]]30-59-8350QsrjdusmBfnqu connective tissue disease (20 sources)Palmar fascial fibromatosis [Dupuytren]; Translations: [Contracture of palmar fascia]EpisodicOther connective tissue disease (2 sources)Trigger thumb of right hand; Translations: [Trigger thumb, right thumb]65-10-8658UcwywpkaZxwtb connective tissue disease (3 sources)Trigger thumb, right thumb; Translations: [Trigger finger (acquired)] 75-46-1871KrbaryggZktwc gastrointestinal disorders (6 sources)Irritable bowel syndrome; Translations: [Irritable bowel syndrome without diarrhea]ChronicOther gastrointestinal disorders (1 source)Irritable bowel syndrome without diarrheaOnset: 01-16-2022 Resolved: 95-37-0235UtcdzlqAkabq gastrointestinal disorders (9 sources)Dysphagia; Translations: [Dysphagia, unspecified]EpisodicOther gastrointestinal disorders (2 sources)Personal history of other diseases of the digestive system; Translations: [Personal history of other diseases of the digestive system]Onset: 71-96-0585FmgcugyiBnyqn nervous system disorders (9 sources)Pain in limb; Translations: [Other acute postprocedural pain] 11-22-0118NxeqpxunCzlfg non-traumatic joint disorders (1 source)Pain in left hip; Translations: [Pain in left hip]Onset: 03-16-2025 EpisodicOther nutritional; endocrine; and metabolic disorders (7 sources)Obese class I; Translations: [Obesity, unspecified]Onset: 04-20-2022 50-80-3610FwmyiibMjezy nutritional; endocrine; and metabolic disorders (2 sources)Obesity, unspecified; Translations: [Obesity, unspecified]Onset: 37-22-5132LupvliwIblzi screening for suspected conditions (not mental disorders or infectious disease) (12 sources)Encounter for screening for malignant neoplasm of cervix; Translations: [Encounter for screening mammogram for malignant neoplasm of breast]Onset: 63-36-4401HhxawukuTnexj upper respiratory disease (12 sources)Allergic rhinitis due to pollen; Translations: [Allergic rhinitis due to pollen]Onset: 786617-96-4729DuspcyjLpdfxowf codes; unclassified (4 sources)Patient encounter status; Translations: [Encounter for cosmetic surgery]Onset: 423177-15-6574QfrjagnwVzimrzpm codes; unclassified (1 source)Family history of malignant neoplasm of trachea, bronchus and lung; Translations: [FAM HX MALIG NEOPLSM TRACH BRON LNG]Onset: 88-30-5690Ckeydkff Residual codes; unclassified (1 source)History of hernia repair; Translations: [Other specified postprocedural states]EpisodicResidual codes; unclassified (1 source)History of fundoplication; Translations: [Other specified postprocedural states]EpisodicResidual codes; unclassified (9 sources)Postprocedural state finding; Translations: [Other specified postprocedural states]32-53-2756NppqdinqGoecmjcm codes; unclassified (2 sources)Postmenopausal state; Translations: [Asymptomatic menopausal state] 63-74-9956EdwzqzfjCrrsdak disorders (20 sources)Acquired hypothyroidism; Translations: [Hypothyroidism, unspecified] Onset: 03-51-2938MdojdanOgypmcpxiocl (1 source)Patient encounter status; Translations: [Other plastic surgery for unacceptable cosmetic appearance]Onset: 118764-20-8936Fiigjfhpytrw (2 sources)Post Op Visit; Translations: [Post Op Visit]Onset: 08-31-2022 Unclassified (1 source)New PatientOnset: 01-09-2024 Past or Other Problems Problem ClassificationProblemDateDocumented DateEpisodic/ChronicAbdominal pain (3 sources)Abdominal pain; Translations: [Abdominal pain]EpisodicConditions associated with dizziness or vertigo (3 sources)Dizziness and giddiness; Translations: [Dizziness]Onset: 01-09-2024 52-59-8683UbdrkredVrtpkcih mellitus without complication (13 sources)Prediabetes; Translations: [Prediabetes]Onset: EpisodicMood disorders (3 sources)Mood disordersOnset: Other aftercare (12 sources)Long-term current use of drug therapy; Translations: [Other snf (current) drug therapy]Onset: 272402-87-1388WiytwnisOevhr bone disease and musculoskeletal deformities (10 sources)Osteopenia; Translations: [Other specified disorders of bone density and structure, right thigh]Onset: 905319-08-7595JhcwrvorTkpkg connective tissue disease (1 source)Unspecified rotator cuff tear or rupture of right shoulder, not specified as traumaticOnset: 10-10-2021 Resolved: 95-03-8180CkyjzcqjPehvk connective tissue disease (1 source)Pain in right footOnset: 06-18-2022 Resolved: 72-19-7173KpakxaccEjhqa gastrointestinal disorders (3 sources)Constipation; Translations: [Constipation]EpisodicOther gastrointestinal disorders (2 sources)Dysphagia, unspecifiedOnset: 10-26-2021 Resolved: 59-75-4302EljyeydwOplxe inflammatory condition of skin (10 sources)Pruritus, unspecified; Translations: [Unspecified pruritic disorder] Onset: 10-07-2023 Resolved: 050938-74-3735HxnurnxxXyxyyggh codes; unclassified (20 sources)Other specified postprocedural states; Translations: [Other postprocedural status]Onset: 10-10-2021 Resolved: 68-43-5803CabehwkiYbwiuxi and strains (1 source)Unspecified sprain of right foot, initial encounterOnset: 06-18-2022 Resolved: 63-90-9535ZdlftyjgVhivpjkvkeht (3 sources)Onset: Results Test NameValueInterpretationReference RangeFacilityMM TOMOSYNTHESIS SCREENING BI on 91-47-4619[place] [address] Mammography Report Signed Patient: TIANA OROZCO MR#: [id number] : 1965 Acct:[id number] Age/Sex: 60 / F ADM Date: 03/24/25 Loc: MAMMO Attending Dr: Jamey Sanches D.O. Ordering Physician: Jamey Sanches D.O. Results: Date of Service: 03/24/25 Follow Up: Procedure(s): MM tomosynthesis screening BI Accession Number(s): [id number] cc: Jamey Sanches D.O.; Andres Chinchilla M.D. Patient Name: TIANA OROZCO MR#: [id number] : 1965 Exam Date: 03/24/2025 Ordering Doctor: DR JAMEY SANCHES . RADIOLOGY REPORT PROCEDURE: MM TOMOSYNTHESIS SCREENING BI COMPARISON: MM TOMOSYNTHESIS SCREENING BI, 03/19/2024. MM TOMOSYNTHESIS SCREENING BI, 03/11/2023. MG MAMM SCREEN 3D PO CAD, 03/02/2022. MAMMO PO SCREEN, 12/27/2004. INDICATIONS: Screening Calculator Name NCI Breast Cancer Risk Assessment Tool 5 Year Breast Cancer Risk 1.10% Lifetime Breast Cancer Risk 6.00% Personal Breast Cancer No Personal Ovarian Cancer No Treatments None Family Cancers Father with lung cancer at age 57. LOCATION: [facility] BREAST COMPOSITION: There are scattered areas of fibroglandular density. FINDINGS: DIAGNOSTIC CATEGORY 1--NEGATIVE. RIGHT BREAST: No significant suspicious finding. LEFT BREAST: No significant suspicious finding. RECOMMENDATIONS: ROUTINE MAMMOGRAM AND CLINICAL EVALUATION IN 12 MONTHS. PLEASE NOTE: A NORMAL MAMMOGRAM DOES NOT EXCLUDE THE POSSIBILITY OF BREAST CANCER. A CLINICALLY SUSPICIOUS PALPABLE LUMP SHOULD BE BIOPSIED. Dictated by: Clifton Jones DO on 03/24/2025 at 15:53 Approved by: Clifton Jones DO on 03/24/2025 at 15:54 Dictated By: Clifton Jones M.D. Signed By: 03/24/25 1556 DD/ 1554 TD/TT: [place] Operator:TBHRadiology, Radiologist, MD - 03/24/2025 [place] [address] Mammography Report Signed Patient: TIANA OROZCO MR#: [id number] : 1965 Acct:[id number] Age/Sex: 60 / F ADM Date: 03/24/25 Loc: MAMMO Attending Dr: Jamey Sanches D.O. Ordering Physician: Jamey Sanches D.O. Results: Date of Service: 03/24/25 Follow Up: Procedure(s): MM tomosynthesis screening BI Accession Number(s): [id number] cc: Jamey Sanches D.O.; Andres Chinchilla M.D. Patient Name: TIANA OROZCO MR#: [id number] : 1965 Exam Date: 03/24/2025 Ordering Doctor: DR JAMEY SANCHES . RADIOLOGY REPORT PROCEDURE: MM TOMOSYNTHESIS SCREENING BI COMPARISON: MM TOMOSYNTHESIS SCREENING BI, 03/19/2024. MM TOMOSYNTHESIS SCREENING BI, 03/11/2023. MG MAMM SCREEN 3D PO CAD, 03/02/2022. MAMMO PO SCREEN, 12/27/2004. INDICATIONS: Screening Calculator Name NCI Breast Cancer Risk Assessment Tool 5 Year Breast Cancer Risk 1.10% Lifetime Breast Cancer Risk 6.00% Personal Breast Cancer No Personal Ovarian Cancer No Treatments None Family Cancers Father with lung cancer at age 57. LOCATION: [facility] BREAST COMPOSITION: There are scattered areas of fibroglandular density. FINDINGS: DIAGNOSTIC CATEGORY 1--NEGATIVE. RIGHT BREAST: No significant suspicious finding. LEFT BREAST: No significant suspicious finding. RECOMMENDATIONS: ROUTINE MAMMOGRAM AND CLINICAL EVALUATION IN 12 MONTHS. PLEASE NOTE: A NORMAL MAMMOGRAM DOES NOT EXCLUDE THE POSSIBILITY OF BREAST CANCER. A CLINICALLY SUSPICIOUS PALPABLE LUMP SHOULD BE BIOPSIED. Dictated by: Clifton Jones DO on 03/24/2025 at 15:53 Approved by: Clifton Jones DO on 03/24/2025 at 15:54 Dictated By: Clifton Jones M.D. Signed By: 03/24/25 1556 DD/ 1554 TD/TT: [place] Operator[facility] (narrative)[facility]fieldMM TOMOSYNTHESIS SCREENING BIOrdered By: Radiologist Radiology on 24-34-3412[facility] Work Phone: XR hip LT min 2V(w/wo pelvis)*on 36-49-0961TG hip LT min 2V(w/wo pelvis)*[facility] [address] [place] [address] XRay Report Signed Patient: Tiana Orozco MR#: [id number] : 1965 Acct:[id number] Age/Sex: 60 / F ADM Date: 03/16/25 Loc: [facility] Room: Type: [facility] Attending Dr: Benjy Broderick MD Copies to: Benjy Broderick MD Ordering Provider: Benjy Broderick MD Date of Service: 03/16/25 XR/XR hip LT min 2V(w/wo pelvis)*: M25.552 - Pain in left hip WEIGHTBEARING AP PELVIS AND LEFT HIP - 2 views: CLINICAL HISTORY: Left hip pain since fall 2 months ago COMPARISON: CT 02/22/2015 AP weightbearing view the pelvis and frog-lateral of the left hip were obtained. No acute or healing fractures are identified. No dislocation is seen. The hip joint spaces are symmetric. The sclerotic area near the superior acetabulum on the right is chronic. The SI joints are intact. No soft tissue abnormalities are seen. XR/XR hip LT min 2V(w/wo pelvis)* IMPRESSION: NO RECENT BONY INJURY. Impression dictated by: Vianney Castañeda M.D. 03/16/2025 12:32 PM Dictation Location: [place] [address] Transcribed By: [facility] 03/16/25 1232 Dictated By: Vianney Castañeda MD 03/16/25 1229 Signed By: 03/16/25 1232[facility] Physician GroupBASIC METABOLIC PANLon 07-89-3671Rliwo gap [Moles/Vol]11 mmol/LNormal5-15[facility] Comment on above:Performed By: #### CBCA, HA1C, THYR, BMP, 27121-5, LIVR, 53416- 6 #### [facility] ([id number]) [address], [address] [place], [place] [address]Flhmaik [Mass/Vol]9.6 mg/dLNormal8.5-10.5PMary Rutan HospitalComment on above:Performed By: #### CBCA, HA1C, THYR, BMP, 79994-8, LIVR, 45380-8 #### [facility] ([id number]) [address], [address] [place], [place] [address]Xwxeyblq [Moles/Vol]104 mmol/YWoelyw29-996VydEgxhkhOhio Valley HospitalComment on above:Performed By: #### CBCA, HA1C, THYR, BMP, 50726-5, LIVR, 66304-7 #### [facility] ([id number]) [address], [address] [place], [place] [address]MD8 [Moles/Vol]25 mmol/HWckguc88-89MmnTnbmicMary Rutan Hospital Comment on above:Performed By: #### CBCA, HA1C, THYR, BMP, 90174-4, LIVR, 31615- 6 #### [facility] ([id number]) [address], [address] [place], [place] [address]Btglktobit [Mass/Vol]0.85 mg/dLNormal0.40-1.00[facility] HospitalComment on above:Result Comment: METHOD TRACEABLE TO IDMS STANDARD Performed By: #### CBCA, HA1C, THYR, BMP, 51327-1, LIVR, 81177-1 #### [facility] ([id number]) [address] [address] [place], [place] [address]ZCB/1.73 sq M.predicted among non-blacks MDRD (S/P/Bld) [Vol rate/Area]79 mL/min/{1.73_m2}Normal>59ProBellville Medical CenterComment on above:Result Comment: Reported eGFR is based on the CKD-EPI 2020 equation that does not use a race coefficient.Performed By: #### CBCA, HA1C, THYR, BMP, 92113-5, LIVR, 72450-4 #### [facility] ([id number]) [address] [address]Wljlhkt [Mass/Vol]97 mg/lWMuutkl08-01WzvRgqixqOhio [facility] Hospital Comment on above:Performed By: #### CBCA, HA1C, THYR, BMP, 37206-2, LIVR, 21624- 6 #### [facility] ([id number]) [address] [address]Chpxvfrpw [Moles/Vol]4.1 mmol/LNormal3.5-5.0ProBellville Medical CenterComment on above:Performed By: #### CBCA, HA1C, THYR, BMP, 15919-1, LIVR, 84663-3 #### [facility] ([id number]) [address] [address]Gihtqb [Moles/Vol]140 mmol/KNindtc924-111WuoDnawcl Fremont HospitalComment on above:Performed By: #### CBCA, HA1C, THYR, BMP, 94937-8, LIVR, 89270-0 #### [facility] ([id number]) [address], [place] [address]Pfzw nitrogen [Mass/Vol]21 mg/dLNormal5-23ProBellville Medical CenterComment on above:Performed By: #### CBCA, HA1C, THYR, BMP, 91821-3, LIVR, 42442-7 #### [facility] ([id number]) [address], [address] [place], [place] [address]AXJ AND AUTO DIFFon 09-11-6191KLVOSSSN BASOPHIL0.0 X10E9/LNormal 0.0-0.2PMary Rutan HospitalComment on above:Performed By: #### CBCA, HA1C, THYR, BMP, 01977-8, LIVR, 44271-0 #### [facility] ([id number]) [address], [facility] [address] [place], [place] [address]LUMTQFPG NEUTROPHIL4.3 X10E9/LNormal1.5-6.6ProBellville Medical CenterComment on above:Performed By: #### CBCA, HA1C, THYR, BMP, 50242-2, LIVR, 27993-5 #### [facility] ([id number]) [address], [facility] [address] [place], [place] [address]Bpfwkomnh/100 WBC (Bld)0.7 %NormalProBellville Medical Center Comment on above:Performed By: #### CBCA, HA1C, THYR, BMP, 72210-3, LIVR, 39591- 6 #### [facility] ([id number]) [address], [address] [place], [place] [address]Raakhiutave (Bld) [#/Vol]0.1 10*3/uLNormal0.0-0.4[facility] HospitalComment on above:Performed By: #### CBCA, HA1C, THYR, BMP, 43724-3, LIVR, 43826-0 #### [facility] ([id number]) [address], [address] [place], [place] [address]Tldjyvdrllp/100 WBC (Bld)1.7 %NormalOhio Valley Hospital Comment on above:Performed By: #### CBCA, HA1C, THYR, BMP, 64477-6, LIVR, 33694- 6 #### [facility] ([id number]) [address] [address] [place], [place] [address]Idfotsgnknj distribution width (RBC) [Ratio]12.5 %Normal 11.5-15.0ProBellville Medical CenterComment on above:Performed By: #### CBCA, HA1C, THYR, BMP, 41022-3, LIVR, 74626-3 #### [facility] ([id number]) [address] [address]Vompyutcxt (Bld) [Volume fraction]40.4 %Dhydko65-45HvhWhohpcBellville Medical CenterComment on above:Performed By: #### CBCA, HA1C, THYR, BMP, 58561-5, LIVR, 69905-0 #### [facility] ([id number]) [address] [address]Eahkilioqy (Bld) [Mass/Vol]14.0 g/kRCqdvej11.7-15.5PMary Rutan HospitalComment on above:Performed By: #### CBCA, HA1C, THYR, BMP, 65317-5, LIVR, 87469-1 #### [facility] ([id number]) [address] [address]Rsvwbdriqtc (Bld) [#/Vol]1.4 10*3/uLNormal1.0-3.5PMary Rutan HospitalComment on above:Performed By: #### CBCA, HA1C, THYR, BMP, 58146-1, LIVR, 57094-1 #### [facility] ([id number]) [address] [address]Zyeeluhtaay/100 WBC (Bld)22.5 %[facility] Comment on above:Performed By: #### CBCA, HA1C, THYR, BMP, 51507-3, LIVR, 97903- 6 #### [facility] ([id number]) [address], [address] [place], [place] [address]CIN (RBC) [Entitic mass]32.9 lsFdvqeu24-00QtuAnuryaBellville Medical CenterComment on above:Performed By: #### CBCA, HA1C, THYR, BMP, 48445-9, LIVR, 61481-6 #### [facility] ([id number]) [address], [address] [place], [place] [address]XBWJ (RBC) [Mass/Vol]34.6 g/rUWoiasq37-44OweCjgdxgOhio Valley HospitalComment on above:Performed By: #### CBCA, HA1C, THYR, BMP, 69603-1, LIVR, 07641-9 #### [facility] ([id number]) [address], [address] [place], [place] [address]BYR (RBC) [Entitic vol]95 nUYlzgal11-588WusLybnhr Fremont HospitalComment on above:Performed By: #### CBCA, HA1C, THYR, BMP, 40885-4, LIVR, 70785-7 #### [facility] ([id number]) [address], [address] [place], [place] [address]Szumufcxt (Bld) [#/Vol]0.5 10*3/uLNormal0-0.9[facility] Valley HospitalComment on above:Performed By: #### CBCA, HA1C, THYR, BMP, 04028-3, LIVR, 56460-1 #### [facility] ([id number]) [address], [address] [place], [place] [address]Linmbjduq/100 WBC (Bld)8.5 %NormalOhio Valley Hospital Comment on above:Performed By: #### CBCA, HA1C, THYR, BMP, 19399-9, LIVR, 00590- 6 #### [facility] ([id number]) [address], [address] [place], [place] [address]Hmesflfjunw/100 WBC (Bld)66.6 %[facility] Comment on above:Performed By: #### CBCA, HA1C, THYR, BMP, 35870-0, LIVR, 96538- 6 #### [facility] ([id number]) [address], [address] [place], [place] [address]Jwzgnxch mean volume (Bld) [Entitic vol]9.5 fLNormal7-12 [facility] HospitalComment on above:Performed By: #### CBCA, HA1C, THYR, BMP, 36744-5, LIVR, 71425-3 #### [facility] ([id number]) [address], [address] [place], [place] [address]Vravwised (Bld) [#/Vol]198 10*3/lZDqrrsm395-917AqfUbbjzqOhio Valley HospitalComment on above:Performed By: #### CBCA, HA1C, THYR, BMP, 09164-7, LIVR, 59602-5 #### [facility] ([id number]) [address], [address] [place], [place] [address]NXW COUNT4.24 X10E12/LNormal3.80-5.20[facility] Comment on above:Performed By: #### CBCA, HA1C, THYR, BMP, 41198-4, LIVR, 95857- 6 #### [facility] ([id number]) [address], [address] [place], [place] [address]TKH (Bld) [#/Vol]6.4 10*3/uLNormal4.0-11.0[facility] Valley HospitalComment on above:Performed By: #### CBCA, HA1C, THYR, BMP, 86491-9, LIVR, 73592-0 #### [facility] ([id number]) [address], [address] [place], [place] [address]NAR W Auto Differential panel (Bld)on 60-72-6599JFUEZCBE ZYJHIYKV7DGHP HealthcareComment on above:PERFORMED AT [facility] [address],[place], [place] [address]Gzhezgxqx/100 WBC (Bld)0.7 %NOMS HealthcareEosinophils (Bld) [#/Vol]0.1 10*3/uLNOMS HealthcareEosinophils/100 WBC (Bld)1.7 %NOMS HealthcareErythrocyte distribution width (RBC) [Ratio]12.5 %11.5 - 15.0 %[facility]OMS HealthcareHematocrit (Bld) [Volume fraction]40.4 %35 - 47 %NOM HealthcareHemoglobin (Bld) [Mass/Vol]14 g/dL11.7 - 15.5 g/dLNOMD Healthcare Lymphocytes (Bld) [#/Vol]1.4 10*3/uLNOMS HealthcareLymphocytes/100 WBC (Bld)22.5 %NOMLafayette Regional Health CenterMCH (RBC) [Entitic mass]32.9 pg27 - 34 pgNOMD HealthcareMCHC (RBC) [Mass/Vol]34.6 g/dL32 - 36 g/dLBRIGHAM CITY COMMUNITY [facility]OSPITAL HealthcareMCV (RBC) [Entitic vol]95 fL 80 - 100 fLNOMD HealthcareMonocytes (Bld) [#/Vol]0.5 10*3/uLNOMS Healthcare Monocytes/100 WBC (Bld)8.5 %NOMS HealthcareNeutrophils (Bld) [#/Vol]4.3 10*3/uL NOMS HealthcareNeutrophils/100 WBC (Bld)66.6 %NOMS HealthcarePlatelet mean volume (Bld) [Entitic vol]9.5 fL7 - 12 fLNOMS HealthcarePlatelets (Bld) [#/Vol] 198 10*3/uLNOMS HealthcareRBC (Bld) [#/Vol]4.24 10*6/uLNOMS HealthcareWBC corrected for nucl RBC Auto (Bld) [#/Vol]6.4Formerly [facility] Hospital [facility] Surry CountyHGB A1C (GLYCO-HGB)on 50-27-2267Xwwijqk [Mass/Vol]105 mg/dLNormalProBellville Medical CenterComment on above:Performed By: #### CBCA, HA1C, THYR, BMP, 55055-6, LIVR, 91532-8 #### [facility] ([id number]) [address], [address] [place], [place] [address]BoH4a (Bld) [Mass fraction]5.3 %Normal4.4-5.6Ohio Valley HospitalComment on above:Result Comment: NOTE ADA Guidelines Result HgbA1c Normal : less than 5.7 % Prediabetes : 5.7 % to 6.4 % Diabetes : > 6.4 % Use with caution in patients with abnormal hemoglobin variants as the half-life of red blood cells and in vivo glycation rates are affected.Performed By: #### CBCA, HA1C, THYR, BMP, 11397-0, LIVR, 56907-9 #### [facility] ([id number]) [address] [place], [place] [address]GNVAE PANELon 41-11-1680Vundjxx [Mass/Vol]4.3 g/dLNormal3.2-5.3 [facility] HospitalComment on above:Performed By: #### CBCA, HA1C, THYR, BMP, 28392-5, LIVR, 68168-4 #### [facility] ([id number]) [address] [place], [place] [address]NRN [Catalytic activity/Vol]70 U/ULvmhat56-105KjbShheddBellville Medical CenterComment on above:Performed By: #### CBCA, HA1C, THYR, BMP, 96483-0, LIVR, 72472-3 #### [facility] ([id number]) [address], [address] [place] [address]YUW [Catalytic activity/Vol]16 U/LNormal0-31PMary Rutan HospitalComment on above:Performed By: #### CBCA, HA1C, THYR, BMP, 32813-3, LIVR, 39109-5 #### [facility] ([id number]) [address], [address] [place] [address]YQU [Catalytic activity/Vol]18 U/LNormal0-41ProBellville Medical CenterComment on above:Performed By: #### CBCA, HA1C, THYR, BMP, 60293-2, LIVR, 40971-1 #### [facility] ([id number]) [address], [address] [place] [address]Ucxxtoxfo [Mass/Vol]0.5 mg/dLNormal0.3-1.2PMary Rutan HospitalComment on above:Performed By: #### CBCA, HA1C, THYR, BMP, 49364-1, LIVR, 88795-2 #### [facility] ([id number]) [address], [address] [place] [address]Ugivsifeu.direct [Mass/Vol]0.1 mg/dLNormal0.0-0.4ProBellville Medical CenterComment on above:Performed By: #### CBCA, HA1C, THYR, BMP, 52765-1, LIVR, 33016-9 #### [facility] ([id number]) [address], [address] [place], [place] [address]Cwlcdyi [Mass/Vol]7.0 g/dLNormal6.0-8.0ProBellville Medical CenterComment on above:Performed By: #### CBCA, HA1C, THYR, BMP, 49362-8, LIVR, 60853-4 #### [facility] ([id number]) [address], [address] [place], [place] [address]Bzidp 1996 panelon 97-80-5535Kpaxwkhyrls [Mass/Vol]179 mg/dL Xrgsyj993-062CimHkaefcOhio Valley HospitalComment on above:Performed By: #### GUADALUPEA, HA1C, THYR, BMP, 83913-4, LIVR, 18304-9 #### [facility] ([id number]) [address], [address] [place], [place] [address]Qeczymofvlz in HDL [Mass/Vol]56 mg/dLNormal>39ProBellville Medical CenterComment on above:Result Comment: HDL <40 mg/dL - High Risk HDL > or = 40mg/dL- Desirable HDL >60 mg/dL - Negative Risk Performed By: #### CBCA, HA1C, THYR, BMP, 77090-2, LIVR, 49451-4 #### [facility] ([id number]) [address], [address] [place], [place] [address]Avukcwybhkn in LDL [Mass/Vol]103 mg/dLNormal<130ProBellville Medical CenterComment on above:Result Comment: LDL <100 mg/dL - Desirable LDL >160 mg/dL - High Risk Performed By: #### CBCA, HA1C, THYR, BMP, 41089-0, LIVR, 23786-5 #### [facility] ([id number]) [address], [address] [place], [place] [address]Ssbsewyrbdg in VLDL [Mass/Vol]20 mg/dLNormal0-30ProBellville Medical CenterComment on above:Performed By: #### CBCA, HA1C, THYR, BMP, 61146-1, LIVR, 64786-9 #### [facility] ([id number]) [address], [address] [place], [place] [address]IAFMIRHDLXN:HDL3.8Cygosu9.0-5.0ProBellville Medical CenterComment on above:Performed By: #### CBCA, HA1C, THYR, BMP, 00852-3, LIVR, 18024-3 #### [facility] ([id number]) [address], [address] [place] [address]Fgivkvnwaqxb [Mass/Vol]102 mg/qHJonobs93-256WdtOmcyxg [facility]ont HospitalComment on above:Performed By: #### CBCA, HA1C, THYR, BMP, 27647-1, LIVR, 24437-2 #### [facility] ([id number]) [address], [address] [place], [place] [address]ITZBYDM PROFILEon 26-14-8709Vndg T4 [Mass/Vol]1.64 ng/dLHigh 0.61-1.60ProBellville Medical CenterComment on above:Performed By: #### CBCA, HA1C, THYR, BMP, 95605-1, LIVR, 25305-2 #### [facility] ([id number]) [address], [address] [place] [address]PNW2.34 uIU/mLNormal0.49-4.67ProBellville Medical CenterComment on above:Performed By: #### CBCA, HA1C, THYR, BMP, 57956-5, LIVR, 20873-3 #### [facility] ([id number]) [address], [address] [place], [place] [address]Ttujtzp D+Metabolites [Mass/Vol]on 07-84-4126LAJKNES D 25 HYD TOT62.9 ng/vQIlxppw97-854JdeQakhju [facility]ont HospitalComment on above:Result Comment: Vitamin D status 25 [place] Vitamin D Deficiency <20 ng/mL Insufficiency 20-29 ng/mL Sufficiency 30-100 ng/mL Toxicity >100 ng/mL NOTE: A pediatric reference range has not been established by the frame table operator of this kit. The [place] [employer] recommends a Vitamin D level of = or >20ng/mL in infants and children.Performed By: #### CBCA, HA1C, THYR, BMP, 66793-7, LIVR, 63610-6 #### [facility] ([id number]) [address] [facility], [address] [place], [place] [address]L-npg reportOrdered By: Clifton Jones on 63-34-1109Hqket reportST. MARY'S MEDICAL CENTER [facility] [address] [place] [address] XRay Report Signed Patient: Tiana Orozco MR#: [id number] : 1965 Acct:[id number] Age/Sex: 59 / F ADM Date: 5 Loc: [facility] Room: Type: [facility] Attending Dr: Mechelle Liang MD Copies to: Mechelle Liang MD~ Ordering Provider: Mechelle Liang MD Date of Service: 10/13/24 XR/XR hand RT min 3V*: Z98.890 - Other specified postprocedural states RIGHT HAND - 4 views REASON FOR EXAM: Right thumb pain at first [facility]MC for months. Follow-up fusion surgery. COMPARISON: Right hand 03/06/2024 FINDINGS: Postoperative changes CMC joint of the thumb without hardware complication. There appears be interval bony fusion when compared to the prior study. No acute bony process. Degenerative changes involving the IP joints without bony erosions. XR/XR hand RT min 3V* IMPRESSION: NO HARDWARE COMPLICATION. INTERVAL FUSION OF THE CMC JOINT OF THE THUMB. Impression dictated by: Clifton Jones Jr., D.O.10/13/2024 9:31 AM Dictation Location: [place] [address] Transcribed By: [facility] 10/13/2431 Dictated By: [place] [address] Signed By: 10/13/24930 [facility] HospitalXR [facility] min 3V*on 94-79-5052CY hand RT min 3V*[facility] [address] [place] [address] XRay Report Signed Patient: Tiana Orozco MR#: [id number] : 1965 Acct:[id number] Age/Sex: 59 / F ADM Date: 10/13/24 Loc: [facility] Room: Type: [facility] Attending Dr: Mechelle Liang MD Copies to: Mechelle Liang MD Ordering Provider: Mechelle Liang MD Date of Service: 10/13/24 XR/XR hand RT min 3V*: Z98.890 - Other specified postprocedural states RIGHT HAND - 4 views REASON FOR EXAM: Right thumb pain at first [facility] for months. Follow-up fusion surgery. COMPARISON: Right hand 03/06/2024 FINDINGS: Postoperative changes CMC joint of the thumb without hardware complication. There appears be interval bony fusion when compared to the prior study. No acute bony process. Degenerative changes involving the IP joints without bony erosions. XR/XR hand RT min 3V* IMPRESSION: NO HARDWARE COMPLICATION. INTERVAL FUSION OF THE [facility] JOINT OF THE THUMB. Impression dictated by: Ethel Henley Jr.OGlenn10/13/2024 9:31 AM Dictation Location: [place] [address] Transcribed By: [facility] 10/13/24930 Dictated By: Clifton Jones Jr, DO 10/13/24930 Signed By: 10/13/24 0931[facility] TOMOSYNTHESIS SCREENING BIon [id number] [address] Mammography Report Signed Patient: TIANA OROZCO MR#: [id number] : 1965 Acct:[id number] Age/Sex: 59 / F ADM Date: 03/19/24 Loc: MAMMO Attending Dr: Jamey Sanches D.O. Ordering Physician: Jamey Sanches D.O. Results: Date of Service: 03/19/24 Follow Up: Procedure(s): MM tomosynthesis screening BI Accession Number(s): [id number] cc: Jamey Sanches D.O.; Andres Chinchilla M.D. Patient Name: TIANA OROZCO MR#: [id number] : 1965 Exam Date: 03/19/2024 Ordering Doctor: [...] lung cancer at age 58. LOCATION: [facility] BREAST COMPOSITION: The breasts are heterogeneously [...] BIOPSIED. Dictated by: Gaudencio Fountain M.D. on 03/19/2024 at 15:48 Approved by: Gaudencio Fountain M.D. on 03/19/2024 at 16:07 Dictated By: Gaudencio Fountain M.D. Signed By: 03/19/24 1608 DD/ 1608 TD/TT: [place] Operator:TBHRadiology, Radiologist, - 03/19/2024 [place] [address] Mammography Report Signed Patient: TIANA OROZCO MR#: [id number] : 1965 Acct:[id number] Age/Sex: 59 / F ADM Date: 03/19/24 Loc: MAMMO Attending Dr: Jamey Sanches D.O. Ordering Physician: Jamey Sanches D.O. Results: Date of Service: 03/19/24 Follow Up: Procedure(s): MM tomosynthesis screening BI Accession Number(s): [id number] cc: Jamey Sanches D.O.; Andres Chinchilla M.D. Patient Name: TIANA OROZCO MR#: [id number] : 1965 Exam Date: 03/19/2024 Ordering Doctor: [...] lung cancer at age 58. LOCATION: [facility] BREAST COMPOSITION: The breasts are heterogeneously [...] BIOPSIED. Dictated by: Gaudencio Fountain M.D. on 03/19/2024 at 15:48 Approved by: Gaudencio Fountain M.D. on 03/19/2024 at 16:07 Dictated By: Gaudencio Fountain M.D. Signed By: 03/19/24 1608 DD/ 07 TD/TT: [place] Operator: PABLITO HealthcareRadiology Study observation (narrative)[facility] TOMOSYNTHESIS SCREENING BIOrdered By: Radiologist Radiology on [id number] Mismi Work Phone: Alanine aminotransferase [Enzymatic activity/volume] in Serum or PlasmaOrdered By: Mechelle Liang on [id number] [Catalytic activity/Vol]20 U/L7-52[facility] HospitalAlbumin [Mass/volume] in Serum or Plasma by Bromocresol green (BCG) dye binding methoOrdered By: Mechelle iLang on 03-44-2070Ugnlbvi BCG dye [Mass/Vol]4.2 g/dL3.5-5.7FGlenbeigh HospitalAlkaline phosphatase [Enzymatic activity/volume] in Serum or PlasmaOrdered By: Mechelle Liang on 68-20-7997ALN [Catalytic activity/Vol]54 U/L 34-104Bar[facility] Citizens HospitalAspartate aminotransferase [Enzymatic activity/volume] in Serum or PlasmaOrdered By: Mechelle Liang on 17-42-4793HTQ [Catalytic activity/Vol]19 U/Q63-27XymgrarucBarberton Citizens HospitalBasophils Auto (Bld) [#/Vol]Ordered By: Mechelle Liang 08-87-8146Cfdwbiugb (Bld) [#/Vol]0.1 10*3/uL0.0-0.2FGlenbeigh HospitalBasophils/100 WBC Auto (Bld)Ordered By: Mechelle Liang 08-99-8940Cgbaipxmj/100 WBC (Bld)1.0 %. [facility] HospitalBilirubin.total [Mass/volume] in Serum or PlasmaOrdered By: Mechelle Liang 42-96-2019Vjdubwdlb [Mass/Vol]0.3 mg/dL 0.3-1.0[facility] HospitalCalcium [Mass/volume] in Serum or Plasma Ordered By: Mechelle Liang 98-92-8735Xahyjzm [Mass/Vol]9.4 mg/dL8.6-10.3 [facility] HospitalCarbon dioxide, total [Moles/volume] in Serum or PlasmaOrdered By: Mechelle Liang 10-67-1454PB9 [Moles/Vol]29.7 mmol/L 21.0-31.0[facility] HospitalChloride [Moles/volume] in Serum or PlasmaOrdered By: Mechelle Liang 86-56-1831Jzhuifpx [Moles/Vol]105 mmol/L 98-107[facility] HospitalCreatinine [Mass/volume] in Serum or PlasmaOrdered By: Mechelle Liang on 11-33-2389Vlfkeacans [Mass/Vol]0.66 mg/dL 0.60-1.20[facility] HospitalEosinophils Auto (Bld) [#/Vol]Ordered By: Mechelle Liang on 69-87-9237Hjttpfkmkat (Bld) [#/Vol]0.1 10*3/uL0.0-0.45 [facility] HospitalEosinophils/100 WBC Auto (Bld)Ordered By: Mechelle Liang on 47-79-9048Poinfqornxf/100 WBC (Bld)1.8 %.[facility] HospitalErythrocyte distribution width Auto (RBC) [Ratio]Ordered By: Mechelle Liang on 57-34-5604Wffilbynqkg distribution width (RBC) [Ratio]11.7 % 11.9-15.3FGlenbeigh HospitalGlobulin Calc (S) [Mass/Vol]Ordered By: Mechelle Liang on 25-41-2054Situythj (S) [Mass/Vol]2.2 g/dLBarberton Citizens HospitalGlucose [Mass/volume] in Serum or PlasmaOrdered By: Mechelle Liang on 26-00-8011Bfffkfx [Mass/Vol]92 mg/lO20-141YaxqkuzfjBarberton Citizens HospitalHematocrit Auto (Bld) [Volume fraction]Ordered By: Mechelle Liang on 98-24-9586Bqlgoodamo (Bld) [Volume fraction]39.7 %34.0-46.4FGlenbeigh HospitalHemoglobin [Mass/volume] in BloodOrdered By: Mechelle Liang on 46-27-7733Jptrwovjvi (Bld) [Mass/Vol]13.7 g/dL11.8-15.4FGlenbeigh HospitalLeukocytes [#/volume] corrected for nucleated erythrocytes in Blood by Automated counOrdered By: Mechelle Liang on 16-16-2140ZAF corrected for nucl RBC Auto (Bld) [#/Vol]6.0 10*3/uL3.8-11.6FGlenbeigh Hospital Lymphocytes Auto (Bld) [#/Vol]Ordered By: Mechelle Liang on 11-14-2023 Lymphocytes (Bld) [#/Vol]1.4 10*3/uL1.00-4.8[facility] Lymphocytes/100 WBC Auto (Bld)Ordered By: Mechelle Liang on 11-14-2023 Lymphocytes/100 WBC (Bld)24.0 %.[facility] HospitalMCH Auto (RBC) [Entitic mass]Ordered By: Mechelle Liang on 14-04-0792VQS (RBC) [Entitic mass] 32.3 pg24.7-34.3FGlenbeigh HospitalMCHC Auto (RBC) [Mass/Vol] Ordered By: Mechelle Liang on 14-03-3641HJKJ (RBC) [Mass/Vol]34.4 g/dL32.0-35.0 [facility] HospitalMCV Auto (RBC) [Entitic vol]Ordered By: Mechelle Liang on 11-15-0943RYU (RBC) [Entitic vol]93.9 sR16-259GbrqptxdrBarberton Citizens HospitalMonocytes Auto (Bld) [#/Vol]Ordered By: Mechelle Liang on 94-51-1040Cnlxtvomj (Bld) [#/Vol]0.5 10*3/uL0.0-0.8[facility] HospitalMonocytes/100 WBC Auto (Bld)Ordered By: Mechelle Liang on 11-14-2023 Monocytes/100 WBC (Bld)8.6 %.[facility] HospitalNeutrophils Auto (Bld) [#/Vol]Ordered By: Mechelle Liang on 61-96-2659Cvsdbbflvmo (Bld) [#/Vol] 3.9 10*3/uL1.8-7.7FGlenbeigh HospitalNeutrophils/100 WBC Auto (Bld)Ordered By: Mechelle Liang on 58-54-7617Odeybrfbpwl/100 WBC (Bld)64.6 %. [facility] HospitalNo Panel InformationOrdered By: Mechelle Liang on 25-52-5898Qudtpipyg GFR (CKD-EPI)> 60.0 mL/MinBarberton Citizens HospitalPharmacy Creatinine Clearance (ChemN/AFGlenbeigh Hospital Nucleated erythrocytes [Presence] in Blood by Automated countOrdered By: Mechelle Liang on 10-96-8060Zrotrdnav RBC Auto Ql (Bld)0.0 /100{WBC}0-0.5FGlenbeigh HospitalPlatelet mean volume Auto (Bld) [Entitic vol]Ordered By: Mechelle Liang on 87-27-2018Beergtrk mean volume (Bld) [Entitic vol]9.3 fL 6.3-10.7FGlenbeigh HospitalPlatelets Auto (Bld) [#/Vol]Ordered By: Mechelle Liang on 41-38-7092Ksyqvqzne (Bld) [#/Vol]214 10*3/vD211-591GoowvbdkcBarberton Citizens HospitalPotassium [Moles/volume] in Serum or PlasmaOrdered By: Mechelle Liang on 82-24-3501Scuzfqaba [Moles/Vol]4.0 mmol/L3.5-5.1FGlenbeigh HospitalProtein [Mass/volume] in Serum or PlasmaOrdered By: Mechelle Liang on 76-10-6348Vqrbjku [Mass/Vol]6.4 g/dL6.4-8.9Bar[facility] HospitalRBC Auto (Bld) [#/Vol]Ordered By: Mechelle Liang on 34-11-8702CVS (Bld) [#/Vol]4.23 10*6/uL3.60-5.00[facility] Hospitalerum or plasma albumin/globulin mass ratioOrdered By: Mechelle Liang on 11-14-2023 Albumin/Globulin [Mass ratio]1.9 {ratio}[facility] Hospitalerum or plasma anion gap determinationOrdered By: Mechelle Liang on 58-15-5390Atfbm gap [Moles/Vol]10.3 mmol/L6.0-15.0[facility] Hospitalodium [Moles/volume] in Serum or PlasmaOrdered By: Mechelle Liang on 07-87-5787Moonpn [Moles/Vol]141 mmol/T513-560IbliysiidBarberton Citizens HospitalUrea nitrogen [Mass/volume] in Serum or PlasmaOrdered By: Mechelle Liang on 32-18-2418Micz nitrogen [Mass/Vol]17 mg/dL7-25Bar[facility] HospitalWBC Auto (Bld) [#/Vol]Ordered By: Mechelle Liang on 88-65-5463FXP (Bld) [#/Vol]6.0 10*3/uL 3.8-11.6FGlenbeigh HospitalLipid Profileon 82-02-4355Bukuswtlndv [Mass/Vol]165 mg/dLNormal<200Ohio[facility] CenterComhawthorn center on above:Result Comment: Cholesterol Guidelines: <200 Desirable 200-240 Borderline >240 UndesirablePerformed By: #### FT3, FT4, LIPR, VD25 #### [address] [address] [employer]: Durga Markham MD #### BMP, LIVP, CDP, TSH #### [address] [place] [address] [employer]: ANALIA Rojasholesterol in HDL [Mass/Vol]46 mg/dLNormal>40 [facility] on above:Result Comment: HDL Guidelines: <40 Undesirable 40-59 Borderline >59 DesirablePerformed By: #### FT3, FT4, LIPR, VD25 #### [address] [id number] [employer]: Durga Markham MD #### BMP, LIVP, CDP, TSH #### [address] [place] [address] [employer]: ANALIA Rojasholesterol in LDL [Mass/Vol]92 mg/dLNormal0-130 [facility] on above:Result Comment: LDL Guidelines: <100 Desirable 100-129 Near to/above Desirable 130-159 Borderline >159 Undesirable Direct (measured) LDL and calculated LDL are not interchangeable tests.Performed By: #### FT3, FT4, LIPR, VD25 #### [address] [id number] [employer]: Durga Markham MD #### BMP, LIVP, CDP, TSH #### [address] [place] [address] [employer]: Katrina Rojas.total/Cholesterol in HDL [Mass ratio] 3.6 {ratio}Normal<5[facility]state Medical CenterComment on above:Performed By: #### FT3, FT4, LIPR, VD25 #### [facility] [address] [place], [place] [id number] [employer]: Durga Markham MD #### BMP, LIVP, CDP, TSH #### [address] [place] [address] [employer]: Guillermo Hay MDTriglyceride [Mass/Vol]133 mg/dLNormal<150Mer[facility] Midstate Medical CenterComment on above:Result Comment: Triglyceride Guidelines: <150 Desirable 150-199 Borderline 200-499 High >499 Very high Based on AHA Guidelines for fasting triglyceride, June 2012.Performed By: #### FT3, FT4, LIPR, VD25 #### [facility] [place] [address] [employer]: Durga Markham MD #### BMP, LIVP, CDP, TSH #### [address] [place] [address] [employer]: Guillermo Hay MDBaour lady of bellefonte hospital Metabolic Panelon 92-36-5989Xeqmn gap [Moles/Vol]10 mmol/L9 - 17 mmol/LBON SECOURS MERCY HEALTHCalcium [Mass/Vol]9.9 mg/dL8.6 - 10.4 mg/dLBON SECOURS MERCY HEALTHChloride [Moles/Vol]106 mmol/L98 - 107 mmol/LBON SECOURS MERCY HEALTHCO2 [Moles/Vol]27 mmol/L20 - 31 mmol/LBON [facility] MERCY HEALTHCreatinine [Mass/Vol]0.77 mg/dL0.50 - 0.90 mg/dLBON SECOURS MERCY HEALTHGFR/1.73 sq M.predicted MDRD (S/P/Bld) [Vol rate/Area]- PINFBON MEMORIAL HEALTH SYSTEMComment on above: Effective Jul 02, 2022 These [...] therapy that affects renal tubular secretion. Glucose [Mass/Vol]114 mg/fUOrmq25 - 99 mg/dLBON MEMORIAL HEALTH SYSTEMPotassium [Moles/Vol]4.2 mmol/L3.7 - 5.3 mmol/LBON MEMORIAL HEALTH SYSTEMSodium [Moles/Vol] 143 mmol/L135 - 144 mmol/LBON MEMORIAL HEALTH SYSTEMUrea nitrogen (BldV) [Mass/Vol]15 mg/dL6 - 20 mg/dLBON MEMORIAL HEALTH SYSTEMUrea nitrogen/Creatinine (Bld) [Mass ratio]199 - 20B[facility]ALTH SYSTEMBasic Metabolic Profon 04-57-7604Qjlxa gap [Moles/Vol]10 mmol/LNormal9-17Ohio[facility] Grant Medical CenterComment on above:Performed By: #### FT3, FT4, LIPR, VD25 #### [facility] [employer] [facility] [place], [place] [id number] [employer]: Durga Markham MD #### SUE, LIVNeftaly, CDP, TSH #### [facility] [address] [place] [address] [employer]: Guillermo Hay MDBUN/CRE Enleo54Ocehvs9-00Ayjwv [facility] Comment on above:Performed By: #### FT3, FT4, LIPR, VD25 #### [facility] [employer] [facility] [place] [address] [employer]: Durga Markham MD #### SUE LIVP, CDP, TSH #### [address] [place], [place] [phone] [employer]: ANALIA Rojasalcium [Mass/Vol]9.9 mg/dLNormal8.6-10.4Ohio[facility] Grant Medical CenterComment on above:Performed By: #### FT3, FT4, LIPR, VD25 #### [address] [address] [employer]: Durga Markham MD #### BMP, LIVP, CDP, TSH #### [address] [place] [phone] [employer]: ANALIA Rojashloride [Moles/Vol]106 mmol/ATbvtxs66-032UdpplOhiohealth Grant Medical CenterComment on above:Performed By: #### FT3, FT4, LIPR, VD25 #### [address] [address] [employer]: Durga Markham MD #### BMP, LIVP, CDP, TSH #### [address] [place] [phone] [employer]: ANALIA RojasO2 [Moles/Vol]27 mmol/QBirnua06-95PdljgOhiohealth Grant Medical CenterComment on above:Performed By: #### FT3, FT4, LIPR, VD25 #### [address] [id number] [employer]: Durga Markham MD #### BMP, LIVP, CDP, TSH #### [address] [place] [address] [employer]: ANALIA Rojasreatinine [Mass/Vol]0.77 mg/dLNormal0.50-0.90 [facility] HospitalComment on above:Performed By: #### FT3, FT4, LIPR, VD25 #### [address] [phone] [employer]: Durga Markham MD #### BMP, LIVP, CDP, TSH #### [address] [place] [address] [employer]: Guillermo Hay MDGFR/1.73 sq M.predicted among non-blacks MDRD (S/P/Bld) [Vol rate/Area]mL/min/{1.73_m2}Normal>60MerHartford HospitalComment on above:Result Comment: Effective Jul 02, 2022 These results [...] or following therapy that affects renal tubular secretion.Performed By: #### FT3, FT4, LIPR, VD25 #### [address] [id number] [employer]: Durga Markham MD #### SUE LIVNeftaly, CDP, TSH #### [address] [place] [address] [employer]: Guillermo Hay MDGlucose [Mass/Vol]114 mg/gUZgdd38-71NdjjpSelect Medical Cleveland Clinic Rehabilitation Hospital, Edwin ShawComment on above:Performed By: #### FT3, FT4, LIPR, VD25 #### [address] [id number] [employer]: Durga Markham MD #### BMP, LIVP, CDP, TSH #### [address] [place] [address] [employer]: JOHNNY Rojasotassium [Moles/Vol]4.2 mmol/LNormal3.7-5.3Mer[facility]state Medical CenterComment on above:Performed By: #### FT3, FT4, LIPR, VD25 #### [address] [place] [address] [employer]: Durga Markham MD #### BMP, LIVP, CDP, TSH #### [address] [place], [place] [phone] [employer]: LINDA Rojasodium [Moles/Vol]143 mmol/YQajfdm995-452TnvoxOhiohealth Grant Medical CenterComment on above:Performed By: #### FT3, FT4, LIPR, VD25 #### [address] [address] [employer]: Durga Markham MD #### BMP, LIVP, CDP, TSH #### [address] [place] [phone] [employer]: Guillermo Hay MDUrea nitrogen [Mass/Vol]15 mg/dLNormal6-20Ohio[facility] Grant Medical CenterComment on above:Performed By: #### FT3, FT4, LIPR, VD25 #### [address] [address] [employer]: Durga Markham MD #### BMP, LIVP, CDP, TSH #### [address] [place] [phone] [employer]: Guillermo Hay [facility] ENIDBC with Auto Differentialon 13-16-8280Aisuxbut Eos #0.11B[facility]CY HEALTHAbsolute Immature GranulocyteBON SECOURS MERCY HEALTHAbsolute Lymph #1.62[facility] HEALTHAbsolute Kinney #0.40[facility] HEALTHBasophils (Bld) [#/Vol]0.04 10*3/uLBON SECOURS MERCY HEALTH Basophils/100 WBC (Bld)1 %0 - 2 %[facility]CY HEALTHEosinophils/100 WBC (Bld)2 %1 - 4 %[facility]CY HEALTHHematocrit (Bld) [Volume fraction]42.9 % 36.3 - 47.1 %[facility] K[facility]'S DAUGHTERSHemoglobin (Bld) [Mass/Vol]13.9 g/dL11.9 - 15.1 g/dLBON SECFAIRFIELD MEDICAL CENTERImmature granulocytes/100 WBC (Bld)0 %0B[facility] HEALTH SYSTEMInterpretation and review of laboratory resultsAbnormalBON MEMORIAL HEALTH SYSTEMLymphocytes/100 WBC (Bld)26 %24 - 43 %BON [facility] HOSPITALH (RBC) [Entitic mass]32.1 pg25.2 - 33.5 pgBON DAYTON OSTEOPATHIC HOSPITALHC (RBC) [Mass/Vol]32.4 g/dL28.4 - 34.8 g/dLBON SECKETTERING HEALTH MIAMISBURGV (RBC) [Entitic vol]99.1 fL82.6 - 102.9 fLCHILDREN'S HOSPITAL OF THE KING'S DAUGHTERSMonocytes/100 WBC (Bld)7 %3 - 12 %[facility] K[facility]'S DAUGHTERSNRBC Automated0.00.0 per 100 WBCBON MEMORIAL HEALTH SYSTEMPlatelet distribution width (Bld) [Ratio]11.4 %Low11.8 - 14.4 %[facility] DAUGHTERSPlatelet mean volume (Bld) [Entitic vol]11.2 fL8.1 - 13.5 fLMOUNTAIN STATES HEALTH ALLIANCE HEALTHPlatelets (Bld) [#/Vol]202 10*3/uLBON MEMORIAL HEALTH SYSTEMRBC (Bld) [#/Vol]4.33 10*6/uL3.95 - 5.11 m/uLCHILDREN'S HOSPITAL OF THE KING'S DAUGHTERSSegmented neutrophils/100 WBC (Bld)64 %36 - 65 %[facility]TERS Segs Absolute4.00B[facility] MEMORIAL HEALTH SYSTEMWBC (Bld) [#/Vol]6.2 10*3/uLBON [facility] HEALTH SYSTEMCBC with Diffon [id number]. Basophil0.04 k/uLNormal0.00-0.20MerHartford HospitalComment on above:Performed By: #### FT3, FT4, LIPR, VD25 #### [employer] [address] [place] [address] [employer]: Durga Markham MD #### BMP, LIVP, CDP, TSH #### [address] [place] [address] [employer]: Lee Rojas.Imm.Granulocyte<0.72Vjbkpt0.00-0.30[facility] on above:Performed By: #### FT3, FT4, LIPR, VD25 #### [address] [address] [employer]: Durga Markham MD #### BMP, LIVP, CDP, TSH #### [address] [place] [address] [employer]: Lee Rojas.Neutrophil (Seg)4.00 k/uLNormal1.50-8.10Ohio[facility] Grant Medical CenterComment on above:Performed By: #### FT3, FT4, LIPR, VD25 #### [place] [address] [employer]: Durga Markham MD #### BMP, LIVP, CDP, TSH #### [address] [place] [address] [employer]: Guillermo Hay MDBasophils/100 WBC (Bld)1 %Normal0-2MSelect Medical Cleveland Clinic Rehabilitation Hospital, Edwin ShawComment on above:Performed By: #### FT3, FT4, LIPR, VD25 #### [address] [address] [employer]: Durga Markham MD #### BMP, LIVP, CDP, TSH #### [address] [place] [phone] [employer]: Guillermo Hay MDEosinophils (Bld) [#/Vol]0.11 10*3/uLNormal 0.00-0.44Mer[facility] Cannonville HospitalComment on above:Performed By: #### FT3, FT4, LIPR, VD25 #### [address] [address] [employer]: Durga Markham MD #### BMP, LIVP, CDP, TSH #### [address] [place] [phone] [employer]: Guillermo Hay MDEosinophils/100 WBC (Bld)2 %Normal1-4[facility] HospitalComment on above:Performed By: #### FT3, FT4, LIPR, VD25 #### [place] [address] [employer]: Durga Markham MD #### BMP, LIVP, CDP, TSH #### [address] [place] [phone] [employer]: Guillermo Hay MDErythrocyte distribution width (RBC) [Ratio]11.4 % Low11.8-14.4Ohio[facility] Grant Medical CenterComment on above:Performed By: #### FT3, FT4, LIPR, VD25 #### [place] [address] [employer]: Durga Markham MD #### BMP, LIVP, CDP, TSH #### [address] [place] [phone] [employer]: Guillermo Hay MDHematocrit (Bld) [Volume fraction]42.9 %Normal 36.3-47.1Mer[facility] Medical CenterComment on above:Performed By: #### FT3, FT4, LIPR, VD25 #### [address] [address] [employer]: Durga Markham MD #### BMP, LIVP, CDP, TSH #### [address] [place] [phone] [employer]: Guillermo Hay MDHemoglobin (Bld) [Mass/Vol]13.9 g/dLNormal 11.9-15.1MSelect Medical Cleveland Clinic Rehabilitation Hospital, Edwin ShawComment on above:Performed By: #### FT3, FT4, LIPR, VD25 #### [address] [address] [employer]: Durga Markham MD #### BMP, LIVP, CDP, TSH #### [address] [place] [address] [employer]: Guillermo Hay MDImmature granulocytes/100 WBC (Bld)0 %Dyguno0CntrbOhiohealth Grant Medical CenterComment on above:Performed By: #### FT3, FT4, LIPR, VD25 #### [place] [address] [employer]: Durga Markham MD #### BMP, LIVP, CDP, TSH #### [address] [place] [phone] [employer]: Guillermo Hay MDLymphocytes (Bld) [#/Vol]1.62 10*3/uLNormal 1.10-3.70Ohio[facility] Grant Medical CenterComment on above:Performed By: #### FT3, FT4, LIPR, VD25 #### [place] [address] [employer]: Durga Markham MD #### BMP, LIVP, CDP, TSH #### [address] [place] [phone] [employer]: Guillermo Hay MDLymphocytes/100 WBC (Bld)26 %Jfijyp60-64UdrvcOhiohealth Grant Medical CenterComment on above:Performed By: #### FT3, FT4, LIPR, VD25 #### [address] [address] [employer]: Durga Markham MD #### BMP, LIVP, CDP, TSH #### [address] [place], [place] [phone] [employer]: SAMANTHA Rojas (RBC) [Entitic mass]32.1 nkAxwijm60.2-33.5 [facility] CenterComment on above:Performed By: #### FT3, FT4, LIPR, VD25 #### [address] [address] [employer]: Durga Markham MD #### BMP, LIVP, CDP, TSH #### [address] [place] [phone] [employer]: SAMANTHA RojasC (RBC) [Mass/Vol]32.4 g/sZPlbufn44.4-34.8Ohio[facility] Medical CenterComment on above:Performed By: #### FT3, FT4, LIPR, VD25 #### [address] [address] [employer]: Durga Markham MD #### BMP, LIVP, CDP, TSH #### [address] [place] [phone] [employer]: MOMO RojasCV (RBC) [Entitic vol]99.1 wKFkztob68.6-102.9 [facility] CenterComment on above:Performed By: #### FT3, FT4, LIPR, VD25 #### [address] [address] [employer]: Durga Markham MD #### BMP, LIVP, CDP, TSH #### [address] [place], [place] [phone] [employer]iner: MOMO Rojasonocytes (Bld) [#/Vol]0.40 10*3/uLNormal0.10-1.20 [facility] CenterComment on above:Performed By: #### FT3, FT4, LIPR, VD25 #### [address] [address] [employer]: Durga Markham MD #### BMP, LIVP, CDP, TSH #### [address] [place] [phone] [employer]: MOMO Rojasonocytes/100 WBC (Bld)7 %Normal3-12Ohio[facility] Grant Medical CenterComment on above:Performed By: #### FT3, FT4, LIPR, VD25 #### [place] [address] [employer]: Durga Markham MD #### BMP, LIVP, CDP, TSH #### [address] [place] [phone] [employer]: Guillermo Hay MDNeutrophil (Seg)64 %Bxupfd73-99ClcjbOhiohealth Grant Medical CenterComment on above:Performed By: #### FT3, FT4, LIPR, VD25 #### [place] [address] [employer]: Durga Markham MD #### BMP, LIVP, CDP, TSH #### [address] [place] [phone] [employer]: Guillermo Hay MDNRBC Automated0.0 per 100 WBCNormal0.0Ohio[facility] Grant Medical CenterComment on above:Performed By: #### FT3, FT4, LIPR, VD25 #### [place] [id number] [employer]: Durga Markham MD #### BMP, LIVP, CDP, TSH #### [address] [place] [phone] [employer]iner: Zahra Rojas mean volume (Bld) [Entitic vol]11.2 fL Normal8.1-13.5Ohio[facility] Grant Medical CenterComment on above:Performed By: #### FT3, FT4, LIPR, VD25 #### [address] [address] [employer]: Durga Markham MD #### BMP, LIVP, CDP, TSH #### [address] [place] [address] [employer]: Feroz Rojas (Bld) [#/Vol]202 10*3/fIVmfcxm494-936 [facility] CenterComment on above:Performed By: #### FT3, FT4, LIPR, VD25 #### [address] [address] [employer]: Durga Markham MD #### BMP, LIVP, CDP, TSH #### [address] [place] [address] [employer]: LANDEN Rojas (Bld) [#/Vol]4.33 10*6/uLNormal3.95-5.11[facility] Medical CenterComment on above:Performed By: #### FT3, FT4, LIPR, VD25 #### [address] [address] [employer]: Durga Markham MD #### BMP, LIVP, CDP, TSH #### [address] [place] [phone] [employer]: Guillermo Hay MDIAIN (Bld) [#/Vol]6.2 10*3/uLNormal3.5-11.3MSelect Medical Cleveland Clinic Rehabilitation Hospital, Edwin ShawComment on above:Performed By: #### FT3, FT4, LIPR, VD25 #### [employer] [address] [place], [place] [phone] [employer]iner: Durga Markham MD #### BMP, LIVP, CDP, TSH #### [facility] [address] [place] [address] [place] [address] [employer]: Guillermo Hay MDHepatic Function Panelon [id number] [Mass/Vol]4.2 g/dL3.5 - 5.2 g/dLBON MEMORIAL HEALTH SYSTEMAlbumin/Globulin [Mass ratio]1.6 {ratio}1.0 - 2.5B[facility] MEMORIAL HEALTH SYSTEMALP (Bld) [Catalytic activity/Vol]96 U/L35 - 104 U/LBON [facility] HEALTHALT [Catalytic activity/Vol]37 U/LHigh5 - 33 U/LBON [facility] HEALTHAST [Catalytic activity/Vol]29 U/LNINF - 32 U/LBON [facility] HEALTHBilirubin [Mass/Vol]0.2 mg/dLLow0.3 - 1.2 mg/dLBON MEMORIAL HEALTH SYSTEMBilirubin, IndirectCan not be calculated0.0 - 1.0 mg/dLBON MEMORIAL HEALTH SYSTEMBilirubin.indirect [Mass/Vol] mg/dLNINF - 0.3 mg/dLBON MEMORIAL HEALTH SYSTEMProtein [Mass/Vol]6.9 g/dL6.4 - 8.3 g/dLBON MEMORIAL HEALTH SYSTEMLiver Profileon [id number] [Mass/Vol]4.2 g/dLNormal3.5-5.2[facility] Medical CenterComment on above:Performed By: #### FT3, FT4, LIPR, VD25 #### [facility] [employer] [address] [place], [place] [id number] [employer]: Durga Markham MD #### BMP, LIVP, CDP, TSH #### [facility] [address] [place] [address] [place] [address] [employer]: Guillermo Hay MDAlbumin/Glob Ratio1.8Rydcim3.0-2.5[facility] Medical CenterComment on above:Performed By: #### FT3, FT4, LIPR, VD25 #### [address] [address] [employer]: Durga Markham MD #### BMP, LIVP, CDP, TSH #### [address] [place] [id number] [employer]: Ephraim Rojas Phos96 U/[id number] Grant Medical CenterComment on above:Performed By: #### FT3, FT4, LIPR, VD25 #### [place] [address] [employer]: Durga Markham MD #### BMP, LIVP, CDP, TSH #### [address] [place] [id number] [employer]: WOLF Rojas [Catalytic activity/Vol]37 U/LHigh5-33[facility] CenterComment on above:Performed By: #### FT3, FT4, LIPR, VD25 #### [place] [address] [employer]: Durga Markham MD #### BMP, LIVP, CDP, TSH #### [address] [place] [id number] [employer]: GIANNA Rojas [Catalytic activity/Vol]29 U/LNormal<32[facility] CenterComment on above:Performed By: #### FT3, FT4, LIPR, VD25 #### [address] [address] [employer]: Durga Markham MD #### BMP, LIVP, CDP, TSH #### [address] [place] [id number] [employer]: Guillermo Hay MDBilirubin [Mass/Vol]0.2 mg/dLLow0.3-1.2[facility] HospitalComment on above:Performed By: #### FT3, FT4, LIPR, VD25 #### [address] [address] [employer]: Durga Markham MD #### BMP, LIVP, CDP, TSH #### [address] [place] [id number] [employer]: Guillermo Hay MDBilirubin, IndirectCan not be calculatedNormal 0.0-1.0MerEast [facility] Hospital HospitalComment on above:Performed By: #### FT3, FT4, LIPR, VD25 #### [address] [address] [employer]: Durga Markham MD #### BMP, LIVP, CDP, TSH #### [address] [place] [id number] [employer]: Guillermo Hay MDBilirubin.indirect [Mass/Vol]mg/dLNormal<0.3[facility] CenterComment on above:Performed By: #### FT3, FT4, LIPR, VD25 #### [address] [address] [employer]: Durga Markham MD #### BMP, LIVP, CDP, TSH #### [address] [place] [phone] [employer]: JOHNNY Rojasrotein [Mass/Vol]6.9 g/dLNormal6.4-8.3[facility] HospitalComment on above:Performed By: #### FT3, FT4, LIPR, VD25 #### [address] [address] Meat Loiner: Durga Markham MD #### BMP, LIVP, CDP, TSH #### [address] [place] [address] Meat Loiner: Guillermo Hay MDNo Panel Informationon [id number] MEMORIAL HEALTH SYSTEMInterpretation and review of laboratory resultsAbnormalBON BROOKINGS HEALTH SYSTEMT3, Free [id number] T3 [Mass/Vol]2.67 pg/mL Normal2.02-4.43Ohiohealth Grant Medical CenterComment on above:Performed By: #### FT3, FT4, LIPR, VD25 #### [facility] [employer] [address] [place] [address] Meat Loiner: Durga Markham MD #### BMP, LIVP, CDP, TSH #### [address] [place] [address] Meat Loiner: Guillermo Hay MDFree T3 [Mass/Vol]2.67 pg/mL2.02 - 4.43 pg/mLCHILDREN'S HOSPITAL OF THE KING'S DAUGHTERST4, [facility] 10-58-5253Kophmmknp, Free1.53 ng/dL0.93 - 1.70 ng/dLBON BROOKINGS HEALTH SYSTEMTSHon 46-39-6532TIV Qn0.28 m[IU]/LLowCHILDREN'S HOSPITAL OF THE KING'S DAUGHTERSThyroid Stim. Horm.on 97-36-9312Heejgit Stim. Horm.0.28 uIU/mLLow0.30-5.00Ohiohealth Grant Medical CenterComment on above:Performed By: #### FT3, FT4, LIPR, VD25 #### [facility] [employer] [address] [place] [address] Meat Loiner: Dugra Markham MD #### BMP, LIVP, CDP, TSH #### [address] [place] [address] Meat Loiner: Guillermo Hay MDThyroxine, [facility] 27-46-2730Clkgpqboo, Free1.53 ng/dLNormal0.93-1.70Ohiohealth Grant Medical CenterComment on above:Performed By: #### FT3, FT4, LIPR, VD25 #### [address] [place] [address] Meat Loiner: Durga Markham MD #### BMP, LIVP, CDP, TSH #### [address] [place] [address] Meat Loiner: Guillermo Hay MDVitamin D 25 Hydroxyon 09-49-4345Qdw D, 25-Hydroxy 43.7 ng/mL29.9 - PINF ng/mLBON SECFAIRFIELD MEDICAL CENTERComment on above: Reference Range: Vitamin D status Range Deficiency <20 ng/mL Mild Deficiency 20-30 ng/mL Sufficiency 30-100 ng/mL Toxicity >100 ng/mL Vitamin D 25 OHon 38-23-0701Eycsfet D 25 OH43.7 ng/mLNormal>29.9Ohiohealth Grant Medical CenterComment on above:Result Comment: Reference Range: Vitamin D status Range Deficiency <20 ng/mL Mild Deficiency 20-30 ng/mL Sufficiency 30-100 ng/mL Toxicity >100 ng/mLPerformed By: #### FT3, FT4, LIPR, VD25 #### [address] [id number] Meat Loiner: Durga Markham MD #### SUE, LIVP, CDP, TSH #### [address] [place] [address] Meat Loiner: Guillermo Hay, [facility] DIFFon 97-98-9764Rvb Baso Auto< Normal0.00-0.15OhGerman HospitalComment on above: Performed By: #### [id number] #### [facility] (DEFAULT) [address] [place] [address] 523[address]Iut Eos Auto<Normal0.00-0.42OhGerman HospitalComment on above:Performed By: #### [id number] #### [facility] (DEFAULT) [address] [place] [address] 22187Sajgeiszh/100 WBC (Bld)0.3 %[facility] Hospital for RehabilitationComment on above:Performed By: #### [id number] #### [facility] (DEFAULT) [address] [place] [address] 579[address]DCOU STATUSElectronic DifferentialNormalOhio Pike Community HospitalComment on above:Performed By: #### [id number] #### [facility] (DEFAULT) [address] [place] [address] 27197Acmrnsdhnlb/100 WBC (Bld)0.2 %[facility] Hospital for RehabilitationComment on above:Performed By: #### [id number] #### [facility] (DEFAULT) [address] [place] [address] 31161Otfmqctejg (Bld) [Volume fraction]34.3 %Low34.9-44.3L[facility] HospitalComment on above:Performed By: #### [id number] #### [facility] (DEFAULT) [address] [place] [address] 79478Usdkoyersm (Bld) [Mass/Vol]12.0 g/oANshiri41.4-15.2[facility] HospitalComment on above:Performed By: #### [id number] #### [facility] (DEFAULT) [address] [place] [address]16[address]Vtckgunk Grans %0.6 %[facility] Hospital for RehabilitationComment on above:Performed By: #### [id number] #### [facility] (DEFAULT) [address] [place] [address] 20888Pwlncips Grans Absolute0.07 K/uLNormal<=0.08L[facility] HospitalComment on above:Performed By: #### [id number] #### [facility] (DEFAULT) [address] [place] [address] 488[address]Jwpbupfzibl (Bld) [#/Vol]1.71 10*3/uLNormal1.16-3.51[facility] HospitalComment on above:Performed By: #### [id number] #### [facility] (DEFAULT) [address] [place] [address] 96438Ywrjvwcbmsj/100 WBC (Bld)15.1 %NormalLicking Memorial HospitalComment on above:Performed By: #### [id number] #### [facility] (DEFAULT) [address] [place] [address] 96009VMQ (RBC) [Entitic vol]91.7 wTWpcyed34.6-97.7L[facility] HospitalComment on above:Performed By: #### [id number] #### [facility] (DEFAULT) [address] [place] [address] 57416Awmg Cell Hgb32.1 qfDpmsxp44.9-33.9[facility] HospitalComment on above:Performed By: #### [id number] #### [facility] (DEFAULT) [address] [place] [address] 996[address]Tanw Cell Hgb Conc35.0 g/tDZxtpka53.4-35.9[facility] HospitalComment on above:Performed By: #### [id number] #### [facility] (DEFAULT) [address] [place] [address] 80498Qbmegjxtt (Bld) [#/Vol]0.92 10*3/uLHigh0.22-0.87L[facility] HospitalComment on above:Performed By: #### [id number] #### [facility] (DEFAULT) [address] [place] [address] 647[address]Erlwumtwh/100 WBC (Bld)8.1 %NormalLicking Memorial HospitalComment on above:Performed By: #### [id number] #### [facility] (DEFAULT) [address] [place] [address] 24158Ozggkjltl RBC0.0 /100 WBCNormal<=0.2[facility] HospitalComment on above:Performed By: #### [id number] #### [facility] (DEFAULT) [address] [place] [address] 12672Ouvlridq mean volume (Bld) [Entitic vol]10.8 fLNormal8.5-12.2 [facility] HospitalComment on above:Performed By: #### [id number] #### [facility] (DEFAULT) [address] [place] [address] 20344Ltmpfugmh (Bld) [#/Vol]209 10*3/cQStngaj513-890FvadLicking Memorial HospitalComment on above:Performed By: #### [id number] #### [facility] (DEFAULT) [address] [place] [address] 47484TZU (Bld) [#/Vol]3.74 10*6/uLLow3.91-5.04[facility] HospitalComment on above:Performed By: #### [id number] #### [facility] (DEFAULT) [address] [place] [address] 434[address]QOS Lbyiypsqvlct46.7 %Stavky94.8-14.9[facility] HospitalComment on above:Performed By: #### [id number] #### [facility] (DEFAULT) [address] [place] [address] 014[address]Wziw + Bands Auto75.7 %NormalLicking Memorial HospitalComment on above:Performed By: #### [id number] #### [facility] (DEFAULT) [address] [place] [address] 47[address]Tfwb + Bands,Absolute Auto8.56 K/uLHigh1.64-7.28[facility] HospitalComment on above:Performed By: #### [id number] #### [facility] (DEFAULT) [address] [place] [address] 360[address]OIF (Bld) [#/Vol]11.31 10*3/uLHigh3.99-11.19[facility] HospitalComment on above:Performed By: #### [id number] #### [facility] (DEFAULT) [address] [place] [address] 095[address]Uhgdowahe (Bld) [#/Vol]K/uL0.00 - 0.15 K/uLMarymount HospitalBasophils/100 WBC (Bld)0.3 %[facility] HospitalDifferential cell count method Nom (Bld)Electronic DifferentialMarymount Hospital Eosinophils (Bld) [#/Vol]K/uL0.00 - 0.42 K/uLMarymount Hospital Eosinophils/100 WBC (Bld)0.2 %Marymount HospitalErythrocyte distribution width (RBC) [Ratio]11.7 %10.8 - 14.9 %[facility] HospitalHematocrit (Bld) [Volume fraction]34.3 %Low34.9 - 44.3 %[facility] HospitalHemoglobin (Bld) [Mass/Vol]12.0 g/dL11.4 - 15.2 g/dLMarymount HospitalImmature granulocytes (Bld) [#/Vol]0.07 10*3/uLNINF - 0.08 /[facility] Immature granulocytes/100 WBC (Bld)0.6 %[facility] HospitalInterpretation and review of laboratory resultsAbnormalOMercy Health Fairfield HospitalLymphocytes (Bld) [#/Vol]1.71 10*3/uL1.16 - 3.51 K/uLMarymount Hospital Lymphocytes/100 WBC (Bld)15.1 %[facility] HospitalMCH (RBC) [Entitic mass] 32.1 pg25.9 - 33.9 pgOSMagruder Memorial HospitalMCHC (RBC) [Mass/Vol]35.0 g/dL31.4 - 35.9 g/dLMarymount HospitalMCV (RBC) [Entitic vol]91.7 fL79.6 - 97.7 German HospitalMonocytes (Bld) [#/Vol]0.92 10*3/uLHigh0.22 - 0.87 K/[facility] HospitalMonocytes/100 WBC (Bld)8.1 %[facility] HospitalNeutrophils (Bld) [#/Vol]8.56 10*3/uLHigh1.64 - 7.28 K/[facility] HospitalNucleated RBC/100 WBC (Bld) [Ratio]0.0 %NINTrinity Health SystemPlatelet mean volume (Bld) [Entitic vol]10.8 fL8.5 - 12.2 German HospitalPlatelets (Bld) [#/Vol]209 10*3/uL150 - 393 K/[facility] HospitalRBC (Bld) [#/Vol]3.74 10*6/uLLowU East Ohio Regional Hospitalegmented neutrophils/100 WBC (Bld)75.7 %[facility] HospitalWBC (Bld) [#/Vol]11.31 10*3/uLHigh3.99 - 11.19 K/[facility] CHEM 7 (LYTES,BUN,CREA,GLUC)on 45-61-0947Jyxrm gap [Moles/Vol]11 mmol/LNormal 7-17[facility] HospitalComment on above:Performed By: #### CHM7 #### [facility] (DEFAULT) [address] [address]Ymnnzuhk [Moles/Vol]108 mmol/PIvhhzk80-391FdkdLicking Memorial HospitalComment on above:Performed By: #### CHM7 #### [facility] (DEFAULT) [address] [address]AX2 [Moles/Vol]26 mmol/EWmjqvh13-21DfmqLicking Memorial HospitalComment on above:Performed By: #### CHM7 #### [facility] (DEFAULT) [address] [address]Mrkzjqfrzm [Mass/Vol]0.90 mg/dLNormal0.50-1.20[facility] HospitalComment on above:Performed By: #### CHM7 #### [facility] (DEFAULT) [address] [place] [address] 39[address]QHK/1.73 sq M.predicted among non-blacks MDRD (S/P/Bld) [Vol rate/Area]75 mL/min/{1.73_m2}Normal>=60[facility] HospitalComment on above:Result Comment: Reported eGFR is based on the CKD-EPI 2020 equation using creatinine, age, and sex.Performed By: #### CHM7 #### [facility] (DEFAULT) [address] [place] [address] 690[address]Aljooqd [Mass/Vol]93 mg/pLYgqmjk40-20IsshLicking Memorial HospitalComment on above:Performed By: #### CHM7 #### [facility] (DEFAULT) [address] [place] [address] 38156Zebkrrtjdh [Osmolality]295 mosm/zzJxeovn350-287BcpnLicking Memorial HospitalComment on above:Performed By: #### CHM7 #### [facility] (DEFAULT) [address] [place] [address] 21782Mefjmiglq [Moles/Vol]4.1 mmol/LNormal3.5-5.0[facility] HospitalComment on above:Performed By: #### CHM7 #### [facility] (DEFAULT) [address] [place] [address] 676[address]Akyfaw [Moles/Vol]141 mmol/YMerjnj235-908JunuLicking Memorial HospitalComment on above:Performed By: #### CHM7 #### [facility] (DEFAULT) [address] [place] [address] 39161Rjzt nitrogen [Mass/Vol]15 mg/dLNormal7-25[facility] HospitalComment on above:Performed By: #### CHM7 #### [facility] (DEFAULT) [address] [place] [address] 00248Tkwo nitrogen/Creatinine [Mass ratio]17 mg/mgNormalOhio Pike Community HospitalComment on above:Performed By: #### CHM7 #### [facility] (DEFAULT) [address] [place] [address] 50523Ngawy gap [Moles/Vol]11 mmol/L7 - 17 mmol/[facility] Medical CenterChloride [Moles/Vol]108 mmol/L98 - 108 mmol/[facility] CenterCO2 [Moles/Vol]26 mmol/L21 - 31 mmol/[facility] CenterCreatinine [Mass/Vol] 0.90 mg/dL0.50 - 1.20 mg/dLMarymount HospitalGFR/1.73 sq M.predicted CKD- EPI (S/P/Bld) [Vol rate/Area]75- [facility] HospitalComment on above: Reported eGFR is based on the CKD-EPI 2020 equation using creatinine, age, and sex.Glucose [Mass/Vol]93 mg/dL70 - 99 mg/dLMarymount HospitalOsmolality Calc [Osmolality]295OSMagruder Memorial HospitalPotassium [Moles/Vol]4.1 mmol/L3.5 - 5.0 mmol/[facility]inton Memorial Hospitalodium [Moles/Vol]141 mmol/L135 - 145 mmol/[facility] Medical CenterUrea nitrogen [Mass/Vol]15 mg/dL7 - 25 mg/dLMarymount HospitalUrea nitrogen/Creatinine [Mass ratio]17 mg/mgSt. Helena Hospital ClearlakeCARDIAC RHYTHM (SCANNED)on 46-20-9334DPVMercy Health Fairfield HospitalCBC,PLATELETSon 71-86-4909Phgaoknzgcg distribution width (RBC) [Ratio]11.9 %10.8 - 14.9 %[facility]mount HospitalHematocrit (Bld) [Volume fraction]41.6 %34.9 - 44.3 %[facility] HospitalHemoglobin (Bld) [Mass/Vol]14.0 g/dL11.4 - 15.2 g/dLMarymount HospitalInterpretation and review of laboratory resultsNormalOMercy Health Fairfield HospitalMCH (RBC) [Entitic mass]32.0 pg25.9 - 33.9 pgMarymount HospitalMCHC (RBC) [Mass/Vol]33.7 g/dL31.4 - 35.9 g/dLMarymount HospitalMCV (RBC) [Entitic vol]95.2 fL79.6 - 97.7 German HospitalPlatelet mean volume (Bld) [Entitic vol]11.1 fL8.5 - 12.2 German HospitalPlatelets (Bld) [#/Vol]246 10*3/uL150 - 393 K/[facility] HospitalRBC (Bld) [#/Vol]4.37 10*6/[facility] HospitalWBC (Bld) [#/Vol]7.07 10*3/uL3.99 - 11.19 K/[facility] Medical CenterHematocrit (Bld) [Volume fraction]41.6 %Foenxz70.9-44.3 [facility] HospitalComment on above:Performed By: #### HEMOGC #### [facility] (DEFAULT) [address] [place] [address] 39152Ydsbkngcrx (Bld) [Mass/Vol]14.0 g/jHLfeuyl02.4-15.2[facility] HospitalComment on above:Performed By: #### HEMOGC #### [facility] (DEFAULT) [address] [place], [place] [address]IAN (RBC) [Entitic vol]95.2 dHWkosnw90.6-97.7L[facility] HospitalComment on above:Performed By: #### HEMOGC #### [facility] (DEFAULT) [address] [place] [address] 19673Lbao Cell Hgb32.0 obSyfhbb05.9-33.9[facility] HospitalComment on above:Performed By: #### HEMOGC #### [facility] (DEFAULT) [address] [place], [place] [address]Weyn Cell Hgb Conc33.7 g/jFKpmbng52.4-35.9[facility] HospitalComment on above:Performed By: #### HEMOGC #### [facility] (DEFAULT) [address] [place] [address] 13887Ptgjnzyp mean volume (Bld) [Entitic vol]11.1 fLNormal8.5-12.2 [facility] HospitalComment on above:Performed By: #### HEMOGC #### [facility] (DEFAULT) [address] [place] [address] 13839Pqdspqrlj (Bld) [#/Vol]246 10*3/iRPewyyf316-573FoqpLicking Memorial HospitalComment on above:Performed By: #### HEMOGC #### [facility] (DEFAULT) [address] [place] [address] 97270FTW (Bld) [#/Vol]4.37 10*6/uLNormal3.91-5.04[facility] HospitalComment on above:Performed By: #### HEMOGC #### [facility] (DEFAULT) [address] [place] [address] 67939WLW Noplxsghlbjt66.9 %Trulcm46.8-14.9[facility] HospitalComment on above:Performed By: #### HEMOGC #### [facility] (DEFAULT) [address] [place] [address] 21831NLG (Bld) [#/Vol]7.07 10*3/uLNormal3.99-11.19[facility] HospitalComment on above:Performed By: #### HEMOGC #### [facility] (DEFAULT) [address] [place] [address] 55768FLGJ 6 (LYTES, BUN CREA)on 86-81-5390Lkubj gap [Moles/Vol]11 mmol/L7 - 17 mmol/[facility] CenterChloride [Moles/Vol]103 mmol/L98 - 108 mmol/[facility] Medical CenterCO2 [Moles/Vol]30 mmol/L21 - 31 mmol/[facility] CenterCreatinine [Mass/Vol]0.87 mg/dL0.50 - 1.20 mg/dLMarymount HospitalGFR/1.73 sq M.predicted CKD-EPI (S/P/Bld) [Vol rate/Area]78- PINF [facility] HospitalComment on above:Reported eGFR is based on the CKD-EPI 2020 equation using creatinine, age, and sex.Potassium [Moles/Vol]4.0 mmol/L3.5 - 5.0 mmol/[facility]inton Memorial Hospitalodium [Moles/Vol]140 mmol/L135 - 145 mmol/[facility] Medical CenterUrea nitrogen [Mass/Vol]24 mg/dL7 - 25 mg/dLMarymount HospitalUrea nitrogen/Creatinine [Mass ratio]28 mg/mgSt. Helena Hospital ClearlakeAnion gap [Moles/Vol]11 mmol/LNormal7-17 [facility] HospitalComment on above:Performed By: #### CHM6 #### [facility] (DEFAULT) [address] [address]Rtccizhk [Moles/Vol]103 mmol/UJznsas13-085QmeeLicking Memorial HospitalComment on above:Performed By: #### CHM6 #### [facility] (DEFAULT) [address] [place] [address] 06663OU6 [Moles/Vol]30 mmol/RBpsobo99-64OwsvLicking Memorial HospitalComment on above:Performed By: #### CHM6 #### [facility] (DEFAULT) [address] [address]Wffktyedoc [Mass/Vol]0.87 mg/dLNormal0.50-1.20[facility] HospitalComment on above:Performed By: #### CHM6 #### [facility] (DEFAULT) [address] [place] [address] 97859BHY/1.73 sq M.predicted among non-blacks MDRD (S/P/Bld) [Vol rate/Area]78 mL/min/{1.73_m2}Normal>=60[facility] HospitalComment on above:Result Comment: Reported eGFR is based on the CKD-EPI 2020 equation using creatinine, age, and sex.Performed By: #### CHM6 #### [facility] (DEFAULT) [address] [place] [address] 23793Hvugeefsl [Moles/Vol]4.0 mmol/LNormal3.5-5.0[facility] HospitalComment on above:Performed By: #### CHM6 #### [facility] (DEFAULT) [address] [address]Divcpj [Moles/Vol]140 mmol/EPegoim024-233FvtxLicking Memorial HospitalComment on above:Performed By: #### CHM6 #### [facility] (DEFAULT) [address] [address]Akde nitrogen [Mass/Vol]24 mg/dLNormal7-25[facility] HospitalComment on above:Performed By: #### CHM6 #### [facility] (DEFAULT) [address] [address]Xrnj nitrogen/Creatinine [Mass ratio]28 mg/mgNoalOOhioHealth Shelby HospitalComment on above:Performed By: #### CHM6 #### [facility] (DEFAULT) [address] [address]PJB ACOG PANEL 2: 30 to 65on 05-22-2022..[address]Mer[address] Health St. Elizabeth Youngstown HospitalComment on above:Result Comment: Performed at: WBPerformed By: #### [id number] #### [facility] [address] [place] [address] Dr. Kim Echeverria Gdln ACOG Jyjsqng07-79YjvbtfUtsLake County Memorial Hospital - WestComment on above:Performed By: #### [id number] #### [facility] [address] [place] [address] Dr. Kim FrancisDIAGNOSIS:CommentNoFisher-Titus Medical Center on above: Result Comment: NEGATIVE FOR INTRAEPITHELIAL LESION OR MALIGNANCY. Performed at: WBPerformed By: #### [id number] #### [facility] [address] [place] [address] Dr. Kim FrancisHPV AptimaNegativeNormalNegativeThe [facility] on above:Result Comment: This nucleic acid amplification test detects fourteen high-risk HPV types (16,18,31,33,35,39,45,51,52,56,58,59,66,68) without differentiation. Performed at: =GPerformed By: #### [id number] #### [facility] [address] [place] [address] Dr. Kim FrancisMethodology:CommentNoFisher-Titus Medical Center on above: Result Comment: This liquid based ThinPrep(R) pap test was screened with the use of an image guided system. Performed at: WBPerformed By: #### [id number] #### [place] [address] [address] Kim FrancisNote:CommentCleveland Clinic Euclid Hospital on above:Result Comment: The Pap smear is a screening test designed to aid in the detection of premalignant and malignant conditions of the uterine cervix. It is not a diagnostic procedure and should not be used as the sole means of detecting cervical cancer. Both false-positive and false-negative reports do occur. . Performed at: WBPerformed By: #### [id number] #### [facility] [address] [place] [address] Dr. Kim FrancisPerformed by:CommentNormFirelands Regional Medical Center South Campus on above: Result Comment: Juan Diego Domínguez Speech And Hearing Director (ASCP) Performed at: WBPerformed By: #### [id number] #### [facility] [address] [place] [address] Dr. Kim FrancisSpecimen adequacy:CommentCleveland Clinic Euclid Hospital on above:Result Comment: Satisfactory for evaluation. No endocervical cells are present. This is consistent with a history of hysterectomy. Performed at: WBPerformed By: #### [id number] #### [facility] [address] [address] [address] Kim FrancisINTERVENTIONAL UPPER ENDOSCOPYon [id number] [facility] Patient Name: Tiana Orozco Procedure Date: 04/26/2022 11:55 AM Date of : 1965 Admit Type: Outpatient Age: 57 Room: [place] [address] Gender: Female Note Status: Finalized Attending MD: Anisha Tracy MD Procedure: Upper GI endoscopy Indications: Heartburn, Suspected esophageal reflux Providers: Anisha Tracy MD (Doctor), Mer Gramajo RN (Nurse), China Tejeda Logging Operations Inspector (Logging Operations Inspector) Referring MD: NATALIIA Hernandez (Referring MD) Medicines: Fentanyl 100 micrograms IV, [...] Findings: The examined esophagus was normal. The NUNEZ capsule with delivery system was introduced through the mouth and advanced into the esophagus, such that the NUNEZ pH capsule was positioned 33 cm from the incisors, which was 6 cm proximal to the GE junction. The NUNEZ pH capsule was then deployed and attached to the esophageal mucosa. The delivery system was then withdrawn. Endoscopy was utilized for probe placement and diagnostic evaluation. The entire examined stomach was normal. The examined duodenum was normal. Impression: - Normal esophagus. - Normal stomach. - Normal examined duodenum. - The NUNEZ pH capsule was deployed. - No specimens collected. Recommendation: - Discharge patient to home (ambulatory). - Patient has a contact number available for emergencies. The signs and symptoms of potential delayed complications were discussed with the patient. Return to normal activities tomorrow. Written discharge instructions were provided to the patient. - Resume previous diet. - Continue present medications. (more content not included)...LAB, [facility] HospitalRadiology Study observation (narrative)Marymount HospitalMG MAMM SCREEN 3D PO CADon [id number] MAMM SCREEN 3D PO CADPatient: TIANA OROZCO Exam Date: 03/02/2022 : 1965 Gender:F Ordering : DR SAAD GRAY . Admission #: [id number] Family : Order #: [id number] CLICK HERE TO VIEW EXAM RADIOLOGY REPORT [...] lung cancer at age 58. LOCATION: [facility] BREAST COMPOSITION: Heterogeneously dense,which may obscure [...] by: Gaudencio Fountain M.D. on 03/02/2022 at 15:00[facility], Edwin ShawBasi Metabolic Panelon 02-12-2413Ndozp gap [Moles/Vol]9 mmol/L9 - 17 mmol/LMercy HealthCalcium [Mass/Vol]9.7 mg/dL8.6 - 10.4 mg/dLMercy Health Chloride [Moles/Vol]103 mmol/L98 - 107 mmol/LMercy HealthCO2 [Moles/Vol]25 mmol/L20 - 31 mmol/LMercy HealthCreatinine [Mass/Vol]0.73 mg/dL0.50 - 0.90 mg/dL Mercy HealthGFR >60>60 mL/minMercy HealthGFR Non->60>60 mL/minMercy HealthGlucose [Mass/Vol]107 mg/sFYgju97 - 99 mg/dL [facility]cy HealthPotassium [Moles/Vol]4.4 mmol/L3.7 - 5.3 mmol/LMercy HealthSodium [Moles/Vol]137 mmol/L135 - 144 mmol/LMercy HealthUrea nitrogen (BldV) [Mass/Vol] 18 mg/dL6 - 20 mg/dLMercy HealthUrea nitrogen/Creatinine (Bld) [Mass ratio]25 HighMercy HealthCBC Auto Differentialon [id number] Eos #0.19[facility] Absolute Immature Granulocyte<0.03Mercy HealthAbsolute Lymph #1.25[facility] Absolute [place] #0.47Mercy HealthBasophils (Bld) [#/Vol]0.07 10*3/uLMercy Health Basophils/100 WBC (Bld)1 %0 - 2 %Mercy HealthDifferential TypeNOT REPORTEDMercy HealthEosinophils/100 WBC (Bld)3 %1 - 4 %Mercy HealthHematocrit (Bld) [Volume fraction]42.8 %36.3 - 47.1 %Mercy HealthHemoglobin.gastrointestinal spec 1 Ql (Stl)14.3 g/dL11.9 - 15.1 g/dLPaulding County HospitalImmature granulocytes/100 WBC (Bld)0 % 0Paulding County HospitalInterpretation and review of laboratory resultsAbnormalPaulding County Hospital Lymphocytes/100 WBC (Bld)23 %Low24 - 43 %[facility] ([facility]BC) [Entitic mass] 31.8 pg25.2 - 33.5 pgWilson Memorial HospitalHC (RBC) [Mass/Vol]33.4 g/dL28.4 - 34.8 g/dL [facility] HospitalV (RBC) [Entitic vol]95.3 fL82.6 - 102.9 fLPaulding County Hospital Monocytes/100 WBC (Bld)9 %3 - 12 %[facility] HospitalNRBC Automated0.00.0 per 100 WBC [facility] HospitalPlatelet distribution width (Bld) [Ratio]11.6 %Low11.8 - 14.4 %[facility] HospitalPlatelet EstimateNOT REPORTEDOhio State Health System HealthPlatelet mean volume (Bld) [Entitic vol]10.5 fL8.1 - 13.5 fLPaulding County HospitalPlatelets (Bld) [#/Vol]213 10*3/uL [facility] HospitalRBC (Bld) [#/Vol]4.49 10*6/uL3.95 - 5.11 m/uLPaulding County HospitalRBC (Bld) [#/Vol]NOT REPORTEDPaulding County HospitalSegmented neutrophils/100 WBC (Bld)64 %36 - 65 % [facility] HospitalSegs Absolute3.54Paul[facility] HospitalWBC (Bld) [#/Vol]5.5 10*3/uLPaulding County HospitalWBC (Bld) [#/Vol]NOT REPORTEDHolmes County [facility] HealthCovid-19, Antibody, Totalon [id number]-CoV-2 (COVID-19) RNA ABEL+probe Ql (Unsp spec)Positive AbnormalNEGATIVEPaulding County HospitalComment on above: A positive result suggests exposure to SARS-CoV-2 (COVID-19) but does not necessarily indicate immunity. Results from antibody testing should not be used as the sole basis to diagnose or exclude SARS-CoV-2 infection or to inform infection status. This test has been authorized by the FDA under an Emergency Use Authorization (EUA) for use by authorized laboratories. Fact sheet for Healthcare Providers: https://www.fda.gov/media/992382/download Fact sheet for Patients: https://www.fda.gov/media/470468/download METHODOLOGY: ECIA Results reported to the appropriate Health Department Hepatic Function Panelon [id number] [Mass/Vol]4.4 g/dL3.5 - 5.2 g/dLMercy HealthAlbumin/Globulin [Mass ratio]1.7 {ratio}[facility] HealthALP (Bld) [Catalytic activity/Vol]95 U/L35 - 104 U/LMercy HealthALT [Catalytic activity/Vol]29 U/L5 - 33 U/LMercy HealthAST [Catalytic activity/Vol]24 U/L<32Mercy HealthBilirubin [Mass/Vol]0.26 mg/dLLow0.3 - 1.2 mg/dLMercy HealthBilirubin, IndirectConnot be calculated0.00 - 1.00 mg/dLMercy HealthBilirubin.indirect [Mass/Vol]mg/dL<0.31 mg/dLMercy HealthFree PSA/Total PSA [Mass fraction]7.0 g/dL6.4 - 8.3 g/dLMercy HealthGlobulinNOT REPORTED1.5 - 3.8 g/dLMercy HealthLaboratory - Chemistry and Chemistry - challengeon [id number]/1.73 sq M.predicted MDRD (S/P/Bld) [Vol rate/Area][facility] County HospitalComment on above:Average GFR for 50-59 years old: 93 mL/min/1.73sq m Chronic Kidney Disease: <60 mL/min/1.73sq m Kidney failure: <15 mL/min/1.73sq m eGFR calculated using average adult body mass. Additional eGFR calculator available at: http://www.BrandBeau/multiple_crcl_2012.htm Stage 1: Some kidney damage normal GFR Stage 2: Mild kidney damage GFR 60-89 Stage 3: Moderate kidney damage GFR 30-59 Stage 4: Severe kidney damage GFR 15-29 Stage 5: Severe kidney damage GFR <15 ESRD - chronic treatment by dialysis or transplant Lipid Panelon [id number] [Mass/Vol]211 mg/dLHigh<200[facility] Comment on above: Cholesterol Guidelines: <200 Desirable 200-240 Borderline >240 Undesirable Cholesterol in HDL [Mass/Vol]61 mg/dL>40Paul[facility] County HospitalComment on above: HDL Guidelines: <40 Undesirable 40-59 Borderline >59 Desirable Cholesterol in LDL [Mass/Vol]121 mg/dL0 - 130 mg/dLPaulding County HospitalComment on above: LDL Guidelines: <100 Desirable 100-129 Near to/above Desirable 130-159 Borderline >159 Undesirable Direct (measured) LDL and calculated LDL are not interchangeable tests. Cholesterol in VLDL [Mass/Vol]NOT REPORTED1 - 30 mg/dLPaulding County Hospital Cholesterol.total/Cholesterol in HDL [Mass ratio]3.5 {ratio}<5[facility] Interpretation and review of laboratory resultsAbGalion Community HospitalTriglyceride [Mass/Vol]146 mg/dL<150Paul[facility] County HospitalComment on above: Triglyceride Guidelines: <150 Desirable 150-199 Borderline 200-499 High >499 Very high Based on AHA Guidelines for fasting triglyceride, June 2012. [facility] PrivateFlyNo Panel Informationon [id number] and review of laboratory resultsAbnoHospital Sisters Health System St. Vincent HospitalInterpretation and review of laboratory resultsAbnoHospital Sisters Health System St. Vincent HospitalT3, Freeon [id number] T3 [Mass/Vol]3.14 pg/mL2.02 - 4.43 pg/mLPaulding County HospitalT4, Freeon [id number], Free1.30 ng/dL0.93 - 1.70 ng/dLAurora Medical Center– BurlingtonTS without Reflexon [id number] Qn1.48 m[IU]/LMercy HealthVitamin D 25 Hydroxyon 54-62-6091Xel D, 25-Ebtxiec47.8 ng/mLLow30.0 - 100.0 ng/mLPaulding County HospitalComment on above: Reference Range: Vitamin D status Range Deficiency <20 ng/mL Mild Deficiency 20-30 ng/mL Sufficiency 30-100 ng/mL Toxicity >100 ng/mL Basic Metabolic Panelon [id number] gap [Moles/Vol]10 mmol/L9 - 17 mmol/L [facility] PrivateFly- [place], KYBun/Cre Dbjus62Scfjk Health- [place], KYCalcium [Mass/Vol]9.9 mg/dL8.6 - 10.4 mg/dLMercy Health- [place], KYChloride [Moles/Vol]103 mmol/L98 - 107 mmol/LMercy Health- [place], KYCO2 [Moles/Vol]27 mmol/L20 - 31 mmol/LMercy Health- [place], KYCreatinine [Mass/Vol]0.72 mg/dL0.5 - 0.9 mg/dLMercy Health- [place], KYGFR >60>60 mL/minMercy Health- [place], KYGFR Non->60>60 mL/minMercy Health- [place], KYGlucose [Mass/Vol]104 mg/wHOmko78 - 99 mg/dLMercy Health- [place], KYInterpretation and review of laboratory resultsAbnormalOhio State Health System Health- [place], KYPotassium [Moles/Vol]4.4 mmol/L3.7 - 5.3 mmol/LMercy Health- [place], KYSodium [Moles/Vol]140 mmol/L135 - 144 mmol/LMercy Health- [place], KYUrea nitrogen [Mass/Vol]14 mg/dL6 - 20 mg/dLPromedica Memorial Hospitalcy Health- [place], KYCBC Auto Differentialon [id number] (Bld) [#/Vol]0.05 10*3/uLMercy Health- [place], KYBasophils/100 WBC (Bld)1 %0 - 2 %[facility] Health- [place], KYDifferential TypeNOT REPORTEDMer Health- [place], KYEosinophils (Bld) [#/Vol]0.16 10*3/uLMercy Health- [place], [place] Eosinophils/100 WBC (Bld)3 %1 - 4 %[facility]- [place], KYErythrocyte distribution width (RBC) [Ratio]11.6 %Low11.8 - 14.4 %[facility]- [place], KYHematocrit (Bld) [Volume fraction]43.8 %36.3 - 47.1 %[facility]- [place], KYHemoglobin (Bld) [Mass/Vol]14.3 g/dL11.9 - 15.1 g/dLPromedica Memorial Hospitalcy Health- [place], KYImmature granulocytes (Bld) [#/Vol]0 %0[facility]- [place], RAHATImmature granulocytes (Bld) [#/Vol]10*3/uL [facility], RAHATInterpretation and review of laboratory resultsAbnormalGrant Hospital [place], RAHATLymphocytes (Bld) [#/Vol]1.26 10*3/uLPaulding County Hospital- [place], RAHAT Lymphocytes/100 WBC (Bld)22 %Low24 - 43 %[facility], RAHATH (RBC) [Entitic mass]32.1 pg25.2 - 33.5 pgCincinnati [facility], IAMCHC (RBC) [Mass/Vol]32.6 g/dL28.4 - 34.8 g/dLCincinnati VA Medical Center, RAHATV (RBC) [Entitic vol]98.4 fL82.6 - 102.9 fL [facility] CenterRAHATMonocytes (Bld) [#/Vol]0.53 10*3/[facility]- [place], RAHAT Monocytes/100 WBC (Bld)9 %3 - 12 %[facility], RAHATPlatelet mean volume (Bld) [Entitic vol]10.7 fL8.1 - 13.5 fLPaulding County Hospital- [place], RAHATPlatelets (Bld) [#/Vol]NOT REPORTEDCincinnati VA Medical Center, RAHATPlatelets (Bld) [#/Vol]218 10*3/uLPaulding County Hospital- [place], RAHATRBC (Bld) [#/Vol]4.45 10*6/uL3.95 - 5.11 m/[facility]- [place], IARBC morphology finding Nom (Bld)NOT REPORTEDCincinnati [facility] Medical Center, RAHATSegmented neutrophils/100 WBC (Bld)65 %36 - 65 %[facility]- [place], RAHATSegs Absolute3.74[facility]- [place], KYWBC (Bld) [#/Vol]5.8 10*3/uLPaulding County Hospital- [place], KYWBC (Bld) [#/Vol] 0.0 10*3/uL0.0 per 100 WBCPaulding County Hospital- [place], IAWBC MorphologyNOT REPORTEDPaulding County Hospital- [place], RAHATHemoglobin A1Con [id number] [Mass/Vol]111 mg/dLMcLaughlin, KYComment on above:The ADA and AACC recommend providing the estimated average glucose result to permit better patient understanding of their HBA1c result. HbA1c (Bld) [Mass fraction]5.5 %4 - 6 %[place], KYHepatic Function Panelon [id number] [Mass/Vol]4.5 g/dL3.5 - 5.2 g/dLMcLaughlin, [place] Albumin/Globulin [Mass ratio]1.6 {ratio}[facility], IAALP [Catalytic activity/Vol]74 U/L35 - 104 U/LMMercy Health, IAALT [Catalytic activity/Vol] 19 U/L5 - 33 U/LMMercy Health, IAAST [Catalytic activity/Vol]18 U/L<32[place], KYBilirubin Ql (U)0.33 mg/dL0.3 - 1.2 mg/dLMc[place], [place] Bilirubin, IndirectCANNOT BE CALCULATED0 - 1 mg/dLMc[place], [place] Bilirubin.direct [Mass/Vol]mg/dL<0.31 mg/dLMcL[place], KYGlobulin (S) [Mass/Vol]NOT REPORTED1.5 - 3.8 g/dLMcL[place], KYProtein [Mass/Vol]7.4 g/dL6.4 - 8.3 g/dLMcL[place], KYLipid Panelon [id number] [Mass/Vol]212 mg/dLHigh<200[place], KYComment on above: Cholesterol Guidelines: <200 Desirable 200-240 Borderline >240 Undesirable Cholesterol in HDL [Mass/Vol]55 mg/dL>40[place], KYComhawthorn center on above: HDL Guidelines: <40 Undesirable 40-59 Borderline >59 Desirable Cholesterol in LDL [Mass/Vol]121 mg/dL0 - 130 mg/dLMcL[place], KYComhawthorn center on above: LDL Guidelines: <100 Desirable 100-129 Near to/above Desirable 130-159 Borderline >159 Undesirable Direct (measured) LDL and calculated LDL are not interchangeable tests. Cholesterol in VLDL [Mass/Vol]NOT REPORTEDHigh1 - 30 mg/dLMcL[place], [place] Cholesterol.total/Cholesterol in HDL [Mass ratio]3.9 {ratio}<5[place], KYInterpretation and review of laboratory resultsAbnormalMc[place], [place] Triglyceride [Mass/Vol]180 mg/dLHigh<150[place], KYComment on above: Triglyceride Guidelines: <150 Desirable 150-199 Borderline 200-499 High >499 Very high Based on AHA Guidelines for fasting triglyceride, June 2012. Metabolic Panelon [id number]/1.73 sq M predicted among non-blacks MDRD (S/P/Bld) [Vol rate/Area][place], KYComment on above:Stage 1: Some kidney damage normal GFR Stage 2: Mild kidney damage GFR 60-89 Stage 3: Moderate kidney damage GFR 30-59 Stage 4: Severe kidney damage GFR 15-29 Stage 5: Severe kidney damage GFR <15 ESRD - chronic treatment by dialysis or transplant Average GFR for 50-59 years old: 93 mL/min/1.73sq m Chronic Kidney Disease: <60 mL/min/1.73sq m Kidney failure: <15 mL/min/1.73sq m eGFR calculated using average adult body mass. Additional eGFR calculator available at: http://www.BrandBeau/multiple_crcl_2012.htm T3, [facility] Hospitalon 27-26-2352Ieff T3 [Mass/Vol]2.93 pg/mL2.02 - 4.43 pg/mLMcL[place], KYT4, Freeon [id number], Free1.40 ng/dL0.93 - 1.7 ng/dLMcLaughlin, KYTS without Reflexon [id number] Qn1.31 m[IU]/LMDe [place] Vital Signs Date TimeVital SignValuePerforming InbgzxtevNjnqinrz27-58-3910 09:54-0400 Diastolic blood mm[Hg]Andres Chinchilla MD Work Phone: [facility]03-28-2025 09:54-0400 Systolic blood mm[Hg]Andres Chinchilla MD Work Phone: [facility]01-09-2025 10:02-0500 Body mass index (BMI) [Ratio]27.56 kg/m2Andres Chinchilla MD Work Phone: [facility]fieldUdbrllsijs11-65-2262 10:02-0500Body temperature 97.81 [degF]Andres Chinchilla MD Work Phone: [facility] springfieldRmcwntpvhu03-33-4986 10:02-0500Body vyrcau46.12 kgnAdres Chinchilla MD Work Phone: [facility] springfieldVekgbggcwb82-24-5427 10:02-0500Diastolic blood xrozpbun32 mm[Hg]Andres Chinchilla MD Work Phone: [facility] springfieldKglwxxxhje90-36-2602 10:02-0500Heart rate97 /min Andres Chinchilla MD Work Phone: [facility] springfieldKnfysbsjcv94-98-5435 10:02-1981BtI1% (BldA) [Mass fraction]98 %Andres Chinchilla MD Work Phone: [facility] springfieldBkhprhjyvp10-49-7959 10:02-0500Systolic blood qcwufnho171 mm[Hg]Andres Chinchilla MD Work Phone: [facility] springfieldRmanvafyif36-49-0556 14:07-0400Body vqfhma828.1 Keshia WHEATLEY Work Phone: [facility] springfieldHwddetrjtp52-64-4868 14:07-0400Body mass index (BMI) [Ratio]27.69 kg/m2Fe WHEATLEY Work Phone: [facility] springfieldTaolkoeiim88-76-1410 14:07-0400Body .48 kgFe WHEATLEY Work Phone: [facility] springfieldIinplnqswk91-35-2110 14:07-0400Diastolic blood fhofgowa68 mm[Hg]Fe WHEATLEY Work Phone: [facility] springfieldBixezggour99-82-9278 14:07-0400Systolic blood qqqbkoza952 mm[Hg]Fe WHEATLEY Work Phone: [facility]OLaf[facility] CenterAfypokubtj48-05-0632 14:06-0400Body kyvqvl280.1 cmTtre Hilliardroe MD Work Phone: [facility]04-11-2024 14:06-0400Body mass index (BMI) [Ratio]27.46 kg/m2Sabine Griffin MD Work Phone: [facility]04-11-2024 14:06-0400Body onarfc83.84 kgTozuleyka Griffin MD Work Phone: [facility]04-11-2024 14:06-0400Diastolic blood gazxcxwb28 mm[Hg]Sabine Griffin MD Work Phone: [facility]04-11-2024 14:06-0400Heart rate 72 /minTozuleyka Griffin MD Work Phone: [facility]04-11-2024 14:06-5659XuR3% (BldA) [Mass fraction]98 %Sabine Griffin MD Work Phone: [facility]04-11-2024 14:06-0400Systolic blood auaguwiy604 mm[Hg]Sabine Griffin MD Work Phone: [facility]02-29-2024 11:25-0500Diastolic blood mm[Hg]MD Andres Chinchilla Work Phone: [facility]02-29-2024 11:25-0500 Heart rate63 /minMD Andres Chinchilla Work Phone: [facility]02-29-2024 11:25-0500 Respiratory rate16 /minMD Andres Chinchilla Work Phone: [facility]02-29-2024 11:25-0500 SaO2% (BldA) [Mass fraction]97 %MD Andres Chinchilla Work Phone: [facility]02-29-2024 11:25-0500 Systolic blood iazcdups808 mm[Hg]MD Andres Chinchilla Work Phone: [facility]02-29-2024 08:17-0500 Body mass index (BMI) [Ratio]26.7 kg/m2MD Andres Chinchilla Work Phone: [facility]02-29-2024 08:05-0500 Body hxthdu649.1 cmMD Andres Chinchilla Work Phone: [facility]02-29-2024 08:05-0500 Body otzpbe31.9 kgMD Andres Chinchilla Work Phone: [facility]02-29-2024 06:52-0500 Body xrtjboizpbd46.1 [degF]MD Andres Chinchilla Work Phone: [phone] [place], [place] 7200202-20-2024 11:23-0500 Body yrvgtf141.1 cmMD Andres Chinchilla Work Phone: [facility]02-20-2024 11:23-0500 Body mass index (BMI) [Ratio]26.6 kg/m2MD Andres Chinchilla Work Phone: [facility]02-20-2024 11:23-0500 Body tkbdyg63.8 kgMD Andres Chinchilla Work Phone: [facility]01-10-2024 11:30-0500 Body ebdujs512.1 [facility] Other [facility]01-10-2024 11:30-0500 Body mass index (BMI) [Ratio]31.61 kg/a4Znhzere RamTiger Fitnesskarina Other [place] [employer] Other 01-10-2024 11:30-0500Body owqjos68.18 kgCollcity emergency hospital RamTiger Fitnesskarina Other [facility]12-02-2022 12:15-0500 Body mass index (BMI) [Ratio]31.45 kg/m2Anisha Tracy MD Work Phone: [facility]12-02-2022 12:15-0500Body aovwfvvxkvp12.01 [degF]Anisha Tracy MD Work Phone: 1(289)[address] [place], [place] 7036012-02-2022 12:15-0500Body mzsyez16.73 kgAnisha Tracy MD Work Phone: 1(935)[address] [place], [place] 7036012-02-2022 12:15-0500 Diastolic blood uzjbumsw84 mm[Hg]Anisha Tracy MD Work Phone: 1(016)[address] [place], [place] 7036012-02-2022 12:15-0500Heart rate86 /Estrada Tracy MD Work Phone: 1(621)[address] [place], [place] 7036012-02-2022 12:15-3488FuL4% (BldA) [Mass fraction]98 %Anisha Tracy MD Work Phone: 1(225)[address] [place], [place] 7036012-02-2022 12:15-0500Systolic blood ytaxvqlt987 mm[Hg]Anisha Tracy MD Work Phone: 1(581)[address] [place], [place] 7036011-02-2022 07:16-0400Body frbkzljseiz12.2 [degF]Anisha Tracy MD Work Phone: 1(110)[address] [place], [place] 7036011-02-2022 07:16-0400 Diastolic blood mm[Hg]Anisha Tracy MD Work Phone: 1(297)[address] [place], [place] 7036011-02-2022 07:16-0400Heart rate70 /Estrada Tracy MD Work Phone: 1(499)[address] [place], [place] 7036011-02-2022 07:16-0400 Respiratory rate20 /Estrada Tracy MD Work Phone: 1(097)[address] [place], [place] 7036011-02-2022 07:16-4813GkA8% (BldA) [Mass fraction]95 %Anisha Tracy MD Work Phone: 1(902)[address] [place], [place] 7036011-02-2022 07:16-0400Systolic blood hcyeiawi002 mm[Hg]Anisha Tracy MD Work Phone: [facility]11-01-2022 05:10-0400Body .1 cmAnisha Tracy MD Work Phone: [phone]11-01-2022 05:10-0400Body mass index (BMI) [Ratio]33.28 kg/m2Anisha Tracy MD Work Phone: [phone]11-01-2022 05:10-0400Body .72 kgAnisha Tracy MD Work Phone: [phone])768[facility]10-18-2022 12:58-0400Body iyzayh904.5 cmAkaroline Kingsley VICE PRESIDENT OF TALENT MANAGEMENT-LANDSCAPE CONTRACTOR Work Phone: [facility]10-18-2022 12:58-0400Body mass index (BMI) [Ratio]33.71 kg/n5ZizzkuTiana Kingsley VICE PRESIDENT OF TALENT MANAGEMENT-LANDSCAPE CONTRACTOR Work Phone: [phone]10-18-2022 12:58-0400Body aayqjo27.17 kgTiana Kingsley VICE PRESIDENT OF TALENT MANAGEMENT-LANDSCAPE CONTRACTOR Work Phone: [facility]10-18-2022 12:58-0400 Diastolic blood ksidwynq28 mm[Hg]Tiana Kingsley VICE PRESIDENT OF TALENT MANAGEMENT-LANDSCAPE CONTRACTOR Work Phone: [facility]10-18-2022 12:58-0400Heart rate74 /minTiana Kingsley VICE PRESIDENT OF TALENT MANAGEMENT-LANDSCAPE CONTRACTOR Work Phone: [facility]10-18-2022 12:58-0400 Respiratory rate16 /minTiana Kingsley VICE PRESIDENT OF TALENT MANAGEMENT-LANDSCAPE CONTRACTOR Work Phone: [facility]10-18-2022 12:58-5584AnB8% (BldA) [Mass fraction]98 %Tiana Kingsley VICE PRESIDENT OF TALENT MANAGEMENT-LANDSCAPE CONTRACTOR Work Phone: [facility]10-18-2022 12:58-0400Systolic blood unbfzbic958 mm[Hg]Tiana Kingsley VICE PRESIDENT OF TALENT MANAGEMENT-LANDSCAPE CONTRACTOR Work Phone: [facility]09-19-2022 11:30-0400Body .1 cmThomas Olexa Other [facility] [employer] Other 09-19-2022 11:30-0400Body mass index (BMI) [Ratio] 31.78 kg/o9Ttluwd Olexa Other [facility] [employer] Other 09-19-2022 11:30-0400Body ocavga28.64 kgThomas Olexa Other [facility] [employer] Other 08-19-2022 14:25-0400Body aiiseg297.1 cmAnisha Tracy MD Work Phone: [facility] HospitalComment on above:pt stated 05-18-2022 14:25-0400Body mass index (BMI) [Ratio]33.07 kg/m2Anisha Tracy MD Work Phone: [phone]08-19-2022 14:25-0400Body guimagbforx23.81 [degF]Anisha Tracy MD Work Phone: [phone])214[facility]08-19-2022 14:25-0400Body abeqvj80.13 kgAnisha Tracy MD Work Phone: [phone] HospitalComment on above:with sandals 05-18-2022 14:25-0400Diastolic blood czugvzug81 mm[Hg]Anisha Tracy MD Work Phone: [phone]08-19-2022 14:25-0400Heart rate84 /minAnisha Tracy MD Work Phone: [phone]08-19-2022 14:25-6563UlD6% (BldA) [Mass fraction]95 %Anisha Tracy MD Work Phone: 1(895)[address] [place], [place] 7036008-19-2022 14:25-0400Systolic blood hufvajpk533 mm[Hg]Anisha Tracy MD Work Phone: 1(809)[address] [place], [place] 7036007-28-2022 12:57-0400 Diastolic blood ydrsumqg12 mm[Hg]Anisha Tracy MD Work Phone: 1(693)[address] [place], [place] 7036007-28-2022 12:57-0400Heart rate69 /Estrada Tracy MD Work Phone: 1(344)[address] [place], [place] 7036007-28-2022 12:57-0400 Respiratory rate18 /Estrada Tracy MD Work Phone: 1(211)[address] [place], [place] 7036007-28-2022 12:57-9837SfC3% (BldA) [Mass fraction]98 %Anisha Tracy MD Work Phone: 1(193)[address] [place], [place] 7036007-28-2022 12:57-0400Systolic blood bfivjque039 mm[Hg]Anisha Tracy MD Work Phone: 1(617)[address] [place], [place] 7036007-28-2022 11:37-0400Body .1 cmAnisha Tracy MD Work Phone: 1(885)[address] [place], [place] 7036007-22-2022 12:05-0400Body wuuvaa659.1 cmVeronique Gutierrez VICE PRESIDENT OF TALENT MANAGEMENT-LANDSCAPE CONTRACTOR Work Phone: [phone] [place], [place] [address]Comment on above:pt stated 04-20-2022 12:05-0400Body mass index (BMI) [Ratio]32.52 kg/i8RvkhbldVeronique Gutierrez VICE PRESIDENT OF TALENT MANAGEMENT-LANDSCAPE CONTRACTOR Work Phone: 1(765)[address] [place], [place] 7036007-22-2022 12:05-0400Body ekdjhmebevx00.29 [degF]Veronique Gutierrez VICE PRESIDENT OF TALENT MANAGEMENT-LANDSCAPE CONTRACTOR Work Phone: 1(211)[address] [place], [place] 7036007-22-2022 12:05-0400Body .63 kgVeronique Gutierrez VICE PRESIDENT OF TALENT MANAGEMENT-LANDSCAPE CONTRACTOR Work Phone: [facility] HospitalComment on above:with sandals 04-20-2022 12:05-0400Diastolic blood ondmrzeq08 mm[Hg]Veronique Gutierrez VICE PRESIDENT OF TALENT MANAGEMENT-LANDSCAPE CONTRACTOR Work Phone: [phone]2617[facility]07-22-2022 12:05-0400Heart rate77 /minVeronique Gutierrez VICE PRESIDENT OF TALENT MANAGEMENT-LANDSCAPE CONTRACTOR Work Phone: 1([phone] Joseph Hospital WestMemory PharmaceuticalsMarymount Hospital07-22-2022 12:05-3682VoK2% (BldA) [Mass fraction]97 %Veronique Gutierrez VICE PRESIDENT OF TALENT MANAGEMENT-LANDSCAPE CONTRACTOR Work Phone: [phone])idiagSaint Joseph Hospital West6[facility]07-22-2022 12:05-0400Systolic blood tkweazsd753 mm[Hg]Veronique Gutierrez VICE PRESIDENT OF TALENT MANAGEMENT-LANDSCAPE CONTRACTOR Work Phone: [phone] PharmaceuticalsMarymount Hospital04-19-2022 12:15-0400Body awjfld030.1 cmCvonon Eze Other [employer] Other 04-19-2022 12:15-0400Body mass index (BMI) [Ratio] 32.61 kg/t2Ohdlzco Ditty Other [employer] Other 04-19-2022 12:15-0400Body joocpy41.91 kgCameron Ditty Other [employer] Other 04-19-2022 12:15-0400Diastolic blood asdiglqk31 mm[Hg] Chris Ditty Other [employer] Other 04-19-2022 12:15-0400Systolic blood oidzyxzj186 mm[Hg] Chris Ditty Other [employer] Other Encounters Encounter DateEncounter TypeCare ProviderFacilityStart: 07-27-2025 End: 18-56-0379Cptqhh Vivek WHEATLEY Work Phone: [facility] OBGYNStart: 07-27-2025 End: 32-62-9746Ykgnll Vivek WHEATLEY Work Phone: noMS Castillo OBGYNStart: 03-24-2025 End: 40-27-6752Vvhxpaljt Result EncounterGeneric External Data ProviderNOMS External Department UnsolicitedStart: 03-24-2025 End: 37-44-8912Vwuyoksav Result EncounterGeneric External Data ProviderNOMS External Department UnsolicitedStart: 03-18-2025 End: 68-86-4636fuoekhfobeNugdpqd J DittyFacility:[facility] Hospitaltart: 03-16-2025 End: 37-30-6415uzrbajubsdTawn NadererFacility:[facility] Start: 12-25-2024 End: 47-47-3518mebmusryxyHrnw Naderer MD Work Phone: [facility] Work Phone: Start: 12-25-2024 End: 78-94-5355Klpmsfv encounter procedureAndres Chinchilla MD Work Phone: [facility] Work Phone: Start: 11-24-2024 End: 16-71-0577qnrawdtfcxFjtc Naderer MD Work Phone: [facility] Work Phone: Start: 11-24-2024 End: 30-05-6080Zjvrumx encounter procedureAndres Chinchilla MD Work Phone: [facility] Work Phone: Start: 10-21-2024 End: 77-84-2576Jitpwpfn Result EncounterAndres Chinchilla MD Work Phone: noms External Department UnsolicitedStart: 10-21-2024 End: 56-33-2481Vfoaimdg Result EncounterAndres Chinchilla MD Work Phone: noms External Department UnsolicitedStart: 10-21-2024 End: 13-69-2866bnamgeoxiuFVDU NADEREThe Christ Hospitaltart: 10-13-2024 End: 07-35-4456qtwuyxcumjTuqf Naderer MD Work Phone: [facility] Work Phone: Start: 10-13-2024 End: 49-69-4924Nubpvpr encounter procedureAndres Chinchilla MD Work Phone: [facility] Work Phone: Start: 10-08-2024 End: [id number] Rogers Chinchilla MD Work Phone: [facility] CWM FMStart: 10-08-2024 End: 08-21-5828Skmqlx Rogers Chinchilla MD Work Phone: [facility] FMStart: 10-08-2024 End: 02-70-6402Ghuhbq outpatient visit 25 minutesAndres Chinchilla MD Work Phone: [facility] FMComment on above:Primary hypothyroidism (CMS/HCC) (Primary Dx); Gastroesophageal reflux disease without esophagitis; Dyslipidemia (CMS/HCC); Prediabetes; Encounter for long-term (current) use of medications; Vitamin D deficiency; Seasonal allergic rhinitis due to pollenStart: 10-08-2024 End: 32-20-3651dngjcxfsmzYXCE NADERERNot AvailableStart: 06-24-2024 End: 97-39-9156Zogymo Vivek WHEATLEY Work Phone: noms BCP OBStart: 06-24-2024 End: 44-48-4229Dcydnl Vivek WHEATLEY Work Phone: noms BCP OBStart: 06-24-2024 End: 59-22-7484Nnurwir encounter procedureAmy Lizzie WHEATLEY Work Phone: noms [facility] Work Phone: Start: 06-24-2024 End: 49-52-4898Qhfhwtyj preventive med est patient 40-64yrsAmy Lizzie WHEATLEY Work Phone: noms [facility] OBComment on above:Well woman exam with routine gynecological exam; Breast cancer screening by mammogram; Postmenopausal stateStart: 06-24-2024 End: 70-58-2938pwbngqfidiFGA You AvailableStart: 03-19-2024 End: 03-48-1148Tnlyiokek Result EncounterGeneric External Data ProviderNOMS External Department UnsolicitedStart: 03-19-2024 End: 30-58-7089Gyvaauzpg Result EncounterGeneric External Data ProviderNOMS External Department UnsolicitedStart: 03-06-2024 End: 36-02-1962kcpuhcgcxbKC Andres Chinchilla Work Phone: [facility] Work Phone: Start: 03-06-2024 End: 34-13-0478Sidfbzq encounter procedureMD Andres Chinchilla Work Phone: [facility] Work Phone: Start: 01-24-2024 End: 83-40-3013oallesewmwOQ Andres Chinchilla Work Phone: [facility] Work Phone: Start: 01-24-2024 End: 65-22-4152Enkcwao encounter procedureMD Andres Chinchilla Work Phone: [facility] Work Phone: Start: 01-09-2024 End: 98-12-2739Rfxdlv outpatient new 20 minutesKera Harris MD Work Phone: [facility] CardiologyComment on above: Abnormal EKG (Primary Dx); DizzinessStart: 01-09-2024 End: 27-61-9218ckpnqnqcebJKXS L MONROEProMedica [facility] Medical Centertart: 01-08-2024 End: 12-49-9057Najlofnrz encounterJedebbieponcho Ibarra CMAProMedica Physicians CardiologyStart: 91-89-2932Cagce abstractingScanning Provider ExternalProMedica Physicians CardiologyStart: 12-27-2023 End: 87-76-8013yibbwzvxcyWL Andres Chinchilla Work Phone: [facility] Work Phone: Start: 12-27-2023 End: 91-61-8163Ficzytp encounter procedureMD Andres Chinchilla Work Phone: [facility] Work Phone: Start: 12-06-2023 End: 73-84-5264Tvmlgjw encounter procedureMD Andres Chinchilla Work Phone: [facility] Work Phone: Start: 68-14-1508Sfs-patient / Non-visitMD Andres Chinchilla Work Phone: [facility] Work Phone: Start: 11-28-2023 End: 78-92-5901Jkhmrykfw to same day surgery centerMD Andres Chinchilla Work Phone: [facility] CampusStart: 34-53-5542Aujleml encounter statusMD Andres Chinchilla Work Phone: [facility]art: 11-19-2023 End: 19-62-7622eqkpdbbqcpFE Andres Chinchilla Work Phone: [facility] Work Phone: Start: 11-19-2023 End: 60-58-2936Jaxzowx encounter procedureMD Andres Naderer Work Phone: [facility] Work Phone: Start: 11-14-2023 End: 27-97-2121aggqawmzreNL Andres Chinchilla Work Phone: [facility] Work Phone: Start: 11-14-2023 End: 13-60-3195Gsjhkja encounter procedureMD Andres Chinchilla Work Phone: [facility] [employer]js-Xfmcyoww Testing Work Phone: Start: 10-09-2023 End: 80-52-0361uuccrnqewwTnlmfxm Calvey Other [employer] Other Start: 59-57-7756Yodouq outpatient visit 25 minutes Mechelle CalveyFPG [facility] OrthopedicsStart: 10-09-2023 End: 22-15-4673Kyfftkd encounter procedureMD Andres Chinchilla Work Phone: [facility] Work Phone: Start: 50-65-6949Diblgq outpatient visit 15 minutes Mechelle CalveyFPG [facility] OrthopedicsStart: 06-19-2023 End: 57-11-9918nlmovbvodfKS Andres Chinchilla Work Phone: [facility] Work Phone: Start: 06-19-2023 End: 90-78-2793Wajkkub encounter procedureMD Andres Chinchilla Work Phone: [facility] Start: 01-23-2023 End: 43-17-5655cooejgwleqLketlhd Calvey Other [employer] Other Start: 70-71-7760Ilzode outpatient visit 15 minutes Mechelle CalveyFPG [facility] OrthopedicsStart: 09-17-2022 End: 03-85-5108omgjyyapuqIPZI VICKEY RAZOcommunity regional medical centerchely Backus Hospitaltart: 09-17-2022 End: 70-67-4500Gmubrfkdpe hospital visit by Nila Chinchilla MD Work Phone: mthz LaboratoryStart: 87-83-6769xxvunuocgxUSJB A PERRY [facility] 08-31-2022 End: 46-86-9253Iefarc follow up visit related to original pxAnisha Tracy MD Work Phone: General and Gastrointestinal Surgery Outpatient Care SalemComment on above:S/P laparoscopic fundoplication (Primary Dx)Start: 15-58-4319wftqydwmmiBQSQ NADERERFacility:[facility]tart: 07-31-2022 End: 17-98-9304aaeafqetvuFSDE NADERERFacility:[facility]tart: 07-31-2022 End: 13-15-3653Jxedkrjqhj hospital visit by Carlos Manuel Tracy MD Work Phone: [phone] on above:Paraesophageal herniaStart: 15-94-1355fxvovjjjauEIXT A PERFacility:[facility]tart: 07-17-2022 ambulatorySELF SELFFacility:[facility]ITALtart: 96-95-3281Brxoujsyf for other preprocedural examinationTIANA KINGSLEYFacility:[facility]ITALtart: 02-38-0832xjdliodcswNYGP NADERERFacility:[facility]tart: 07-17-2022 End: 09-03-8667Njrafx outpatient visit 40 minutesAngereji Kingsley VICE PRESIDENT OF TALENT MANAGEMENT-LANDSCAPE CONTRACTOR Work Phone: [phone]-Eibjuxjeh Evaluation and Assessment Outpatient Care EastComment on above:Preoperative examination (Primary Dx); Acquired hypothyroidism; Obesity (BMI 30.0-34.9); Chronic GERDStart: 07-17-2022 End: 07-20-7891Ddhrltweuofny examination doneTiana Kingsley VICE PRESIDENT OF TALENT MANAGEMENT-LANDSCAPE CONTRACTOR Work Phone: [phone]-Koczfsapf Evaluation and Assessment Outpatient Care EastStart: 06-18-2022 End: 74-02-5182rlbuashggeOgwnqp Olexa Other Nort [employer] Other Start: 31-91-6613Oyyxdb outpatient visit 15 minutes Benjy [facility] OrthopedicsStart: 82-63-5786ujyfdsrcshCSYP NADERER [facility]: 05-18-2022 End: 75-50-0381Rpmpuw outpatient visit 25 minutesAnisha Tracy MD Work Phone: General and Gastrointestinal Surgery Outpatient Care [facility] on above:Gastroesophageal reflux disease without esophagitis (Primary Dx)Start: 05-17-2022 End: 81-64-8366oeafdoqkobCK GREGORY KARASIKFacility:M2Zedri: 05-01-2022 ambulatorySINGING RIVER GULFPORTERERFacility:[facility]tart: 38-96-7125ovhzhzlknkMonroe Community Hospitalacility:[facility]tart: 04-26-2022 End: 09-85-6312Rbgkwwktuh hospital visit by Carlos Manuel Tracy MD Work Phone: [facility] EndoscopyStart: 93-68-0947rcylqjrxdmUASN NADERERFacility:[facility]tart: 04-20-2022 End: 00-44-3095Nmzlnp outpatient new 30 minutesAnisha Tracy MD Work Phone: General and Gastrointestinal Surgery Outpatient Care [facility] on above:Gastroesophageal reflux disease without esophagitis (Primary Dx)Start: 03-02-2022 End: 72-17-5574dkeukevdvrMUChamp Beltrancility:Z7Socen: 02-13-2022 End: 17-41-0559qulqmvtfdkYqfavjh Ditty Other [employer] Other Start: 26-96-5876Ksfxgirox encounterCameron DittyFPG GastroenterologyStart: 01-16-2022 End: 61-76-4127tigabygbckFflkkan Ditty Other [employer] Other Start: 96-44-2047Trpscua encounter procedureCameron DittyFPG GastroenterologyStart: 12-18-2021 End: 21-00-0550urjevkunwxGncaokm Ditty Other noGlyde [employer] Other Start: 98-53-1363Gloqhhtsn encounterCameron DittyFPG GastroenterologyStart: 12-07-2021 End: 22-21-5065enahabhuidMlzfjvs Ditty Other [facility] [employer] Other Start: 01-59-7614Kqdxrwzgg encounterCameron DittyFPG GastroenterologyStart: 10-26-2021 End: 36-71-0057anuwdpwgzpLsjwv Hykes Other noGlyde [employer] Other Start: 19-50-9772Wlgrwuwot encounterDavid HykesFPG GastroenterologyStart: 10-10-2021 End: 71-14-0273ycflmgarqxBjcojyf Calvey Other [facility] [employer] Other Start: 50-67-6601Bqgwir outpatient visit 15 minutes Benjy [facility] OrthopedicsStart: 08-12-2021 End: 51-91-4480Qnlljpcsce hospital visit by Nila Chinchilla MD Work Phone: mthz LaboratoryStart: 08-05-2020 End: 06-72-7062Shzzktcntt hospital visit by [facility]Healthall[facility] Lab Drawing [facility] LaboratoryComment on above:Arrived Procedures DateProcedureProcedure DetailPerforming ClinicianStart: 05-53-7445RQ TOMOSYNTHESIS SCREENING BIGeneric External Data ProviderStart: 03-24-2025 MammographyGeneric ProviderStart: 39-63-9274Khsifdsz blood count with white cell differential, automatedAndres Chinchilla MD Work Phone: Start: 54-80-2154Rrumm X-ray of right handMarsarmad Chinchilla MD Work Phone: Start: 63-09-2426WP TOMOSYNTHESIS SCREENING BIGeneric External Data ProviderStart: 50-80-5499HnssugaegsuTkf Ramey PA Work Phone: Start: 17-05-0565Bvxie X-ray of right handMD Andres Naderer Work Phone: Start: 77-46-4479Onczt X-ray of right handMD Andres Naderer Work Phone: Start: 79-69-9423Ufako X-ray of right handMD Andres Naderer Work Phone: Start: 57-88-1300Gygjnudqkqns of joint of the thumbMD Andres Naderer Work Phone: Start: 06-52-9469Hdlqz X-ray of right thumbMD Andres Naderer Work Phone: Start: 95-53-2701Jguad X-ray of right handMD Andres Naderer Work Phone: Start: 68-75-0117Ajgwr depression screening assessment Scanning ExternalStart: 47-84-8598Snttx metabolic panel calcium totalMarc Vickey Chinchilla MD Work Phone: Start: 14-22-0808Hbwewqp function panelMarc Vickey Chinchilla MD Work Phone: Start: 04-47-1701ZQY AND ELECTRONIC DIFFPatrick Maria L Wasserman MD Work Phone: Start: 59-98-5876Qxnyhdcw blood count with white cell differential, automatedPedro Wasserman MD Work Phone: Start: 04-16-0689Xbitvrmfbu bloodPatricyen Wasserman MD Work Phone: Start: 46-52-9677QKTDMEM RHYTHMOther OtherStart: 07-31-2022 End: 24-03-3842Oaga surg esopg/gstr fundoplastyAnisha Tracy MD Work Phone: Start: 34-37-1269QHMXKLUBHLOQJB UPPER ENDOSCOPYVeronique Gutierrez VICE PRESIDENT OF TALENT MANAGEMENT-LANDSCAPE CONTRACTOR Work Phone: Start: 73-18-2260Xpdta metabolic panel calcium total Andres Chinchilla MD Work Phone: Start: 20-42-8764DZEMC-19, ANTIBODY, TOTALMarsarmad Chinchilla MD Work Phone: Start: 92-36-5006Mfvgj panelMar Vickey Chinchilla MD Work Phone: Start: 42-57-2050Uysmp of free thyroxineMarsarmad Chinchilla Work Phone: Start: 27-90-0597Jbgyw of thyroid stimulating hormone tshMarsarmad Chinchilla Work Phone: Start: 82-96-6323Pyqvm of triiodothyronine t3 freeMar Vickey Chinchilla Work Phone: Start: 91-63-2634Bxquy metabolic panel calcium total Andres Chinchilla Work Phone: Start: 20-48-3009Fthfn count complete auto&auto difrntl wbcMarsarmad Chinchilla Work Phone: Start: 59-20-9283Wkbsssdtyf glycosylated g6kNioy Vickey Chinchilla Work Phone: Start: 90-82-8854Wvwzkhn function panelMar Vickey Chinchilla Work Phone: Start: 97-70-5803Oprmd panelJfk Johnson Rehabilitation Institutesarmad Chinchilla Work Phone: Start: 44-22-8071WraeylxnesuNlk Ramey PA Work Phone: Plan of Treatment DateCare ActivityDetailAuthorStart: 01-63-2764Colxr panelLipidsBON MEMORIAL HEALTH SYSTEMStart: 10-13-2025 End: 77-52-9828Ehbbhyl encounter wspxjmxpa69/14/2026 10:30 AM EST Office Visit [facility] [address] [place] [address] Andres Chinchilla MD [address] [place] [address] NOMS CWM FMStart: 66-87-0635Uzjkn panelLipid screenMercy HealthStart: 07-27-2025 End: 26-77-2217Fnombbc encounter procedureNOMS Jonathan OBGYNComment on above: ArrivedStart: 06-28-2025 End: 71-97-1200Dpbrzej encounter procedureNOMS BCP OBStart: 87-79-7980Yjabdbhiq vaccinationInfluenza Vaccine (Season Ended)NOMS HealthcareStart: 03-19-2025 Screening for malignant neoplasm of breastMammogramNOMD HealthcareStart: 81-55-2990Onwgp BMI ScreeningAdult BMI ScreeningProThomas Hospital Health SystemStart: 25-20-2382Dwkbqqf ScreeningTobacco ScreeningProKettering Health SystemStart: 57-35-9597Baokk X-ray of right handXR hand RT min 3V*[facility]tart: 71-65-8747AH Hand - right GE 3 ViewsGalion Community Hospitaltart: 10-08-2024 End: 609776-spdyxxtbienqhf D3 [Mass/volume] in Serum or PlasmaVitamin D 25 hydroxy Lab Routine Vitamin D deficiency Expected: 10/08/2024 (Approximate), Expires: 10/08/2025NOMS HealthcareComment on above:Expected: 10/08/2024 (Approximate), Expires: 10/08/2025Start: 10-08-2024 End: 45-62-5887Wrrpx metabolic 1998 panel - Serum or PlasmaBasic metabolic panel Lab Routine Encounter for long-term (current) use of medications Expected: 05/2025 (Approximate), Expires: 10/08/2025NOMS HealthcareComment on above: Expected: 10/08/2024 (Approximate), Expires: 10/08/2025Start: 10-08-2024 End: 54-42-7974QDF W Auto Differential panel - BloodCBC and differential Lab Routine Encounter for long-term (current) use of medications Expected: 05/2025 (Approximate), Expires: 10/08/2025[facility] HealthcareComment on above: Expected: 10/08/2024 (Approximate), Expires: 10/08/2025Start: 10-08-2024 End: 32-23-5733Qjuurmnovj A1c/Hemoglobin.total in BloodHemoglobin A1c Lab Routine Prediabetes Expected: 10/08/2024 (Approximate), Expires: 10/08/2025[facility] Healthcare Work Phone: Comment on above:Expected: 10/08/2024 (Approximate), Expires: 10/08/2025Start: 10-08-2024 End: 14-29-4016Bpcmzcc function 2000 panel - Serum or PlasmaHepatic function panel Lab Routine Encounter for long-term (current) use of medications Expected: 10/08/2024 (Approximate), Expires: 10/08/2025[facility] HealthcareComment on above: Expected: 10/08/2024 (Approximate), Expires: 10/08/2025Start: 10-08-2024 End: 94-25-3244Eywlo 1996 panel - Serum or PlasmaLipid panel Lab Routine Dyslipidemia ([facility]/HCC) Expected: 10/08/2024 (Approximate), Expires: 10/08/2025 NOMS HealthcareComment on above:Expected: 10/08/2024 (Approximate), Expires: 10/08/2025Start: 10-08-2024 End: 83-14-3195Hrhgtsddfkw [Units/volume] in Serum or PlasmaTSH Lab Routine Primary hypothyroidism ([facility]/HCC) Expected: 10/08/2024 (Approximate), Expires: 10/08/2025[facility] HealthcareComment on above:Expected: 10/08/2024 (Approximate), Expires: 10/08/2025Start: 10-08-2024 End: 27-52-5398Zcozuahzv (T4) free [Mass/volume] in Serum or PlasmaT4, free Lab Routine Primary hypothyroidism ([facility]/HCC) Expected: 10/08/2024 (Approximate), Expires: 10/08/2025NOMS HealthcareComment on above:Expected: 10/08/2024 (Approximate), Expires: 10/08/2025Start: 10-08-2024 End: 00-83-3334Zzzwabp encounter procedureNOMD CWM FMComment on above:Arrived Start: 36-29-8421Nsqcmgfiw for malignant neoplasm of colonNOMD HealthcareStart: 06-24-2024 End: 44-24-1793EAS Skeletal system Views for bone densityDEXA bone density Imaging Routine Postmenopausal state Expected: 06/24/2024 (Approximate), Expires:06/24/2025NOMD HealthcareComment on above:Expected: 06/24/2024 (Approximate), Expires: 06/24/2025Start: 06-24-2024 End: 95-75-5878US Breast - bilateral ScreeningBilateral screening mammogram Imaging Routine Breast cancer screening by mammogram Expected: 06/24/2024, Expires: 08/24/2025[facility] Work Phone: comment on above:Expected: 06/24/2024, Expires: 08/24/2025Start: 06-24-2024 End: 10-22-9581Pbnxjfv encounter qnisaspwq94/25/2024 2:00 PM EDT Office Visit [facility] [address] [address] Fe Samuel PA [address] [place], [place] [id number] ArrivedNOMD BCP OBComment on above:ArrivedStart: 05-31-2024 Influenza vaccinationNOMD HealthcareStart: 50-05-1171Rqrab BMI Follow Up Plan Adult BMI Follow Up PlanProKettering Health SystemStart: 12-85-7458Omvxv BMI ScreeningAdult BMI ScreeningProKettering Health SystemStart: 14-92-6566Mlovoljqti ScreeningDepression ScreeningProThomas Hospital Health SystemStart: 17-56-5184Ixyyrwu ScreeningTobacco ScreeningProKettering Health SystemStart: 32-77-8055Bvnsj X-ray of right handXR hand RT min 3V*[facility]: 03-06-2024 XR Hand - right GE 3 ViewsGalion Community Hospitaltart: 01-24-2024 Plain X-ray of right handXR hand RT min 3V*[facility] Start: 89-35-7644HM Hand - right GE 3 ViewsBarberton Citizens Hospital Start: 01-09-2024 End: 81-10-4141Gwxhoai encounter wnirbpjwt15/11/2024 2:15 PM EDT Office Visit [facility] [address] [place] [address] Kera Harris MD [address] [place] [address] Sabine Griffin MD [address], [address] [place], [place] [id number] [facility] CardiologyStart: 77-00-0086Lxbze X-ray of right handXR hand RT min 3V*[facility]tart: 64-88-6229CQ Hand - right GE 3 ViewsGalion Community Hospitaltart: 17-89-6281LmpyhvkjuGalion Community Hospitaltart: 72-21-6368QufiuodzaGalion Community Hospitaltart: 10-21-2022 End: 59-92-4135IHQNEQANJWREFW UPPER ENDOSCOPYINTERVENTIONAL UPPER ENDOSCOPY GI/Bronch Routine Gastroesophageal reflux disease without esophagitis Expected: 10/21/2022, Expires: 04/20/2023[facility] CenterComment on above: Expected: 10/21/2022, Expires: 04/20/2023Start: 10-04-2022 End: 07-38-1179Ggwwwggiupey consultation with oxbymbg6210/04/2022 Telemedicine General Surgery Veronique Gutierrez, VICE PRESIDENT OF TALENT MANAGEMENT-LANDSCAPE CONTRACTOR [address] [place] [address] General and Gastrointestinal Surgery [facility] [place]: 09-25-2022 End: 27-57-0777Yuisnmfhwhys consultation with adgsyhu7009/25/2022 Telemedicine General Surgery Veronique Gutierrez, VICE PRESIDENT OF TALENT MANAGEMENT-LANDSCAPE CONTRACTOR [address] [place] [address] General and Gastrointestinal Surgery Outpatient Care [facility]: 08-31-2022 End: 12-84-4496Ybhbvwl encounter qwnofkhop56/02/2022 Office Visit General Surgery Anisha Tracy MD [address] [place] [address] General and Gastrointestinal Surgery Outpatient Care [facility]: 08-09-2022 End: 45-15-3662Xsekizmdrguu consultation with ucsnybk1308/09/2022 Telemedicine General Surgery Veronique Gutierrez, VICE PRESIDENT OF TALENT MANAGEMENT-LANDSCAPE CONTRACTOR [address] [place] [address] General and Gastrointestinal Surgery Outpatient Care [facility]: 08-03-2022 End: 43-92-1390Nlsttlgrlqjm consultation with ucfayjn0008/03/2022 Telemedicine General Surgery Veronique Gutierrez, VICE PRESIDENT OF TALENT MANAGEMENT-LANDSCAPE CONTRACTOR [address] [place] [address] General and Gastrointestinal Surgery Outpatient Care [facility]: 07-31-2022 End: 10-64-9396Eyhuovzrq to same day surgery wfxojl8607/31/2022 Surgery Multispecialty Anisha Tracy MD [address] [place] [address] FUNDOPLASTY ESOPHAGOGASTRIC LAPAROSCOPICBSH PERIOPComment on above:FUNDOPLASTY ESOPHAGOGASTRIC LAPAROSCOPIC Start: 07-31-2022 End: 37-97-9892Inbl surg esopg/gstr fundoplastyFUNDOPLASTY ESOPHAGOGASTRIC LAPAROSCOPIC GERD (gastroesophageal reflux disease) 07/31/2022 7:00 AM [facility] SAME DAY SURGERY MAIN ORStart: 37-71-3738Dbegmcayum hospital visit by physician 07/31/2022 Hospital Encounter Multispecialty Anisha Tracy MD [address] [place] [address] GERD (gastroesophageal reflux disease)BASUComment on above:GERD (gastroesophageal reflux disease)Start: 07-31-2022 End: 20-37-1974Rrkixyf encounter lxljpxihs06/01/2022 Office Visit Multispecialty BASUStart: 07-18-2022 End: 44-14-9277Aqwwgldnz to same day surgery rpavxg2507/18/2022 Telemed Clin Support General Surgery Kavitha Merino, RD [address] [place] [address] General and Gastrointestinal Surgery Outpatient Care [facility]: 07-17-2022 End: 40-14-2153tsyedvczyp79/18/2022 Pre-Operative Assessment Multispecialty Tiana Kingsley, VICE PRESIDENT OF TALENT MANAGEMENT-LANDSCAPE CONTRACTOR [address] [place] [address] Pre-Procedure Evaluation and Assessment [facility]Stcusick: 59-63-5268Acehxkmio vaccinationINFLUENZA VACCINE (#1) [facility] CenterStart: 05-25-2022 End: 79-07-8031Uurenwe encounter uxpuozflf58/26/2022 Office Visit General Surgery Anisha Tracy MD [address] [place] [address] General and Gastrointestinal Surgery Outpatient Care [facility]: 47-60-6051Diegfygpt vaccinationFlu vaccine (#1) [facility]SStart: 04-26-2022 End: 64-40-7875Gdnnlzo encounter /28/2022 Appointment Endoscopy Anisha Tracy MD [address] [place] [address] [facility]: 05-31-2021 Influenza vaccinationFlu vaccine (#1)[facility]Start: 69-61-8646Vwymddvrg vaccinationFlu vaccine (#1)[place], [place]Start: 62-35-2912XObQ,Tdap and Td Vaccines (2 - Td or Tdap)DTaP,Tdap and Td Vaccines (2 - Td or Tdap)[facility] SystemStart: 80-27-8841Picqkkz vaccinationTETANUSOSUniversity Hospitals Portage Medical Centertart: 47-22-7045Rgqufwxlf for malignant neoplasm of breastBreast cancer screenPaulding County HospitalStart: 18-55-4274Dcqolaovg for malignant neoplasm of colon Colon cancer screen [place], [place]Start: 63-00-6184Tgcjyyfjf for malignant neoplasm of lungLUNG CANCER SCREENINGOSMagruder Memorial Hospital Start: 33-02-7369Hmkigrwc Vaccine (1 of 2)Shingles Vaccine (1 of 2)[facility] Start: 86-15-6008Tffwol vaccine hzv live for subcutaneous useZOSTER (SHINGLES) VACCINE (1 of 2)OSUniversity Hospitals Portage Medical Centertart: 22-89-6852Qpspndyxs for malignant neoplasm of breastMAMMOGRAM SCREENING DISCUSSIONOSUniversity Hospitals Portage Medical Centertart: 14-59-5604Ojfqylwvk mammographyMAMMOGRAM SCREENING DISCUSSIONOSUniversity Hospitals Portage Medical Centertart: 74-69-0787AtvpviuvoqsUHUKLBSXSA CANCER SCREENING DISCUSSIONOSGeorgetown Behavioral Hospital CenterStart: 37-85-5493Eylylaypu for malignant neoplasm of colonOhio State Health System HealthStart: 37-38-7075Wlpqgnc lipid profileLIPID SCREENINGOSUniversity Hospitals Portage Medical Centertart: 79-39-0669Gpnko panelOSUniversity Hospitals Portage Medical Centertart: 65-28-5376Tssobgfsx for malignant neoplasm of cervixPromedica Memorial Hospitalcy Health Start: 76-36-7019Njmlithwv for malignant neoplasm of cervixOhio State Health System HealthStart: 92-13-9146ZIhK/Tdap/Td vaccine (1 - Tdap)DTaP/Tdap/Td vaccine (1 - Tdap)[facility] HospitalStart: 44-05-6319Waqqx diphtheria, tetanus and acellular pertussis (DTaP) vaccinationTDAP (ADULT)[facility] Centertart: 88-04-0170Cszmhcxpz C screeningHepatitis C screenBON MEMORIAL HEALTH SYSTEMStart: 82-21-7425Nhgjqvd vaccinationTETANUSMetroHealth Parma Medical Centertart: 84-34-8268QKO screeningPaulding County HospitalStart: 70-97-5638WFVKP-19 Vaccine (1)COVID-19 Vaccine (1)[facility] Start: 29-32-5298Dhkodvhzau ScreenDepression [facility] Start: 05-76-3119JWCIS-19 VACCINE (#1)COVID-19 VACCINE (#1)[facility] Centertart: 62-53-6627Pumcwytcj C antibody, confirmatory testHEPATITIS C VIRUS SCREENINGMetroHealth Parma Medical Centertart: 56-83-7386Xdkcjwflw C screeningPaulding County HospitalStart: 62-98-7384Akhvcfmnk for malignant neoplasm of colonNOMD Healthcare Start: 22-42-9653Fuhtada stimulating hormone measurementMorrow County Hospital End: 63-17-9887Egwfconkmh A1c/Hemoglobin.total in [facility] Work Phone: Comment on above:Once for 1 Occurrences starting 08/12/2021 until 08/12/2021 End: 99-30-3991Fyzpk panelCHILDREN'S HOSPITAL OF THE [facility]UGH[facility]S Work Phone: Comment on above:Once for 1 Occurrences starting 09/17/2022 until 09/17/2022atient EducationMonitored Anesthesia [facility] Work Phone: [facility] referralUniversity [facility] Work Phone: THIN PREP TIS PAP AND HR HPV DNATHIN PREP TIS PAP AND HR HPV DNA Pathology and Cytology Routine Well woman exam with routine gynecol ogical exam Ordered: 06/24/2024[facility] HealthcareComment on above:Ordered: 06/24/2024 Immunizations Immunization DateImmunizationNotesCare TzfenbikTsyxeqfh95-26-9511jyucladbi virus vaccine, unspecified formulationScanning [facility] 19-22-6862ejkhfagzm virus vaccine, unspecified formulationVeronique Gutierrez VICE PRESIDENT OF TALENT MANAGEMENT-LANDSCAPE CONTRACTOR Work Phone: osu [facility] Payers DatePayer CategoryPayerPolicy [id number] Health Insurance [id number] of Defense ( and others) 1..840.307911.1.13.172.2.7.3.830719.40079-02-3541LXMTQLG (WILY) 1..840.199914.1.13.693.2.7.9.340142.447212.45151-95-9549Nabupdcgpp of Defense ( and others)[id number] 2..1.076155.3.57[id number] 2..1.004038.3.57[id number] 2..1.484743.3.57[id number] 2..1.510914.3.57[id number] 2..840.1.932984.3.57[id number] 2..840.1.942599.3.57[id number] 2..840.1.191237.3.57[id number] 2.840.1.281753.3.57[id number] 2.840.1.542215.3.57[id number] 2.840.1.971871.3.57[id number] 2.840.1.120541.3.57[id number] 2.840.1.606624.3.57[id number] 2.840.1.894511.3.57[id number] 2.840.1.008890.3.57[id number] 2.840.1.691374.3.57[id number] 2.840.1.628020.3.57[id number] 2.840.1.911242.3.57[id number] 2.840.1.649325.3.579.2.953848-36-6530Ubyhkhrrcj of Defense ( and others)[id number] 1.2.840.111871.1.13.23[id number] 2..840.1.5[id number] 2.840.1.251608.3.579.2.531 [id number] 2..840.1.411234.3.579.2.531 Social History DateTypeDetailFacilityStart: 55-02-2145Pjyazjj smoking status NHISUnknown if ever smokedMc[place], [place]Start: 32-77-6951Onf Assigned At BirthNot on file [place], [place]Exposure to SARS-CoV-2 (event)[place] sureMc[place], [place] Start: 09-30-2023 End: 72-35-0925Smx Assigned At [facility] HealthcareStart: 04-20-2022 End: 27-65-5433Gkehfpv smoking status NHISEx-smokerOSMagruder Memorial Hospital Start: 09-30-1979 End: 93-98-1993Mlnlquz of tobacco useCurrent smokerMarymount Hospital Start: 09-30-1979 End: 97-92-2383Xcsktpl of tobacco useCigarette SmokerMarymount Hospital Start: 04-20-2022 End: 88-65-2914Swnfhqwmdx smoked current (pack per day) - Aiymftvt6XKPD HealthcareStart: 04-20-2022 End: 72-02-2491Zdswsuf use and exposureSmokeless tobacco non-userOSU East Ohio Regional Hospitaltart: 04-20-2022 End: 31-02-4076Rmdphyb intakeCurrent drinker of alcohol (finding)[facility] Hospitaltart: 32-38-9549Tjrrira SDOH Alcohol CommentPer weekOSU East Ohio Regional Hospitaltart: 67-48-4344Pyr Assigned At [facility] HospitalWithin the last year, have you been afraid of your partner or ex-partner?NoNOMS HealthcareDo you belong to any clubs or organizations such as nondenominational groups, unions, fraternal or athletic groups, or school groups?Yes [facility] SystemAre you now , , , , never or living with a partner?MarriedNewark HospitalHow often to you have a drink containing alcohol?Monthly or lessMercy hospital springfieldHow many standard drinks containing alcohol do you have on a typical day?1 or 2PRiverside Medical Center Health SystemHow often do you have 6 or more drinks on 1 occasion?NeverAtrium Health University Citytart: 52-54-7948Unq hard is it for you to pay for the very basics like food, housing, medical care, and heatingNot hard at allMercy hospital springfieldDo you feel stress - tense, restless, nervous, or anxious, or unable to sleep at night because yourmind is troubled all the time - these days [OSQ]Not at allNewark Hospital(I/We) worried whether (my/our) food would run out before (I/we) got money to buy more.Never trueBRIGHAM CITY COMM[facility] HealthcareStart: 80-39-5420Yyjuuyw Comment 1-2 drinks 2-3x a week in the past year, Caffeine intake: 1-2 cups per dayBRIGHAM CITY COMMUNITY [facility]OSPITAL HealthcareStart: 35-71-9322Roomkb identityIdentifies as female gender (finding) [facility] Citytart: 38-53-7693Metydg orientationHeterosexual (finding) [facility] Citytart: 10-13-2024 End: 85-28-9070HgmEfwvbn (finding)[facility] HospitalHow often to you have a drink containing alcohol?2-3 time sa weekNewark Hospital Start: 19-53-3117Kivykubyg33RocSmlbxq Health SystemStart: 57-74-5607Zquabtt CommentFew times a weekNewark Hospital Medical Equipment Procedure CodeEquipment CodeEquipment Original TextEquipment IdentifierDates Arthroscopy, shoulderTendon/ligament bone anchor, bioabsorbable [id number] FDAStart: 83-19-9209Lkjqfrzajbv, shoulderTendon/ligament bone anchor, bioabsorbable ()[id number] FDAStart: 34-68-8084Unxqunbgbgee, thumb Orthopaedic bone staple, non-adjustable, sterile [id number] FDAStart: 11-28-2023 Goals DatePatient GoalDesired Activity/State Clinical Notes 10-10-2021 to 10-13-2024 Note Date & RbssJppfNfhfwqsx98-75-5528 Evaluation note* Diagnosis Onset Date Resolution Status Admit Date Arthritis of carpometacarpal (CMC) joint of right thumb acuteJanuary 2024 8:42amOther specified postprocedural statesacuteJanuary 2024 8:42amPalmar fascial fibromatosis [dupuytren]acuteJanuary 2024 8:42am [facility] Work Phone: 1(864) 336-425501-14-2025 Evaluation note* Diagnosis Onset Date Resolution Status Admit Date Arthritis of carpometacarpal (CMC) joint of right thumb acuteJanuary 2024 8:42amOther specified postprocedural statesacuteJanuary 2024 8:42amPalmar fascial fibromatosis [dupuytren]acuteJanuary 2024 8:42amArthritis of carpometacarpal (CMC) joint of right thumbacuteFebruary 2024 8:56amOther specified postprocedural statesacuteFebruary 2024 8:56am Palmar fascial fibromatosis [dupuytren]acuteFebruary 2024 8:56amTrigger thumb, right thumbacuteFebruary 2024 8:56am [facility] Work Phone: 1(276) 494-393701-14-2025 Evaluation note* Diagnosis Onset Date Resolution Status Admit Date Arthritis of carpometacarpal (CMC) joint of right thumb acuteJanuary 2024 8:42amOther specified postprocedural statesacuteJanuary 2024 8:42amPalmar fascial fibromatosis [dupuytren]acuteJanuary 2024 8:42amArthritis of carpometacarpal (CMC) joint of right thumbacuteFebruary 2024 8:56amOther specified postprocedural statesacuteFebruary 2024 8:56am Palmar fascial fibromatosis [dupuytren]acuteFebruary 2024 8:56amTrigger thumb, right thumbacuteFebruary 2024 8:56amArthritis of carpometacarpal (CMC) joint of right thumbacuteMarch 2024 9:48amOther specified postprocedural statesacuteMarch 2024 9:48amPalmar fascial fibromatosis [dupuytren]acuteMarch 2024 9:48amTrigger thumb, right thumbacuteMarch 2024 9:48am [facility] Work Phone: 1(869) 942-373901-09-2025 History of Present illness Narrative* Andres Chinchilla MD - 10/08/2024 11:00 AM ESTAssociated Problem(s): Allergic rhinitis due to pollen Symptoms controlled with medication and continue. * Andres Chinchilla MD - 10/08/2024 11:00 AM ESTAssociated Problem(s): Primary hypothyroidism (CMS/HCC) No signs of low thyroid and due for labs. * Andres Chinchilla MD - 10/08/2024 11:00 AM ESTAssociated Problem(s): Esophageal reflux Occasional nausea and use zofran PRN. * Andres Chinchilla MD - 10/08/2024 10:00 AM EST Images from the original note were not included. Subjective Patient ID: Tiana Orozco is a 59 y.o. female who presents for No chief complaint on file.. Follow up thyroid, allergies, GERD, and weight. Patient doing well today. No signs of low thyroid. Denies fatigue or change in skin or nails. No thinning hair. Taking medication daily and due for labs. Allergies controlled with medication. No congestion or rhinorrhea. No JI or sinus pressure. Ears not plugged or popping. Weight unchanged in the last year. Active and walks several days a week. Tries to watch diet and eat healthy. Increased fruits and vegetables. Smaller portions and limits snacking. Tries to limit total daily calories. GERD doing well since fundoplication. Not able to throw upand occasional severe nausea if get sick. Uses zofran PRN and helps. Review of Systems Respiratory: Negative for cough, shortness of breath and wheezing. Cardiovascular: Negative for chest pain and palpitations. Gastrointestinal: Negative for abdominal pain, diarrhea, nausea and vomiting. Genitourinary: Negative for dysuria. Objective Physical Exam Constitutional: General: She is not in acute distress. Appearance: Normal appearance. HENT: Head: Normocephalic. Right Ear: Tympanic membrane normal. Left Ear: Tympanic membrane normal. Eyes: Extraocular Movements: Extraocular movements intact. Pupils: Pupils are equal, round, and reactive to light. Cardiovascular: Rate and Rhythm: Normal rate and regular rhythm. Heart sounds: No murmur heard. No friction rub. No gallop. Pulmonary: Effort: Pulmonary effort is normal. Breath sounds: Normal breath sounds. No wheezing, rhonchi or rales. Abdominal: General: Bowel sounds are normal. There is no distension. Palpations: Abdomen is soft. Tenderness: There is no abdominal tenderness. There is no guarding or rebound. Musculoskeletal: Cervical back: Neck supple. Right lower leg: No edema. Left lower leg: No edema. Neurological: Mental Status: She is alert. Assessment/Plan Problem List Items Addressed This Visit Dyslipidemia (CMS/HCC) Relevant Orders Lipid panel Esophageal reflux Occasional nausea and use zofran PRN. Relevant Medications ondansetron ODT (Zofran-ODT) 4 MG disintegrating tablet Primary hypothyroidism (CMS/HCC) - Primary No signs of low thyroid and due for labs. Relevant Orders TSH T4, free Prediabetes Relevant Orders Hemoglobin A1c Allergic rhinitis due to pollen Symptoms controlled with medication and continue. Vitamin D deficiency Relevant Orders Vitamin D 25 hydroxy Encounter for long-term (current) use of medications Relevant Orders Basic metabolic panel CBC and differential Hepatic function panel documented in this encounterMercy hospital [id number] History of Present illness Narrative* CORRY Bullard - 06/24/2024 2:00 PM EDT Reason for Appointment: Patient ID: Tiana Orozco is a 59 y.o. female who presents for Well Women Visit Patient presents today for Annual Exam. MEDICATIONS Current Outpatient Medications Medication Instructions Cholecalciferol (Vitamin D) 125 MCG (5000 UT) capsule fluticasone (Flonase) 50 MCG/ACT nasal spray Nasal, Daily RT levothyroxine (SYNTHROID, LEVOXYL) 125 mcg, Oral, Daily Multiple Vitamins-Minerals (PreserVision AREDS 2) capsule as directed Orally Premarin 0.625 MG/GM cream INSERT 1/2 (ONE HALF) APPLICATORFUL INTO VAGINA AT BEDTIME triamcinolone (Kenalog) 0.5 % cream 1 application , Topical, 3 times daily ALLERGIES Allergies Allergen Reactions Penicillins Hives, Itching, Rash, Swelling and Unknown Cephalexin PROBLEMS Active Ambulatory Problems Diagnosis Date Noted Dyslipidemia (CMS/HCC) 10/07/2023 Esophageal reflux 10/07/2023 Primary hypothyroidism (CMS/HCC) 10/07/2023 Prediabetes 10/07/2023 Allergic rhinitis due to pollen 10/07/2023 Vaginal atrophy 10/07/2023 Vitamin D deficiency 10/07/2023 Osteopenia of necks of both femurs 10/07/2023 Encounter for long-term (current) use of medications 10/07/2023 Resolved Ambulatory Problems Diagnosis Date Noted Pruritus 10/07/2023 Past Medical History: Diagnosis Date At low risk for fall Breast cancer screening by mammogram Encounter for gynecological examination (general) (routine) without abnormal findings Encounter for long-term current use of medication Gastroesophageal reflux disease Hypothyroidism, unspecified (CMS/HCC) Irritable bowel syndrome without diarrhea Obesity (BMI 30-39.9) Post menopausal syndrome Seasonal allergic rhinitis due to pollen Thyroid nodule (CMS/HCC) HISTORY PAST MEDICAL HISTORY SOCIAL HISTORY Past Medical History: Diagnosis Date At low risk for fall Breast cancer screening by mammogram Encounter for gynecological examination (general) (routine) without abnormal findings Encounter for long-term current use of medication Gastroesophageal reflux disease Hypothyroidism, unspecified (CMS/HCC) Irritable bowel syndrome without diarrhea Obesity (BMI 30-39.9) Post menopausal syndrome Seasonal allergic rhinitis due to pollen Thyroid nodule (CMS/HCC) Vaginal atrophy Vitamin D deficiency Social History Tobacco Use Smoking status: Former Current packs/day: 0.00 Types: Cigarettes Quit date: 1992 Years since quittin.7 Smokeless tobacco: Never Substance Use Topics Alcohol [...] ENDOMETRIAL ABLATION FINGER SURGERY right thumb HYSTERECTOMY HYSTERECTOMY LIPOSUCTION OTHER SURGICAL HISTORY Left 03/2003 Ren[facility] Don[facility] [place] BREAST REDUCTION SHOULDER SURGERY Right REVIEW OF SYSTEMS Review of Systems: Review of Systems Constitutional: Negative. HENT: Negative. Eyes: Negative. Respiratory: Negative. Cardiovascular: Negative. Gastrointestinal: Negative. Genitourinary: Negative. Musculoskeletal: Negative. Skin: Negative. Neurological: Negative. All other systems reviewed and are negative. Hematological: Negative. Endocrine: Negative. Allergic/Immunologic: Negative. OBJECTIVE Objective: Physical Exam Constitutional: Appearance: Normal appearance. She is well-developed. Genitourinary: Vulva normal. Vaginal cuff intact. Right Adnexa: not tender and no mass present. Left Adnexa: not tender and no mass present. Cervix is not absent. No cervical discharge. Uterus is not absent. Breasts: Breasts are soft. Right: Normal. Left: Normal. HENT: Head: Normocephalic. Nose: Nose normal. Mouth/Throat: Mouth: Mucous membranes are moist. Cardiovascular: Rate and Rhythm: Normal rate and regular rhythm. Pulmonary: Effort: Pulmonary effort is normal. Abdominal: General: Bowel sounds are normal. There [...] nursing note reviewed. Exam conducted with a pneumatic tube operator present. Vitals: Estimated body mass index is 27.69 kg/m as calculated from the following: Height as of this encounter: 5' 5 . Weight as of this encounter: 166 lb 6.4 oz. BP: 120/70 No LMP recorded (lmp unknown). Patient has had a hysterectomy. ASSESSMENT & PLAN ICD-10-CM 1. Well woman exam with routine gynecological exam Z01.419 THIN PREP TIS PAP AND HR HPV DNA 2. Breast cancer screening by mammogram Z12.31 Bilateral screening mammogram Bilateral screening mammogram 3. Postmenopausal state Z78.0 DEXA bone density Annual: Patient presents today for an annual exam. Patient states she is doing well and has no complaints. Pap was obtained without difficulty and patient given mammogram order to have scheduled/obtained. Patient previous dexa showed osteopenia 06/22 with mod fracture risk. Pt did not tolerate tums with calcium. History of funduplication procedure to help with her acid reflux. Discussed with patient on Prolia injections. She wishes to research and follow up if she decides to start prolia Orders Placed This Encounter Procedures Bilateral screening mammogram DEXA bone density Follow Up: Patient is to return in one year for annual unless needed otherwise. Documented by Maria Teresa Chong LPN on behalf of: CORRY Bullard documented in this encounterMercy hospital [id number] History of Present illness Narrative* Sabine Griffin MD - 01/09/2024 2:15 PM EDT Tiana Orozco Date of visit: 01/09/2024 Date of : 1965 Age: 58 y.o. Patient Active Problem List Diagnosis Abnormal EKG Dizziness Allergies Allergen Reactions Penicillins Hives, Itching, Rash, Swelling and Other (See Comments) Cephalexin Current Outpatient Medications Medication Sig Dispense Refill Bacillus coagulans-inulin 1 billion-250 cell-mg capsule Take 1 capsule by mouth in the morning and 1 capsule before bedtime. calcium carbonate (TUMS) 200 mg elemental (500 mg) chewable tablet Chew 1 tablet (200 mg total) andswallow in the morning. cholecalciferol, vitamin D3, 5,000 units tablet Take 1 tablet (5,000 Units total) by mouth in the morning. fluticasone propionate (FLONASE) 50 mcg/actuation nasal spray Administer into each nostril daily. levothyroxine (SYNTHROID, LEVOTHROID) 125 MCG tablet Take 1 tablet (125 mcg total) by mouth in the morning. dybsmsms-okxn-EU-calcium &mins (THERAGRAN-M) 9 mg iron-400 mcg tablet Take 1 tablet by mouth inthe morning. PREMARIN vaginal cream No current facility-administered medications for this visit. 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 Patient had EKG performed forpreoperative orthopedic surgery on her thumb. The EKG was read as sinus rhythm with evidence of oldlateral infarct. It was also read as unchanged from prior EKG. Patient is not really experiencing any symptoms of chest pain chest pressure or chest tightness. She is clinically never experienced a myocardial infarction. She is fairly active and exercises daily on a treadmill for 30 minutes at 4 mph. She does not have any symptoms while doing that. She does not have orthopnea or PND and denies any lower extremity edema. Patient does occasionally have episodes of dizzy nurse along with near-syncope especially when bending over either at the knees or at the hips and standing up suddenly. She has not actually had a syncopal episode however. She does try to keep herself well hydrated. She does not have a strong family history of premature coronary disease and does not have diabetes or hypertension. She is a former smoker but quit many years ago. Past Medical History: Diagnosis Date Disease of thyroid gland No data recorded No data recorded No data recorded Past Surgical History: Procedure Laterality Date ZION FUNDOPLICATION ROTATOR CUFF REPAIR Right History reviewed. No pertinent family history. Social History Socioeconomic History Marital status: Spouse name: Not on file Number of children: Not on file Years of education: Not on file Highest education level: 12th grade Occupational History Not on file Tobacco Use Smoking status: Former Smokeless tobacco: Never Vaping Use Vaping status: Never Used Substance and Sexual Activity Alcohol use: Yes Comment: Few times a week Drug use: Not Currently Sexual activity: Yes Partners: Male control/protection: None Other Topics Concern Not on file Social History Narrative Not on file Social Determinants of Health Financial Resource Strain: Low Risk (09/30/2023) Received from [facility] Overall Financial Resource Strain (CARDIA) Difficulty of Paying Living Expenses: Not hard at all Food Insecurity: No Food Insecurity (01/09/2024) Hunger Screening Food Insecurity - Worry: Never True Food Insecurity - Inability: Never True Transportation Needs: No Transportation Needs (09/30/2023) Received from [facility] PRAPARE - Transportation Lack of Transportation (Medical): No Lack of Transportation (Non-Medical): No Physical Activity: Sufficiently Active (09/30/2023) Received from [facility] Exercise Vital Sign Days of Exercise per Week: 6 days Minutes of Exercise per Session: 30 min Stress: No Stress Concern Present (09/30/2023) Received from [facility] [place] of Occupational Health - Occupational Stress Questionnaire Feeling of Stress : Not at all Social Connections: Moderately Integrated (09/30/2023) [facility] Social Connection and Isolation Panel [NHANES] Frequency of Communication with Friends and Family: More than three times a week Frequency of Social Gatherings with Friends and Family: Twice a week Attends Religion Services: Never Active Member of Clubs or Organizations: Yes Attends Club or Organization Meetings: 1 to 4 times per year Marital Status: Interpersonal Safety: Not At Risk (09/30/2023) [facility] Humiliation, Afraid, Rape, and Kick questionnaire Fear of Current or Ex-Partner: No Emotionally Abused: No Physically Abused: No Sexually Abused: No Housing Instability: Low Risk (09/30/2023) [facility] Housing Stability Vital Sign Unable to Pay for Housing in the Last Year: No Number of Places Lived in the Last Year: 1 In the last 12 months, was there a time when you did not have a steady place to sleep or slept in ashelter (including now)?: No Review of Systems Review of Systems Constitutional: Negative. HENT: Negative. Eyes: Negative. Respiratory: Negative. Hematologic/Lymphatic: Negative. Skin: Negative. Musculoskeletal: Positive for arthritis. Gastrointestinal: Negative. Neurological: Positive for dizziness and light-headedness. Psychiatric/Behavioral: Negative. Allergic/Immunologic: Positive for environmental allergies. CARDIOVASCULAR: Please review HPI. Physical Examination General appearance: Alert, oriented and cooperative. In no acute distress. Skin: Warm and dry to touch. Head: Normocephalic Eyes: EOM intact. Neck: No JVD, No carotid bruit. Respiratory: Clear to auscultation bilaterally Cardiovascular: RRR with normal S1 and S2 with no murmurs. Musculoskeletal: No peripheral edema. Neurologic: Nonfocal VITAL SIGNS: BP 130/80 (BP Site: Left Arm, BP Postition: Sitting) Pulse 72 Ht 165.1 cm (5' 5 ) Wt 74.8 kg (165 lb) SpO2 98% BMI 27.46 kg/m Orders Placed or Reconciled This Encounter Medications Bacillus coagulans-inulin 1 billion-250 cell-mg capsule Sig: Take 1 capsule by mouth in the morning and 1 capsule before bedtime. cholecalciferol, vitamin D3, 5,000 units tablet Sig: Take 1 tablet (5,000 Units total) by mouth in the morning. qvuilbzf-txbo-AU-calcium &mins (THERAGRAN-M) 9 mg iron-400 mcg tablet Sig: Take 1 tablet by mouth in the morning. calcium carbonate (TUMS) 200 mg elemental (500 mg) chewable tablet Sig: Chew 1 tablet (200 mg total) and swallow in the morning. There are no discontinued medications. IMPRESSIONS/PLAN 1. Abnormal EKG 2. Dizziness 1. Abnormal EKG. EKG at [facility] was read as sinus rhythm with lateral infarct. Patient has nondiagnostic Q-waves in leads 1 and aVL. This does not meet diagnostic criteria and is not consistent with prior infarct. Patient has never clinically experienced a myocardial infarction and does not have any symptoms suggestive angina pectoris. No further testing is indicated. 2. Dizziness and lightheadedness. Mainly occurs with positional changes. Advise patient to make sure she keeps herself well hydrated and to make sure she is careful when she stands up suddenly. Total time spent on this patient was 25 minutes: Preparing to see the patient(e.g. review of tests and prior office/hospital notes) Obtaining and/or reviewing separately obtained history Performing and medical specialty appropriate examination and/or evaluation Counseling and educating the patient/family/caregiver Ordering medications,tests or procedures TODAYS ORDERS No orders of the defined types were placed in this encounter. FOLLOW UP Return if symptoms worsen or fail to improve. PCP: ANDRES CHINCHILLA MD Referring Physician: Andres Chinchilla MD [address] [place] [address] documented in this encounterNewark Hospital04-10-2024 Miscellaneous Notes* Telephone Encounter - Jennifer Ibarra CMA - 01/08/2024 8:55 AM EDT Called patient to remind them to bring their most current copy of their medication list with them to their appt. Patient verbalizes understanding. documented in this encounterNewark Hospital04-10-2024 Telephone encounter Note* Telephone Encounter - Jennifer Ibarra CMA - 01/08/2024 8:55 AM EDT Called patient to remind them to bring their most current copy of their medication list with them to their appt. Patient verbalizes understanding. 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 Patienttolerated well. Discussed she will need to wait at least 6 weeks after the injection to have the surgery. 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 We performed a cortisone injection into the right thumb CMC joint under sterile technique. Patient tolerated the injection well without adverse reaction. 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 The patient tolerated this well without complication. We discussed that the finger may feel numb and tingle for hours after this injection. 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 * Anisha Tracy MD - 08/31/2022 12:30 PM EST Subjective: Tiana Orozco presents to the clinic 4 weeks following laparoscopic Zion fundoplication. Eatinga post-Zion diet without dysphagia. Bowel movement are Normal. [...] hernia Assessment: 57 y.o. female s/p laparoscopic Zion fundoplication. Doing well postoperatively. Plan: 1. Regular diet as tolerated 2. No PPI required 3. Pt is to increase activities as tolerated. 4. Follow up: as scheduled Anisha Tracy MD convertible top installer [facility] Note* Nursing Notes - Marva Orona RN - 08/01/2022 10:32 AM EDT Pt has met SERU discharge criteria. Pt discharged to home. AVS and given and reviewed. Pill cutter and brake specialist was given to pt. Medications (acetaminophen, oxycodone, zofran and promethazine) escribed by MD to pts preferred pharmacy. Pt verbalized understanding, all questions answered. Pt discharged per wheel chair, by hospital staff with all belongings. No complaints at discharge. Marva Orona RN [facility]11-02-2022 Miscellaneous Notes* Nursing Notes - Marva Orona RN - 08/01/2022 10:32 AM EDT Pt has met SERU discharge criteria. Pt discharged to home. AVS and given and reviewed. Pill cutter and brake specialist was given to pt. Medications (acetaminophen, oxycodone, [...] and steady. * Op Note - Anisha Tracy MD - 07/31/2022 12:23 PM EDT General Surgery Operative Report Surgeon: Anisha Tracy MD Fountain Supervisor: Pedro Wasserman MD Pre-operative Diagnosis: GERD Post-operative Diagnosis: GERD Procedure: Laparoscopic Zion Fundoplication Anesthesia: GETA Blood Loss: Minimal Operative Indications: This is a 57-year-old female with a longstanding history of gastroesophagealreflux refractory to medical therapy. Given her severe reflux symptoms and results of objective testing, the decision was made to proceed with elective laparoscopic Zion fundoplication. Details of procedure: After informed consent [...] circumferential esophageal dissection had been achieved. A Chrisney drain was then placed around the esophagus and used to retract the esophagus in a caudal direction. The esophagus was then mobilized high in the mediastinum using blunt dissection. There was ample length of infra- abdominal esophagus to perform a Zion fundoplication. Attention was then turned to the crural closure. A posterior cruroplasty was performed using interrupted 0 Ethibond pledgeted sutures. When this was completed the fundus of the stomach was passed around behind the esophagus and a 56-Gambian Banuelos dilator was passed down the esophagus and into the stomach and a floppy Zion fundoplication was performed over this large dilator. The fundoplicationwas created by taking a bite of the greater curvature of the stomach, the esophagus and the greatercurvature of the stomach. This was performed using 3 sutures to create a 2 cm wrap. When this was completed the bougie was removed and the Matt drain was removed from around the esophagus. [...] Due to the lack of a qualified president consumer electronics company, a second attending, Dr. Wasserman, assisted with [...] 07/31/2022 8:59 AM EDT Patient arrived to [facility] PACU [place] 1 at 0845. Report received from SMOOTH STUCCO RESURFACER and surgeon. No labs or imaging needed in PACU. 0911: Family updated, spoke with patient spouse Manny. Aware patient is awaiting bed assignment. 0934: Dr Velazquez paged for sign out, reviewed telemetry, ectopy, VS, and oxygen requirement per ID. Ok for sign out per Dr. Velazquez. Order received for telemetry and pulse oximetry. Order entered per RN. 0936: Attempted to call report, call back number provided. 0944: Family updated, spoke with patient's spouse Manny. 0955: Report called to ABHINAV Haney 1002: Patient left PACU via cart with RN and SOFTBALL UMPIRE in good condition. Patient remains on continuous telemetry and pulse oximetry. No belongings in PACU with patient. * Brief Op Note - Pedro Wasserman MD - 07/31/2022 8:41 AM EDT Tiana Orozco ([id number]) PRE OPERATIVE DIAGNOSIS GERD (gastroesophageal reflux disease) [K21.9] POST OPERATIVE DIAGNOSIS Post-Op Diagnosis Codes: * GERD (gastroesophageal reflux disease) [K21.9] PROCEDURE PERFORMED Laparoscopic Zion Fundoplication PRIMARY CLOSURE Yes INTRAOPERATIVE FINDINGS 360 degree fundoplication over 56 Fr bougie SURGEON Surgeon(s) and Role: * Anisha Tracy MD - Primary * Pedro Wasserman MD - Fellow ANESTHESIOLOGIST Anesthesiologist: Kenia Velazquez MD SMOOTH [employer]O RESURFACER: Meghana Hawley APRN-[employer] RESURFACER SURGICAL STAFF Fountain Supervisor: Angie Ortez RN Scrub Person: David Jean Baptiste Group Manager: Fritz Dave COMPLICATIONS None ESTIMATED BLOOD LOSS Minimal SPECIMENS No specimen sent * No specimens in log * Pedro Wasserman MD July 31, 2022 8:41 AM [facility] course Narrative* Mona Oropeza MD - 08/01/2022 9:08 AM EDT GENERAL SURGERY DISCHARGE SUMMARY Patient Name: Tiana Orozco Admission Date: 07/31/2022 Discharge Date: 08/01/2022 Attending Surgeon: No att. providers found Primary Care Physician: Andres Chinchilla PROBLEM LIST: Admitting Diagnosis: Active Problems: Paraesophageal hernia GERD (gastroesophageal reflux disease) HOLY CROSS: Code Status: Full Code Hospital Course - H[place]Y [place]OSS on Admission Taken From History and Physical Exam: Ms. Tiana Orozco is a 57 y.o. female admitted to [facility] at [facility] on 07/31/2022 with a history significant for GERD and hypothyroidism. She was taken to the ORon 07/31/2022 for laparoscopic Zion fundolipcation. The patient tolerated the procedure well. [...] difficulty. He will follow up with Dr. Tracy on 08/31/2022. All discharge instructions and follow [...] psychosis PROCEDURES/SURGERIES: 1 Day Post-Op s/p laparoscopic Zion fundolipcation DIAGNOSTIC STUDIES: Labs: Lab Results Component [...] HSTROP Significant Cultures: No results found for: [id number] No results found for: SOURCE, RESULTCULT Imaging [...] CONTINUE taking these medications cholecalciferol 50 MCG (2000 UT) CAPS Commonly known as: VITAMIN D3 HERBAL PRODUCT levothyroxine 125 MCG TABS Commonly known as: SYNTHROID Oil Base LIQD PRESERVISION AREDS 2 PO PROBIOTIC DAILY PO STOP taking these medications esomeprazole [address] capsule Commonly known as: NEXIUM Where to Get Your Medications These medications were sent to [id number] [place] [address] - [address] [place] [id number] acetaminophen 500 MG TABS ondansetron 4 MG [...] AM NATALIIA Lemos 08/31/2022 12:30 PM [facility] 10/04/2022 10:30 AM NATALIIA Lemos More than 30 minutes was spent on the patient's discharge. Mona Oropeza MD documented in this encounter[facility]11-[facility]-2022 Hospital Discharge instructions* Discharge Instructions* Mona Oropeza MD - 08/01/2022 8:23 AM EDT Images from the original note were not included. Zion Fundoplication Discharge Instructions After surgery You should [...] have any questions or concerns, please call [phone]. If you need to have paperwork completed to apply for disability, the office fax is [phone]. Call your doctor if you have more [...] 4 weeks after surgery. Take the pill brake specialist home with you from the hospital. If [...] surgery. Ask for the handout, Diet after Zion Fundoplication Surgery for more information. You will [...] care. For more health information, go to [email or web address] or contact the Library for Health Information at [phone] or [email or web address]. 2014 - November 24, 2018, [facility]. 2 Zion Fundoplication Discharge Instructions [email or web address] documented in this encounterOSU [facility] Note* Nursing Notes - Medina Fernández RN - 07/31/2022 2:29 PM EDT Patient up ambulating in hallway with standby assist of staff. Gait slow and steady. [facility]11-01-[facility] Note* Op Note - Anisha Tracy MD - 07/31/2022 12:23 PM EDT General Surgery Operative Report Surgeon: Anisha Tracy MD Fountain Supervisor: Pedro Wasserman MD Pre-operative Diagnosis: GERD Post-operative Diagnosis: GERD Procedure: Laparoscopic Zion Fundoplication Anesthesia: GETA Blood Loss: Minimal Operative Indications: This is a 57-year-old female with a longstanding history of gastroesophagealreflux refractory to medical therapy. Given her severe reflux symptoms and results of objective testing, the decision was made to proceed with elective laparoscopic Zion fundoplication. Details of procedure: After informed consent [...] circumferential esophageal dissection had been achieved. A Chrisney drain was then placed around the esophagus and used to retract the esophagus in a caudal direction. The esophagus was then mobilized high in the mediastinum using blunt dissection. There was ample length of infra- abdominal esophagus to perform a Zion fundoplication. Attention was then turned to the crural closure. A posterior cruroplasty was performed using interrupted 0 Ethibond pledgeted sutures. When this was completed the fundus of the stomach was passed around behind the esophagus and a 56-Gambian Banuelos dilator was passed down the esophagus and into the stomach and a floppy Zion fundoplication was performed over this large dilator. The fundoplicationwas created by taking a bite of the greater curvature of the stomach, the esophagus and the greatercurvature of the stomach. This was performed using 3 sutures to create a 2 cm wrap. When this was completed the bougie was removed and the Matt drain was removed from around the esophagus. [...] Due to the lack of a qualified president consumer electronics company, a second attending, Dr. Wasserman, assisted with this procedure. [facility]11-01-[facility] History of Present illness Narrative* Mona Oropeza MD - 07/31/2022 12:13 PM EDT Post-Op Check Note Patient: Tiana Orozco Date: 07/31/2022, 12:54 PM SUBJECTIVE: Post-operatively . Tiana Orozco is doing well. She is [...] MD Anesthesiology, PGY-1 documented in this encounterOSU [facility] Note* Nursing Notes - Medina Fernández RN - 07/31/2022 10:17 AM EDT Patient arrived on unit at this time. Sleepy but arouses to verbal stimuli. Noted some bloody drainage from lap site on left side of abdomen. 2 X 2 gauze dressing applied over site. Spouse at bedside. [facility]11-01-2022 Note* Nursing Notes - Niurka Freeman RN - 07/31/2022 8:59 AM EDT Patient arrived to [facility] PACU [place] 1 at 0845. Report received from SMOOTH [employer] RESURFACER and surgeon. No labs or imaging needed in PACU. 0911: Family updated, spoke with patient spouse Manny. Aware patient is awaiting bed assignment. 0934: Dr Velazquez paged for sign out, reviewed telemetry, ectopy, VS, and oxygen requirement per ID. Ok for sign out per Dr. Velazquez. Order received for telemetry and pulse oximetry. Order entered per RN. 0936: Attempted to call report, call back number provided. 0944: Family updated, spoke with patient's spouse Manny. 0955: Report called to ABHINAV Haney 1002: Patient left PACU via cart with RN and SOFTBALL UMPIRE in good condition. Patient remains on continuous telemetry and pulse oximetry. No belongings in PACU with patient. [facility]11-01-[facility] Note* Brief Op Note - Pedro Wasserman MD - 07/31/2022 8:41 AM EDT Tiana Orozco ([id number]) PRE OPERATIVE DIAGNOSIS GERD (gastroesophageal reflux disease) [K21.9] POST OPERATIVE DIAGNOSIS Post-Op Diagnosis Codes: * GERD (gastroesophageal reflux disease) [K21.9] PROCEDURE PERFORMED Laparoscopic Zion Fundoplication PRIMARY CLOSURE Yes INTRAOPERATIVE FINDINGS 360 degree fundoplication over 56 Fr bougie SURGEON Surgeon(s) and Role: * Anisha Tracy MD - Primary * Pedro Wasserman MD - Fellow ANESTHESIOLOGIST Anesthesiologist: Kenia Velazquez MD SMOOTH [employer]O RESURFACER: Meghana Hawley APRN-S[employer] RESURFACER SURGICAL STAFF Fountain Supervisor: Angie Ortez RN Scrub Person: David Jean Baptiste Group Manager: Fritz Dave COMPLICATIONS None ESTIMATED BLOOD LOSS Minimal SPECIMENS No specimen sent * No specimens in log * Pedro Wasserman MD July 31, 2022 8:41 AM [facility] Work Phone: 1(881) 319-600711-01-2022 History and physical note* Mona Oropeza MD - 07/31/2022 5:56 AM EDT PERIOPERATIVE HISTORY AND PHYSICAL UPDATE Operation: Procedure(s) (LRB): FUNDOPLASTY ESOPHAGOGASTRIC LAPAROSCOPIC (N/A) Surgeon: Anisha Tracy MD Tiana Orozco is a 57 y.o. female with a history of GERD, hypothyroidism, who presents for laparoscopic Zion fundoplication. She presents in her usual state [...] by Mona Oropeza MD, at 5:56 AM [facility]11-01-[facility] History and physical note* Mona Oropeza MD - 07/31/2022 5:56 AM EDT PERIOPERATIVE HISTORY AND PHYSICAL UPDATE Operation: Procedure(s) (LRB): FUNDOPLASTY ESOPHAGOGASTRIC LAPAROSCOPIC (N/A) Surgeon: Anisha Tracy MD Taina Orozco is a 57 y.o. female with a history of GERD, hypothyroidism, who presents for laparoscopic Zion fundoplication. She presents in her usual state [...] MD, at 5:56 AM documented in this [facility]10-18-2022 History and physical note* Tiana Kingsley, VICE PRESIDENT OF TALENT MANAGEMENT-LANDSCAPE CONTRACTOR - 07/17/2022 1:15 PM EDT Pre-Operative Assessment (PAT) Outpatient Clinic Note H&P Date of Evaluation: 07/17/2022 Date of Surgery: 07/31/22 Surgeon: Dr Tracy Pre-Op Diagnosis: GERD Planned Procedure: FUNDOPLASTY ESOPHAGOGASTRIC [...] Orozco. NATALIIA Steve Division of Hospital Medicine [facility] Work Phone: 1(285) 342-878210-18-2022 History and physical note* NATALIIA Steve - 07/17/2022 1:15 PM EDT Pre-Operative Assessment (PAT) Outpatient Clinic Note H&P Date of Evaluation: 07/17/2022 Date of Surgery: 07/31/22 Surgeon: Dr Tracy Pre-Op Diagnosis: GERD Planned Procedure: FUNDOPLASTY ESOPHAGOGASTRIC [...] sleeping for patients if High risk for ALURA Hypothyroidism -stable on levothyroxine GERD -stable on [...] Division of Hospital Medicine documented in this encounterMarymount Hospital10-18-2022 Instructions* Patient Instructions* NATALIIA Steve - 07/17/2022 [...] 3. DO NOT wear lotion, makeup, nail djiboutian, contact lens, or perfume/cologne. 4. DO NOT [...] Multi-Vitamins for 3 days. 4. Please contact [facility] Preadmission Testing Center if you have changes to your medications before surgery. We work in conjunction with your surgeon but cannot any specific questions about your surgery. If you have any questions specific to our visit today for your preoperative testing, please contactthe [facility] Preadmission Testing Center at [phone]. Please direct any questions regarding your surgery to your surgeon s office documented in this encounterOSU [facility] Evaluation note * Encounter Date Diagnosis Assessment Notes Treatment Notes Treatment Clinical Notes May, Acute pain of right foot (ICD-10 - M79.671) May,prain of right foot, initial encounter (ICD-10 - S93.601A) Radiographs reviewed with patient as no obvious fracture, although discussed there is potential patient has a nondisplaced 5th metatarsal base stress fracture based on exam and history. We will treatthis as a sprain for now. We discussed that this can take at least 6 weeks to heal. We will allow gentle ankle and foot motion and gentle progressive weight bearing as tolerated as pain allows. Patient declines CAM walker boot today, will limit activity on her own. If no improvement over the next month, may consider MRI for evaluation [facility] Other 08-19-2022 History of Present illness Narrative* Anisha Tracy MD - 05/18/2022 2:30 PM EDT Subjective: CC: GERD HPI: Tiana Orozco is an 57 y.o. female who was referred for evaluation of gastroesophageal reflux disease. She's had issues with reflux for several years and is concerned about snf use of medications. She also endorses belching, bloating, and a gurgling sensation. Symptoms were first notedseveral years ago. Symptoms include Heartburn:yes Will wake her up in the night 3x a month Chest pain: yes With reflux episodes Dysphagia: yes Worse with meats, bread, pill, and singaporean fies Regurgitation: yes When sitting upright Cough: [...] (198 lb 11.2 oz) Comment: with sandals [id number]% BMI 33.07 kg/m Smoking Status Former Smoker [...] we will plan to proceed with laparoscopic Zion fundoplication. A fulldiscussion of the risks and benefits of the procedure was held, all of the patients questioned wereanswered, and informed consent was obtained. Today, I spent 25 minutes with the patient, the majority of which was spent in [id number] discussion and counseling regarding the above. Anisha Tracy MD convertible top installer [facility] documented in this encounterMarymount Hospital08-19-2022 Instructions* Patient Instructions* Savannah Murdock - 05/18/2022 2:30 PM EDT BEFORE SURGERY: Preadmission Testing at [facility] Date: 07/17/22 Arrival Time: 1:15 PM Address: [place] [address] The facility offers plenty of free, convenient [...] to surgery, please contact our office at [phone] Please note that this schedule is subject [...] you do not [place] [address] [place] in [address], Patient Admissions (1st room on the right) Office #: [phone] Fax #: [phone] CURRENT COVID VISITOR POLICY: These visitor policy [...] service home, an adult, other than the medical delivery driver, needs to ride with you for your safety. This person will also be responsible for communicatingpost-operative instructions to you. If you would like to sign up for text messages for [facility] appointment reminders text [facility] TO [phone].You will receive a response within a few [...] the hospital. Do not wear makeup, nail djiboutian or hair pins to the hospital. Please [...] a living will or durable power of civil attorney, please bring a copy of the documents [...] your doctor s office. Driving Directions to [facility] From the North ([place], [place] and [place]) Take any major [address] to the [address] exit Turn left onto [address] ([address] turns into [address]) Take [place] [place] to [address] Turn left onto [address] Turn left onto [address] Turn right onto [address] See Parking Directions - Continued From the South ([facility] and [place]) Take any major highway to [address] to [address] to [address] exit Turn right onto [address] Turn right onto [address] Turn left to stay on [address] Turn left onto [address] Turn left onto [address] Turn right onto [address] See Parking Directions - Continued From the East ([place], [place] and [place]) Take any major highway to [address] to the [address] exit Turn right onto [address] Turn right onto [address] Turn left to stay on [address] Turn left onto [address] Turn left onto [address] Turn right onto [address] See Parking Directions - Continued From the West ([place], [place] and [place]) Take any major highway to [address] to [address] to the the [address] exit Turn right onto [address] Turn right onto [address] Turn left to stay on [address] Turn left onto [address] Turn left onto [address] Turn right onto [address] See Parking Directions - Continued Parking Directions - Continued Patient [employer] Stewardess Continued: Take [address] past the intersection of [address]. Continue straight to the front of [facility] ([facility]). Pull into Patient [employer]argo [employer] on your right. [employer] [address] [facility] [address] [address] Continued: From [address], turn left onto [facility]. The [employer] is located on the left and is connected to the medical center by a walkway bridge on the second fl oor. [address] [place] [address] Continued: Take [address] to [address] [...] prior to the procedure being performed. A fraud representative from the [facility] will contact you to pre-register you for your services. If you have not received a call by two days prior to your procedure date, please call our Pre-Registration Department at [phone] or [phone]. By calling us in advance, your wait time will be reduced. Our trained representatives can assist you in discussing both your physician and hospital obligations. Are you a Shipping [employer] user? If yes, you can log on and complete a pre-registration questionnaire. Health Diagnostics Teacher: You are not eligible for Financial Assistance if you are entering the [facility] solely to seek medical treatment. We want to make sure all patients have access to quality healthcare services at [facility], and we are committed to [...] These options include helping you apply for: [place] Medicaid (if your income meets guidelines) The Affordable Care Act Insurance Exchange Program. Other federal/state assistance programs Or establish a payment plan Other Assistance: [facility] offers an additional sliding scale [...] please contact the Financial Counseling Department at [phone] between 8 a.m. and 5 p.m. . A financial counselor can assist you with the application process. You will be screened for all potential programs. If you appear to beeligible for Medicaid, you will be assisted through the application process. As a Medicaid recipient, your physician fees and facility fees could be covered. Services not covered by [facility] financial assistance program: Physician Fees Transportation fees Dental Services Medically unnecessary services Prescriptions Durable Medical Equipment We Are 100% Tobacco-Free At The [facility] [place], we care about the health of our [...] Medical Center is important. documented in [facility] History and physical note* Anisha Tracy MD - 04/26/2022 11:30 AM EDT ENDOSCOPIC PREPROCEDURE HISTORY AND PHYSICAL HISTORY OF PRESENT ILLNESS: Tiana Orozco is a 57 y.o. female seen in the preoprocedure area at [facility] ENDOSCOPY. The indication for endoscopic evaluation includes: [...] INTERVENTIONAL UPPER ENDOSCOPY using Moderate Sedation. Anisha Tracy MD [facility] Work Phone: [phone]) 372-823807-28-2022 History and physical note* Anisha Tracy MD - 04/26/2022 11:30 AM EDT ENDOSCOPIC [...] CBD Current Outpatient Medications: cholecalciferol 50 MCG (1999) capsule, Take 2,000 Units by mouth daily., [...] INTERVENTIONAL UPPER ENDOSCOPY using Moderate Sedation. Anisha Tracy MD [facility] Miscellaneous Notes* Nursing Notes - Fe Kingsley RN - 04/26/2022 11:30 AM EDT Nunez teaching completed. Reason for testing and recorder reviewed with patient. All questions answered. Patient states understanding. Will send back in pre paid UPS box. Patient instructed to tape box closed. Recorder #[id number]. documented [facility] Note* Nursing Notes - Fe Kingsley RN - 04/26/2022 11:30 AM EDT Nunez teaching completed. Reason for testing and recorder reviewed with patient. All questions answered. Patient states understanding. Will send back in pre paid UPS box. Patient instructed to tape box closed. Recorder #[id number]. [facility] Nurse Note* Yvon German RN - 04/26/2022 [...] 11:30 AM EDT Patient with instructions on NUNEZ and said there was no need to go back over material. Patient also has box to mail back device. documented in this [facility] Nurse Surgical operation note* Yvon German RN - 04/26/2022 11:30 AM EDT Patient and family given discharge instructions and were reviewed with them. All questions answered. [facility]07-28-2022 Nurse Surgical operation note* Yvon German RN - 04/26/2022 11:30 AM EDT Patient discussed procedure with Dr. Benji Gonzales and is ready for discharge Patient declines wheelchair and will walk to car with family. [facility]07-28-2022 Nurse Surgical operation note* Yvon German RN - 04/26/2022 11:30 AM EDT Patient with instructions on NUNEZ and said there was no need to go back over material. Patient also has box to mail back device. [facility] Instructions* Patient Instructions* Barbra Duckworth - 04/20/2022 1:50 PM EDT EGD w/Nunez Date: 04/26/2022 Arrival Time: 10:30 am Check-in the 1st floor at [address] (first room on the right) Please report to: [facility] 1st Floor, [address] Patient Admission/Registration Desk [address] [place] [address] Nothing to eat or drink after midnight. [...] service home, an adult, other than the medical delivery driver, needs to ride with you for your safety. You will need to take the day off from work, school, or other activities. Call if you have any questions or cannot keep this appt. EGD with NUNEZ pH Monitoring You are scheduled for a test called an EGD (Esophagogastroduodenoscopy) with NUNEZ pH monitoring. Esophageal pH monitoring is a [...] these medicines before the test, please call [phone] and ask to talk to a nurse. [...] The tube is then removed, and the NUNEZ capsule is attached with a special tool. The capsule measures the acidity in your esophagus and sends a wireless signal to a small cage/vault supervisor box that your wear on your clothes. After the Test Do not have other tests, such as CT scan, nuclear medicine test, or x-rays, during the 48 hours theBravo test is in progress. Do not have an MRI for 30 days after placement of the Nunez capsule. You may feel drowsy and sleep for a short time after the test. A nurse will check on you to see how you are feeling. After the exam, you may be asked not to eat or drink for 1 hour if you throat was numbed. You will be told about this before you leave. Continue your normal diet and activities during the Nunez study. You may feel that something is in your lower chest, especially when you swallow. That is the capsule. Chew foods completely and then swallowing with liquids to reduce this feeling. Your study is being done while you are off of your reflux medicines. Do not take them until the 48 hour recording period is over. Press the buttons on the cage/vault supervisor box, when you have signs of reflux. You will also need to record your meals and when you lay down on a diary sheet. A nurse will set upyour symptom buttons, go over the diary sheet with you, and answer all your questions. If you smoke or use tobacco, record when you do these behaviors in your diary. Keep your cage/vault supervisor clipped to your clothes. If an alarm beeps, the cage/vault supervisor is out of range of the Nunez capsule. Just hold the cage/vault supervisor against your chest until the beep stops. The cage/vault supervisor will automatically shut off after 48 hours. The capsule will fall off after 7 to 10 days, pass naturally through the GI tract, and come out in your stool. You do not need to look for the capsule; all test information is stored in the cage/vault supervisor. Return the diary sheet and cage/vault supervisor box to the endoscopy check-in window when the 48 hour testing period ends. A small shipping box is available for patients who live out of town Driving Directions to [facility] From the North ([place], [place] and [place]) Take any major [address] to the [address] exit Turn left onto [address] ([address] turns into [address]) Take [address] [place] to [address] Turn left onto [address] Turn left onto [address] Turn right onto [address] See Parking Directions - Continued From the South ([facility] and [place]) Take any major highway to [address] to [address] exit Turn right onto [address] Turn right onto [address] [place] Turn left to stay on [address] Turn left onto [address] Turn left onto [address] Turn right onto [address] See Parking Directions - Continued From the East ([place], [place] and [place]) Take any major highway to [address] to [address] exit Turn right onto [address] Turn right onto [address] [place] Turn left to stay on [address] Turn left onto [address] Turn left onto [address] Turn right onto [address] See Parking Directions - Continued From the West ([place], [place] and [place]) Take any major highway to [address] to the the [address] exit Turn right onto [address] Turn right onto [address] [place] Turn left to stay on [address] [place] Turn left onto [address] Turn left onto [address] Turn right onto [address] See Parking Directions - Continued Parking Directions - Continued Patient [employer] Continued: Take [address] past the intersection of [address] and [address]. Continue straight to the front of [facility] ([facility]). Pull into Patient [employer] on your right. [employer] [address] [facility] [place] [address] Continued: From [address], turn left onto [facility]. The [employer] is located on the left and is connected to the medical center by a walkway bridge on the second fl oor. [address] [place] [address] Continued: Take [address] to [address] [...] ticket to any information desk in the [facility] to receive your discount ticket. documented in this encounterOSMag[facility]07-22-2022 History of Present illness Narrative* Veronique Gutierrez, PATRICIO-LANDSCAPE CONTRACTOR - 04/20/2022 12:00 PM EDT Subjective: CC: GERD HPI: Tiana Orozco is an 57 y.o. female who was referred for evaluation of gastroesophageal reflux disease. She's had issues with reflux for several years and is concerned about terminal supervisor use of medications. She also endorses belching, bloating, and a gurgling sensation. Symptoms were first notedseveral years ago. Symptoms include Heartburn:yes Will wake her up in the night 3x a month Chest pain: yes With reflux episodes Dysphagia: yes Worse with meats, bread, pill, and singaporean fies Regurgitation: yes When sitting upright Cough: [...] with normal relaxation. No EGJ outflow obstruction. [id number] pH: no Past Medical History: Diagnosis Date [...] Following this, she will follow upwith Dr. Tracy to discuss the results and possible endoscopic or laparoscopic reflux treatment. We did discuss LINX vs Zion today in clinic and she is likely not interested in LINX. The patient was given the KRAMES GERD booklet as well as the post-Zion diet handout today in clinic. The patient was instructed to stop any PPI medication one week before the EGD with ph test, and to stop any H2 blockers three days before the test. The patient acknowledged understanding. NATALIIA Lemos documented in this encounterOS[facility]04[facility] Evaluation note * Encounter Date Diagnosis Assessment Notes Treatment Notes Treatment Clinical Notes Dec, Dysphagia (ICD-10 - R13.10) Dec,Esophageal spasm (ICD-10 - K22.4) Continue Nexium EMS Dec,Irritable bowel syndrome (IBS) (ICD-10 - K58.9) Start Dicyclomine 20mg tid prn [facility] Other 01-27-2022 Evaluation note* Encounter Date Diagnosis Assessment Notes Treatment Notes Treatment Clinical Notes Sep, GERD (gastroesophageal reflux di sease) (ICD-10 - K21.9) Sep,ysphagia (ICD-10 - R13.10) [facility] Other 01-11-2022 Evaluation note* Encounter Date Diagnosis Assessment Notes Treatment Notes Treatment Clinical Notes Sep, Tear of right supraspinatus tend on (ICD-10 - M75.101) Patient is progressing well from surgery. We discussed the importance of continuing motion and strength exercise. Patient instructed on aggressive stretching exercise in order to improve motion. Still having moderate stiffness. Again discussed aggressive motion exercise. Otherwise she seems rajeev doing fine and happy with outcome Sep,ther specified postprocedural states (ICD-10 - Z98.890) [employer] Other Evaluation noteNort [facility] Other Evaluation noteNo InformationNocenterpointe hospital Chargeback Other Evaluation note* Diagnosis Gastroesophageal reflux disease without esophagitis- Primary Esophageal reflux documented in this encounter [facility]* Diagnosis Gastroesophageal reflux disease without esophagitis Esophageal reflux documented in this encounter [facility]* Diagnosis Gastroesophageal reflux disease without esophagitis- Primary Esophageal reflux GERD (gastroesophageal reflux disease) Esophageal reflux documented in this encounter [facility]* Diagnosis Preoperative examination- Primary Preoperative examination, unspecified Acquired hypothyroidism Unspecified hypothyroidism Obesity (BMI 30.0-34.9) Obesity, unspecified Chronic GERD GERD (gastroesophageal reflux disease) Esophageal reflux documented in this encounter [facility]* Diagnosis S/P repair of paraesophageal hernia- Primary Other postprocedural status Gastroesophageal reflux disease without esophagitis Esophageal reflux Paraesophageal hernia Diaphragmatic hernia without mention of obstruction or gangrene GERD (gastroesophageal reflux disease) Esophageal reflux documented in this encounter [facility]* Diagnosis S/P laparoscopic fundoplication- Primary Other postprocedural status documented in this encounter [facility] Center[facility] noteNo assessment information available [facility] Work Phone: Evaluation note* Diagnosis Onset Date Resolution Status Arthritis of carpometacarpal (CMC) joint of right thumb acutePalmar fascial fibromatosis [dupuytren]acutePre-op evaluationacute [facility] Work Phone: Evaluation note* Diagnosis Onset Date Resolution Status Arthritis of carpometacarpal (CMC) joint of right thumb acutePalmar fascial fibromatosis [dupuytren]acutePre-op evaluationacuteArthritis of carpometacarpal (CMC) joint of right thumbacuteOther specified postprocedural statesacutePalmar fascial fibromatosis [dupuytren]acuteArthritis of carpometacarpal (CMC) joint of right thumbacuteOther specified postprocedural statesacutePalmar fascial fibromatosis [dupuytren]acute [facility] Work Phone: Evaluation note* Diagnosis Onset Date Resolution Status Arthritis of carpometacarpal (CMC) joint of right thumb acutePalmar fascial fibromatosis [dupuytren]acutePre-op evaluationacuteArthritis of carpometacarpal (CMC) joint of right thumbacuteOther specified postprocedural statesacutePalmar fascial fibromatosis [dupuytren]acuteArthritis of carpometacarpal (CMC) joint of right thumbacuteOther specified postprocedural statesacutePalmar fascial fibromatosis [dupuytren]acuteArthritis of carpometacarpal (CMC) joint of right thumbacuteOther specified postprocedural statesacutePalmar fascial fibromatosis [dupuytren]acute [facility] Work Phone: Evaluation note* Diagnosis Onset Date Resolution Status Arthritis of carpometacarpal (CMC) joint of right thumb acuteOther specified postprocedural statesacutePalmar fascial fibromatosis [dupuytren]acuteArthritis of carpometacarpal (CMC) joint of right thumbacute Other specified postprocedural statesacutePalmar fascial fibromatosis [dupuytren]acuteArthritis of carpometacarpal (CMC) joint of right thumbacute Other specified postprocedural statesacutePalmar fascial fibromatosis [dupuytren]acute [facility] Work Phone: Evaluation note* Diagnosis Well woman exam with routine gynecological exam Routine gynecological examination Breast cancer screening by mammogram Postmenopausal state Asymptomatic postmenopausal status (age-related) (natural) documented in this encounter [facility] HealthcareEvaluation note* Diagnosis Primary hypothyroidism (CMS/HCC)- Primary Unspecified hypothyroidism Seasonal allergic rhinitis due to pollen Osteopenia of necks of both femurs Vitamin D deficiency Encounter for long-term (current) use of medications Encounter for long-term (current) use of other medications Prediabetes Other abnormal glucose Dyslipidemia (CMS/HCC) Other and unspecified hyperlipidemia Primary hypothyroidism (CMS/HCC)- Primary Unspecified hypothyroidism Gastroesophageal reflux disease without esophagitis Esophageal reflux Dyslipidemia (CMS/HCC) Other and unspecified hyperlipidemia Prediabetes Other abnormal glucose Encounter for long-term (current) use of medications Encounter for long-term (current) use of other medications Vitamin D deficiency Seasonal allergic rhinitis due to pollen documented in this encounter [facility] HealthcareEvaluation note* Diagnosis Onset Date Resolution Status Admit Date Arthritis of carpometacarpal (CMC) joint of right thumb acuteJanuary 2024 8:42amOther specified postprocedural statesacuteJanuary 2024 8:42amPalmar fascial fibromatosis [dupuytren]acuteJanuary 2024 8:42am [facility] Work Phone: Evaluation note* Diagnosis Abnormal EKG- Primary Nonspecific abnormal electrocardiogram (ECG) (EKG) Dizziness Dizziness and giddiness documented in this encounter [facility] Narrative - Reported* Type Description Date Medical History Radio Frequency ablation of spin e - 2014 Medical HistoryHypothyroidismSurgical HistoryAPPENDECTOMYSurgical HistoryKIDNEY DONORSurgical HistoryBREAST REDUCTIONSurgical HistoryHysterectomySurgical Historyright cuff repair [employer] Other History general Narrative - ReportedNocenterpointe hospital [facility] Other InstructionsNot on filedocumented in this encounter [facility] SystemInstructionsNot on filedocumented in this encounter [facility] SystemInstructionsNot on filedocumented in this encounter [facility] SystemReason for referral (narrative)* Consultation (Routine) - New RequestSpecialtyDiagnoses / ProceduresReferred By ContactReferred To ContactPreOp Diagnoses Gastroesophageal reflux disease without esophagitis Anisha Tracy MD [address] [facility] [address] [place] [address] Referral IDStatusReasonStart DateExpiration DateVisits RequestedVisits [id number] Request/ * Consultation (Routine) - New RequestSpecialtyDiagnoses / ProceduresReferred By ContactReferred To ContactNutrition and Dietetics Diagnoses Gastroesophageal reflux disease without esophagitis Anisha Tracy MD [address] [facility] [address] [place] [address] Kavitha Merino, RD [address] [place] [address] Referral IDStatusReasonStart DateExpiration DateVisits RequestedVisits [id number] Request/ [facility] Narrative* Auth/CertSpecialtyDiagnoses / ProceduresReferred By ContactReferred To Contact Diagnoses GERD (gastroesophageal reflux disease) GERD (gastroesophageal reflux disease) [K21.9] Procedures IL LAP,ESOPHAGOGAST FUNDOPLASTY FUNDOPLASTY ESOPHAGOGASTRIC LAPAROSCOPIC Anisha Tracy MD [address] [facility] [address] [place] [address] [facility] [address] [place] [address] Referral IDStatusReasonStart DateExpiration DateVisits RequestedVisits [id number] [facility] Advance Directives TypeDate RecordedPatient RepresentativeExplanationACP-Advance DirectiveACP-Power of AttorneyCode StatusDate ActivatedDate InactivatedCommentsFull Code07/31/2022 5:22 AMCode StatusDate ActivatedDate InactivatedCommentsFull Code07/31/2022 5:22 AM Advance Directive Response Recorded Date/ Time Advance Directives No July 03, 2019 6:18am Advance Directive Response Recorded Date/ Time Advance Directives No July 03, 2019 5:18am Reason for Referral SpecialtyDiagnoses / ProceduresReferred By ContactReferred To Contact Procedures PLATELET MONITORING PER PROTOCOL Pedro Wasserman MD [address] [place] [address] [place] [address] Referral IDStatusReasonStart DateExpiration DateVisits RequestedVisits [id number] / ProceduresReferred By ContactReferred To Contact Procedures DVT/VTE RISK ASSESSMENT Pedro Wasserman MD [address] [place] [address] [place] [address] Referral IDStatusReasonStart DateExpiration DateVisits RequestedVisits [id number] / ProceduresReferred By ContactReferred To Contact Diagnoses Gastroesophageal reflux disease without esophagitis Procedures INTERVENTIONAL UPPER ENDOSCOPY IL ESOPHAGOGASTRODUODENOSCOPY TRANSORAL DIAGNOSTIC Veronique Gutierrez, PATRICIO-LANDSCAPE CONTRACTOR [address] [facility] [place] [address] Referral IDStatusReasonStart DateExpiration DateVisits RequestedVisits [id number] Not Needed/ Summary Purpose Family History Relationship Condition Age at Onset Recorded Date/T luis alberto father Non-small cell lung cancer Unknown sisterHypertensionUnknownCerebral aneurysmUnknown Relationship Condition Age at Onset Recorded Date/T luis alberto father Non-small cell lung cancer Unknown DeceasedUnknownsisterCerebral aneurysmUnknownHypertensionUnknownbrotherDeceased UnknownNot SpecifiedHyperlipidemiaUnknown Relationship Condition Age at Onset Recorded Date/T luis alberto father Non-small cell lung cancer Unknown DeceasedUnknownsisterCerebral aneurysmUnknownHypertensionUnknownbrotherDeceased UnknownmotherHyperlipidemiaUnknown Chief Complaint and Reason for Visit Chief Complaint 3 Month Follow Up Right Thumb Pain Chief Complaint 3 Month Follow Up Right Thumb Pain H & P RT Thumb CMC FusionReason for VisitArthritis of carpometacarpal (CMC) joint of right thumb Palmar fascial fibromatosis [dupuytren] Pre-op evaluation Chief Complaint 3 Month Follow Up Right Thumb Pain H & P RT Thumb CMC Fusion Right Thumb Pain Right Thumb Pain 1 week post op Z98.890 - Other specified postprocedural states 3 weeksReason for VisitArthritis of carpometacarpal (CMC) joint of right thumb Palmar fascial [...] week recheck Z98.890 - Other specified postprocedural statesReason for VisitArthritis of carpometacarpal (CMC) joint of right thumb Palmar fascial [...] WEEK RECHECK Z98.890 - Other specified postprocedural statesReason for VisitArthritis of carpometacarpal (CMC) joint of right thumb Other specified postprocedural states Palmar fascial fibromatosis [dupuytren] Arthritis of carpometacarpal (CMC) joint of right thumb Other specified postprocedural states Palmar fascial fibromatosis [dupuytren] Arthritis of carpometacarpal (CMC) joint of right thumb Other specified postprocedural states Palmar fascial fibromatosis [dupuytren] Chief Complaint Admit Date OP SP RT THUMB PAIN October 13, 2024 8 :42am Z98.890 - Other specified postprocedural states October 13, 2024 8:45am Reason for Visit Admit Date Arthritis of carpometacarpal (CMC) joint of right thumb October 13, 2024 8:42am Other specified postprocedural states [facility] 2024 8:42am Palmar fascial fibromatosis [dupuytren] October 13, 2024 8:42am Chief Complaint Admit Date OP SP RT THUMB PAIN October 13, 2024 8 :42am Z98.890 - Other specified postprocedural states October 13, 2024 8:45am 6 WEEKS November 24, 2024 8:56am Reason for Visit Admit Date Arthritis of carpometacarpal (CMC) joint of right thumb October 13, 2024 8:42am Other specified postprocedural states [facility] 2024 8:42am Palmar fascial fibromatosis [dupuytren] October 13, 2024 8:42am Arthritis of carpometacarpal (CMC) joint of right thumb November 24, 2024 8:56am Other specified postprocedural states Tanya [facility] 2024 8:56am Palmar fascial fibromatosis [dupuytren] November 24, 2024 8:56am Trigger thumb, right thumb October 8:56am Chief Complaint Admit Date OP SP RT THUMB PAIN October 13, 2024 8 :42am Z98.890 - Other specified postprocedural states October 13, 2024 8:45am 6 WEEKS November 24, 2024 8:56am 4 WEEKS December 25, 2024 9:4 8am Reason for Visit Admit Date Arthritis of carpometacarpal (CMC) joint of right thumb October 13, 2024 8:42am Other specified postprocedural states Ja nuary 2024 8:42am Palmar fascial fibromatosis [dupuytren] October 13, 2024 8:42am Arthritis of carpometacarpal (CMC) joint of right thumb November 24, 2024 8:56am Other specified postprocedural states Fe bruary 2024 8:56am Palmar fascial fibromatosis [dupuytren] November 24, 2024 8:56am Trigger thumb, right thumb October 8:56am Arthritis of carpometacarpal (CMC) joint of right thumb December 25, 2024 9:48am Other specified postprocedural states [facility] 2024 9:48am Palmar fascial fibromatosis [dupuytren] December 25, 2024 9:48am Trigger thumb, right thumb December 25, 2 025 9:48am Additional Source Comments Care Teams (unrecognized sec tion and content) Team MemberRelationshipSpecialtyStart DateEnd Date Andres Chinchilla MD [address] [place], [place] [id number] [facility] - [facility]ly Wfbxehpm35/5/20Team MemberRelationshipSpecialtyStart DateEnd Date Andres Chinchilla MD [address] [place] [place] [address] [facility] - [facility]/16/22Team MemberRelationshipSpecialtyStart DateEnd Date Andres Chinchilla MD [address] [place] [address] PCP - GeneralFamily Medicine02/16/22Team MemberRelationshipSpecialtyStart DateEnd Date Andres Chinchilla MD [address] [place] [address] PCP - GeneralFamily Medicine02/16/22Team MemberRelationshipSpecialtyStart DateEnd Date Andres Chinchilla MD [address] [place] [address] PCP - Generalmily Medicine02/16/22Team MemberRelationshipSpecialtyStart DateEnd Date Andres Chinchilla MD [address] [place] [address] PCP - Generalmily Medicine02/16/22Team MemberRelationshipSpecialtyStart DateEnd Date Andres Chinchilla MD [address] [place] [address] PCP - Generalmily Medicine02/16/22Team MemberRelationshipSpecialtyStart DateEnd Date Andres Chinchilla MD [address] [place] [address] PCP - Generalmi Nsuvexwu93/5/20 Team Status: Active Member Role Status Dates Andres Chinchilla MD Primary Care Provider Active Team Status: Inactive Member Role Status Dates Andres Chinchilla MD Primary Care Provider Active Angel Velazco ProviderActive Team Status: Inactive Member Role Status Dates Mechelle Liang MD Attending Provider Active Start: October 09, 2023 End: October 09, 2023 Team Status: Inactive Member Role Status Dates Andres Chinchilla MD Primary Care Provider Active S tart: November 14, 2023 End: November 14Angel Bradshaw ProviderActiveStart: November 14, 2023 End: November 14, 2023 Team Status: Inactive Member Role Status Dates Andres Chinchilla MD Primary Care Provider Active S tart: November 19, 2023 End: November 19ollTasha Conrdaending ProviderActiveStart: November 19, 2023 End: November 19, 2023 Team Status: Inactive Member Role Status Dates Andres Chinchilla MD Primary Care Provider Active S tart: November 28, 2023 End: October4Colllanie Liang MDAttending ProviderActiveStart: November 28, 2023 End: November 28, 2023 Team Status: Active Member Role Status Dates Andres Chinchilla MD Primary Care Provider Active S tart: November 28, 2023 Angel Velazco Provider, Other ProviderActiveStart: November 28, 2023 Team Status: Inactive Member Role Status Dates Andres Chinchilla MD Primary Care Provider Active S tart: December 06, 2023 End: December 054Colllanie Liang MDAttending ProviderActiveStart: December 06, 2023 End: December 06, 2023 Team Status: Active Member Role Status Dates Andres Chinchilla MD Primary Care Provider Active S tart: December 27, 2023 Tasha Velazcoending ProviderActiveStart: December 27, 2023 Team Status: Inactive Member Role Status Dates Andres Chinchilla MD Primary Care Provider Active S tart: December 27, 2023 End: December 264CAngel Bradshaw ProviderActiveStart: December 27, 2023 End: December 27, 2023 Team Status: Inactive Member Role Status Dates Andres Chinchilla MD Primary Care Provider Active S tart: January 24, 2024 End: January 234CAngel Bradshaw ProviderActiveStart: January 24, 2024 End: January 24, 2024 Team Status: Active Member Role Status Dates Andres Chinchilla MD Primary Care Provider Active S tart: January 24, 2024 Angel Velazco ProviderActiveStart: January 24, 2024 Team Status: Inactive Member Role Status Dates Andres Chinchilla MD Primary Care Provider Active S tart: March 06, 2024 End: March 064CAngel Bradshaw ProviderActiveStart: March 06, 2024 End: March 06, 2024 Team Status: Active Member Role Status Dates Andres Chinchilla MD Primary Care Provider Active S tart: March 06, 2024 Angel Velazco ProviderActiveStart: March 06, 2024 Team MemberRelationshipSpecialtyStart DateEnd Date Andres Chinchilla MD PCP [facility]05/28/23Te MemberRelationshipSpecialtyStart DateEnd Date Andres Chinchilla MD [facility]05/28/23Te MemberRelationshipSpecialtyStart DateEnd Date Andres Chinchilla MD [facility]05/28/23Te MemberRelationshipSpecialtyStart DateEnd Date Adnres Chinchilla MD [address] [place] [address] [facility]10/08/24 Team Status: Inactive Member Role Status Dates Andres Chinchilla MD Primary Care Provider Active S tart: October 13, 2024 End: October 13Angel Bradshaw ProviderActiveStart: October 13, 2024 End: October 13, 2024 Team Status: Active Member Role Status Dates Andres Chinchilla MD Primary Care Provider Active S tart: October 13, 2024 Angel Velazco ProviderActiveStart: October 13, 2024 Team MemberRelationshipSpecialtyStart DateEnd Date Andres Chinchilla MD [address] [place] [address] [facility]10/08/24Team MemberRelationshipSpecialtyStart DateEnd Date Andres Chinchilla MD [address] [place] [facility] [place] [address] PCP - [facility]01/10/21Team MemberRelationshipSpecialtyStart DateEnd Date Andres Chinchilla MD [address] [place] [address] PCP - [facility]01/10/21Team MemberRelationshipSpecialtyStart DateEnd Date Andres Chinchilla MD [address] [place] [address] PCP - [facility]01/10/21 Team Status: Inactive Member Role Status Dates Andres Chinchilla MD Primary Care Provider Active S tart: November 24, 2024 End: November 24ollAngel Conrad ProviderActiveStart: November 24, 2024 End: November 24, 2024 Team Status: Inactive Member Role Status Dates Andres Chinchilla MD Primary Care Provider Active S tart: December 25, 2024 End: December 25ollAngel Conrad ProviderActiveStart: December 25, 2024 End: December 25, 2024Team MemberRelationshipSpecialtyStart DateEnd Date Andres Chinchilla MD PCP - General Andres Chinchilla MD [facility] - [facility]10/08/24Team MemberRelationshipSpecialtyStart DateEnd Date Andres Chinchilla MD [address] [place] [address] PCP - GeneralFamily Medicine10/08/24 REASON FOR VISIT (unrecogniz ed section and content) ReasonCommentsNew PatientGERD, spasms, hypertensive ileusSpecialtyDiagnoses / ProceduresReferred By ContactReferred To Contact Diagnoses Gastroesophageal reflux disease without esophagitis Procedures INTERVENTIONAL UPPER ENDOSCOPY IL ESOPHAGOGASTRODUODENOSCOPY TRANSORAL DIAGNOSTIC Veronique Gutierrez, VICE PRESIDENT OF TALENT MANAGEMENT-LANDSCAPE CONTRACTOR [address] [place] [address] Referral IDStatusReasonStart DateExpiration DateVisits RequestedVisits [id number]/22/20228/16/003142QdayexTogxpfybPyorim-ilPjknzg up on testingReasonCommentsPreoperative AssessmentReasonCommentsPost Op VisitReason CommentsWell Women VisitReasonCommentsNew PatientNP REFERRAL ABN EKG [facility] INFORMATION SOURCE (unrecogn ized section and content) DATE CREATED AUTHOR 05/23/[address] [facility] DATE CREATED AUTHOR AUTHOR'S ORGANIZ ATION 09/01/2022 [facility] DATE CREATED AUTHOR AUTHOR'S ORGANIZ ATION 09/21/2022 [facility] DATE CREATED AUTHOR AUTHOR'S ORGANIZ ATION 10/13/2024 [facility] DATE CREATED AUTHOR AUTHOR'S ORGANIZ ATION 10/23/2024 [facility] DATE CREATED AUTHOR AUTHOR'S ORGANIZ ATION 04/12/2025 [facility] Scheduled Active and Recently Administ ered Medications (unrecognized section and content) Medication Order//10/2021 clindamycin (CLEOCIN) 900 mg in normal saline 50 ml premix IVPB (COMPLETED) 900 mg, Intravenous, at 100 mL/hr, Administer over 30 Minutes, PRE-OP, 1 dose, On Sat07/31/22 at 0615, Pre-op/Pre-Proc * 0658 (Given - Provider: Meghana Hawley, PATRICIO-SMOOTH STUCCO RESURFACER) Enoxaparin Sodium (LOVENOX) injection 40 mg 40 mg, Subcutaneous, EVERY 24 HOURS, First dose on Sat08/01/22 at 0900, Until Discontinued, , Indications: DVT/PE prophylaxis, Post-op/Post-Proc * 0837 (Not Given - Provider: Marva Orona RN - Reason: Other - Comment: Pt ambulating frequently) ketorolac (TORADOL) injection 15 mg (COMPLETED) 15 mg, Intravenous, EVERY 6 HOURS NON-STANDARD, 4 doses, First dose on Sat07/31/22 at 1030, Last dose on Sat08/01/22 at 0430, Post-op/Post-Proc * 1045 (Given - Provider: Medina Fernández RN) * 1700 (Given - Provider: Medina Fernández RN) * 2319 (Given - Provider: Park Bardales RN) * 0415 (Given - Provider: Park Bardales RN) levothyroxine (SYNTHROID) tablet 125 mcg 125 mcg, Oral, DAILY, First dose on Sat08/01/22 at 0900, Until Discontinued, Post-op/Post-Proc * 1008 (Not Given - Provider: Marva Orona RN - Reason: Other - Comment: pt will take at home) ondansetron 4mg/2ml (ZOFRAN) injection 4 mg 4 mg, Intravenous, EVERY 6 HOURS, First dose on Sat07/31/22 at 1200, Until Discontinued, Post-op/Post-Proc * 1045 (Given - Provider: Medina Fernández RN) * 1700 (Given - Provider: Medina Fernández RN) * 2319 (Given - Provider: Park Bardales RN) * 0644 (Given - Provider: Park Bardales RN) * 1200 (Canceled Entry - Provider: System Discharge - Comment: Automatically canceled at discontinue of medication order) Medication Order//10/2021 lactated ringers IV solution (CANCELED) Intravenous, at 50 mL/hr, CONTINUOUS, Starting on Sat07/31/22 at 0530, Until Sat07/31/22 at 1014, Pre-op/Pre-Proc * 0601 ($$New Bag$$ - Provider: Kelsey Serrano RN) * 0655 (Paused - Provider: Meghana Hawley APRN-SMOOTH STUCCO RESURFACER - Comment: Switch to gravity) * 0656 (Restarted - Provider: BING Gregg) * 0829 ($$New Bag$$ - Provider: BING Gregg) lactated ringers IV solution Intravenous, at 100 mL/hr, CONTINUOUS, Starting on Sat07/31/22 at 1030, Until Sat08/01/22 at 1244, May discontinue when patient taking adequate oral liquids., Post-op/Post-Proc * 1046 ($$New Bag$$ - Provider: Medina Fernández, ABHINAV) * 2329 (Stopped - Provider: Park Bardales RN) Medication Order morphine (PF) injection 2 mg(Linked Group 1) [...] if lower dose was previously documented as ineffectiveand did not result in adverse effects (RR<10, decrease in level of consciousness). Decrease backto lower dose if patient has adverse effects, [...] Sat08/01/22 at 1244, Nausea / Vomiting, Post-op/Post-Proc Order Group 1: morphine (PF) injection 2 [...] administered if lower dose was previously documented asineffective and did not result in adverse effects (RR<10, decrease in level of consciousness). Decrease back to lower dose if patient has adverse effects, or no PRN used in previous 12 hours.&l t;br>Post-op/Post-Proc Group 2: oxyCODONE (ROXICODONE) tablet 5 mgJump [...] BE BASED ON THE PRIMARY CLINICAL RECORDS. [employer] provides no warranty or guarantee of the accuracy or completeness of information in this document.
--- OUTSIDE RECORDS SUMMARY | 2025-07-27 19:16 | XMS_ITS | Clinical Summary ---
Author Organization [facility] s tem Address [id number] [address] [place] [address] Care Team Providers Care Junior Software Developer Name Role Phone Andres Sanz MD Primary Care Provider [phone] Allergies Active AllergyReactionsCriticalityNoted VwbeFzbauetdZozenrzcusCfzcto59/10/2014 PenicillinsHives,Itching,Rash,Swelling,Other (See Comments)High05/28/1985 Medications MedicationSigDispense QuantityRefillsLast FilledStart DateEnd DateStatus levothyroxine (SYNTHROID, LEVOTHROID) 125 MCG tablet Take 1 tablet (125 mcg total) by mouth in the morning.Active PREMARIN vaginal cream 02/07/2023ctive fluticasone propionate (FLONASE) 50 mcg/actuation nasal spray Administer into each nostril daily.Active Bacillus coagulans-inulin 1 billion-250 cell-mg capsule Take 1 capsule by mouth in the morning and 1 capsule before bedtime.11/14/2023 Active cholecalciferol, vitamin D3, 5,000 units tablet Take 1 tablet (5,000 Units total) by mouth in the morning.Active qlhhsogz-zvsz-UM-calcium &mins (THERAGRAN-M) 9 mg iron-400 mcg tablet Take 1 tablet by mouth in the morning.Active calcium carbonate (TUMS) 200 mg elemental (500 mg) chewable tablet Chew 1 tablet (200 mg total) and swallow in the morning.Active Active Problems ProblemNoted DateDiagnosed DateAbnormal EKG09173Nuhurgehe41/11/2024 Social History Tobacco UseTypesPacks/DayYears UsedDateSmoking Tobacco: FormerSmokeless Tobacco: NeverAlcohol UseStandard Drinks/WeekCommentsYes0 (1 standard drink = 0.6 oz pure alcohol)Few times a weekSocial Connection and Isolation PanelAnswerDate Recorded In a typical week, how many times do you talk on the phone with family, friends, or neighbors?More than three times a week02/12/2022How often do you get together with friends or relatives?More than three times a week02/12/2022How often do you attend latter-day or religion services?Never2Do you belong to any clubs or organizations such as latter-day groups, unions, fraItrybeforeIbuy or athletic groups, or school groups?Yes02/12/2022How often do you attend meetings of the clubs or organizations you belong to?1 to 4 times per year02/12/2022re you , , , , never , or living with a partner? 02/12/2022UDIT-CAnswerDate RecordedQ1: How often do you have a drink containing alcohol?2-3 times a week02/12/2022Q2: How many drinks containing alcohol do you have on a typical day when you are drinking?1 or Q3: How often do you have six or more drinks on one occasion?Never02/12/2022verall Financial Resource Strain (CARDIA)AnswerDate RecordedHow hard is it for you to pay for the very basics like food, housing, medical care, and heating?Not hard at all 02/04/2023HQ-2AnswerDate RecordedTotal [facility]280[facility] [place] of Occupational Health - Occupational Stress QuestionnaireAnswerDate RecordedDo you feel stress - tense, restless, nervous, or anxious, or unable to sleep at night because yourmind is troubled all the time - these days?Not at all02/12/2022 Exercise Vital SignAnswerDate RecordedOn average, how many days per week do you engage in moderate to strenuous exercise (like a brisk walk)?5 days02/12/2022n average, how many minutes do you engage in exercise at this level?30 min 02/12/2022RAPARE - TransportationAnswerDate RecordedIn the past 12 months, has lack of transportation kept you from medical appointments or from getting medications?No02/04/2023In the past 12 months, has lack of transportation kept you from meetings, work, or from getting things needed for daily living?No 02/04/2023Housing InstabilityAnswerDate RecordedAre you worried or concerned that in the next two months you may not have stable housing that you own, rent or stay in as a part of a household?No02/04/2023hildcareAnswerDate RecordedDo problems getting childrens club attendant make it difficult for you to work or study?No 02/12/2022EmploymentAnswerDate RecordedDo you need help finding a local career center and/or a training program?No02/12/2022Hunger ScreeningAnswerDate Recorded Within the past 12 months we worried whether our food would run out before we got money to buy more.Never True01/09/2024Within the past 12 months the food we bought just didn't last and we didn't have money to get more.Never True 01/09/2024urpose - LifeAnswerDate RecordedI have a purpose and direction in my life.Strongly Agree02/12/2022EducationAnswerDate RecordedWhat is the highest level of school you have completed or the highest degree you have received?12th grade02/12/2022CommentsUnknownSex and Gender InformationValueDate RecordedSex Assigned at YkshpOigbuf30/16/2022 10:41 AM EDTLegal SexFemale 01/10/2021 11:41 AM EDTGender OkhnyiapFkmxfr16/16/2022 10:41 AM EDTSexual UcextaiatstSnpdssxe67/16/2022 10:41 AM EDT Last Filed Vital Signs Vital SignReadingTime TakenCommentsBlood Uhqzlfjx549/8004 2:06 PM EDT Uqpnb7157/11/2024 2:06 PM RSYZhmgvzqgxqc01.4 ??C (97.6 ??F)03/11/2023 9:09 AM EDTRespiratory Fzlb262702/14/2022 10:53 AM EDTOxygen Zsytbjnaxy32%01/09/2024 2:06 PM EDTInhaled Oxygen Concentration--Qgskka18.8 kg (165 lb)01/09/2024 2:06 PM EDT Hgfizm082.1 cm (5' 5 )01/09/2024 2:06 PM EDTBody Mass Index27.46001/09/2024 2:06 PM EDT Plan of Treatment Health MaintenanceDue DateLast DoneCommentsDTaP,Tdap and Td Vaccines (2 - Td or Tdap)Depression Oeqqnazej29/dult BMI Pokernida68/07/2024Tobacco Awhlffoyp99/07/2024Influenza Zqzepyh23/, 06/06/2021, 08/03/2020, Additional history exists Pap SmearZoster (Shingles) HpfglywFwkuvlbwm98/14/2022, 08/01/2021 Medical Devices Not on file Insurance * Guarantor: AALIYAH [place] EVSDAccount TypeRelation to PatientDate of BirthPhoneBilling AddressCorporateEmployer [address] [place] [phone] Advance Directives TypeDate RecordedPatient RepresentativeExplanationDurable Power of Junior Estimator 03/24/2024 8:58 AM Care Teams Team MemberRelationshipSpecialtyStart DateEnd Date Andres Sanz MD PCP - GeneralFamily Medicine01/10/21
--- OUTSIDE RECORDS SUMMARY | 2025-07-27 19:16 | XMS_ITS | Clinical Summary ---
Author Organization [facility] Address [address], [address] [place] [address] Care Team Providers Care Percussion Instrument Repairer Name Role Phone Andres Sanz MD Primary Care Provider + Allergies Active AllergyReactionsCriticalityNoted EyolYmhoxjiwCpvfwxlhmzAxtojt29/10/2014 VjplxuuefsgFpnowKapq28/10/2014 Medications No known medications Active Problems ProblemNoted DateDiagnosed DateOther plastic surgery for unacceptable cosmetic agghzwpsjk45/10/2014 Social History Tobacco UseTypesPacks/DayYears UsedDateSmoking Tobacco: Never Assessed CommentsUnknownSex and Gender InformationValueDate RecordedSex Assigned at Not on fileLegal PhyYyaczc66/17/2014 9:45 AM ESTGender IdentityNot on fileSexual OrientationNot on file Last Filed Vital Signs Vital SignReadingTime TakenCommentsBlood Pressure--Pulse--Temperature-- Respiratory Rate--Oxygen Saturation--Inhaled Oxygen Concentration--Cpfpnu69.7 kg (200 lb)12/07/2013 1:38 PM AZXXvzdxw015.1 cm (5' 5 )12/07/2013 1:38 PM EDTBody Mass Index33.28012/07/2013 1:38 PM EDT Plan of Treatment Health MaintenanceDue DateLast DoneCommentsDepression Jyabsg9601/14/1978HIV screen 1981Hepatitis C wbjbka1501/15/1984DTaP/Tdap/Td vaccine (1 - Tdap)1985 Hepatitis B vaccine (1 of 3 - 19+ 3-dose series)04/17/1985Pap smear1987 Cervical cancer uzaohw8001/15/1996HPV (without or with Pap)01/15/1996Breast cancer otshvi9201/14/20062473Pmabtosscnc42/17/2011Colorectal Cancer Jvkhui1601/14/2011FIT/FOBT: Average risk2011Fecal-DNA (Cologuard): Average risk2011 Sigmoidoscopy/CT vletdjnixtxh61/17/2011Pneumococcal 50+ years Vaccine (1 of 1 - PCV)01/15/2016Shingles vaccine (1 of 2)01/15/2016Flu vaccine (#1)04/30/2025 COVID-19 Vaccine ( - season)05/31/20252275Smyxzc63/19/22188811/18/2021, 08/12/2021, 08/05/2020Hepatitis A vaccineAged OutNo longer eligible based on patient's age to complete this topicHib vaccineAged OutNo longer eligible based on patient's age to complete this topicMeningococcal (ACWY) vaccineAged OutNo longer eligible based on patient's age to complete this topicMeningococcal B vaccineAged OutNo longer eligible based on patient's age to complete this topic Polio vaccineAged OutNo longer eligible based on patient's age to complete this topic Procedures Procedure NamePriorityDate/TimeAssociated DiagnosisCommentsLIPID PANELRoutine 09/17/2022 10:10 AM EST from Last 3 Months or Most Recently Relevant to Health Maintenance Results * Lipid Panel (09/17/2022 10:10 AM EST)ComponentValueRef RangeTest Method Analysis TimePerformed AtPathologist KyfvywirvBvnaxjodvxx770<200 mg/dL 09/17/2022 10:10 AM [facility]STM[facility] LABORATORIESComment: Cholesterol Guidelines: <200 Desirable 200-240 ??Borderline >240 Undesirable HDL46>40 mg/dL09/17/2022 10:10 AM ESTMER[facility]ORATORIESComment: HDL Guidelines: <40 Undesirable 40-59 ?Borderline >59 Desirable LDL Xzkwazynjzq078 - 130 mg/dL09/17/2022 10:10 AM ESTM[facility]ORATORIESComment: LDL Guidelines: <100 Desirable 100-129 ?? Near to/above Desirable 130-159 ?? Borderline >159 Undesirable Direct (measured) LDL and calculated LDL are not interchangeable tests. Chol/HDL Ratio3.6<512 10:10 AM ESTMERCY LABORATORIESComment: Tnrqehwavoato721<150 mg/dL09/17/2022 10:10 AM ESTM[facility]ORATORIESComment: Triglyceride Guidelines: <150 Desirable 150-199 ??Borderline 200-499 ??High >499 Very high Based on AHA Guidelines for fasting triglyceride, June 2012. Specimen (Source)Anatomical Location / LateralityCollection Method / Volume Collection TimeReceived Time09/17/2022 10:10 AM EST09/17/2022 10:11 AM EST Narrative Authorizing ProviderResult TypeResult StatusMarc Vickey Sanz MDCHEMISTRY ORDERABLESFinal ResultPerforming OrganizationAddressCity/State/ZIP CodePhone Number [facility] [address] [place] [address], [facility] [phone] [facility] [address] [place], [place] [address] [phone] from Last 3 Months or Most Recently Relevant to Health Maintenance Care Teams Team MemberRelationshipSpecialtyStart DateEnd Date Andres Sanz MD [address] [place] [address] PCP - GeneralFamily Syxceezu92/5/20
--- OUTSIDE RECORDS SUMMARY | 2025-07-27 19:16 | XMS_ITS | Clinical Summary ---
Author Organization [facility] Address [address] [place] [address] Care Team Providers Care Scrub Tech Name Role Phone Andres Sanz MD Primary Care Provider Allergies Active AllergyReactionsCriticalityNoted AkvpOolwnvppXhlsebcuuxIqzfit60/10/2014 PenicillinsHives,Itching,Rash,Swelling,SptlufuWhxm51/29/1985 Medications MedicationSigDispense QuantityRefillsLast FilledStart DateEnd DateStatus Multiple Vitamins-Minerals (PreserVision AREDS 2) capsule as directed OrallyActive Cholecalciferol (Vitamin D) 125 MCG (5000 UT) capsule 05/28/2010ctive triamcinolone (Kenalog) 0.5 % cream Apply 1 application topically in the morning and 1 application in the evening and 1 application before bedtime.Active levothyroxine (Synthroid, Levoxyl) 125 MCG tablet Indications:Primary hypothyroidismTAKE 1 TABLET DAILY 90 tablet ctive Premarin 0.625 MG/GM cream Indications:Post-menopauseINSERT 1/2 (ONE HALF) APPLICATORFUL INTO VAGINA AT BEDTIME 90 g ctive fluticasone (Flonase) 50 MCG/ACT nasal spray Indications:Seasonal allergic rhinitis due to pollenUSE 2 SPRAYS IN EACH NOSTRIL DAILY 48 g ctive ondansetron ODT (Zofran-ODT) 4 MG disintegrating tablet Indications:Gastroesophageal reflux disease without esophagitisTake 1 tablet (4 mg) by mouth every 6 (six) hours if needed for nausea or vomiting 40 tablet 5Active Active Problems ProblemNoted DateDiagnosed LrpsIqkbbslnojzh91/08/2024Esophageal msjlfi4710/07/2023 Assessment & Plan (10/08/2024 11:00 AM EST): Occasional nausea and use zofran PRN. Primary yyfsnugdyyineu33/08/2024 Assessment & Plan (10/08/2024 11:00 AM EST): No signs of low thyroid and due for labs. Assessment & Plan (10/07/2023 12:22 PM EST): No signs of low thyroid and due for labs. Bowqgvjbged28/08/2024llergic rhinitis due to lhbhuc3810/07/2023 Assessment & Plan (10/08/2024 11:00 AM EST): Symptoms controlled with medication and continue. Assessment & Plan (10/07/2023 12:22 PM EST): Symptoms controlled with medication and continue. Vaginal anaevbw3110/07/2023Vitamin D dfyypyxafa83/08/2024Osteopenia of necks of both flwpzw6310/07/2023Encounter for long-term (current) use of medications 10/07/2023 Resolved Problems ProblemNoted DateDiagnosed DateResolved HdpvRqdwycfy39/08/13841410/07/2023 Encounters DateTypeDepartmentCare IohfTsamudiwgul45/28/2025 3:00 PM EDTProcedure Visit [facility] [address] [place] [address] Fe Samuel PA Well woman exam with routine gynecological exam; Encounter for screening mammogram for malignant neoplasm of breast; Postmenopausal state07/27/2025amboo flowsheet [facility] [address] [facility] [place] [address] Fe Samuel PA 07/20/20259540Aoqziu86/22/2025Travelfrom Last 3 Months Family History Medical HistoryRelationNameCommentsOtherBrotherMVACancerFatherLung CancerCancer Father's SisterHeart diseaseMaternal GrandfatherCancerMaternal Grandmother DiabetesMaternal GrandmotherHeart diseaseMaternal GrandmotherHypertension Maternal GrandmotherDiabetesMotherHyperlipidemiaMotherHypertensionMotherDiabetes Mother's BrotherHeart diseaseMother's BrotherHypertensionMother's BrotherCancer OtherAuntBreast CancerDiabetesSiblingStrokeSiblingStrokeSisterRelationNameStatus CommentsBrotherDeceasedFatherDeceasedFather's SisterMaternal GrandfatherDeceased Maternal GrandmotherDeceasedMotherAliveMother's BrotherOtherAuntPaternal GrandfatherDeceasedPaternal GrandmotherDeceasedSiblingSisterDeceasedSon1 Social History Tobacco UseTypesPacks/DayYears UsedDateSmoking Tobacco: FormerCigarettesQuit: 1993Smokeless Tobacco: Never Tobacco Cessation:Counseling Given: Not Answered Alcohol UseStandard Drinks/WeekCommentsYes0 (1 standard drink = 0.6 oz pure alcohol)1-2 drinks 2-3x a week in the past year, Caffeine intake: 1-2 cups per dayHumiliation, Afraid, Rape, and Kick questionnaireAnswerDate RecordedWithin the last year, have you been afraid of your partner or ex-partner?No09/30/2023 Within the last year, have you been humiliated or emotionally abused in other ways by your partner or ex-partner?No09/30/2023Within the last year, have you been kicked, hit, slapped, or otherwise physically hurt by your partner or ex-partner?No09/30/2023Within the last year, have you been raped or forced to have any kind of sexual activity by your partner or ex-partner?No09/30/2023 Social Connection and Isolation PanelAnswerDate RecordedIn a typical week, how many times do you talk on the phone with family, friends, or neighbors?More than three times a week09/30/2023How often do you get together with friends or relatives?Twice a week09/30/2023How often do you attend baptist or adventism services?Never09/30/2023o you belong to any clubs or organizations such as baptist groups, unions, fraternal or athletic groups, or school groups?Yes 09/30/2023How often do you attend meetings of the clubs or organizations you belong to?1 to 4 times per year09/30/2023re you , , , , never , or living with a partner?Qlycvbr5809/30/2023UDIT-C AnswerDate RecordedQ1: How often do you have a drink containing alcohol?Monthly or less09/30/2023Q2: How many drinks containing alcohol do you have on a typical day when you are drinking?1 or Q3: How often do you have six or more drinks on one occasion?Never09/30/2023Overall Financial Resource Strain (CARDIA) AnswerDate RecordedHow hard is it for you to pay for the very basics like food, housing, medical care, and heating?Not hard at all09/30/2023HQ-2AnswerDate RecordedPatient Health Questionnaire-2 Qkpnz271[facility] [place] of Occupational Health - Occupational Stress QuestionnaireAnswerDate RecordedDo you feel stress - tense, restless, nervous, or anxious, or unable to sleep at night because yourmind is troubled all the time - these days?Not at all09/30/2023 Exercise Vital SignAnswerDate RecordedOn average, how many days per week do you engage in moderate to strenuous exercise (like a brisk walk)?6 days09/30/2023On average, how many minutes do you engage in exercise at this level?30 min 09/30/2023Hunger Vital SignAnswerDate RecordedWithin the past 12 months, you worried that your food would run out before you got the money to buymore.Never true09/30/2023Within the past 12 months, the food you bought just didn't last and you didn't have money to get more.Never true09/30/2023RAPARE - TransportationAnswerDate RecordedIn the past 12 months, has lack of transportation kept you from medical appointments or from getting medications?No 09/30/2023In the past 12 months, has lack of transportation kept you from meetings, work, or from getting things needed for daily living?No09/30/2023 Housing Stability Vital SignAnswerDate RecordedIn the last 12 months, was there a time when you were not able to pay the mortgage or rent on time?No09/30/2023In the last 12 months, how many places have you lived?In the last 12 months, was there a time when you did not have a steady place to sleep or slept in ashelter (including now)?No4CommentsNoSex and Gender InformationValueDate RecordedSex Assigned at WqqyrHrfogh49/29/2023 9:37 AM EDT Legal FufBpeehh29/15/2023 11:23 PM EDTGender FebhknykIlfgpj50/29/2023 9:37 AM EDTSexual XffqeppmbdxVbkqkviq89/29/2023 9:37 AM EDT Last Filed Vital Signs Vital SignReadingTime TakenCommentsBlood Dsjcpnuv831/7807/27/2025 3:12 PM EDT Salcv8522 10:02 AM CDFNdykxrxjhrd53.6 ??C (97.8 ??F)10/08/2024 10:02 AM ESTRespiratory Kmlr587611/07/2022 11:11 AM ESTOxygen Xytbynaxpn37%10/08/2024 10:02 AM ESTInhaled Oxygen Concentration--Fdbsjs27.1 kg (167 lb 12.8 oz)07/27/2025 3:12 PM EBQWhgmqe149.1 cm (5' 5 )06/24/2024 2:07 PM EDTBody Mass Index27.92 06/24/2024 2:07 PM EDT Plan of Treatment DateTypeDepartmentCare Team (Latest Contact Info)Zbtmwbnmrpm13/02/2026 9:00 AM ESTProcedure Visit [facility] [address] [place] [address] Fe Samuel PA [address] [place], [place] [id number] Insurance Care Teams Team MemberRelationshipSpecialtyStart DateEnd Date Andres Sanz MD [address] [place] [phone] PCP - GeneralFamily Medicine10/08/24
--- OUTSIDE RECORDS SUMMARY | 2025-07-27 19:16 | XMS_ITS | Clinical Summary ---
Author Organization [facility] Address [address] [place] [address] Care Team Providers Care Dental Financial Coordinator Name Role Phone Andres Sanz MD Primary Care Provider [phone] Allergies Active AllergyReactionsCriticalityNoted DateCommentsNot Able To Determine 07/18/2022 Anesthesia causes nausea PenicillinsHives,Itching,QggiivicGdkx18/24/2013 Medications MedicationSigDispense QuantityRefillsLast FilledStart DateEnd DateStatus levothyroxine 125 MCG tablet Take 125 mcg by mouth daily.Active Multiple Vitamins-Minerals (PRESERVISION AREDS 2 PO) Take 2 tablets by mouth.Active cholecalciferol 50 MCG (2000 UT) capsule Take 2,000 Units by mouth daily.Active Oil Base Liquid Take by mouth. CBDActive HERBAL PRODUCT isogenicsActive Probiotic Product (PROBIOTIC DAILY PO) Take by mouth daily.Active ondansetron 4 MG Tab Dispersible tablet Take 1 tablet by mouth every 8 hours as needed for Nausea / Vomiting. 20 tablet 08/01/2022ctive Additional Information Patient not taking.Reported on 08/31/2022 Promethazine HCl 12.5 MG tablet Take 1 tablet by mouth every 6 hours as needed for up to 14 days. 21 tablet 08/01/2022ctive Active Problems ProblemNoted DateDiagnosed DateParaesophageal svdmha6507/31/2022GERD (gastroesophageal reflux disease)2Obesity (BMI 30.0-34.9)04/20/2022 Family History Medical HistoryRelationNameCommentsLung CancerFatherNormanColorectal Cancer Maternal Great GrandmotherHypertensionMotherJoyceLipid DisorderMotherJoyce AneurysmNeg HxDiabetesNeg HxHeart FailureNeg HxStrokeNeg HxRelationNameStatus CommentsFatherNormanDeceasedMaternal Great GrandmotherAliveMotherJoyceAlive Social History Tobacco UseTypesPacks/DayYears UsedDateSmoking Tobacco: CrejyqDbgjamvcut074 09/30/1979 - 2015Smokeless Tobacco: Never Tobacco Cessation:Counseling Given: Not Answered Alcohol UseStandard Drinks/WeekCommentsYes4 (1 standard drink = 0.6 oz pure alcohol)Per weekCommentsNoSex and Gender InformationValueDate Recorded Sex Assigned at BirthNot on fileLegal BcrEfeouo22/20/2022 10:37 AM EDTGender UkwaahqqBmttyy88/12/2022 9:55 AM EDTSexual JzrpbexsgzcVeeegsuy64/12/2022 9:55 AM EDT Last Filed Vital Signs Vital SignReadingTime TakenCommentsBlood Bunaggwg437/8408/31/2022 12:15 PM EST Cmrpm926208/31/2022 12:15 PM ANGMyktpexarsw72.7 ??C (98 ??F)08/31/2022 12:15 PM ESTRespiratory Cisk4486 7:16 AM EDTOxygen Edyneypfxz92%08/31/2022 12:15 PM ESTInhaled Oxygen Concentration--Pplyfb79.7 kg (189 lb)08/31/2022 12:15 PM PCGXnfxna286.1 cm (5' 5 )07/31/2022 5:10 AM EDTBody Mass Index31.45109/30/2021 5:10 AM EDT Plan of Treatment Health MaintenanceDue DateLast DoneCommentsHEPATITIS C VIRUS FWAEFCJGQ1966 TSH1966HIV SCREENING TBLHUHACEZ99/17/1981CERVICAL CANCER SCREENING YLEMHTGNNA50/17/1987LIPID SKYVTDCXC96/17/2006COLORECTAL CANCER SCREENING QKRZEGUMDD08/17/2011MAMMOGRAM SCREENING LWKFYUJJTU98 PNEUMOCOCCAL VACCINE SERIES (2 of 2 - PCV)TETANUS04/26/2020 04/26/2010COVID-19 VACCINE (1 - 2024- season)2025INFLUENZA VACCINE (#1) 51, 06/06/2021, 08/03/2020, Additional history existsHEP B IGHEWGVWqfkrcthm72/09/1998, 12/16/1997, 11/08/1997PNEUMOCOCCAL VACCINE SERIES Ryvyeynolqox92/18/2000TDAP (ADULT)Nyeqcnjth15/28/2010ZOSTER (SHINGLES) VACCINE Sqxaronxh78/14/2022, 08/01/2021 Insurance Advance Directives For more information, please contact: [phone] (7:30 AM - 6PM [facility], Saturday-Saturday) * Full Code (Latest Code Status on File) Date ActivatedDate OnqvspgctfcOlsxoesr95/1/2022 5:22 AM Care Teams Team MemberRelationshipSpecialtyStart DateEnd Date Andres Sanz MD [address] [place] [address] PCP - GeneralFamily Medicine02/16/22
[2025-07-30 17:08] LABS: Age Gdln ACOG Testing Note (.); IGP, Aptima HPV, rfx 16/18,45 Note (.)
== END 2025-07-27 19:11 | disposition home or self-care (01) ==
LOC: LAB 19:10
PROVIDERS: PCP Family Medicine; Visit Provider Physician Assistant
DX: Z01.419 Encounter for gynecological examination (general) (routine) without abnormal findings (principal)
CPT/HCPCS: 87624; 88175

== ENCOUNTER 2025-08-02 08:56 | Outpatient (OUT) | payer OTHER, SELFPAY ==
--- OUTSIDE RECORDS SUMMARY | 2025-07-27 14:00 | XMS_ITS | Encounter Summary ---
Author Organization [facility] Address [address] [place] [address] Care Team Providers Care Document Preparer Microfilming Name Role Phone Andres Sanz MD Primary Care Provider [phone] Reason for Visit * ReasonCommentsGynecologic Exam Encounter Details DateTypeDepartmentCare Team (Latest Contact Info)Htoqqtumqkw56/28/2025 3:00 PM EDTProcedure Visit PABLITO CUMMINGS [address] [place], [facility] Fe Samuel PA [address] [place], [facility]11 Well woman exam with routine gynecological exam; Encounter for screening mammogram for malignant neoplasm of breast; Postmenopausal state Social History Tobacco UseTypesPacks/DayYears UsedDateSmoking Tobacco: FormerCigarettesQuit: 1992Smokeless Tobacco: NeverAlcohol UseStandard Drinks/WeekCommentsYes0 (1 standard drink = 0.6 oz pure alcohol)1-2 drinks 2-3x a week in the past year, Caffeine intake: 1-2 cups per dayHumiliation, Afraid, Rape, and Kick questionnaireAnswerDate RecordedWithin the last year, have you been afraid of your partner or ex-partner?No09/30/2023Within the last year, have you been humiliated or emotionally abused in other ways by your partner or ex-partner?No 09/30/2023Within the last year, have you been kicked, hit, slapped, or otherwise physically hurt by your partner or ex-partner?No09/30/2023Within the last year, have you been raped or forced to have any kind of sexual activity by your part ner or ex-partner?No09/30/2023Social Connection and Isolation PanelAnswerDate RecordedIn a typical week, how many times do you talk on the phone with family, friends, or neighbors?More than three times a week09/30/2023How often do you get together with friends or relatives?Twice a week09/30/2023How often do you attend faith or mormon services?Never09/30/2023o you belong to any clubs or organizations such as faith groups, unions, fraternal or athletic groups, or school groups?Yes09/30/2023How often do you attend meetings of the clubs or organizations you belong to?1 to 4 times per year09/30/2023re you , , , , never , or living with a partner? 09/30/2023UDIT-CAnswerDate RecordedQ1: How often do you have a drink containing alcohol?Monthly or less09/30/2023Q2: How many drinks containing alcohol do you have on a typical day when you are drinking?1 or Q3: How often do you have six or more drinks on one occasion?Never09/30/2023Overall Financial Resource Strain (CARDIA)AnswerDate RecordedHow hard is it for you to pay for the very basics like food, housing, medical care, and heating?Not hard at all 09/30/2023HQ-2AnswerDate RecordedPatient Health Questionnaire-2 Score0 10/07/2023Fin[facility] [place] of Occupational Health - Occupational Stress QuestionnaireAnswerDate RecordedDo you feel stress - tense, restless, nervous, or anxious, or unable to sleep at night because yourmind is troubled all the time - these days?Not at all09/30/2023Exercise Vital SignAnswerDate RecordedOn average, how many days per week do you engage in moderate to strenuous exercise (like a brisk walk)?6 days09/30/2023On average, how many minutes do you engage in exercise at this level?30 min09/30/2023Hunger Vital SignAnswerDate Recorded Within the past 12 months, you worried that your food would run out before you got the money to buymore.Never true09/30/2023Within the past 12 months, the food you bought just didn't last and you didn't have money to get more.Never true 09/30/2023RAPARE - TransportationAnswerDate RecordedIn the past 12 months, has lack of transportation kept you from medical appointments or from getting medications?No09/30/2023In the past 12 months, has lack of transportation kept you from meetings, work, or from getting things needed for daily living?No 09/30/2023Housing Stability Vital SignAnswerDate RecordedIn the last 12 months, was there a time when you were not able to pay the mortgage or rent on time?No 09/30/2023In the last 12 months, how many places have you lived?In the last 12 months, was there a time when you did not have a steady place to sleep or slept in [facility] (including now)?No09/30/2023CommentsNoSex and Gender InformationValueDate RecordedSex Assigned at GmxkdVztowx88/29/2023 9:37 AM EDTLegal YftNsrwtn07/15/2023 11:23 PM EDTGender JoplufqhCcynml74/29/2023 9:37 AM EDTSexual HcfgmirhvlfZyjgcxbr24/29/2023 9:37 AM EDTdocumented as of this encounter Last Filed Vital Signs Vital SignReadingTime TakenCommentsBlood Viirnqmi621/7810 3:12 PM EDT Pulse--Temperature--Respiratory Rate--Oxygen Saturation--Inhaled Oxygen Concentration--Qlwqey63.1 kg (167 lb 12.8 oz)07/27/2025 3:12 PM EDTHeight--Body Mass Index27.9209 2:07 PM EDTdocumented in this encounter Progress Notes * CORRY Bullard - 07/27/2025 3:00 PM EDT Reason for Appointment: Patient ID: Tiana Johnson is a 60 y.o. female who presents for Gynecologic Exam Patient presents today for Annual Exam. MEDICATIONS Current Outpatient Medications Medication Instructions Cholecalciferol (Vitamin D) 125 MCG (5000 UT) capsule fluticasone (Flonase) 50 MCG/ACT nasal spray 2 sprays, Each Nostril, Daily levothyroxine (SYNTHROID, LEVOXYL) 125 mcg, Oral, Daily Multiple Vitamins-Minerals (PreserVision AREDS 2) capsule as directed Orally ondansetron ODT (ZOFRAN-ODT) 4 mg, Oral, Every 6 hours PRN Premarin 0.625 MG/GM cream INSERT 1/2 (ONE HALF) APPLICATORFUL INTO VAGINA AT BEDTIME triamcinolone (Kenalog) 0.5 % cream 1 application , Topical, 3 times daily ALLERGIES Allergies Allergen Reactions Penicillins Hives, Itching, Rash, Swelling and Unknown Cephalexin PROBLEMS Active Ambulatory Problems Diagnosis Date Noted Dyslipidemia 10/07/2023 Esophageal reflux 10/07/2023 Primary hypothyroidism 10/07/2023 Prediabetes 10/07/2023 Allergic rhinitis due to pollen 10/07/2023 Vaginal atrophy 10/07/2023 Vitamin D deficiency 10/07/2023 Osteopenia of necks of both femurs 10/07/2023 Encounter for long-term (current) use of medications 10/07/2023 Resolved Ambulatory Problems Diagnosis Date Noted Pruritus 10/07/2023 Past Medical History: Diagnosis Date At low risk for fall Autoimmune thyroiditis Breast cancer screening by mammogram Encounter for gynecological examination (general) (routine) without abnormal findings Encounter for long-term current use of medication Gastroesophageal reflux disease Hypothyroidism, unspecified Irritable bowel syndrome without diarrhea Nontoxic goiter Obesity (BMI 30-39.9) Post menopausal syndrome Seasonal allergic rhinitis due to pollen Thyroid nodule HISTORY PAST MEDICAL HISTORY SOCIAL HISTORY Past Medical History: Diagnosis Date At low risk for fall Autoimmune thyroiditis Breast cancer screening by mammogram Encounter for gynecological examination (general) (routine) without abnormal findings Encounter for long-term current use of medication Gastroesophageal reflux disease Hypothyroidism, unspecified Irritable bowel syndrome without diarrhea Nontoxic goiter Obesity (BMI 30-39.9) Post menopausal syndrome Seasonal allergic rhinitis due to pollen Thyroid nodule Vaginal atrophy Vitamin D deficiency Social History Tobacco Use Smoking status: Former Current packs/day: 0.00 Types: Cigarettes Quit date: 1992 Years since quittin.8 Smokeless tobacco: Never Substance Use Topics Alcohol use: Yes Comment: 1-2 drinks 2-3x a week in the past year, Caffeine intake: 1-2 cups per day Drug use: Never FAMILY HISTORY Family History Problem Relation Name Age of Onset Diabetes Mother Hypertension Mother Hyperlipidemia Mother Cancer Father Lung Cancer Stroke Sister Other (Other) Brother MVA Hypertension Mother's Brother Heart disease Mother's Brother Diabetes Mother's Brother Cancer Father's Sister Heart disease Maternal Grandmother Hypertension Maternal Grandmother Diabetes Maternal Grandmother Cancer Maternal Grandmother Heart disease Maternal Grandfather Diabetes Sibling Stroke Sibling Cancer Other Aunt Breast Cancer SURGICAL HISTORY Past Surgical History: Procedure Laterality Date APPENDECTOMY 1980 CERVICAL FUSION 04/2017 C5/C6 ENDOMETRIAL ABLATION FINGER SURGERY right thumb HYSTERECTOMY LIPOSUCTION ZION FUNDOPLICATION OTHER SURGICAL HISTORY Left 03/2003 Renal Donor [place] BREAST REDUCTION SHOULDER SURGERY Right REVIEW OF SYSTEMS Review of Systems: Review of Systems Constitutional: Negative. HENT: Negative. Eyes: Negative. Respiratory: Negative. Cardiovascular: Negative. Gastrointestinal: Negative. Genitourinary: Negative. Musculoskeletal: Negative. Skin: Negative. Neurological: Negative. All other systems reviewed and are negative. Hematological: Negative. Endocrine: Negative. Allergic/Immunologic: Negative. OBJECTIVE Objective: Physical Exam Constitutional: Appearance: Normal appearance. She is well-developed. Genitourinary: Vulva normal. Right Adnexa: not tender and no mass present. Left Adnexa: not tender and no mass present. Cervix is absent. Uterus is absent. Breasts: Breasts are soft. Right: Normal. Left: Normal. HENT: Head: Normocephalic. Nose: Nose normal. Mouth/Throat: Mouth: Mucous membranes are moist. Cardiovascular: Rate and Rhythm: Normal rate and regular rhythm. Pulmonary: Effort: Pulmonary effort is normal. Breath sounds: Normal breath sounds. Abdominal: General: Bowel sounds are normal. There is no distension. Palpations: Abdomen is soft. Tenderness: There is no abdominal tenderness. There is no guarding or rebound. Musculoskeletal: General: No swelling. Normal range of motion. Cervical back: Normal range of motion. Right lower leg: No edema. Left lower leg: No edema. Neurological: General: No focal deficit present. Mental Status: She is alert and oriented to person, place, and time. Skin: General: Skin is warm and dry. Psychiatric: Mood and Affect: Mood normal. Behavior: Behavior normal. Vitals and nursing note reviewed. Exam conducted with a community ambassador present. Vitals: Estimated body mass index is 27.92 kg/m?? as calculated from the following: Height as of 06/24/24: 5' 5 . Weight as of this encounter: 167 lb 12.8 oz. BP: 116/78 No LMP recorded (lmp unknown). Patient has had a hysterectomy. Assessment/Plan ICD-10-CM 1. Well woman exam with routine gynecological exam Z01.419 THIN PREP TIS PAP AND HR HPV DNA 2. Encounter for screening mammogram for malignant neoplasm of breast Z12.31 CANCELED: Bilateral screening mammogram CANCELED: Bilateral screening mammogram 3. Postmenopausal state Z78.0 DEXA bone density DEXA bone density Annual Exam: Patient presents today for an annual exam. Patient states she is doing well and has no complaints. Pap was obtained without difficulty. Orders Placed This Encounter Procedures DEXA bone density Follow Up: Patient is to return in one year for annual unless needed otherwise. Documented by Kiya Walters NP on behalf of: CORRY Bullard documented in this encounter Plan of Treatment DateTypeDepartmentCare Team (Latest Contact Info)Mshuztgjfqs19/02/2026 9:00 AM ESTProcedure Visit [facility] [address] [id number] Fe Samuel PA [address] [place] [address] NameTypePriorityAssociated DiagnosesOrder ScheduleDEXA bone densityImaging Routine Postmenopausal state Expected: 07/27/2025 (Approximate), Expires: 07/27/2026THIN PREP TIS PAP AND HR HPV DNAPathology and CytologyRoutine Well woman exam with routine gynecological exam Ordered: 07/27/2025documented as of this encounter Visit Diagnoses Diagnosis Well woman exam with routine gynecological exam Routine gynecological examination Encounter for screening mammogram for malignant neoplasm of breast Postmenopausal state Asymptomatic postmenopausal status (age-related) (natural) documented in this encounter Care Teams Team MemberRelationshipSpecialtyStart DateEnd Date Andres Sanz MD [address] [place] [address] PCP - GeneralFamily Medicine10/08/24documented as of this encounter
--- OUTSIDE RECORDS SUMMARY | 2025-08-02 08:59 | XMS_ITS | Clinical Summary ---
Author Organization [facility] Address [address], [address] [place] [address] Care Team Providers Care Stereotype Finisher Name Role Phone Andres Sanz MD Primary Care Provider + Allergies Active AllergyReactionsCriticalityNoted QsisPrcmupfrTfhsefjutwLwnldb85/10/2014 RsqcilwcjjzEecmkSmlt26/10/2014 Medications No known medications Active Problems ProblemNoted DateDiagnosed DateOther plastic surgery for unacceptable cosmetic owdfwkmnus97/10/2014 Social History Tobacco UseTypesPacks/DayYears UsedDateSmoking Tobacco: Never Assessed CommentsUnknownSex and Gender InformationValueDate RecordedSex Assigned at Not on fileLegal FnqLqzquf42/17/2014 9:45 AM ESTGender IdentityNot on fileSexual OrientationNot on file Last Filed Vital Signs Vital SignReadingTime TakenCommentsBlood Pressure--Pulse--Temperature-- Respiratory Rate--Oxygen Saturation--Inhaled Oxygen Concentration--Lihbfp05.7 kg (200 lb)12/07/2013 1:38 PM RUASbhgxi324.1 cm (5' 5 )12/07/2013 1:38 PM EDTBody Mass Index33.28012/07/2013 1:38 PM EDT Plan of Treatment Health MaintenanceDue DateLast DoneCommentsDepression Psyxlk0401/14/1978HIV screen 1981Hepatitis C jjbwbf9901/15/1984DTaP/Tdap/Td vaccine (1 - Tdap)1985 Hepatitis B vaccine (1 of 3 - 19+ 3-dose series)04/17/1985Pap smear1987 Cervical cancer pyhewt1001/15/1996HPV (without or with Pap)01/15/1996Breast cancer pimmwp8601/14/20067278Rawlahhdjab15/17/2011Colorectal Cancer Brcpqg3601/14/2011FIT/FOBT: Average risk2011Fecal-DNA (Cologuard): Average risk2011 Sigmoidoscopy/CT wmspysmuvbxb77/17/2011Pneumococcal 50+ years Vaccine (1 of 1 - PCV)01/15/2016Shingles vaccine (1 of 2)01/15/2016Flu vaccine (#1)04/30/2025 COVID-19 Vaccine ( - season)05/31/20252417Xsganu04/19/91807411/18/2021, 08/12/2021, 08/05/2020Hepatitis A vaccineAged OutNo longer eligible [...] AM EST)ComponentValueRef RangeTest Method Analysis TimePerformed AtPathologist WtggvlpybNikjbauiamt010<200 mg/dL 09/17/2022 10:10 AM ESTMERCY LABORATORIESComment: Cholesterol Guidelines: <200 Desirable 200-240 ??Borderline >240 Undesirable HDL46>40 mg/dL09/17/2022 10:10 AM ESTMERCY LABORATORIESComment: HDL Guidelines: <40 Undesirable 40-59 ?Borderline >59 Desirable LDL Fwzsxxchvcs606 - 130 mg/dL09/17/2022 10:10 AM ESTMERCY LABORATORIESComment: LDL Guidelines: <100 Desirable 100-129 ?? Near to/above Desirable 130-159 ?? Borderline >159 Undesirable Direct (measured) LDL and calculated LDL are not interchangeable tests. Chol/HDL Ratio3.6<512 10:10 AM ESTMERCY LABORATORIESComment: Aggshiobdyoyh636<150 mg/dL09/17/2022 10:10 AM ESTMER[facility] LABORATORIESComment: Triglyceride Guidelines: <150 Desirable 150-199 ??Borderline 200-499 ??High >499 Very high Based on AHA Guidelines for fasting triglyceride, June 2012. Specimen (Source)Anatomical Location / LateralityCollection Method / Volume Collection TimeReceived Time09/17/2022 10:10 AM EST09/17/2022 10:11 AM EST Narrative Authorizing ProviderResult TypeResult StatusMarc Vickey Sanz MDCHEMISTRY ORDERABLESFinal ResultPerforming OrganizationAddressCity/State/ZIP CodePhone Number [facility] [address] [place] [address], [facility] [phone] [facility] [address] [place], [place] [address] [phone] from Last 3 Months or Most Recently Relevant to Health Maintenance Care Teams Team MemberRelationshipSpecialtyStart DateEnd Date Andres Sanz MD [address] [place] [phone] PCP - GeneralFamily Eihafogy03/5/20
--- OUTSIDE RECORDS SUMMARY | 2025-08-02 08:59 | XMS_ITS | Clinical Summary ---
Author Organization [facility] Address [address] [place] [address] Care Team Providers Care Vocational Training Instructor Name Role Phone Andres Sanz MD Primary Care Provider [phone] Allergies Active AllergyReactionsCriticalityNoted RnjpRbyxsincGnjviiyjlxDergiz48/10/2014 PenicillinsHives,Itching,Rash,Swelling,BoxanbfAakh12/29/1985 Medications MedicationSigDispense QuantityRefillsLast FilledStart DateEnd DateStatus Multiple [...] 40 tablet 5Active Active Problems ProblemNoted DateDiagnosed PwloWsssdmivigmr55/08/2024Esophageal uqwpvk7110/07/2023 Assessment & Plan (10/08/2024 11:00 AM EST): Occasional nausea and use zofran PRN. Primary ejugbvmlslixut00/08/2024 Assessment & Plan (10/08/2024 11:00 AM EST): No signs of low thyroid and due for labs. Assessment & Plan (10/07/2023 12:22 PM EST): No signs of low thyroid and due for labs. Qyzjninhwqt84/08/2024llergic rhinitis due to mncprp0810/07/2023 Assessment & Plan (10/08/2024 11:00 AM EST): Symptoms controlled with medication and continue. Assessment & Plan (10/07/2023 12:22 PM EST): Symptoms controlled with medication and continue. Vaginal bkglwwz6010/07/2023Vitamin D /08/2024Osteopenia of necks of both ytbisu8110/07/2023Encounter for long-term (current) use of medications 10/07/2023 Resolved Problems ProblemNoted DateDiagnosed DateResolved ZxhaTqgarden95/08/59093810/07/2023 Encounters DateTypeDepartmentCare KojzHurszdxjlut82/28/2025 3:00 PM ED[place] [address] Fe Samuel PA Well woman exam with routine gynecological exam; Encounter for screening mammogram for malignant neoplasm of breast; Postmenopausal state07/27/2025linisync Result Encounter [facility] External Department Unsolicited Fe Samuel PA 07/27/2025amboo flowsheet [facility] [address] [place] [address] Fe Samuel PA 07/20/20254479Gcnqpv54/22/2025Travelfrom Last 3 Months Family History Medical HistoryRelationNameCommentsOtherBrotherMVACancerFatherLung [...] relatives?Twice a week09/30/2023How often do you attend alevism or jainism services?Never09/30/2023o you belong to any clubs or organizations such as alevism groups, unions, fraternal or athletic groups, or school groups?Yes 09/30/2023How often do you attend meetings of the clubs or organizations you belong to?1 to 4 times per year09/30/2023re you , , , , never , or living with a partner?Sfdgfbo5309/30/2023UDIT-C AnswerDate RecordedQ1: How often do you have [...] heating?Not hard at all09/30/2023HQ-2AnswerDate RecordedPatient Health Questionnaire-2 Jjadj329[facility] [place] of Occupational Health - Occupational Stress QuestionnaireAnswerDate [...] now)?No09/30/2023CommentsNoSex and Gender InformationValueDate RecordedSex Assigned at KzcklDziqbs86/29/2023 9:37 AM EDT Legal XcwNbwclr88/15/2023 11:23 PM EDTGender BkyhcdjmKxwykf25/29/2023 9:37 AM EDTSexual HjrbbdwzzusLrpuqvkj47/29/2023 9:37 AM EDT Last Filed Vital Signs Vital SignReadingTime TakenCommentsBlood Uwcdfwyy240/7807/27/2025 3:12 PM EDT Qmhhg839710/08/2024 10:02 AM YFLRhfvywumbzk80.6 ??C (97.8 ??F)10/08/2024 10:02 AM ESTRespiratory Fgxf757911/07/2022 11:11 AM ESTOxygen Adlacoprlx31%10/08/2024 10:02 AM ESTInhaled Oxygen Concentration--Kygiye90.1 kg (167 lb 12.8 oz)07/27/2025 3:12 PM ZADCnodps144.1 cm (5' 5 )06/24/2024 2:07 PM EDTBody Mass Index27.92 06/24/2024 2:07 PM EDT Plan of Treatment DateTypeDepartmentCare Team (Latest Contact Info)Jffifhvadjw27/02/2026 9:00 AM ESTProcedure Visit [facility] [address] [address] Fe Samuel PA [address] [place], [place] [id number] Procedures Procedure NamePriorityDate/TimeAssociated DiagnosisCommentsIGP,APTIMA HPV,AGE WRLVJksbgtd31/28/2025 3:00 PM EDT from Last 3 Months Results * IGP,APTIMA HPV,AGE GDLN (07/27/2025 3:00 PM EDT)ComponentValueRef RangeTest MethodAnalysis TimePerformed AtPathologist SignatureAGE GDLN ACOG TESTINGNote. TBHComment: ?? TESTS ? RESULT ??FLAG ??UNITS ?REF RANGE ??LAB ?? Clinician Provided Cytology Information ?? Source.............Vagina ?? No. of containers..01 ThinPrep Vial Age Algo ACOG Fartun... ??30-65 ? 01 ?FLAG LEGEND: ?L-Low Normal,H-High Normal,LL-Alert Low,HH-Alert High <-Panic Low,>-Panic High,A-Abnormal,AA-Critical Abnormal Performed at: 01 =G ?[facility] [place] ?? [address] [place] ??[phone] ?? Char Catalan MD, IGP, APTIMA HPV, RFX 16/18,45Note.TBHComment: ?? TESTS ? RESULT ??FLAG ??UNITS ?REF RANGE ??LAB DIAGNOSIS: ?02 ?? NEGATIVE FOR INTRAEPITHELIAL LESION OR MALIGNANCY. Specimen adequacy: ?02 ?? Satisfactory for evaluation. Performed by: ? 02 ?? Kaylee Whitaker Store Grocery Merchandiser (ASCP) . ? 02 Note: ? Note ?02 ?? The Pap smear is a screening test designed to aid in the ?? detection of premalignant and malignant conditions of the ?? uterine cervix. ??It is not a diagnostic procedure and ?? should not be used as the sole means of detecting cervical ?? cancer. ??Both false-positive and false-negative reports do ?? occur. Test Methodology: ? Note ?02 ?? This liquid based ThinPrep(R) pap test was interpreted ?? using the TxCell(R) Genius(TM) Cervical Algorithm whole ?? slide imaging system. HPV Genotype Reflex ?? Note ?02 ?? Criteria not met, HPV Genotype not performed. ?FLAG LEGEND: ?L-Low Normal,H-High Normal,LL-Alert Low,HH-Alert High <-Panic Low,>-Panic High,A-Abnormal,AA-Critical Abnormal Performed at: 02 WB ?[facility] ?? [address] [place], [place] ??[phone] ?? Char Catalan MD, HPV APTIMANegativeNegativeTBHComment: This nucleic acid amplification test detects fourteen high- risk HPV types (16,18,31,33,35,39,45,51,52,56,58,59,66,68) without differentiation. Performed at: ??=G - [facility] [address] ??[id number] Car Rental Agent: Char Catalan MD, Phone: ??[phone] Performed at: ??WB - [facility] ??[id number] Car Rental Agent: Char Catalan MD, Phone: ??[phone] Specimen (Source)Anatomical Location / LateralityCollection Method / Volume Collection TimeReceived Time07/27/2025 3:00 PM EDT1 8:32 PM EDT Narrative [facility] - 07/30/2025 5:08 PM EDT SPATULA-ALONE VAGINA Authorizing ProviderResult TypeResult StatusAmy Lizzie PAL BLOOD ORDERABLES Final ResultPerforming OrganizationAddressCity/State/ZIP CodePhone Number [facility] from Last 3 Months Insurance Care Teams Team MemberRelationshipSpecialtyStart DateEnd Date Andres Sanz MD [address] [facility] [place] [phone] PCP - [facility]Fort [facility]ally Medicine10/08/24
--- OUTSIDE RECORDS SUMMARY | 2025-08-02 08:59 | XMS_ITS | Clinical Summary ---
Author Organization [facility]ASHT[facility] Address [address] [place] [address] Care Team Providers Care Household Chores Name Role Phone Andres Sanz MD Primary Care Provider [phone] Allergies Active AllergyReactionsCriticalityNoted DateCommentsNot Able To Determine 07/18/2022 Anesthesia causes nausea PenicillinsHives,Itching,EjpxigzaOxim46/24/2013 Medications MedicationSigDispense QuantityRefillsLast FilledStart DateEnd DateStatus levothyroxine [...] tablet 08/01/2022ctive Active Problems ProblemNoted DateDiagnosed DateParaesophageal ohgycw2707/31/2022GERD (gastroesophageal reflux disease)2Obesity (BMI 30.0-34.9)04/20/2022 Family History Medical HistoryRelationNameCommentsLung CancerFatherNormanColorectal Cancer Maternal Great GrandmotherHypertensionMotherJoyceLipid DisorderMotherJoyce AneurysmNeg HxDiabetesNeg HxHeart FailureNeg HxStrokeNeg HxRelationNameStatus CommentsFatherNormanDeceasedMaternal Great GrandmotherAliveMotherJoyceAlive Social History Tobacco UseTypesPacks/DayYears UsedDateSmoking Tobacco: QycnprNmuxlunbdy424 09/30/1979 - 2015Smokeless Tobacco: Never Tobacco Cessation:Counseling Given: Not Answered Alcohol UseStandard Drinks/WeekCommentsYes4 (1 standard drink = 0.6 oz pure alcohol)Per weekCommentsNoSex and Gender InformationValueDate Recorded Sex Assigned at BirthNot on fileLegal SvhQijakz20/20/2022 10:37 AM EDTGender MpuvbmvoFqscql46/12/2022 9:55 AM EDTSexual FswtkzabdsiEhboupwf35/12/2022 9:55 AM EDT Last Filed Vital Signs Vital SignReadingTime TakenCommentsBlood Ygfbkmcp947/8408/31/2022 12:15 PM EST Zfhxv811108/31/2022 12:15 PM UKUVedbwxegjil07.7 ??C (98 ??F)08/31/2022 12:15 PM ESTRespiratory Xvzc8836 7:16 AM EDTOxygen Sugwjjyccx30%08/31/2022 12:15 PM ESTInhaled Oxygen Concentration--Ygqdye88.7 kg (189 lb)08/31/2022 12:15 PM FYMVzzzsf726.1 cm (5' 5 )07/31/2022 5:10 AM EDTBody Mass Index31.45109/30/2021 5:10 AM EDT Plan of Treatment Health MaintenanceDue DateLast DoneCommentsHEPATITIS C VIRUS VNMEYHHFV1966 TSH1966HIV SCREENING XZBUBZWBHJ69/17/1981CERVICAL CANCER SCREENING HZVDDFJWIY77/17/1987LIPID PFRZDUMAX66/17/2006COLORECTAL CANCER SCREENING JURSDUQCXV50/17/2011MAMMOGRAM SCREENING PRUKDVPVRP84 PNEUMOCOCCAL VACCINE SERIES (2 of 2 - PCV)TETANUS04/26/2020 04/26/2010COVID-19 VACCINE (1 - 2024- season)2025INFLUENZA VACCINE (#1) 51, 06/06/2021, 08/03/2020, Additional history existsHEP B FUARIPBAbzrxrxin87/09/1998, 12/16/1997, 11/08/1997PNEUMOCOCCAL VACCINE SERIES Otfwxfjratcy47/18/2000TDAP (ADULT)Mkkylzziu93/28/2010ZOSTER (SHINGLES) VACCINE Rwgrznpsz67/14/2022, 08/01/2021 Insurance Advance Directives For more information, please contact: [phone] (7:30 AM - 6PM [facility], Saturday-Saturday) * Full Code (Latest Code Status on File) Date ActivatedDate NfeftxeszjpIjseuahp87/1/2022 5:22 AM Care Teams Team MemberRelationshipSpecialtyStart DateEnd Date Andres Sanz MD [address] [place] [address] PCP - GeneralFamily Medicine02/16/22
--- OUTSIDE RECORDS SUMMARY | 2025-08-02 08:59 | XMS_ITS | Clinical Summary ---
Author Organization [facility] Address [id number] [address] [place] [address] Care Team Providers Care Wolf Hunter Name Role Phone Andres Sanz MD Primary Care Provider [phone] Allergies Active AllergyReactionsCriticalityNoted RwmmDkhbxddcTsjtkylnxyBpblet78/10/2014 PenicillinsHives,Itching,Rash,Swelling,Other (See Comments)High05/28/1985 Medications MedicationSigDispense QuantityRefillsLast FilledStart [...] Units total) by mouth in the morning.Active tpgmycpn-wfwm-ZG-calcium &mins (THERAGRAN-M) 9 mg iron-400 mcg tablet Take 1 tablet by mouth in the morning.Active calcium carbonate (TUMS) 200 mg elemental (500 mg) chewable tablet Chew 1 tablet (200 mg total) and swallow in the morning.Active Active Problems ProblemNoted DateDiagnosed DateAbnormal EKG07072Abdtawven24/11/2024 Social History Tobacco UseTypesPacks/DayYears UsedDateSmoking Tobacco: FormerSmokeless [...] times a week02/12/2022How often do you attend druze or yazidism services?Never2Do you belong to any clubs or organizations such as druze groups, unions, fra3dplusme or athletic groups, or school groups?Yes02/12/2022How often [...] and heating?Not hard at all 02/04/2023HQ-2AnswerDate RecordedTotal Lzhyi773[facility] [place] of Occupational Health - Occupational Stress QuestionnaireAnswerDate [...] part of a household?No02/04/2023hildcareAnswerDate RecordedDo problems getting child health associate make it difficult for you to work [...] grade02/12/2022CommentsUnknownSex and Gender InformationValueDate RecordedSex Assigned at VzounRtosmo47/16/2022 10:41 AM EDTLegal SexFemale 01/10/2021 11:41 AM EDTGender ZgikfvcjZjtpdh45/16/2022 10:41 AM EDTSexual NfoxfzrctydDxiylcwa88/16/2022 10:41 AM EDT Last Filed Vital Signs Vital SignReadingTime TakenCommentsBlood Pktnsukc958/8004 2:06 PM EDT Bunhq7830/11/2024 2:06 PM BWMAoekrvecfko37.4 ??C (97.6 ??F)03/11/2023 9:09 AM EDTRespiratory Urur915102/14/2022 10:53 AM EDTOxygen Orshtekayi16%01/09/2024 2:06 PM EDTInhaled Oxygen Concentration--Qxkeom23.8 kg (165 lb)01/09/2024 2:06 PM EDT Oqqlwt544.1 cm (5' 5 )01/09/2024 2:06 PM EDTBody Mass Index27.46001/09/2024 2:06 PM EDT Plan of Treatment Health MaintenanceDue DateLast DoneCommentsDTaP,Tdap and Td Vaccines (2 - Td or Tdap)Depression Fzfnaawti67/dult BMI Rwdaqxsfx65/07/2024Tobacco Mmhdwbgvp66/07/2024Influenza Fvfpgls51/, 06/06/2021, 08/03/2020, Additional history exists Pap SmearZoster (Shingles) PjaqlaqFasbjpljy16/14/2022, 08/01/2021 Medical Devices Not on file Insurance * Guarantor: AALIYAH NEAL EVSDAccount TypeRelation to PatientDate of BirthPhoneBilling AddressCorporateEmployer [address] [place] [phone] Advance Directives TypeDate RecordedPatient RepresentativeExplanationDurable Power of Mobile Marketing Manager 03/24/2024 8:58 AM Care Teams Team MemberRelationshipSpecialtyStart DateEnd Date Andres Sanz MD PCP - GeneralFamily Medicine01/10/21
--- OUTSIDE RECORDS SUMMARY | 2025-08-02 08:59 | XMS_ITS | Encounter Summary ---
Author Organization [facility] Address [address] [place] [address] Care Team Providers Care Mower Mechanic Name Role Phone Andres Sanz MD Primary Care Provider [phone] Encounter Details DateTypeDepartmentCare Team (Latest Contact Info)Clbdpqkmdok14/21/2025Travel Social History Tobacco UseTypesPacks/DayYears UsedDateSmoking Tobacco: FormerCigarettesQuit: [...] relatives?Twice a week09/30/2023How often do you attend spiritism or synagogue services?Never09/30/2023o you belong to any clubs or organizations such as spiritism groups, unions, fraternal or athletic groups, or [...] at all 09/30/2023HQ-2AnswerDate RecordedPatient Health Questionnaire-2 Score0 10/07/2023[facility] [place] of Occupational Health - Occupational Stress QuestionnaireAnswerDate [...] steady place to sleep or slept in chesterelter (including now)?No09/30/2023CommentsNoSex and Gender InformationValueDate RecordedSex Assigned at NpdqaNyppsh80/29/2023 9:37 AM EDTLegal ErvKnxjrq17/15/2023 11:23 PM EDTGender McaahcluGdntbq40/29/2023 9:37 AM EDTSexual JkhjodcyqmdYbytumyt34/29/2023 9:37 AM EDTdocumented as of this encounter Plan of Treatment DateTypeDepartmentCare Team (Latest Contact Info)Vjfvztdvtlf11/02/2026 9:00 AM ESTProcedure Visit [facility] CUMMINGS [address] [address] Fe Samuel PA [address] [place], [place] [id number] documented as of this encounter Visit Diagnoses Not on filedocumented in this encounter Care Teams Team MemberRelationshipSpecialtyStart DateEnd Date Andres Sanz MD [address] [place] [address] PCP - GeneralFamily Medicine10/08/24documented as of this encounter
--- OUTSIDE RECORDS SUMMARY | 2025-08-02 08:59 | XMS_ITS | Encounter Summary ---
Author Organization [facility] Address [address] [place] [address] Care Team Providers Care Food Service Name Role Phone Andres Sanz MD Primary Care Provider [phone] Andres Sanz MD Primary Care Provider [phone] Encounter Details DateTypeDepartmentCare Team (Latest Contact Info)Zgdraadtfgm55/20/2024Clinisync Result Encounter [facility] External Department Unsolicited Provider, [...] relatives?Twice a week09/30/2023How often do you attend scientologist or anabaptist services?Never09/30/2023o you belong to any clubs or organizations such as scientologist groups, unions, fraternal or athletic groups, or [...] at all 09/30/2023HQ-2AnswerDate RecordedPatient Health Questionnaire-2 Score0 10/07/2023[facility] [place] of Occupational Health - Occupational Stress QuestionnaireAnswerDate [...] now)?No09/30/2023CommentsNoSex and Gender InformationValueDate RecordedSex Assigned at BvygkRaiukb78/29/2023 9:37 AM EDTLegal CpkFaeyka89/15/2023 11:23 PM EDTGender TzfqoqzkUbaxqs01/29/2023 9:37 AM EDTSexual IztzxwphfaqCkdvcpvu82/29/2023 9:37 AM EDTdocumented as of this encounter Plan of Treatment DateTypeDepartmentCare Team (Latest Contact Info)Uhsowiwgzxp74/02/2026 9:00 AM ESTProcedure Visit [facility] Jonathan CUMMINGS [address] [place] [address] Fe Samuel PA [address] [address] documented as of this encounter Procedures Procedure NamePriorityDate/TimeAssociated DiagnosisCommentsMM TOMOSYNTHESIS SCREENING BI03/19/2024 4:08 PM EDT documented in this encounter Results * MM TOMOSYNTHESIS SCREENING BI (03/19/2024 4:08 PM EDT)Anatomical Region LateralityModalityOtherSpecimen (Source)Anatomical Location / Laterality Collection Method / VolumeCollection TimeReceived Time03/19/2024 4:08 PM EDT Narrative 03/19/2024 4:08 PM EDT [facility] ?[address] ? [place] [address] ? Mammography Report ? Signed ? Patient: PAM,TIANA K ?MR#: [id number] ?? : 1965 ?Acct:[id number] ?? Age/Sex: 59 / F ?ADM Date: 03/19/24 ?? Loc: MAMMO ? Attending Dr: Jamey Sanches D.O. ? Ordering Physician: Jamey Sanches D.O. ?Results: ? Date of Service: 03/19/24 ?Follow Up: ? Procedure(s): MM tomosynthesis screening BI ?? Accession Number(s): [id number] ? cc: Jamey Sanches D.O.; Andres Sanz M.D. ? Patient Name: ? TIANA PAM ? MR#: [id number] ? : 1965 ? Exam Date: 03/19/2024 [...] at age 58. ? LOCATION: ? [facility] ? BREAST COMPOSITION: ? The breasts are [...] 1608 ? DD/ 1608 ? TD/TT: ? Assistant Field Hockey Coach: Procedure Note Radiology, Radiologist, MD - 03/19/2024 [place] [address] Mammography Report Signed Patient: TIANA OROZCO KMR#: [id number] : 1965Acct:[id number] Age/Sex: 59 / FADM Date: 03/19/24 Loc: MAMMO Attending Dr: Jamey Sanches D.O. Ordering Physician: Jamey Sanches D.O.Results: Date of Service: 03/19/24Follow Up: Procedure(s): MM tomosynthesis screening BI Accession Number(s): [id number] cc: Jamey Sanches D.O.; Andres Sanz M.D. Patient Name: TIANA OROZCO MR#: [id number] : 1965 Exam Date: 03/19/2024 Ordering Doctor: DR Jamey Sanches . RADIOLOGY REPORT PROCEDURE: MM TOMOSYNTHESIS SCREENING BI COMPARISON: MM TOMOSYNTHESIS SCREENING BI, 03/11/2023. MG MAMM PSPMGK7I PO CAD, 03/02/2022. MG MAMM SCREEN 3D PO CAD, 03/01/2021. MAMMO BILSCREEN, 12/27/2004. INDICATIONS: Screening for malignant neoplasm of breast Calculator Name [employer] Breast Cancer Risk Assessment Tool 5 Year Breast Cancer Risk 1.10% Lifetime Breast Cancer Risk 6.10% Personal Breast Cancer No Personal Ovarian Cancer No Treatments None Family Cancers Father with lung cancer at age 57. LOCATION: [facility] BREAST COMPOSITION: The breasts are heterogeneously dense,which [...] M.D. Signed By:03/19/24 1608 DD/ 1608 TD/TT: Assistant Field Hockey Coach: Authorizing ProviderResult TypeResult StatusGeneric External Data Provider [facility] IMAGINGFinal Result documented in this encounter Visit Diagnoses Not on filedocumented in this encounter Care Teams Team MemberRelationshipSpecialtyStart DateEnd Date Andres Sanz MD PCP - General8///05/24 Andres Sanz MD [address] [place] [address] [facility] - [facility] Medicine10/08/24documented as of this encounter
--- OUTSIDE RECORDS SUMMARY | 2025-08-02 08:59 | XMS_ITS | Encounter Summary ---
Author Organization [facility] Address [address] [place] [address] Care Team Providers Care Visual Merchandising Assistant Name Role Phone Andres Sanz MD Primary Care Provider [phone] Encounter Details DateTypeDepartmentCare Team (Latest Contact Info)Mgqnkvouzij26/28/2025amboo flowsheet PABLITO CUMMINGS [address] [address] Fe Samuel PA [address] [place], [place] [address] Social History Tobacco UseTypesPacks/DayYears UsedDateSmoking Tobacco: FormerCigarettesQuit: [...] relatives?Twice a week09/30/2023How often do you attend religion or mu-ism services?Never09/30/2023o you belong to any clubs or organizations such as religion groups, unions, fraternal or athletic groups, or [...] RecordedPatient Health Questionnaire-2 Score0 10/07/2023Fin[facility] [place] of Occupational Health - Occupational Stress QuestionnaireAnswerDate [...] now)?No09/30/2023CommentsNoSex and Gender InformationValueDate RecordedSex Assigned at QzqmaIxdite45/29/2023 9:37 AM EDTLegal ObkLsmvqt00/15/2023 11:23 PM EDTGender QcoehnmfKqhnms15/29/2023 9:37 AM EDTSexual NeylvxgsdreMgbvdwbu00/29/2023 9:37 AM EDTdocumented as of this encounter Plan of Treatment DateTypeDepartmentCare Team (Latest Contact Info)Mihlbmobnxb62/02/2026 9:00 AM ESTProcedure Visit [facility] Jonathan CUMMINGS [address] [place] [address] Fe Samuel PA [address] [place], [place] [id number] documented as of this encounter Visit Diagnoses Not on filedocumented in this encounter Care Teams Team MemberRelationshipSpecialtyStart DateEnd Date Andres Sanz MD [address] [place] [address] PCP - GeneralFamily Medicine10/08/24documented as of this encounter
--- OUTSIDE RECORDS SUMMARY | 2025-08-02 08:59 | XMS_ITS | Encounter Summary ---
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 Name Role Phone Andres Sanz MD Primary Care Provider [phone] Encounter Details DateTypeDepartmentCare Team (Latest Contact Info)Fbwsijuzyur74/28/2025linisync Result Encounter [facility] External Department Unsolicited Fe Samuel PA [address] [place] [address] Dr [place], [facility] Social History Tobacco UseTypesPacks/DayYears UsedDateSmoking Tobacco: FormerCigarettesQuit: [...] week09/30/2023How often do you attend scientologist or lutheran services?Never09/30/2023o you belong to any clubs or [...] RecordedPatient Health Questionnaire-2 Score0 10/07/2023Fin[facility] [place] of Occupational Health - Occupational Stress QuestionnaireAnswerDate [...] didn't have money to get more.Never true 4PRAPARE - TransportationAnswerDate RecordedIn the past 12 months, [...] now)?No4CommentsNoSex and Gender InformationValueDate RecordedSex Assigned at BbkncQvkrbb30/29/2023 9:37 AM EDTLegal PptMeddov53/15/2023 11:23 PM EDTGender QfsiygypCxkjyg42/29/2023 9:37 AM EDTSexual NqndlwydnxzPigldgxo82/29/2023 9:37 AM EDTdocumented as of this encounter Plan of Treatment DateTypeDepartmentCare Team (Latest Contact Info)Ocxulhbsvac93/02/2026 9:00 AM ESTProcedure Visit [facility] Jonathan CUMMINGS [address] [place] [phone] Fe Samuel PA [address] [place] [address] documented as of this encounter Procedures Procedure NamePriorityDate/TimeAssociated DiagnosisCommentsIGP,APTIMA HPV,AGE OUOGNsojkwr78/28/2025 3:00 PM EDT documented in this encounter Results * IGP,APTIMA HPV,AGE GDLN (07/27/2025 3:00 PM EDT)ComponentValueRef RangeTest MethodAnalysis TimePerformed AtPathologist SignatureAGE GDLN ACOG TESTINGNote. TBHComment: ?? TESTS ? RESULT ??FLAG ??UNITS ?REF RANGE ??LAB ?? Clinician Provided Cytology Information ?? Source.............Vagina ?? No. of containers..01 ThinPrep Vial Age Algo ACOG Fartun... ??30-65 ? 01 ?FLAG LEGEND: ?L-Low Normal,H-High Normal,LL-Alert Low,HH-Alert High <-Panic Low,>-Panic High,A-Abnormal,AA-Critical Abnormal Performed at: 01 =G ?[facility] [place] ?? [address] [place], [place] ??[phone] ?? Char Catalan MD, IGP, APTIMA HPV, RFX 16/18,45Note.TBHComment: ?? TESTS ? RESULT ??FLAG ??UNITS ?REF RANGE ??LAB DIAGNOSIS: ?02 ?? NEGATIVE FOR INTRAEPITHELIAL LESION OR MALIGNANCY. Specimen adequacy: ?02 ?? Satisfactory for evaluation. Performed by: ? 02 ?? Kaylee Whitaker [employer]uddler [employer] (ASCP) . ? 02 Note: ? Note [...] pap test was interpreted ?? using the CaseMetrix(R) Genius(TM) Cervical Algorithm whole ?? slide imaging system. HPV Genotype Reflex ?? Note ?02 ?? Criteria not met, HPV Genotype not performed. ?FLAG LEGEND: ?L-Low Normal,H-High Normal,LL-Alert Low,HH-Alert High <-Panic Low,>-Panic High,A-Abnormal,AA-Critical Abnormal Performed at: 02 WB ?[facility] [place] ?? [address] [place], [place] ??[phone] ?? Char Catalan MD, HPV APTIMANegativeNegativeTBHComment: This nucleic acid amplification test detects fourteen high- risk HPV types (16,18,31,33,35,39,45,51,52,56,58,59,66,68) without differentiation. Performed at: ??=G - [facility] [address] ??[id number] Pharmacy Consultant: Char Catalan MD, Phone: ??[phone] Performed at: ??WB - [facility] [address] ??[id number] Pharmacy Consultant: Char Catalan MD, Phone: ??[phone] Specimen (Source)Anatomical Location / LateralityCollection Method / Volume Collection TimeReceived Time07/27/2025 3:00 PM EDT1 8:32 PM EDT Narrative [facility] - 07/30/2025 5:08 PM EDT SPATULA-ALONE VAGINA Authorizing ProviderResult TypeResult StatusAmy Lizzie NEWELL BLOOD ORDERABLES Final ResultPerforming OrganizationAddressCity/State/ZIP CodePhone Number [facility] TBH documented in this encounter Visit Diagnoses Not on filedocumented in this encounter Care Teams Team MemberRelationshipSpecialtyStart DateEnd Date Andres Snaz MD [address] [place] [address] PCP - GeneralFamily Medicine10/08/24documented as of this encounter
== END 2025-08-02 08:57 | disposition home or self-care (01) ==
LOC: RAD 08:56
PROVIDERS: PCP Family Medicine; Visit Provider Physician Assistant
DX: M85.88 Other specified disorders of bone density and structure, other site (principal); Z78.0 Asymptomatic menopausal state
CPT/HCPCS: 77080